=== PATIENT | female | born 1935 | race Caucasian/White ===

== ENCOUNTER 2018-09-27 16:12 | Inpatient (IN) | payer OTHER ==
[2018-09-27 17:29] LABS: Absolute Lymphocytes (CBC) 1.2 K/uL (0.7-4.9); Absolute Monocytes 1.1 K/uL (0.1-1.3); Absolute Neutrophil 8.8 K/uL (1.8-8.0); Basophils % 0.8 % (0-1.3); Eosinophils % 0.6 % (0-4.4); Hematocrit 47.1 % (36.0-45.0); Lymphocytes % 10.7 % (15.3-44.8); MPV 9.5 fL (7.6-11.3); Monocytes % 9.5 % (3.3-12.3); Protime INR 0.95; RBC Red Blood Cell Count 5.09 M/uL (3.86-4.86)
--- NOTE | 2018-09-27 17:44 | RAD REPORT ---
EXAM DESCRIPTION: CT - Thorax Wo Con - 09/27/2018 5:34 pm CLINICAL HISTORY: Chest pain status post fall COMPARISON: None TECHNIQUE: Computed axial tomography of the chest was obtained. Contrast was not requested. All CT scans are performed using dose optimization technique as appropriate and may include automated exposure control or mA/KV adjustment according to patient size. FINDINGS: The evaluation of mediastinum, keyanna and vessels is limited secondary to lack of IV contras t administration. A mediastinal hematoma is not seen. A pulmonary contusion is not noted A pleural effusion is not present. A pericardial effusion is not seen Coronary arterial calcifications IMPRESSION: No acute traumatic injury involving the chest
[2018-09-27 17:50] LABS: ALT/SGPT 23 U/L (12-78); AST/SGOT 11 U/L (15-37); Albumin 3.6 g/dL (3.4-5.0); Alkaline Phosphatase 99 U/L (45-117); BUN Blood Urea Nitrogen 14 mg/dL (7-18); Bicarbonate 28 mmol/L (21-32); Bilirubin Direct 0.2 mg/dL (0-0.2); Bilirubin Total 0.6 mg/dL (0.2-1.0); Glucose Level 150 mg/dL (74-106); Magnesium 2.1 mg/dL (1.8-2.4); NT PRO-BNP 345 pg/mL (<450); Potassium 3.3 mmol/L (3.5-5.1); Protein, Total 6.8 g/dL (6.4-8.2); Sodium Level 144 mmol/L (136-145); Troponin (Emerg Dept Use Only) < 0.02 ng/mL (0.0-0.045)
--- NOTE | 2018-09-27 18:15 | ER ---
Nurse's Notes [facility] Name: Kailee Mcgraw Age: 82 yrs Sex: Female : 1935 Arrival Date: 09/27/2018 Time: 16:16 Bed 16 Private MD: Diagnosis: Syncope and collapse Presentation: 09/27 16:26 Presenting complaint: Patient states: I was walking in the hallway of my house to the restroom last night when I passed out, waking up on the floor. Today my left side of ribs are hurting and Im also concerned because Im still dizzy, I do have a history of cardiac arrthymia with PVC's and is my cardiology. Transition of care: patient was not received from another setting of care. Onset of symptoms was September 27, 2018. Risk Assessment: Do you want to hurt yourself or someone else? Patient reports no desire to harm self or others. Initial Sepsis Screen: Does the patient meet any 2 criteria? No. Patient's initial sepsis screen is negative. Does the patient have a suspected source of infection? No. Patient's initial sepsis screen is negative. Care prior to arrival: None. 16:26 Acuity: IAN 2 sg 16:26 Method Of Arrival: Ambulatory sg Historical: - Allergies: 16:34 No Known Allergies; sg - Home Meds: 16:34 amlodipine oral once daily [Active]; levothyroxine 88 mcg tab 1 tab once daily sg [Active]; omeprazole 40 mg Oral cpDR 1 cap once daily [Active]; tramadol 50 mg Oral tab [Active]; metoclopramide HCl 10 mg Oral tab 1 tab once daily [Active]; lorazepam 1 mg Oral tab [Active]; atorvastatin 20 mg oral tab 1 tab once daily [Active]; pentoxifylline 400 mg oral TbER 1 tab 3 times per day [Active]; bisoprolol fumarate 5 mg oral tab 1 tab once daily [Active]; gabapentin 300 mg oral cap [Active]; Temazepam Oral [Active]; Novolin N Sub-Q [Active]; - PMHx: 16:34 Diabetes - IDDM; Hypertension; sg - Immunization history:: Adult Immunizations up to date. - Social history:: Smoking status: Patient/guardian denies using tobacco. - Ebola Screening: : Patient negative for fever greater than or equal to 101.5 degrees Fahrenheit, and additional compatible Ebola Virus Disease symptoms Patient denies exposure to infectious person Patient denies travel to an Ebola-affected area in the 21 days before illness onset No symptoms or risks identified at this time. Screenin:20 Abuse screen: Denies threats or abuse. Nutritional screening: No deficits noted. rb1 Tuberculosis screening: No symptoms or risk factors identified. Fall Risk Fall in past 12 months (25 points). No secondary diagnosis (0 pts). IV access (20 points). Ambulatory Aid- None/Bed Rest/Nurse Assist (0 pts). Gait- Normal/Bed Rest/Wheelchair (0 pts) Mental Status- Oriented to own ability (0 pts). Assessment: 16:20 General: Appears in no apparent distress. comfortable, Behavior is calm, cooperative. rb1 Pain: Complains of pain in left anterior ribs Pain radiates to left back Pain currently is 10 out of 10 on a pain scale. Pain began last night at 10:00 pm. Neuro: Level of Consciousness is awake, alert, obeys commands, Oriented to person, place, time, situation. Cardiovascular: Rhythm is sinus arrythmia. Respiratory: Airway is patent Respiratory effort is even, unlabored, Respiratory pattern is regular, symmetrical. GI: Reports nausea. : No signs and/or symptoms were reported regarding the genitourinary system. Derm: Skin is pink, warm \T\ dry. Reports wound on right upper arm due to the fall yesterday. Musculoskeletal: Range of motion: intact in all extremities. Injury Description: fall injury. 17:20 Reassessment: Patient appears in no apparent distress at this time. No changes from rb1 previously documented assessment. Family at bedside. Patient denies pain at this time. 18:20 Reassessment: Patient appears in no apparent distress at this time. Patient and/or rb1 family updated on plan of care and expected duration. Pain level reassessed. Patient is alert, oriented x 3, equal unlabored respirations, skin warm/dry/pink. Patient denies pain at this time. 19:10 Reassessment: Patient appears in no apparent distress at this time. Pt. went to CT. rb1 19:20 Reassessment: Patient appears in no apparent distress at this time. Patient and/or jb4 family updated on plan of care and expected duration. Pain level reassessed. Patient is alert, oriented x 3, equal unlabored respirations, skin warm/dry/pink. Family is at the bedside. Patient denies pain at this time. 19:40 Reassessment: Attempted to call report, instructed to wait for call back. jb4 Vital Signs: 16:34 BP 160 / 80; Pulse 92; Resp 17 S; Temp 97.2; Pulse Ox 100% on R/A; Pain 0/10; sg 17:30 BP 157 / 70; Pulse 89; Resp 18; Temp 97.8(O); Pulse Ox 98% on R/A; Pain 4/10; rb1 18:06 BP 156 / 59; Pulse 90; Resp 15; Temp 98.0(O); Pulse Ox 99% on R/A; mh5 18:30 BP 123 / 84; Pulse 95; Resp 16; Temp 98.9(O); Pulse Ox 99% on R/A; Pain 0/10; rb1 19:30 BP 182 / 73; Pulse 82; Resp 18; Temp 98.7(O); Pulse Ox 99% on R/A; jb4 20:00 BP 166 / 69; Pulse 91; Resp 16; Pulse Ox 97% on R/A; jb4 ED Course: 16:16 Patient arrived in ED. tw3 16:20 Patient has correct armband on for positive identification. Bed in low position. Call rb1 light in reach. Side rails up X 1. alarm security or surveillance monitor on. Pulse ox on. NIBP on. 16:28 Triage completed. sg 16:28 Arm band placed on. sg 16:31 Israel Argueta MD is Attending Physician. gs 16:45 Inserted saline lock: 22 gauge in left antecubital area, using aseptic technique. Blood rb1 collected. 16:49 Mayra Vale, RN is Primary Nurse. rb1 17:31 CT completed. Patient tolerated procedure well. Patient moved back from CT. bq 17:34 CT Chest Wo Con In Process Unspecified. EDMS 18:13 Gayatri Kennedy MD is Hospitalizing Provider. gs 19:[address] eh 19:14 CT completed. Patient tolerated procedure well. Patient moved back from CT. mw3 19:19 Head Brain Wo Cont In Process Unspecified. EDMS 20:11 No provider procedures requiring assistance completed. Patient admitted, IV remains in jb4 place. Administered Medications: No medications were administered Outcome: 18:14 Decision to Hospitalize by Provider. 20:11 Admitted to Tele accompanied by tech, via wheelchair, room 403, with chart, Report jb4 called to KARIME Moise 20:11 Condition: stable 20:11 Discharge instructions given to patient, family, Instructed on the need for admit, Demonstrated understanding of instructions, follow-up care. 20:16 Patient left the ED. jb4 Signatures: Dispatcher [employer] EDMS Alexsander De Dios, RN RN Harris Ibanez Betty Mayra Vale RN RN [facility] Marino Moe RN RN jb Mireya Hebert Lady Wang 3 Israel Argueta MD MD Anne Marie Carrion mw3 Corrections: (The following items were deleted from the chart) 18:09 18:06 Pulse 90bpm; Resp 15bpm; Pulse Ox 99% RA; Temp 98.0F Oral; 5 [facility] 20:11 19:40 BP 166 / 69; Pulse 91bpm; Resp 16bpm; Pulse Ox 97% RA; jb4 jb4
--- NOTE | 2018-09-27 18:15 | EDPHYS ---
Physician Documentation [facility] Name: Kailee Mcgraw Age: 82 yrs Sex: Female : 1935 Arrival Date: 09/27/2018 Time: 16:16 Bed 16 Private MD: ED Physician Israel Argueta HPI: 09/27 18:05 This 82 yrs old Female presents to ER via Ambulatory with complaints of gs Syncope, Dizziness, Fall Injury. 18:05 The patient has experienced syncope, became unresponsive. Onset: The symptoms/episode gs began/occurred yesterday, last night. Duration: This was a single episode. Associated injury: Chest: contusion. Associated signs and symptoms: Pertinent negatives: abdominal pain, chest pain. Current symptoms: Currently, the patient is not experiencing any symptoms. The patient has not experienced similar symptoms in the past. Historical: - Allergies: 16:34 No Known Allergies; sg - Home Meds: 16:34 amlodipine oral once daily [Active]; levothyroxine 88 mcg tab 1 tab once daily sg [Active]; omeprazole 40 mg Oral cpDR 1 cap once daily [Active]; tramadol 50 mg Oral tab [Active]; metoclopramide HCl 10 mg Oral tab 1 tab once daily [Active]; lorazepam 1 mg Oral tab [Active]; atorvastatin 20 mg oral tab 1 tab once daily [Active]; pentoxifylline 400 mg oral TbER 1 tab 3 times per day [Active]; bisoprolol fumarate 5 mg oral tab 1 tab once daily [Active]; gabapentin 300 mg oral cap [Active]; Temazepam Oral [Active]; Novolin N Sub-Q [Active]; - PMHx: 16:34 Diabetes - IDDM; Hypertension; sg - Immunization history:: Adult Immunizations up to date. - Social history:: Smoking status: Patient/guardian denies using tobacco. - Ebola Screening: : Patient negative for fever greater than or equal to 101.5 degrees Fahrenheit, and additional compatible Ebola Virus Disease symptoms Patient denies exposure to infectious person Patient denies travel to an Ebola-affected area in the 21 days before illness onset No symptoms or risks identified at this time. ROS: 18:23 All other systems are negative. gs Exam: 18:23 Head/Face: Normocephalic, atraumatic. Eyes: Pupils equal round and reactive to light, gs extra-ocular motions intact. Lids and lashes normal. Conjunctiva and sclera are non-icteric and not injected. Cornea within normal limits. Periorbital areas with no swelling, redness, or edema. ENT: Nares patent. No nasal discharge, no septal abnormalities noted. Tympanic membranes are normal and external auditory canals are clear. Oropharynx with no redness, swelling, or masses, exudates, or evidence of obstruction, uvula midline. Mucous membranes moist. Neck: Trachea midline, no thyromegaly or masses palpated, and no cervical lymphadenopathy. Supple, full range of motion without nuchal rigidity, or vertebral point tenderness. No Meningismus. Cardiovascular: Regular rate and rhythm with a normal S1 and S2. No gallops, murmurs, or rubs. Normal PMI, no JVD. No pulse deficits. 18:23 Back: No spinal tenderness. No costovertebral tenderness. Full range of motion. MS/ Extremity: Pulses equal, no cyanosis. Neurovascular intact. Full, normal range of motion. Neuro: Awake and alert, GCS 15, oriented to person, place, time, and situation. Cranial nerves II-XII grossly intact. Motor strength 5/5 in all extremities. Sensory grossly intact. Cerebellar exam normal. Normal gait. 18:23 Chest/axilla: Inspection: normal, Palpation: tenderness, that is moderate, of the left lateral posterior chest, that totally reproduces the patient's complaints. 18:23 Skin: injury, avulsion(s), a very small of the right elbow. 18:23 ECG was reviewed by the Attending Physician. Vital Signs: 16:34 BP 160 / 80; Pulse 92; Resp 17 S; Temp 97.2; Pulse Ox 100% on R/A; Pain 0/10; sg 17:30 BP 157 / 70; Pulse 89; Resp 18; Temp 97.8(O); Pulse Ox 98% on R/A; Pain 4/10; rb1 18:06 BP 156 / 59; Pulse 90; Resp 15; Temp 98.0(O); Pulse Ox 99% on R/A; mh5 18:30 BP 123 / 84; Pulse 95; Resp 16; Temp 98.9(O); Pulse Ox 99% on R/A; Pain 0/10; rb1 19:30 BP 182 / 73; Pulse 82; Resp 18; Temp 98.7(O); Pulse Ox 99% on R/A; jb4 20:00 BP 166 / 69; Pulse 91; Resp 16; Pulse Ox 97% on R/A; jb4 MDM: 16:55 Patient medically screened. 18:23 Differential Diagnosis: cardiac arrhythmia, idiopathic syncope, vasovagal episode, rib gs fx. Data reviewed: vital signs, nurses notes, lab test result(s), EKG, radiologic studies. Response to treatment: There is no appreciated change of the patient's symptoms at this time. 09/27 16:56 Order name: Basic Metabolic Panel 09/27 16:56 Order name: CBC with Diff 09/27 16:56 Order name: LFT's 09/27 16:56 Order name: Magnesium 09/27 16:56 Order name: NT PRO-BNP 09/27 16:56 Order name: PT-INR; Complete Time: 17:57 09/27 16:56 Order name: Troponin (emerg Dept Use Only); Complete Time: 17:57 09/27 16:56 Order name: CT Chest Wo Con; Complete Time: 17:57 09/27 16:57 Order name: Basic Metabolic Panel; Complete Time: 17:57 EDCT 09/27 16:57 Order name: CBC with Automated Diff; Complete Time: 17:57 EDCT 09/27 16:57 Order name: Liver (Hepatic) Function; Complete Time: 17:57 EDCT 09/27 16:57 Order name: Magnesium; Complete Time: 17:57 EDCT 09/27 16:57 Order name: NT PRO-BNP; Complete Time: 17:57 EDCT 09/27 19:02 Order name: Head Brain Wo Cont EDCT 09/27 16:56 Order name: EKG; Complete Time: 16:57 09/27 16:56 Order name: Cardiac monitoring; Complete Time: 17:47 09/27 16:56 Order name: EKG - Nurse/Tech; Complete Time: 17:47 09/27 16:56 Order name: IV Saline Lock; Complete Time: 17:47 09/27 16:56 Order name: Labs collected and sent; Complete Time: 17:47 09/27 16:56 Order name: O2 Per Protocol; Complete Time: 17:47 09/27 16:56 Order name: O2 Sat Monitoring; Complete Time: 17:47 gs EC:23 Rate is 77 beats/min. Rhythm is regular. DE interval is normal. QRS interval is normal. QT interval is normal. T waves are Inverted. Clinical impression: NSR w/ Non-specific ST/T Changes. Interpreted by me. Administered Medications: No medications were administered Disposition: 09/27/18 18:14 Hospitalization ordered by Gayatri Kennedy for Observation. Preliminary diagnosis is Syncope and collapse. - Bed requested for Telemetry/MedSurg (observation). - Status is Observation. jb4 - Condition is Stable. - Problem is new. - Symptoms have improved. UTI on Admission? No Signatures: Dispatcher [employer] EDMS Alexsander De Dios RN KARIME Yessica Hartley RN KARIME Marino Moe RN RN jb4 Israel Argueta MD MD Corrections: (The following items were deleted from the chart) 19:25 18:14 Hospitalization Ordered by Gayatri Kennedy MD for Observation. Preliminary cg diagnosis is Syncope and collapse. Bed requested for Telemetry/MedSurg (observation). Status is Observation. Condition is Stable. Problem is new. Symptoms have improved. UTI on Admission? No. 20:16 19:25 09/27/2018 18:14 Hospitalization Ordered by Gayatri Kennedy MD for Observation. jb4 Preliminary diagnosis is Syncope and collapse. Bed requested for Telemetry/MedSurg (observation). Status is Observation. Condition is Stable. Problem is new. Symptoms have improved. UTI on Admission? No.
--- NOTE | 2018-09-27 19:43 | RAD REPORT ---
EXAM DESCRIPTION: CT - Head Brain Wo Cont - 09/27/2018 7:18 pm CLINICAL HISTORY: Syncope COMPARISON: None. TECHNIQUE: Computed axial tomography of the head was obtained. IV contrast was not requested. All CT scans are performed using dose optimization technique as appropriate and may include automated exposure control or mA/KV adjustment according to patient size. FINDINGS: An intracranial bleed is not seen . The ventricles are normal in caliber. No extra-axial fluid collection is noted. Fluid within the sinuses/ mastoids is not seen. IMPRESSION: No acute intracranial abnormality is seen. If patient's symptoms persist MRI of the bra in would be recommended.
[2018-09-27] MEDS: INSULIN -REGULAR HUMAN 50 UNIT/0.5 ML ML SQ SCH (21:00)
[2018-09-27 21:10] LABS: Troponin I < 0.02 ng/mL (0.0-0.045)
[2018-09-27] MEDS ORDERED: GLUCAGON 1 MG/VIAL IM PRN (22:29)
[2018-09-27] MEDS ORDERED: D50W 25 GM/50 ML SYRINGE IV PRN (22:29)
[2018-09-27] MEDS ORDERED: POTASSIUM CL SA 10 MEQ TAB PO ONE (22:35)
--- NOTE | 2018-09-27 22:42 | P.HP ---
Certification for Inpatient Patient admitted to: Observation Practitioner: I am a practitioner with admitting privileges, knowledge of patient current condition, hospital course, and medical plan of care. Services: Services provided to patient in accordance with Admission requirements found in Title 42 Section 412.3 of the Code of Federal Regulations Patient History Date of Service: 09/27/18 Reason for admission: s/p fall History of Present Illness: 82 y/o woman with pmhx of HTn,DM,Hypothyordism ,anxiety presented to ER s/p fall with loc ,pt fell and hit her chest ,denied head trauma but reported loss of consciosness for less than 1 min,denied Cp,shaking,SOB,palpitation,ringigng in the ear ,recent change in her meds ,recent viral infections.pt denied fever, change in urinary or bowel habits ,headache,visual changes .pt mentioned that she was having dizzy spells for the last few days which mostly occurs with movement and standing. Allergies No Known Allergies Allergy (Verified 09/27/18 22:14) - Past Medical/Surgical History Has patient received pneumonia vaccine in the past: Yes Diabetic: Yes -: HTN -: IDDM -: PAD -: Heart arrhythmias PVC -: Hysterectomy -: tonsillectomy -: appendectomy -: tendonitis -: back surgery - Family History Mother -: Hypertension Father History Unknown: Yes - Social History Smoking Status: Former smoker Alcohol use: No CD- Drugs: No Caffeine use: Yes Place of Residence: Home Review of Systems 10-point ROS is otherwise unremarkable Physical Examination - Vital Signs Temperature: 98.5 F Blood Pressure: 189/78 Pulse: 74 Respirations: 18 Pulse Ox (%): 97 - Physical Exam General: Alert, In no apparent distress, Oriented x3 HEENT: Atraumatic, Normocephalic, PERRLA Neck: JVD not distended Respiratory: Clear to auscultation bilaterally, Normal air movement Cardiovascular: No edema, Normal pulses, Regular rate/rhythm, Normal S1 S2 Gastrointestinal: Soft and benign, Non-distended Musculoskeletal: No clubbing, No swelling, No tenderness Integumentary: No rashes Neurological: Normal speech, Normal strength at 5/5 x4 extr, Sensation intact - Studies Laboratory Data (last 24 hrs) 09/27/18 16:45: PT 11.2, INR 0.95 09/27/18 16:45: WBC 11.3 H, Hgb 15.7 H, Hct 47.1 H, Plt Count 210 09/27/18 16:45: Sodium 144, Potassium 3.3 L, BUN 14, Creatinine 0.79, Glucose 150 H, Magnesium 2.1, Total Bilirubin 0.6, AST 11 L, ALT 23, Alkaline Phosphatase 99 Assessment and Plan - Plan assessment/plan: fall s/p syncope cerial ce and ekg head ct eeg echo cardiology consult check for orthostasis pt/ot mild leukocytosis no abx for now could stress induced leukocytosis continue to monitor hypokalemia replace lectrolytes HTN and DM continue home meds dvt ppx Discharge Plan: Home Plan to discharge in: 24 Hours - Advance Directives Does patient have a Living Will: No Does patient have a Durable POA for Healthcare: No
[2018-09-27] MEDS ORDERED: METOPROLOL TAR 25 MG TAB PO ONE (23:00)
[2018-09-28 05:15] LABS: Absolute Lymphocytes (CBC) 1.3 K/uL (0.7-4.9); Absolute Monocytes 0.8 K/uL (0.1-1.3); Absolute Neutrophil 5.3 K/uL (1.8-8.0); Basophils % 0.8 % (0-1.3); Eosinophils % 1.5 % (0-4.4); Hematocrit 41.2 % (36.0-45.0); Lymphocytes % 17.5 % (15.3-44.8); MPV 9.2 fL (7.6-11.3); Monocytes % 10.7 % (3.3-12.3); RBC Red Blood Cell Count 4.49 M/uL (3.86-4.86)
[2018-09-28] MEDS: PANTOPRAZOLE 40MG TABLET PO SCH (05:18)
[2018-09-28] MEDS: LEVOTHYROXINE SOD 0.088 MG TAB PO SCH (05:18)
[2018-09-28 05:38] LABS: Bilirubin Total 0.6 mg/dL (0.2-1.0); Potassium 3.9 mmol/L (3.5-5.1); Protein, Total 5.7 g/dL (6.4-8.2)
[2018-09-28 05:45] LABS: Urine Appearance CLEAR; Urine Bilirubin NEGATIVE (NEG); Urine Blood NEGATIVE (NEG); Urine Color YELLOW; Urine Glucose 3+ (NEG); Urine Protein NEGATIVE (NEG)
[2018-09-28 05:47] LABS: Urine Microscopic Reflex NO UMIC
[2018-09-28] MEDS ORDERED: METOPROLOL TAR 25 MG TAB PO SCH (06:00)
--- NOTE | 2018-09-28 06:19 | EKG ---
Test Date: 2018-09-27 Test Time: 22:48:05 Well Treatment Offsider: RT Beltran MEASUREMENT RESULTS: Intervals: Rate: 84 MS: 162 QRSD: 104 QT: 390 QTc: 460 Ponce: P: 76 MS: 162 QRS: -39 T: 93 INTERPRETIVE STATEMENTS: Sinus rhythm with premature supraventricular complexes Left axis deviation Left ventricular hypertrophy with repolarization abnormality Possible Lateral infarct, age undetermined Abnormal ECG Compared to ECG 11/22/2011 14:52:14 Atrial premature complex(es) now present Early repolarization now present Myocardial infarct finding still present Electronically Signed On 09-28-18 06:18:37 CDT by Pancho Andrews
--- NOTE | 2018-09-28 06:20 | EKG ---
Test Date: 2018-09-27 Test Time: 16:38:03 Job Service Specialist: MEASUREMENT RESULTS: Intervals: Rate: 77 MT: 182 QRSD: 82 QT: 356 QTc: 402 Taylor: P: -16 MT: 182 QRS: 100 T: -36 INTERPRETIVE STATEMENTS: Normal sinus rhythm with sinus arrhythmia Rightward axis Minimal voltage criteria for LVH, may be normal variant T wave abnormality, consider inferior ischemia Abnormal ECG Compared to ECG 11/22/2011 14:52:14 Right-axis deviation now present T-wave abnormality now present Possible ischemia now present Left-axis deviation no longer present Electronically Signed On 09-28-18 06:19:38 CDT by Pancho Andrews
[2018-09-28] MEDS: METOCLOPRAMIDE 5 MG TAB PO SCH ×4 (08:57→21:37)
[2018-09-28] MEDS: BENAZEPRIL 20 MG TAB PO SCH (08:57)
[2018-09-28] MEDS: INSULIN -REGULAR HUMAN 50 UNIT/0.5 ML ML SQ SCH ×5 (08:57→21:00)
[2018-09-28] MEDS: PENTOXIFYLLINE ER 400 MG TAB PO SCH ×3 (08:58→21:37)
[2018-09-28] MEDS: POTASS/SODIUM PHOSPHATE 1 PKT POWD.PACK PO SCH ×3 (08:58→13:08)
[2018-09-28] MEDS: ENOXAPARIN 40 MG/0.4 ML SQ SCH (08:59)
[2018-09-28] MEDS ORDERED: BISOPROLOL 5 MG TABLET PO SCH (09:00)
[2018-09-28] MEDS ORDERED: POTASSIUM CL SA 10 MEQ TAB PO ONE (09:00)
[2018-09-28] MEDS: NPH (HUMAN) 100 UNITS/ML INSULIN SQ SCH (10:34)
[2018-09-28] MEDS: AMLODIPINE 10 MG TAB PO SCH (10:35)
--- NOTE | 2018-09-28 11:22 | P.PN ---
Subjective Date of Service: 09/28/18 Chief Complaint: s/p fall Subjective: No new changes, Improving, Doing well Review of Systems 10-point ROS is otherwise unremarkable Physical Examination - Vital Signs Temperature: 98.0 F Blood Pressure: 179/80 Pulse: 66 Respirations: 16 Pulse Ox (%): 98 - Physical Exam General: Alert, In no apparent distress, Oriented x3 HEENT: Atraumatic, Normocephalic, PERRLA Neck: Supple, 2+ carotid pulse no bruit, JVD not distended Respiratory: Clear to auscultation bilaterally, Normal air movement Cardiovascular: No edema, Normal pulses, Regular rate/rhythm, Normal S1 S2 Gastrointestinal: Normal bowel sounds, Soft and benign, Non-distended Musculoskeletal: No clubbing, No swelling, No erythema, No tenderness Integumentary: No rashes Neurological: Normal speech, Normal strength at 5/5 x4 extr - Studies Laboratory Data (last 24 hrs) 09/27/18 16:45: PT 11.2, INR 0.95 09/27/18 16:45: WBC 11.3 H, Hgb 15.7 H, Hct 47.1 H, Plt Count 210 09/27/18 16:45: Sodium 144, Potassium 3.3 L, BUN 14, Creatinine 0.79, Glucose 150 H, Magnesium 2.1, Total Bilirubin 0.6, AST 11 L, ALT 23, Alkaline Phosphatase 99 Assessment And Plan - Plan assessment/plan: fall s/p syncope cerial ce and ekg head ct eeg echo cardiology consult check for orthostasis pt/ot mild leukocytosis no abx for now could stress induced leukocytosis continue to monitor hypokalemia replace lectrolytes HTN and DM continue home meds dvt ppx Discharge Plan: Home Plan to discharge in: 24 Hours
--- NOTE | 2018-09-28 16:05 | CON ---
Chief Complaint: Loss of consciousness. History Of Present Illness: For several days, perhaps longer, the patient has noted waves of some ki nd of spell coming over her. She would feel like she is going to faint, and then before she thinks i t is gone and she is fine, they have occurred mostly standing but also sitting. She does not feel an ything in her chest, but since she has been on telemetry, she has had several of these waves and its tachycardia; it seems to be narrow complex, the complexes identical or extremely similar to her nativ e QRS complex in the lead. 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 It goes about 170 beats per minute, typical that kind of the arrhythmia. In the past, we have known that she has PVCs. She takes Zebeta, but once a day, not slow release form or continu ous beta blockers. It is not really clear whether she has any fewer symptoms in a few hours after sh e takes a beta or not. She is known in the past to have a normal ejection fraction, normal stress te st, and she had PVCs, and they have been under fairly good control. She has never had myocardial inf arction or stroke. She had 1 episode of syncope, but was awake within a minute of when she felt, it was when she was shopping. She tried to lean over to keep from fainting, but it did not work. Physical Examination: Vital Signs: On physical exam, 5 feet 4 inches, 145 pounds. Appears to be her stated age. General: Alert, oriented, pleasant, not in distress. Carotids: No bruit. Lungs: Clear. Cardiac Exam: Normal. Abdomen: Soft. Extremities: Normal. Telemetry shows the arrhythmia, several episodes; one was 35 beats long. I imagine that if she had t his rhythm for 40 seconds or longer, then she would probably become very hypotensive, perhaps syncopa l if she is standing. So, I am going to change her beta-jenna regimen to see if we have any indica tion that there are fewer spells. If not, then I will try to arrange a transfer to [facility]. If we can make it so she has few spells, tolerates the medicine, we can let her go home and visi t the head custodian as an outpatient; because of a very rapid nature of the arrhythmia frequenc y of it, I would recommend she go through an ablation, but I suspect it would be a typical AV node mo dification, not prolonged pulmonary vein isolation procedure and something she could tolerate well. REINA/YADIRA Voice ID: [id number] Report ID: [id number]
[2018-09-28] MEDS: METOPROLOL XL 50 MG TAB PO SCH (17:41)
[2018-09-28] MEDS: ATORVASTATIN 20 MG TAB PO SCH (21:37)
[2018-09-29 06:14] LABS: Phosphorus 2.6 mg/dL (2.5-4.9); Potassium 4.7 mmol/L (3.5-5.1)
[2018-09-29] MEDS: PANTOPRAZOLE 40MG TABLET PO SCH (06:26)
[2018-09-29] MEDS: LEVOTHYROXINE SOD 0.088 MG TAB PO SCH (06:26)
[2018-09-29] MEDS: METOPROLOL XL 50 MG TAB PO SCH (06:26)
[2018-09-29] MEDS: INSULIN -REGULAR HUMAN 50 UNIT/0.5 ML ML SQ SCH ×4 (07:30→20:57)
[2018-09-29] MEDS: ENOXAPARIN 40 MG/0.4 ML SQ SCH (09:23)
[2018-09-29] MEDS: BENAZEPRIL 20 MG TAB PO SCH (09:24)
[2018-09-29] MEDS: PENTOXIFYLLINE ER 400 MG TAB PO SCH ×3 (09:24→20:56)
[2018-09-29] MEDS: AMLODIPINE 10 MG TAB PO SCH (09:24)
[2018-09-29] MEDS: METOCLOPRAMIDE 5 MG TAB PO SCH ×4 (09:24→20:58)
[2018-09-29] MEDS: NPH (HUMAN) 100 UNITS/ML INSULIN SQ SCH (09:25)
--- NOTE | 2018-09-29 10:16 | ECHO ---
HEIGHT: 5 ft 4 in WEIGHT: 145 lb 0 oz DATE OF STUDY: 09/29/[address]: Pancho Andrews MD 2-DIMENSIONAL: YES M.MODE: YES DOPPLER: YES COLOR FLOW: YES TDS: NO PORTABLE: NO DEFINITY: NO BUBBLE STUDY: NO DIAGNOSIS: SYNCOPE CARDIAC HISTORY: CATHERIZATION: NO SURGERY: NO PROSTHETIC VALVE: NO PACEMAKER: NO MEASUREMENTS (cm) DIASTOLIC (NORMALS) SYSTOLIC (NORMALS) IVSd 1.2 (0.6-1.2) LA Diam 3.0 (1.9-4.0) LVEF 53% LVIDd 3.7 (3.5-5.7) LVIDs 2.7 (2.0-3.5) %FS 26% LVPWd 1.2 (0.6-1.2) Ao Diam 2.5 (2.0-3.7) 2 DIMENSIONAL ASSESSMENT: RIGHT ATRIUM: NORMAL LEFT ATRIUM: NORMAL RIGHT VENTRICLE: NORMAL LEFT VENTRICLE: MILD LEFT VENTRICULAR HYPERTROPHY TRICUSPID VALVE: NORMAL MITRAL VALVE: NORMAL PULMONIC VALVE: NORMAL AORTIC VALVE: 3 LEAFLET, MILD SCLEROSIS PERICARDIAL EFFUSION: NONE AORTIC ROOT: NORMAL LEFT VENTRICULAR WALL MOTION: NORMAL DOPPLER/COLOR FLOW: MILD AORTIC, MITRAL AND TRICUSPID REGURGITATION. NO AORTIC STENOSIS. ESTIMATED RIGHT VENTRICULAR SYSTOLIC PRESSURE 36 mmHg. MILD PULMONARY HYPERTENSION. COMMENTS: NORMAL LEFT VENTRICULAR EJECTION FRACTION. LEFT VENTRICULAR HYPERTROPHY. AORTIC SCLEROSIS. MILD AORTIC, MITRAL AND TRICUSPID REGURGITATION. MILD PULMONARY HYPERTENSION. TECHNOLOGIST: Sylvie JIMENEZ
[2018-09-29] MEDS ORDERED: AMLODIPINE 5 MG TAB PO ONE (10:24)
[2018-09-29] MEDS ORDERED: HYDRALAZINE HCL 20 MG/ML VIAL IV ONE (11:44)
[2018-09-29] MEDS ORDERED: MAGNESIUM SULFATE 1 gm IVPB 1 GM/100 ML BAG IV ONE (12:06)
[2018-09-29 12:42] LABS: Magnesium 2.1 mg/dL (1.8-2.4)
--- NOTE | 2018-09-29 12:50 | EKG ---
Test Date: 2018-09-29 Test Time: 08:39:15 Study Director: JONNATHAN MEASUREMENT RESULTS: Intervals: Rate: 97 NV: 172 QRSD: 96 QT: 352 QTc: 447 [place]: P: 71 NV: 172 QRS: -41 T: 91 INTERPRETIVE STATEMENTS: Normal sinus rhythm Left axis deviation Left ventricular hypertrophy with repolarization abnormality Inferior infarct, age undetermined Anterior infarct, age undetermined Abnormal ECG Compared to ECG 09/27/2018 22:48:05 Atrial premature complex(es) no longer present Myocardial infarct finding still present Electronically Signed On 09-29-18 12:50:07 CDT by Pancho Andrews
[2018-09-29] MEDS ORDERED: ADENOSINE 6 MG/ 2ML VIAL IV ONE ×2 (13:06→13:11)
[2018-09-29] MEDS ORDERED: NA CHLORIDE 0.9% 1,000 ML ONE (13:07)
--- NOTE | 2018-09-29 13:10 | PN ---
Ms. Mcgraw continues to have syncopal spells with what I initially thought was SVTs. Sometimes the Q RS is wider, but in any event, she needs a study by an septic tank cleaner. Dr. Burks has agreed to take her in transfer. Hopefully that will happen today. REINA/YADIRA Voice ID: [id number] Report ID: [id number]
[2018-09-29] MEDS ORDERED: dilTIAZem HCl 25 MG/5 ML VIAL IV ONE (13:15)
[2018-09-29] MEDS ORDERED: DILTIAZEM HCL 60 MG TAB ONE (13:19)
--- NOTE | 2018-09-29 15:10 | EKG ---
Test Date: 2018-09-29 Test Time: 13:03:57 Supervisor Weaving: JONNATHAN MEASUREMENT RESULTS: Intervals: Rate: 100 WV: 212 QRSD: 108 QT: 330 QTc: 425 [place]: P: WV: 212 QRS: -42 T: 134 INTERPRETIVE STATEMENTS: Sinus rhythm with 1st degree AV block with premature supraventricular complexes Left bundle branch block Abnormal ECG Compared to ECG 09/29/2018 13:01:11 Atrial premature complex(es) now present First degree AV block now present Supraventricular tachycardia no longer present Electronically Signed On 09-29-18 15:10:02 CDT by Pancho Andrews
--- NOTE | 2018-09-29 15:11 | EKG ---
Test Date: 2018-09-29 Test Time: 13:01:11 Rental Sales Associate: JONNATHAN MEASUREMENT RESULTS: Intervals: Rate: 196 MN: QRSD: 112 QT: 236 QTc: 426 [place]: P: MN: QRS: -57 T: 155 INTERPRETIVE STATEMENTS: Supraventricular tachycardia Left axis deviation Left bundle branch block Abnormal ECG Compared to ECG 09/29/2018 08:39:15 Left bundle-branch block now present Electronically Signed On 09-29-18 15:10:34 CDT by Pancho Andrews
--- NOTE | 2018-09-29 15:58 | PN ---
Date of Progress Note: 09/29/2018 The patient states she has continued to have a few episodes, although nothing as severe as when she w as brought in to the hospital and in fact, she has had increased runs and increased frequency. 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 HR/MODL Voice ID: [id number] Report ID: [id number]
[2018-09-29 16:12] VITALS: O2SAT 100
[2018-09-29] MEDS: DILTIAZEM HCL 60 MG TAB PO SCH (17:19)
[2018-09-29] MEDS: ATORVASTATIN 20 MG TAB PO SCH (20:56)
[2018-09-30] MEDS: DILTIAZEM HCL 60 MG TAB PO SCH ×4 (00:15→16:56)
[2018-09-30 05:44] LABS: Magnesium 2.4 mg/dL (1.8-2.4); Phosphorus 2.5 mg/dL (2.5-4.9); Potassium 4.2 mmol/L (3.5-5.1)
[2018-09-30 06:07] VITALS: BMI 25.6
[2018-09-30] MEDS: LEVOTHYROXINE SOD 0.088 MG TAB PO SCH (06:18)
[2018-09-30] MEDS: PANTOPRAZOLE 40MG TABLET PO SCH (06:18)
[2018-09-30] MEDS: INSULIN -REGULAR HUMAN 50 UNIT/0.5 ML ML SQ SCH ×3 (08:09→16:30)
[2018-09-30] MEDS: NPH (HUMAN) 100 UNITS/ML INSULIN SQ SCH (08:09)
[2018-09-30] MEDS: ENOXAPARIN 40 MG/0.4 ML SQ SCH (08:12)
[2018-09-30] MEDS: HYDRALAZINE HCL 25 MG TABLET PO SCH ×2 (08:12→15:00)
[2018-09-30] MEDS: METOCLOPRAMIDE 5 MG TAB PO SCH ×3 (08:16→16:56)
[2018-09-30] MEDS: BENAZEPRIL 20 MG TAB PO SCH (09:27)
[2018-09-30] MEDS: PENTOXIFYLLINE ER 400 MG TAB PO SCH ×2 (09:27→14:49)
--- NOTE | 2018-09-30 15:32 | PN ---
Date of Progress Note: 09/30/2018 The patient has had 1 run today earlier this morning. Otherwise, she has been quite stable. Still a waiting her bed, if in fact the transfer is accomplished later today, I think we can maintain her in the ICU on a present regimen IV and p.o. medications. If she is stable and not being able of transfe r, the possibility of moving her to the floor may open up her transfer bed in [place] and not requiri ng ICU care. The arrhythmia is rather complex including left bundle branch block, SVTs and QRS compl ex problems. Continue to be managed on the present regimen. Alert and seems to be tolerating situat ion at this time quite well. HR/MODL Voice ID: [id number] Report ID: [id number]
[2018-09-30] MEDS ORDERED: METOPROLOL TARTRATE 5 MG/5 ML INJ IV PRN (17:43)
[2018-09-30 18:26] VITALS: TEMP 97.8
[2018-09-30 20:21] VITALS: BP 124/64
== END 2018-09-30 20:20 | disposition short-term general hospital (02) | DRG 310 ==
LOC: ER 16:12 → 4TH 20:08 → 3RD-ICU 09-29 12:32 → OBSVTOIN 09-29 13:58
PROVIDERS: ADMIT Internal Medicine; ATTEND Internal Medicine
DX: I47.1 Supraventricular tachycardia (principal); I44.7 Left bundle-branch block, unspecified; E11.9 Type 2 diabetes mellitus without complications; E87.6 Hypokalemia; I73.9 Peripheral vascular disease, unspecified; Z87.891 Personal history of nicotine dependence
CPT/HCPCS: 36415; 70450; 71250; 80048; 80053; 80076; 81003; 82962; 83735; 83880; 84100; 84439; 84443; 84484; 85025; 85610; 93005; 93306; 96365; 96367; 99285; G0378; J0153; J0360; J1650; J3475; J7030

== ENCOUNTER 2020-01-28 21:03 | Inpatient (IN) | payer OTHER ==
--- OUTSIDE RECORDS SUMMARY | 2020-01-28 21:04 | XMS REPORT | Clinical Summary ---
:1935 Author Organization [facility] Address [address] [place] [address] Care Team Providers Name Role Phone Asked, No Pcp Primary Care Provider Unavailable Allergies No Known Allergies Medications Medication Sig Dispensed Refills Start Date End Date Status amlodipine-benazepril Take 1 capsule by 0 Active (LOTREL) 10-20 mg per mouth daily. capsule LORAZepam (ATIVAN) 1 MG Take 1 mg by 0 Active tablet mouth every 6 (six) hours as needed for anxiety. atorvastatin (LIPITOR) Take 20 mg by 0 Active 20 MG tablet mouth daily. Default OP ins insulin NPH (HumuLIN-N) Inject 29 Units 0 Active 100 unit/mL injection under the skin daily before breakfast. pentoxifylline Take 400 mg by 0 Active (TRENTal) 400 mg CR mouth 3 (three) tablet times a day with meals. omeprazole (PriLOSEC) Take 40 mg by 0 Active 40 MG capsule mouth daily. metoclopramide (REGLAN) Take 10 mg by 0 Active 10 MG tablet mouth 4 (four) times a day. And before bedtime traMADol (ULTRAM) 50 mg Take 50 mg by 0 Active tablet mouth daily as needed for moderate pain. levothyroxine Take 88 mcg by 0 A ctive (SYNTHROID, LEVOXYL) 88 mouth daily. mcg tablet Active Problems Problem Noted Date SVT (supraventricular tachycardia) 10/03/2018 Arrhythmia 09/30/2018 Encounters Date Type Specialty Care Team Description 01/25/2020 Telephone Cardiology Noelle Mack MA Appoint ment 01/22/2020 Telephone Cardiology Noelle Mack MA Appoint ment 08/05/2019 Travel 08/04/2019 Telephone Cardiology Noelle Mack MA Appoint ment (made several attempts to tarik ch patient regarding her a ppt.) 08/03/2019 Telephone Cardiology Noelle Mack MA Appoint ment after 01/27/2019 Social History Tobacco Use Types Packs/Day Years Used Date Never Smoker Smokeless Tobacco: Never Used Alcohol Use Drinks/Week oz/Week Comments Not Currently Sex Assigned at Date Recorded Not on file Job Start Date Occupation Industry Not on file Not on file Not on file Travel History Travel Start Travel End No recent travel history available. Last Filed Vital Signs Not on file Plan of Treatment Date Type Specialty Care Team Description 05/31/2020 Office Visit Cardiology Jermaine Foster MD PhD [address] [place], [place] [address] [phone] Health Maintenance Due Date Last Done Comments SHINGLES VACCINES (#1) 11/22/1983 65+ PNEUMOCOCCAL VACCINE (1 of 2 - PCV13) 1998 INFLUENZA VACCINE 01/12/2020 Implants Implanted Type Area Cannoneer Device Shelf Model / Identifier Expiration Serial / Date Lot Ilana Xt Mri - [id number] Cardiac N/A: [employer] CRM [id number] / Implanted: 10/02/2018 at [facility] (Quantity not on file) Pac emaker N/A [employer] / Generators Lead Pace Trnsvns Actv-Fxtn Atrl Adalberto Bipolar 52cm - Sb [id number] - [id number] Cardiac Pacing N/A: [employer] [facility] - 07/09/2020 LEAD [id number] 2 / Implanted: Qty: 1 on 10/02/2018 by Serafin Cortez Jr., M D at [facility] Leads or N/A CARDIAC RYHTYM [id number] / Electrodes or MGMT [id number] Accessories Lead, Pacing Active Fixation Atrial Ster oid Eluting Polyurethane 45 Centimeter Capsure Fix Novus - [id number] - [id number] Cardiac Pacing N/A: [employer] CRM 06/12/2020 [id number] / Implanted: Qty: 1 on 10/02/2018 by Serafin Cortez Jr., M D at [facility] Leads or N/A [employer] 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
--- NOTE | 2020-01-28 23:04 | EDPHYS ---
Physician Documentation [facility] Name: Kailee Mcgraw Age: 84 yrs Sex: Female : 1935 Arrival Date: 01/28/2020 Time: 21:03 Bed 6 Private MD: ED Physician Cabrera Gagnon HPI: 01/27 23:06 This 84 yrs old Female presents to ER via EMS with complaints of Hip Pain. snw 23:06 The patient or guardian reports decreased range of motion, deformity, an injury, pain. snw that occurred at home, sustained from a fall, mechanical, the left lower extremity is shortened, left leg is externally rotated, The patient is not able to ambulate. Patient is not able to bear weight. There is no radiation of the patient's discomfort. The complaints affect the left hip. Onset: The symptoms/episode began/occurred suddenly, just prior to arrival, and became persistent. Modifying factors: The symptoms are alleviated by remaining still. Severity of symptoms: At their worst the symptoms were mild, moderate. The patient has not experienced similar symptoms in the past. It is unknown whether or not the patient has recently seen a physician. Denies LOC. Historical: - Allergies: 21:21 No Known Allergies; rr5 - Home Meds: 21:21 levothyroxine 88 mcg tab 1 tab once daily [Active]; omeprazole 40 mg Oral cpDR 1 cap rr5 once daily [Active]; metoclopramide HCl 10 mg Oral tab 1 tab once daily [Active]; atorvastatin 20 mg Oral tab 1 tab once daily [Active]; amlodipine-benazepril oral oral [Active]; tramadol 50 mg Oral tab [Active]; lorazepam 1 mg Oral tab [Active]; Furosemide Oral [Active]; gabapentin oral oral [Active]; Sotalol Oral [Active]; Xarelto oral oral [Active]; Aspirin Oral [Active]; pentoxifyline 400 mg [Active]; - PMHx: 21:21 Diabetes - IDDM; Hypertension; Hypothyroidism; Hyperlipidemia; rr5 - PSHx: 21:21 pacemaker; Appendectomy; Tonsillectomy; Hysterectomy; rr5 - Immunization history:: Adult Immunizations up to date. - Social history:: Smoking status: unknown Patient/guardian denies using alcohol, IV drugs, tobacco products. - Immunization history: Last tetanus immunization: unknown. ROS: 23:07 Constitutional: Negative for fever, chills, and weight loss, Eyes: Negative for injury, snw pain, redness, and discharge, ENT: Negative for injury, pain, and discharge, Neck: Negative for injury, pain, and swelling, Cardiovascular: Negative for chest pain, palpitations, and edema, Respiratory: Negative for shortness of breath, cough, wheezing, and pleuritic chest pain, Abdomen/GI: Negative for abdominal pain, nausea, vomiting, diarrhea, and constipation, Back: Negative for injury and pain, : Negative for injury, bleeding, discharge, and swelling, MS/Extremity: Positive for injury and deformity of left hip s/p mechanical fall Skin: Negative for injury, rash, and discoloration, Neuro: Negative for headache, weakness, numbness, tingling, and seizure, Psych: Negative for depression, anxiety, suicide ideation, homicidal ideation, and hallucinations. Exam: 23:08 Constitutional: This is a well developed, well nourished patient who is awake, alert, snw and in no acute distress. Head/Face: Normocephalic, atraumatic. Eyes: Pupils equal round and reactive to light, extra-ocular motions intact. Lids and lashes normal. Conjunctiva and sclera are non-icteric and not injected. Cornea within normal limits. Periorbital areas with no swelling, redness, or edema. ENT: Nares patent. No nasal discharge, no septal abnormalities noted. Tympanic membranes are normal and external auditory canals are clear. Oropharynx with no redness, swelling, or masses, exudates, or evidence of obstruction, uvula midline. Mucous membranes moist. Neck: Trachea midline, no thyromegaly or masses palpated, and no cervical lymphadenopathy. Supple, full range of motion without nuchal rigidity, or vertebral point tenderness. No Meningismus. Chest/axilla: Normal chest wall appearance and motion. Nontender with no deformity. No lesions are appreciated. Cardiovascular: Regular rate and rhythm with a normal S1 and S2. No gallops, murmurs, or rubs. Normal PMI, no JVD. No pulse deficits. Respiratory: Lungs have equal breath sounds bilaterally, clear to auscultation and percussion. No rales, rhonchi or wheezes noted. No increased work of breathing, no retractions or nasal flaring. Abdomen/GI: Soft, non-tender, with normal bowel sounds. No distension or tympany. No guarding or rebound. No evidence of tenderness throughout. Back: No spinal tenderness. No costovertebral tenderness. Full range of motion. Neuro: Awake and alert, GCS 15, oriented to person, place, time, and situation. Cranial nerves II-XII grossly intact. Motor strength 5/5 in all extremities. Sensory grossly intact. Cerebellar exam normal. Normal gait. Psych: Awake, alert, with orientation to person, place and time. Behavior, mood, and affect are within normal limits. 23:08 Musculoskeletal/extremity: Extremities: grossly normal except: noted in the left hip: decreased ROM, tenderness, shortened and externally rotated., Circulation is intact in all extremities. Sensation intact. 23:08 Skin: Appearance: normal except for affected area, ecchymosis, that are mild, that are moderate, and are scattered. 23:09 ECG was reviewed by the Attending Physician. snw Vital Signs: 21:10 BP 175 / 85; Pulse 83; Resp 19; Temp 99; Pulse Ox 99% ; Weight 74.84 kg; Height 5 ft. 5 rr5 in. (165.10 cm); Pain 0/10; 22:39 BP 178 / 71; Pulse 80; Resp 17; Pulse Ox 99% ; rr5 23:00 BP 179 / 75; Pulse 89; Resp 15; Pulse Ox 98% ; Pain 5/10; rr5 23:57 BP 170 / 64; Pulse 73; Resp 16; Pulse Ox 99% ; Pain 2/10; rr5 01/28 00:37 BP 160 / 50; Pulse 70; Resp 19; Pulse Ox 99% ; rr5 01:25 BP 155 / 58; Pulse 75; Resp 16; Pulse Ox 100% ; rr5 01/27 21:10 Body Mass Index 27.46 (74.84 kg, 165.10 cm) rr5 Tramaine Coma Score: 01/27 21:25 Eye Response: spontaneous(4). Verbal Response: oriented(5). Motor Response: obeys rr5 commands(6). Total: 15. 22:39 Eye Response: spontaneous(4). Verbal Response: oriented(5). Motor Response: obeys rr5 commands(6). Total: 15. 23:57 Eye Response: spontaneous(4). Verbal Response: oriented(5). Motor Response: obeys rr5 commands(6). Total: 15. Trauma Score (Adult): 21:25 Eye Response: spontaneous(1); Verbal Response: oriented(1); Motor Response: obeys rr5 commands(2); Systolic BP: > 89 mm Hg(4); Respiratory Rate: 10 to 29 per min(4); Tramaine Score: 15; Trauma Score: 12 22:39 Eye Response: spontaneous(1); Verbal Response: oriented(1); Motor Response: obeys rr5 commands(2); Systolic BP: > 89 mm Hg(4); Respiratory Rate: 10 to 29 per min(4); [place] Score: 15; Trauma Score: 12 23:57 Eye Response: spontaneous(1); Verbal Response: oriented(1); Motor Response: obeys rr5 commands(2); Systolic BP: > 89 mm Hg(4); Respiratory Rate: 10 to 29 per min(4); [place] Score: 15; Trauma Score: 12 MDM: 23:04 Patient medically screened. snw 23:04 Data reviewed: vital signs, nurses notes. Data interpreted: Pulse oximetry: on room air snw is 99 %. Interpretation: normal. Counseling: I had a detailed discussion with the patient and/or guardian regarding: the historical points, exam findings, and any diagnostic results supporting the discharge/admit diagnosis, lab results, radiology results. Physician consultation: Jesu GOMES was called at 23:04, was contacted at 23:05, regarding admission, to the telemetry unit. pt sees Dr. Fagan, Dr. Pozo, and Dr. Alvarez., Called Dr. Alvarez (not currently otolaryngology surgeon), no answer at this time. Hospitalist group notified.. 01/27 22:52 Order name: CBC with Diff; Complete Time: 00:06 snw 01/27 22:52 Order name: Chem 7; Complete Time: 23:43 snw 01/27 22:52 Order name: Troponin (emerg Dept Use Only); Complete Time: 23:43 snw 01/27 23:04 Order name: PT-INR; Complete Time: 00:28 snw 01/27 23:04 Order name: Ptt, Activated; Complete Time: 00:28 snw 01/27 21:12 Order name: XRAY Femur LEFT rr5 01/27 21:12 Order name: XRAY Pelvis rr5 01/27 22:52 Order name: Chest Single View XRAY snw 01/27 22:52 Order name: EKG; Complete Time: 22:53 snw 01/27 22:52 Order name: EKG - Nurse/Tech; Complete Time: 23:41 snw 01/27 23:57 Order name: Manual Differential; Complete Time: 00:06 EDMS 01/28 00:19 Order name: Social Service Consult EDMS 01/27 22:52 Order name: Carranza; Complete Time: 23:41 snw 01/27 22:53 Order name: SL; Complete Time: 23:41 snw EC:09 Rate is 75 beats/min. Rhythm is regular. QRS [place] is Normal. [place] interval is normal. QRS snw interval is normal. QT interval is normal. No Q waves. Clinical impression: NSR w/ Non-specific ST/T Changes. Administered Medications: 23:10 Drug: fentaNYL (PF) 25 mcg {Note: rass 0.} Route: IVP; Site: right antecubital; rr5 01/28 00:37 Follow up: Response: No adverse reaction; RASS: Alert and Calm (0) rr5 Disposition: 06:06 Co-signature as Attending Physician, Cabrera Gagnon MD. [facility] Disposition: 01/28/20 23:04 Hospitalization ordered by Damon Cantu for Inpatient Admission. Preliminary diagnosis are Intertrochanteric fracture of femur, Fall on same level, unspecified. - Bed requested for Telemetry/MedSurg (Inpatient). - Status is Inpatient Admission. jb4 - Condition is Stable. - Problem is new. - Symptoms are unchanged. Signatures: Dispatcher [employer] [facility] Cabrera Gagnon MD MD pkl Edith Warren FNP-C PRODUCT BLENDING SUPERVISOR-Yessica Cervantes, RN RN cg Marino Moe RN RN jb4 Damon Anton RN RN rr5 Corrections: (The following items were deleted from the chart) 01/27 23:57 23:33 CBC Smear Scan ordered. EDWY EDWY 01/28 00:44 01/27 23:04 Hospitalization Ordered by Damon Cantu MD for Inpatient Admission. cg Preliminary diagnosis is Intertrochanteric fracture of femur; Fall on same level, unspecified. Bed requested for Telemetry/MedSurg (Inpatient). Status is Inpatient Admission. Condition is Stable. Problem is new. Symptoms are unchanged. snw 01/28 02:06 00:44 01/28/2020 23:04 Hospitalization Ordered by Damon Cantu MD for Inpatient jb4 Admission. Preliminary diagnosis is Intertrochanteric fracture of femur; Fall on same level, unspecified. Bed requested for Telemetry/MedSurg (Inpatient). Status is Inpatient Admission. Condition is Stable. Problem is new. Symptoms are unchanged. cg
--- NOTE | 2020-01-28 23:04 | ER ---
Nurse's Notes [facility] Name: Kailee Mcgraw Age: 84 yrs Sex: Female : 1935 Arrival Date: 01/28/2020 Time: 21:03 Bed 6 Private MD: Diagnosis: Intertrochanteric fracture of femur;Fall on same level, unspecified Presentation: 01/27 21:10 Chief complaint: EMS states: patient from standing position tripped and fell down, rr5 complaining of pain on left femur side. on blood thinner, negative LOC. 21:10 Coronavirus screen: Client denies travel out of the [place] in the last 14 days. At this rr5 time, the client does not indicate any symptoms associated with coronavirus-19. Ebola Screen: Patient negative for fever greater than or equal to 101.5 degrees Fahrenheit, and additional compatible Ebola Virus Disease symptoms Patient denies exposure to infectious person. Patient denies travel to an Ebola-affected area in the 21 days before illness onset. Initial Sepsis Screen: Does the patient meet any 2 criteria? No. Patient's initial sepsis screen is negative. Does the patient have a suspected source of infection? No. Patient's initial sepsis screen is negative. Risk Assessment: Do you want to hurt yourself or someone else? Patient reports no desire to harm self or others. Onset of symptoms was January 28, 2020. 21:10 Method Of Arrival: EMS: [facility] rr5 21:10 Acuity: IAN 2 rr5 21:10 Care prior to arrival: Placed on backboard. rr5 21:10 Mechanism of Injury: Fall from standing position. Trauma event details: Injury occurred rr5 in the [facility], Injury occurred: at home. Injury occurred: January 29, 2020. Trauma Activation: Alert Physician: ED Physician; Name: dr. mahajan; Notified At: 21:10; Arrived At: Physician: General Surgeon; Name: ; Notified At: ; Arrived At: Physician: Radiology; Name: annmarie; Notified At: 21:10; Arrived At: 21:12 Physician: Respiratory; Name: ; Notified At: ; Arrived At: Physician: Lab; Name: ; Notified At: ; Arrived At: Historical: - Allergies: 21:21 No Known Allergies; rr5 - Home Meds: 21:21 levothyroxine 88 mcg tab 1 tab once daily [Active]; omeprazole 40 mg Oral cpDR 1 cap rr5 once daily [Active]; metoclopramide HCl 10 mg Oral tab 1 tab once daily [Active]; atorvastatin 20 mg Oral tab 1 tab once daily [Active]; amlodipine-benazepril oral oral [Active]; tramadol 50 mg Oral tab [Active]; lorazepam 1 mg Oral tab [Active]; Furosemide Oral [Active]; gabapentin oral oral [Active]; Sotalol Oral [Active]; Xarelto oral oral [Active]; Aspirin Oral [Active]; pentoxifyline 400 mg [Active]; - PMHx: 21:21 Diabetes - IDDM; Hypertension; Hypothyroidism; Hyperlipidemia; rr5 - PSHx: 21:21 pacemaker; Appendectomy; Tonsillectomy; Hysterectomy; rr5 - Immunization history:: Adult Immunizations up to date. - Social history:: Smoking status: unknown Patient/guardian denies using alcohol, IV drugs, tobacco products. - Immunization history: Last tetanus immunization: unknown. Screenin:16 Fall Risk Fall in past 12 months (25 points). IV access (20 points). Total Bennett Fall rr5 Scale indicates High Risk Score (45 or more points). Fall prevention measures have been instituted. Side Rails Up X 2 Frequent Obs/Assessments Occuring As available patient and family educated on Fall Prevention Program and Strategies. 21:24 Abuse screen: Denies threats or abuse. Denies injuries from another. Nutritional rr5 screening: No deficits noted. Tuberculosis screening: No symptoms or risk factors identified. Fall risk At risk due to injury, age, Intervention for positive screen: side rails up. Primary Survey: 21:10 NO uncontrolled hemorrhage observed. A: The patient is alert. Airway: patent, No rr5 supplemental oxygen in use on arrival. Oral cavity: clear, gag reflex present, Trachea midline. Breathing/Chest: Respiratory pattern: regular, Respiratory effort: spontaneous, unlabored, Breath sounds: clear, Chest inspection: symmetrical rise and fall of the chest. 21:10 Circulation: Heart tones present. Pulses: palpable right radial artery, right dorsalis rr5 pedis artery, left radial artery and left dorsalis pedis artery. Skin color: pink, Skin temperature: warm, dry. Disability Alert. Exposure/Environment: There is no evidence of uncontrolled external bleeding. No obvious injuries are noted at this time. A warming method has been applied: A warm blanket has been provided to the patient. 22:00 Reassessment Airway Airway Patent Breathing/Chest Respiratory pattern Regular rr5 Respiratory effort Spontaneous Unlabored Circulation Heart tones Present Pulses Palpable Disability Alert. Secondary Survey: 21:15 Musculoskeletal: Circulation, motion, and sensation intact. Capillary refill < 3 rr5 seconds, Range of motion: limited in left hip and left knee Reports pain in pelvis and left leg. 21:15 HEENT: Head No injury/deformity Face No injury/deformity Eyes: No injury or deformity rr5 noted. Ears: clear Nose: clear Throat: is clear with gag reflex present. Gastrointestinal: Abdomen is soft. : No signs and/or symptoms were reported regarding the genitourinary system. Assessment: 21:24 General: Appears in no apparent distress. uncomfortable, Behavior is calm, cooperative, rr5 appropriate for age. Pain: Complains of pain in pelvis and left leg Pain radiates to left leg Pain currently is 0 out of 10 on a pain scale. at worst was 5 out of 10 on a pain scale. Quality of pain is described as aching, Pain began suddenly, Is intermittent. Neuro: Level of Consciousness is awake, alert, obeys commands, Oriented to person, place, time, situation. Cardiovascular: Capillary refill < 3 seconds Patient's skin is warm and dry. Respiratory: Airway is patent Respiratory effort is even, unlabored, Respiratory pattern is regular, symmetrical. GI: No signs and/or symptoms were reported involving the gastrointestinal system. : No signs and/or symptoms were reported regarding the genitourinary system. EENT: No signs and/or symptoms were reported regarding the EENT system. Derm: Skin is intact, is healthy with good turgor, Skin temperature is warm. Musculoskeletal: Capillary refill < 3 seconds, Reports pain in pelvis and left leg. 22:39 Reassessment: dwain daughter [phone] shailesh carey [phone]. rr5 22:47 Reassessment: Patient appears in no apparent distress at this time. Patient is alert, rr5 oriented x 3, equal unlabored respirations, skin warm/dry/pink. spoke to shailesh [phone] updated for the result. 23:56 Reassessment: Patient appears in no apparent distress at this time. Patient is alert, rr5 oriented x 3, equal unlabored respirations, skin warm/dry/pink. hospitalist at bedside examining the patient for admission Patient states feeling better. Patient states symptoms have improved. 01/28 00:12 Reassessment: patient took last xeralto 2330H 01/27/20 hospitalist informed. rr5 01:20 Reassessment: Patient appears in no apparent distress at this time. Patient is alert, rr5 oriented x 3, equal unlabored respirations, skin warm/dry/pink. complaining of pain morphine ordered in [facility] given and signed. Vital Signs: 01/27 21:10 BP 175 / 85; Pulse 83; Resp 19; Temp 99; Pulse Ox 99% ; Weight 74.84 kg; Height 5 ft. 5 rr5 in. (165.10 cm); Pain 0/10; 22:39 BP 178 / 71; Pulse 80; Resp 17; Pulse Ox 99% ; rr5 23:00 BP 179 / 75; Pulse 89; Resp 15; Pulse Ox 98% ; Pain 5/10; rr5 23:57 BP 170 / 64; Pulse 73; Resp 16; Pulse Ox 99% ; Pain 2/10; rr5 18 00:37 BP 160 / 50; Pulse 70; Resp 19; Pulse Ox 99% ; rr5 01:25 BP 155 / 58; Pulse 75; Resp 16; Pulse Ox 100% ; rr5 01/27 21:10 Body Mass Index 27.46 (74.84 kg, 165.10 cm) rr5 Tramaine Coma Score: 01/27 21:25 Eye Response: spontaneous(4). Verbal Response: oriented(5). Motor Response: obeys rr5 commands(6). Total: 15. 22:39 Eye Response: spontaneous(4). Verbal Response: oriented(5). Motor Response: obeys rr5 commands(6). Total: 15. 23:57 Eye Response: spontaneous(4). Verbal Response: oriented(5). Motor Response: obeys rr5 commands(6). Total: 15. Trauma Score (Adult): 21:25 Eye Response: spontaneous(1); Verbal Response: oriented(1); Motor Response: obeys rr5 commands(2); Systolic BP: > 89 mm Hg(4); Respiratory Rate: 10 to 29 per min(4); Hubert Score: 15; Trauma Score: 12 22:39 Eye Response: spontaneous(1); Verbal Response: oriented(1); Motor Response: obeys rr5 commands(2); Systolic BP: > 89 mm Hg(4); Respiratory Rate: 10 to 29 per min(4); Hubert Score: 15; Trauma Score: 12 23:57 Eye Response: spontaneous(1); Verbal Response: oriented(1); Motor Response: obeys rr5 commands(2); Systolic BP: > 89 mm Hg(4); Respiratory Rate: 10 to 29 per min(4); Hubert Score: 15; Trauma Score: 12 ED Course: 21:03 Patient arrived in ED. cf2 21:09 Damon Anton, RN is Primary Nurse. rr5 21:16 Triage completed. rr5 21:21 Arm band placed on right wrist. rr5 21:24 Patient has correct armband on for positive identification. Bed in low position. Call rr5 light in reach. Side rails up X2. 21:24 No provider procedures requiring assistance completed. rr5 21:30 Patient maintains SpO2 saturation greater than 95% on room air. Thermoregulation: warm rr5 blanket given to patient. 22:08 XRAY Femur LEFT In Process Unspecified. EDMS 22:08 XRAY Pelvis In Process Unspecified. EDMS 22:51 Edith Warren FNP-C is [facility]. snw 22:51 Cabrera Mahajan MD is Attending Physician. snw 23:03 Damon Cantu MD is Hospitalizing Provider. snw 23:10 EKG done, by ED staff, reviewed by Edith GOMES. rr5 23:26 Chest Single View XRAY In Process Unspecified. EDMS 23:30 Inserted saline lock: 20 gauge in right antecubital area, using aseptic technique. rr5 ,using aseptic technique. inserted by [facility] tech. 23:42 Carranza cath inserted, using sterile technique, 16 Fr., by md, balloon inflated. rr5 01/28 00:04 Patient admitted, IV remains in place. intact, No redness/swelling at site. rr5 Administered Medications: 01/27 23:10 Drug: fentaNYL (PF) 25 mcg {Note: rass 0.} Route: IVP; Site: right antecubital; rr5 01/28 00:37 Follow up: Response: No adverse reaction; RASS: Alert and Calm (0) rr5 Intake: 01/27 21:25 PO: 0ml; Total: 0ml. rr5 01/28 01:30 PO: 0ml; Total: 0ml. rr5 Output: 01:30 Urine: 700ml (Carranza); Total: 700ml. rr5 Outcome: 01/27 23:04 Decision to Hospitalize by Provider. snw 01/28 00:03 Condition: stable rr5 Patient's length of stay was not longer than 2 hours. for admissionPatient's length of stay extended due to 01:22 Admitted to Tele accompanied by tech, via stretcher, room 403, with chart, Report rr5 called to bolivar 01:22 Instructed on the need for admit. 02:06 Patient left the ED. jb4 Signatures: Dispatcher [employer] EDMS Edith Warren, VERONICA-C CLERK GENERAL-CsnMarino Loco, RN RN jb4 Damon Anton, KARIME RN rr5 Ondina Garcia cf2 Corrections: (The following items were deleted from the chart) 00:00 01/27 23:56 Reassessment: Patient appears in no apparent distress at this time. Patient rr5 is alert, oriented x 3, equal unlabored respirations, skin warm/dry/pink. hospitalist at bedside examining the patient for admission rr5
[2020-01-28] MEDS ORDERED: FENTANYL CITR 100 MCG/2 ML ONE (23:21)
[2020-01-28 23:24] LABS: MPV 8.6 fL (7.6-11.3)
[2020-01-28 23:28] LABS: Basophils % 0.6 % (0-1.3); Hematocrit 29.7 % (36.0-45.0)
[2020-01-28 23:40] LABS: BUN Blood Urea Nitrogen 13 mg/dL (7-18); Bicarbonate 25 mmol/L (21-32); Glucose Level 162 mg/dL (74-106); Potassium 3.4 mmol/L (3.5-5.1); Sodium Level 141 mmol/L (136-145); Troponin (Emerg Dept Use Only) < 0.02 ng/mL (0.0-0.045)
[2020-01-29 00:02] LABS: Anisocytosis 1+; Blood Morphology Comment NOTED (NOT SEEN); Hypochromasia 2+; Platelet Estimate ADEQ
--- NOTE | 2020-01-29 00:16 | P.HP ---
Certification for Inpatient Patient admitted to: Inpatient With expected LOS: >2 Midnights Patient will require the following post-hospital care: Rehabilitation Practitioner: I am a practitioner with admitting privileges, knowledge of patient current condition, hospital course, and medical plan of care. Services: Services provided to patient in accordance with Admission requirements found in Title 42 Section 412.3 of the Code of Federal Regulations <KoltonJesu - Last Filed: 01/29/20 00:10> Patient History Date of Service: 01/29/20 Primary Care Provider: Dr. Fagan Reason for admission: L femur fracture History of Present Illness: 84-year-old female with history of diabetes mellitus type 2, hypertension, paroxysmal atrial fibrillation, GERD, hyperlipidemia, hypothyroidism, anxiety presents emergency department after mechanical fall and occasional reaching down to grab a plate sustaining injury to the left hip. Patient was evaluated in the emergency department and found to have nondisplaced left intertrochanteric femur fracture. Patient's orthopedic physician Dr. Natarajan was contacted regarding finding and wished patient to be admitted to hospitalist service and will consult. Patient vital signs stable, appears comfortable this time. When I saw the patient in the emergency department she was awake, alert, oriented x4. Patient reports that she did not experience any dizziness, chest pain, headaches, neurological symptoms prior to fall. Patient be admitted for further evaluation and management. - Past Medical/Surgical History Diabetic: Yes -: Hypertension -: Diabetes mellitus type 2-insulin dependent -: Peripheral artery disease -: Paroxysmal atrial flutter S/P pacemaker defibrillator placement -: GERD -: Hyperlipidemia -: Hypothyroidism -: Hysterectomy -: tonsillectomy -: appendectomy -: tendonitis -: back surgery -: Pacemaker/defibrillator Psychosocial/ Personal History: Patient lives at home with her daughter. - Family History Mother -: Hypertension - Social History Alcohol use: No CD- Drugs: No Caffeine use: Yes Place of Residence: Home <Jesu Hi - Last Filed: 01/29/20 00:10> Date of Service: 01/30/20 <Damon Cantu - Last Filed: 01/30/20 16:04> Allergies No Known Allergies Allergy (Verified 09/27/18 22:14) Home Medications: Atorvastatin Calcium [Lipitor] 20 mg PO BEDTIME 09/28/18 Gabapentin 100 mg PO DAILY 09/28/18 LORazepam [Ativan] 1 mg PO Q6HP PRN 09/28/18 Metoclopramide [Reglan] 10 mg PO DAILY 09/28/18 Omeprazole [Prilosec] 40 mg PO DAILY 09/28/18 Pentoxifylline 400 mg PO TIDWM 09/28/18 Tramadol HCl [Ultram] 50 mg PO DAILY PRN 09/28/18 Amlodipine Besylate/Benazepril [Amlodipine-Benazepril 10-20 mg] 1 each PO DAILY 01/29/20 Aspirin 81 mg PO DAILY 01/29/20 Furosemide [Lasix] 40 mg PO DAILYPRN PRN 01/29/20 Insulin NPH Human Isophane [Novolin N] 16 unit SQ DAILY 01/29/20 Insulin NPH Human Isophane [Novolin N] 20 unit SQ BEDTIME 01/29/20 Levothyroxine Sodium [Euthyrox] 88 mcg PO DAILY 01/29/20 Rivaroxaban [Xarelto] 20 mg PO 1700 01/29/20 Review of Systems 10-point ROS is otherwise unremarkable Musculoskeletal: Other (Left hip pain) <Jesu Hi - Last Filed: 01/29/20 00:10> Physical Examination - Physical Exam General: Alert, In no apparent distress, Oriented x3 HEENT: Atraumatic, Normocephalic, PERRLA Neck: Supple Respiratory: Clear to auscultation bilaterally, Normal air movement Cardiovascular: No edema, Normal pulses, Regular rate/rhythm, Normal S1 S2 Capillary refill: <2 Seconds Gastrointestinal: Normal bowel sounds, Soft and benign Musculoskeletal: No contractures, No erythema Integumentary: No significant lesion, No tenderness/swelling Neurological: Normal speech, Normal tone, Sensation intact - Studies Laboratory Data (last 24 hrs) 01/28/20 23:13: Sodium 141, Potassium 3.4 L, BUN 13, Creatinine 0.70, Glucose 162 H 01/28/20 23:13: WBC 16.9 H, Hgb 8.7 L, Hct 29.7 L, Plt Count 235 <Jesu Hi - Last Filed: 01/29/20 00:10> Assessment and Plan - Plan Assessment Left nondisplaced intertrochanteric femur fracture Paroxysmal atrial fibrillation/flutter on chronic anticoagulation therapy Microcytic anemia Diabetes mellitus type 2-insulin dependent Hypertension Hyperlipidemia GERD Anxiety Plan Left nondisplaced intertrochanteric femur fracture: Orthopedic notified and consulted. Patient takes Xarelto at home, this has been held. Patient reports last dose was on 01/27/2020 at 11:30 p.m.. Continue with p.r.n. pain medications. Will make NPO in case orthopedic prefers to intervene tomorrow. Appreciate further input from orthopedics. Carranza catheter in place. Paroxysmal atrial fibrillation/flutter on chronic anticoagulation therapy: Patient has pacemaker/defibrillator. On Xarelto which will be held at this time due to plan for surgical intervention. Continue patient's sotalol and other home medications. Patient be monitored on telemetry. Will obtain cardiology clearance. Cardiac consult in place. Patient had echocardiogram 09/29/2018 with normal ejection fraction. Microcytic anemia: Hemoglobin 8.6. Macrocytic anemia noted, iron studies ordered. Will transfuse as necessary. Diabetes mellitus type 2-insulin dependent: A.c. HS Accu-Cheks scale insulin t herapy. Patient NPO at this time. Hypertension: Home medications continued. Will provide p.r.n. medications as well. Hyperlipidemia: Home medications have been continued GERD: Home medications have been continued Anxiety: Home medications have been continued Discharge Plan: Home Plan to discharge in: Greater than 2 days - Advance Directives Does patient have a Living Will: No Does patient have a Durable POA for Healthcare: No - Code Status/Comfort Care Code Status Assessed: Yes (Patient is full code) Critical Care: No Time Spent Managing Pts Care (In Minutes): 55 <Jesu Hi - Last Filed: 01/29/20 00:10> Physician Review Additional Text: Plan of care discussed with Jesu Hi, and I agree with the management plan as noted above. <Damon Cantu - Last Filed: 01/30/20 16:04>
[2020-01-29 00:27] LABS: Protime INR 1.23
[2020-01-29] MEDS: MORPHINE 2 MG/ML SYR IV PRN ×4 (01:20→17:50)
[2020-01-29] MEDS ORDERED: LORAZEPAM 1 MG TABLET PO PRN (01:24)
[2020-01-29] MEDS ORDERED: ONDANSETRON 4 MG/2 ML VIAL IV PRN (01:24)
[2020-01-29] MEDS ORDERED: MORPHINE 2 MG/ML SYR ONE (01:26)
[2020-01-29] MEDS: NA CHLORIDE 0.9% 1,000 ML IV SCH ×2 (03:15→19:27)
[2020-01-29] MEDS: TRAMADOL HCL 50 MG TAB PO PRN (03:50)
[2020-01-29 03:51] VITALS: BMI 27.5
[2020-01-29 04:19] LABS: BUN Blood Urea Nitrogen 12 mg/dL (7-18); Bicarbonate 25 mmol/L (21-32); Glucose Level 191 mg/dL (74-106); Potassium 4.1 mmol/L (3.5-5.1); Sodium Level 140 mmol/L (136-145)
[2020-01-29 04:29] LABS: Absolute Lymphocytes (CBC) 1.1 K/uL (0.7-4.9); Basophils % 0.5 % (0-1.3); Hematocrit 26.5 % (36.0-45.0); Lymphocytes % 6.5 % (15.3-44.8); MPV 8.8 fL (7.6-11.3); RBC Red Blood Cell Count 4.13 M/uL (3.86-4.86)
[2020-01-29] MEDS: HYDRALAZINE HCL 20 MG/ML VIAL IV PRN ×2 (04:37→23:23)
[2020-01-29] MEDS: PANTOPRAZOLE 40MG TABLET PO SCH (06:23)
[2020-01-29] MEDS: SOTALOL HCL 80 MG TAB PO SCH ×2 (06:23→17:51)
[2020-01-29] MEDS: LEVOTHYROXINE SOD 0.088 MG TAB PO SCH (06:23)
--- NOTE | 2020-01-29 07:22 | RAD REPORT ---
EXAM DESCRIPTION: RAD - Femur Left - 01/28/2020 10:08 pm CLINICAL HISTORY: fall, left hip pain COMPARISON: None. FINDINGS: AP and cross-table lateral views of the femur were obtained. An oblique intertrochanteric fracture is present without significant distraction or angulation. Lesse r trochanter remains attached to the femur. No pathologic fracture changes seen. Positioning is not o ptimal. Fracture does appear to be intertrochanteric rather than involving the femoral neck. No AVN o r focal femoral head abnormality. Partially imaged left hemipelvis is intact. Arterial tree calcifica tions are present. No significant hematoma changes identifiable. No air or foreign body in the soft t issues. IMPRESSION: Left femur intertrochanteric fracture without significant distraction or angulation defo rmity.
--- NOTE | 2020-01-29 07:23 | RAD REPORT ---
EXAM DESCRIPTION: RAD - Pelvis - 01/28/2020 10:08 pm CLINICAL HISTORY: fall, pelvic and left hip pain COMPARISON: No comparisons TECHNIQUE: AP imaging of the pelvis was obtained. FINDINGS: Lower lumbar degenerative changes are present only partially imaged. Left sacral ala is fu lly obscured by overlying bowel content. Right sacral ala is partially obscured. SI joint degenerativ e changes are evident along with prominent pubic symphysis degenerative change. No fracture of the [place] pelvis is confirmed. Proximal right femur and hip joint are unremarkable. Left femur intertrochanteric fracture is present. Lesser trochanter remains attached. No angulation d eformity or significant distraction along the fracture plane. IMPRESSION: Left femur intertrochanteric fracture. No fracture of the pelvis seen. The sacral ala are too obscured by bowel content to allow assessment.
--- NOTE | 2020-01-29 07:24 | RAD REPORT ---
EXAM DESCRIPTION: RAD - Chest Single View - 01/28/2020 11:26 pm CLINICAL HISTORY: preop, left femur fracture COMPARISON: March 2014 TECHNIQUE: AP portable chest image was obtained 01/28/2020 11:26 pm . FINDINGS: No pulmonary contusion. No focal mass or consolidation. Low lung volumes accentuate inters titial pattern. A mild interstitial edema or infiltrate could be masked. Heart and vasculature are no rmal. No measurable pleural effusion and no pneumothorax. No acute bony abnormality seen. No acute ao rtic findings suspected. IMPRESSION: No consolidation, mass or pulmonary contusion. Increased vasculature and lung markings probably the affects of shallow inspiration. A mild interstit ial pulmonary edema or infiltrate could be masked.
[2020-01-29] MEDS: INSULIN -REGULAR HUMAN 50 UNIT/0.5 ML ML SQ SCH ×4 (07:30→20:46)
[2020-01-29] MEDS: PENTOXIFYLLINE ER 400 MG TAB PO SCH ×3 (08:00→17:59)
--- NOTE | 2020-01-29 08:29 | P.PN ---
Subjective Date of Service: 01/29/20 Primary Care Provider: Dr. Fagan Chief Complaint: L femur fracture Subjective: No new changes (pain controlled, no new numbness/tingling) Physical Examination - Vital Signs Temperature: 98.6 F Blood Pressure: 165/70 Pulse: 83 Respirations: 14 Pulse Ox (%): 95 - Physical Exam General: Alert, In no apparent distress HEENT: Atraumatic, Sclerae nonicteric Neck: Supple Respiratory: Clear to auscultation bilaterally, Normal air movement Cardiovascular: No edema, Regular rate/rhythm Gastrointestinal: Soft and benign, Non-distended, No tenderness Musculoskeletal: Tenderness (left upper thigh / hip) Integumentary: No rashes, Other (L foot, warm, well-perfused) Neurological: Normal speech, Sensation intact, Normal affect Urinary: Carranza catheter - Studies Laboratory Data (last 24 hrs) 01/28/20 23:55: PT 14.5 H, INR 1.23, APTT 27.4 01/28/20 23:13: Sodium 141, Potassium 3.4 L, BUN 13, Creatinine 0.70, Glucose 162 H 01/28/20 23:13: WBC 16.9 H, Hgb 8.7 L, Hct 29.7 L, Plt Count 235 Assessment & Plan Physician Review Additional Text: Left nondisplaced intertrochanteric femur fracture Paroxysmal atrial fibrillation/flutter on chronic anticoagulation therapy Microcytic anemia Diabetes mellitus type 2-insulin dependent Hypertension Hyperlipidemia GERD Anxiety Plan Left nondisplaced intertrochanteric femur fracture: -Orthopedic notified and consulted. -Patient takes Xarelto at home, this has been held. Patient reports last dose was on 01/27/2020 at 11:30 p.m.. -NPO for possible OR today -Carranza in place Paroxysmal atrial fibrillation/flutter on chronic anticoagulation therapy: -Patient has pacemaker/defibrillator. -holding Xarelto as noted above -Continue patient's sotalol and other home medications. -telemetry. obtain cardiology clearance. echocardiogram 09/29/2018 with normal ejection fraction. Microcytic anemia: -Hemoglobin 8.7 on admission. Macrocytic anemia noted, iron studies ordered. -down to 7.7, pt was on xarelto up to ~1 day ago -Left thigh without significant swelling -will transfuse 1uPRBC since she will be undergoing surgery Diabetes mellitus type 2-insulin dependent: ACHS Accu-Cheks scale insulin therapy. Patient NPO at this time. Hypertension: Home medications continued. Will provide p.r.n. medications as well. Hyperlipidemia: Home medications have been continued GERD: Home medications have been continued Anxiety: Home medications have been continued Dispo: possible rehab, pending L femur fracture repair Time Spent Managing Pts Care (In Minutes): 35
[2020-01-29] MEDS ORDERED: NA CHLORIDE 0.9% 250 ML IV SCH (09:00)
[2020-01-29] MEDS: METOCLOPRAMIDE 5 MG TAB PO SCH ×4 (09:41→20:46)
[2020-01-29] MEDS: AMLODIPINE 10 MG TAB PO SCH (09:41)
[2020-01-29] MEDS: BENAZEPRIL 20 MG TAB PO SCH (09:42)
[2020-01-29] MEDS ORDERED: NA CHLORIDE 0.9% 250 ML ONE (11:01)
--- NOTE | 2020-01-29 12:09 | CON ---
Date of Consultation: 01/29/2020 History Of Present Illness: I am called to see this patient. She unfortunately fell yesterday injur ing her left lower extremity. She was seen and examined in the emergency department where she was ru led out for other injuries. However, x-rays demonstrated a relatively nondisplaced intertrochanteric fracture of the left. Physical Examination: All of her long bones and joints are palpated without pain or crepitation with the exception of any m ovement or manipulation of her left hip. Laboratory Data: On review of her x-rays, she does have a relatively nondisplaced intertrochanteric fracture on the left. On further review of her lab, she does have a fairly low hemoglobin being belo w 8 and the medical team feels that they will transfuse her today. Assessment/plan: Risks, benefits, and alternatives of different methods of treating this have been d iscussed with the patient and family. They states they understand things as presented. We will most likely move forward with closed reduction intramedullary fixation tomorrow, giving her today for any further workup needed, also given blood. All of her questions were answered today. /YADIRA Voice ID: [id number] Report ID: [id number]
[2020-01-29] MEDS: ATORVASTATIN 20 MG TAB PO SCH (20:45)
[2020-01-30] MEDS: MORPHINE 2 MG/ML SYR IV PRN ×4 (00:21→13:25)
[2020-01-30] MEDS: HYDRALAZINE HCL 20 MG/ML VIAL IV PRN (04:08)
[2020-01-30 04:39] LABS: Ferritin 7.2 ng/mL (8-388); Potassium 3.7 mmol/L (3.5-5.1)
[2020-01-30 04:58] LABS: Basophils % 0.3 % (0-1.3); Lymphocytes % 7.8 % (15.3-44.8); MPV 8.7 fL (7.6-11.3); RBC Red Blood Cell Count 4.55 M/uL (3.86-4.86)
[2020-01-30] MEDS: SOTALOL HCL 80 MG TAB PO SCH ×2 (05:29→17:22)
[2020-01-30] MEDS: LEVOTHYROXINE SOD 0.088 MG TAB PO SCH (05:29)
[2020-01-30] MEDS: PANTOPRAZOLE 40MG TABLET PO SCH (05:29)
[2020-01-30] MEDS: NA CHLORIDE 0.9% 1,000 ML IV SCH ×2 (06:23→16:43)
[2020-01-30] MEDS: TRAMADOL HCL 50 MG TAB PO PRN (06:33)
[2020-01-30] MEDS ORDERED: KCL 20 MEQ/100 mL IVPB 20 MEQ/100 ML BAG IV SCH (07:00)
[2020-01-30] MEDS: INSULIN -REGULAR HUMAN 50 UNIT/0.5 ML ML SQ SCH ×4 (08:28→21:23)
[2020-01-30] MEDS: METOCLOPRAMIDE 5 MG TAB PO SCH (08:29)
[2020-01-30] MEDS: BENAZEPRIL 20 MG TAB PO SCH (08:29)
[2020-01-30] MEDS: PENTOXIFYLLINE ER 400 MG TAB PO SCH ×3 (08:29→16:42)
[2020-01-30] MEDS: AMLODIPINE 10 MG TAB PO SCH (08:29)
--- NOTE | 2020-01-30 08:54 | P.PN ---
Subjective Date of Service: 01/30/20 Primary Care Provider: Dr. Fagan Chief Complaint: L femur fracture Subjective: No new changes (continues with pain with movement of LLE, otherwise doing well) Physical Examination - Vital Signs Temperature: 98.4 F Blood Pressure: 172/73 Pulse: 83 Respirations: 16 Pulse Ox (%): 97 - Physical Exam General: Alert, In no apparent distress, Oriented x3 HEENT: Sclerae nonicteric Neck: JVD not distended Respiratory: Clear to auscultation bilaterally, Normal air movement Cardiovascular: No edema, Regular rate/rhythm, Normal S1 S2 Gastrointestinal: Soft and benign, Non-distended, No tenderness Musculoskeletal: Other (pain with movement of LLE) Integumentary: No erythema Neurological: Sensation intact (of left leg / foot) Urinary: Carranza catheter Assessment & Plan Physician Review Additional Text: Left nondisplaced intertrochanteric femur fracture Paroxysmal atrial fibrillation/flutter on chronic anticoagulation therapy Microcytic anemia Diabetes mellitus type 2-insulin dependent Hypertension Hyperlipidemia GERD Anxiety Plan Left nondisplaced intertrochanteric femur fracture: -Orthopedic surgery notified and consulted. -Patient takes Xarelto at home, this has been held. Patient reports last dose was on 01/27/2020 at 11:30 p.m.. -NPO for OR today -Carranza in place Paroxysmal atrial fibrillation/flutter on chronic anticoagulation therapy: -Patient has pacemaker/defibrillator. -holding Xarelto as noted above -Continue patient's sotalol and other home medications. -Cardiology consulted - ok to proceed with surgery. echocardiogram 09/29/2018 with normal ejection fraction. Microcytic anemia: -Hemoglobin 8.7 on admission. Microcytic anemia noted, iron studies ordered. - consistent with Iron deficiency -down to 7.7, pt was on xarelto up to ~1 day prior to admission -Left thigh without significant swelling -transfused 1uPRBC since she will be undergoing surgery -will need iron supplementation Diabetes mellitus type 2-insulin dependent: ACHS Accu-Cheks scale insulin therapy. Patient NPO at this time. Hypertension: Home medications continued. Will provide p.r.n. medications as well. Hyperlipidemia: Home medications have been continued GERD: Home medications have been continued Anxiety: Home medications have been continued Dispo: possible rehab, pending L femur fracture repair Time Spent Managing Pts Care (In Minutes): 35
[2020-01-30] MEDS ORDERED: TRANEXAMIC ACID 1,000 MG in NA CHLORIDE 0.9% 50 ML IV ONE (09:00)
[2020-01-30] MEDS ORDERED: propofoL 200 MG/20 ML VIAL IV ONE (09:13)
[2020-01-30] MEDS ORDERED: LIDOCAINE 2% MPF 5 ML VIAL ONE (09:13)
[2020-01-30] MEDS ORDERED: Phenylephrine HCl 10 MG/ML 1 ML VIAL ONE (09:14)
[2020-01-30] MEDS: CEFAZOLIN/SWI 1gm 1 GM/10 ML SYR ONE ×2 (09:23→09:47)
[2020-01-30] MEDS ORDERED: FENTANYL CITR 100 MCG/2 ML ONE (09:44)
[2020-01-30] MEDS ORDERED: dexAMETHasone 10 MG/ML VIAL ONE (09:45)
[2020-01-30] MEDS ORDERED: KETOROLAC 30 MG/ML INJ ONE (09:45)
--- NOTE | 2020-01-30 10:18 | P.OP ---
Preoperative diagnosis: left proximal femur fracture Postoperative diagnosis: same Primary procedure: left BEKA avani Estimated blood loss: 50ccs Complications: None Transferred to: Recovery Room Condition: Good
[2020-01-30] MEDS ORDERED: ONDANSETRON 4 MG/2 ML VIAL ONE (10:32)
--- NOTE | 2020-01-30 10:52 | RAD REPORT ---
EXAM DESCRIPTION: RAD - Hip In Or - 01/30/2020 10:36 am CLINICAL HISTORY: Femoral fracture FINDINGS: Fluoroscopy time 1.3 minutes. Twenty-six fluoroscopic spot images obtained Surgery performed by Dr. Alvarez Compression screws and intramedullary avani affix a femoral fracture
--- NOTE | 2020-01-30 11:31 | OP ---
Date of Procedure: 01/30/2020 Surgeon: Alexsander Alvarez MD Preoperative Diagnosis: Left hip intertrochanteric fracture. Postoperative Diagnosis: Left hip intertrochanteric fracture. Procedure: Left hip closed reduction with intramedullary avani fixation using the Biomet Affixus nail. Estimated Blood Loss: 50 cc. Complications: No complications. Pathology: No pathology specimen sent. Indication For Operation: Ms. Mcgraw is an 84-year-old female, who unfortunately fell injuring her l eft lower extremity. She was seen and examined in the emergency department, where she was ruled out for other injuries. However, unfortunately was found to have a left intertrochanteric fracture. I a m called to see her. She was ruled out for other injuries. At this time risks, benefits, and altern atives to different methods of treating discussed with the patient's family. They states they unders tands things as presented and wished to proceed. Description Of Procedure: The patient was taken to the operating room, placed in the supine position , and general anesthesia was obtained by staff. Following this, she was then placed on the fracture table. All of her bony prominences are well positioned and her legs were appropriately positioned. This allowed for good AP and lateral views. The left lower extremity was then prepped and draped in usual sterile fashion for procedure. After this, a standard superior incision was made above the gre ater trochanter and the starting point is placed using the awl. This was followed by placement of th e guidewire and with reaming, using the opening reamer down to the lesser trochanter. A 9 x 130 avani was selected and it was placed to appropriate depth. Cephalomedullary screws were then placed in sta ndard fashion. This followed by placement of an interlocking screw distally. Following this, the wo unds were irrigated and the fascia was closed using Vicryl followed by closure of skin with Vicryl an d albert. The patient was then placed in Aquacel dressing, awakened, taken to the recovery room in good condition. There were no complications. SE/MODL Voice ID: [id number] Report ID: [id number]
[2020-01-30] MEDS: CEFAZOLIN/SWI 1gm 1 GM/10 ML SYR IV SCH (16:42)
[2020-01-30] MEDS ORDERED: CEFAZOLIN/NS 1gm 1 GM/50 ML BAG IVPB SCH (17:00)
[2020-01-30] MEDS: DOCUSATE NA 100 MG CAP PO SCH (21:24)
[2020-01-30] MEDS: ATORVASTATIN 20 MG TAB PO SCH (21:24)
[2020-01-31] MEDS: HYDRALAZINE HCL 20 MG/ML VIAL IV PRN ×2 (00:40→23:41)
[2020-01-31] MEDS: CEFAZOLIN/SWI 1gm 1 GM/10 ML SYR IV SCH ×2 (00:40→08:43)
[2020-01-31] MEDS: TRAMADOL HCL 50 MG TAB PO PRN ×2 (02:35→09:47)
[2020-01-31 04:44] LABS: Hematocrit 25.3 % (36.0-45.0); MPV 8.5 fL (7.6-11.3)
[2020-01-31 05:02] LABS: Potassium 3.9 mmol/L (3.5-5.1)
[2020-01-31] MEDS: PANTOPRAZOLE 40MG TABLET PO SCH (05:14)
[2020-01-31] MEDS: LEVOTHYROXINE SOD 0.088 MG TAB PO SCH (05:14)
[2020-01-31] MEDS: SOTALOL HCL 80 MG TAB PO SCH ×2 (05:14→17:16)
[2020-01-31] MEDS: NA CHLORIDE 0.9% 1,000 ML IV SCH (05:29)
[2020-01-31] MEDS ORDERED: POTASSIUM CL SA 10 MEQ TAB PO ONE (05:57)
[2020-01-31] MEDS ORDERED: NA CHLORIDE 0.9% 250 ML IV SCH (07:00)
[2020-01-31] MEDS: AMLODIPINE 10 MG TAB PO SCH (08:42)
[2020-01-31] MEDS: IRON SUCROSE 100 MG in NA CHLORIDE 0.9% 100 ML IV SCH (08:42)
[2020-01-31] MEDS: BENAZEPRIL 20 MG TAB PO SCH (08:43)
[2020-01-31] MEDS: PENTOXIFYLLINE ER 400 MG TAB PO SCH ×3 (08:43→17:16)
[2020-01-31] MEDS: METOCLOPRAMIDE 5 MG TAB PO SCH (08:43)
[2020-01-31] MEDS: DOCUSATE NA 100 MG CAP PO SCH ×2 (08:43→20:15)
[2020-01-31] MEDS: INSULIN -REGULAR HUMAN 50 UNIT/0.5 ML ML SQ SCH ×4 (08:43→20:15)
[2020-01-31] MEDS: MORPHINE 2 MG/ML SYR IV PRN ×2 (10:36→14:31)
--- NOTE | 2020-01-31 10:49 | P.PN ---
Subjective Date of Service: 01/31/20 Primary Care Provider: Dr. Fagan Chief Complaint: L femur fracture Subjective: Improving (Pain is much better after surgery, positive flatus, remains with Carranza catheter) Physical Examination - Vital Signs Temperature: 98.5 F Blood Pressure: 168/70 Pulse: 79 Respirations: 16 Pulse Ox (%): 99 - Physical Exam General: Alert, In no apparent distress HEENT: Mucous membr. moist/pink, Sclerae nonicteric Respiratory: Clear to auscultation bilaterally, Normal air movement Cardiovascular: No edema, Regular rate/rhythm, Normal S1 S2 Gastrointestinal: Soft and benign, Non-distended, No tenderness Musculoskeletal: Tenderness (Mild tenderness to palpation along surgical site), Other (No swelling or large ecchymosis on the left thigh, surgical dressing c/d/i) Neurological: Normal speech, Sensation intact (Left foot), Normal affect Urinary: Carranza catheter Assessment & Plan Physician Review Additional Text: Left nondisplaced intertrochanteric femur fracture Paroxysmal atrial fibrillation/flutter on chronic anticoagulation therapy Microcytic anemia Diabetes mellitus type 2-insulin dependent Hypertension Hyperlipidemia GERD Anxiety Plan Left nondisplaced intertrochanteric femur fracture: -status post surgical fixation on 01/30/2020 -doing well, pain is controlled, passing flatus -to be evaluated in physical therapy today, can Dc Carranza once ambulating better -hemoglobin less than 8 this morning, do not suspect any bleeding into the thigh at this time -will transfuse 1 unit PRBC this morning. Start IV iron for iron deficiency anemia -can restart Xarelto this evening Paroxysmal atrial fibrillation/flutter on chronic anticoagulation therapy: -Patient has pacemaker/defibrillator. -restart xarelto tonight -Continue patient's sotalol and other home medications. -Cardiology consulted - ok to proceed with surgery. echocardiogram 09/29/2018 with normal ejection fraction. Microcytic anemia: -Hemoglobin 8.7 on admission. Microcytic anemia noted, iron studies ordered. - consistent with Iron deficiency -down to 7.7, pt was on xarelto up to ~1 day prior to admission -Left thigh without significant swelling -transfused 1uPRBC preoperatively and will give another unit today -IV iron ordered Diabetes mellitus type 2-insulin dependent: ACHS Accu-Cheks scale insulin therapy. Patient NPO at this time. Hypertension: Home medications continued. Will provide p.r.n. medications as well. Hyperlipidemia: Home medications have been continued GERD: Home medications have been continued Anxiety: Home medications have been continued Dispo: possible rehab Time Spent Managing Pts Care (In Minutes): 35
[2020-01-31] MEDS ORDERED: GLUCAGON 1 MG/VIAL IM PRN (10:53)
[2020-01-31] MEDS ORDERED: D50W 25 GM/50 ML SYRINGE/VIAL IV PRN (10:53)
[2020-01-31] MEDS ORDERED: NA CHLORIDE 0.9% 250 ML ONE (11:11)
[2020-01-31 17:02] LABS: Hematocrit 29.3 % (36.0-45.0)
[2020-01-31] MEDS: NPH (HUMAN) 100 UNITS/ML INSULIN SQ SCH (20:14)
[2020-01-31] MEDS: ATORVASTATIN 20 MG TAB PO SCH (20:14)
[2020-02-01 03:44] LABS: Hematocrit 29.9 % (36.0-45.0); MPV 8.8 fL (7.6-11.3); RBC Red Blood Cell Count 4.24 M/uL (3.86-4.86)
[2020-02-01 03:57] LABS: Potassium 4.5 mmol/L (3.5-5.1)
[2020-02-01] MEDS: PANTOPRAZOLE 40MG TABLET PO SCH (05:10)
[2020-02-01] MEDS: SOTALOL HCL 80 MG TAB PO SCH ×2 (05:10→18:27)
[2020-02-01] MEDS: LEVOTHYROXINE SOD 0.088 MG TAB PO SCH (05:10)
[2020-02-01] MEDS: TRAMADOL HCL 50 MG TAB PO PRN ×2 (06:01→21:23)
[2020-02-01] MEDS: DOCUSATE NA 100 MG CAP PO SCH ×2 (10:03→21:24)
[2020-02-01] MEDS: AMLODIPINE 10 MG TAB PO SCH (10:03)
[2020-02-01] MEDS: PENTOXIFYLLINE ER 400 MG TAB PO SCH ×3 (10:05→18:25)
[2020-02-01] MEDS: METOCLOPRAMIDE 5 MG TAB PO SCH (10:05)
[2020-02-01] MEDS: BENAZEPRIL 20 MG TAB PO SCH (10:05)
[2020-02-01] MEDS: INSULIN -REGULAR HUMAN 50 UNIT/0.5 ML ML SQ SCH ×4 (10:12→21:23)
[2020-02-01] MEDS: IRON SUCROSE 100 MG in NA CHLORIDE 0.9% 100 ML IV SCH (10:16)
[2020-02-01] MEDS: MORPHINE 2 MG/ML SYR IV PRN (10:35)
--- NOTE | 2020-02-01 10:55 | P.PN ---
Subjective Date of Service: 02/01/20 Primary Care Provider: Dr. Fagan Chief Complaint: L femur fracture Subjective: Improving (The patient reports doing well, tolerating diet, passing gas, no chest pain, no shortness of breath Touchdown weight-bearing, worked a little bit with physical therapy yesterday) Physical Examination - Vital Signs Temperature: 97.8 F Blood Pressure: 167/72 Pulse: 80 Respirations: 10 Pulse Ox (%): 96 - Physical Exam General: Alert, Oriented x3 HEENT: Mucous membr. moist/pink, Sclerae nonicteric Neck: Supple Respiratory: Clear to auscultation bilaterally, Normal air movement Cardiovascular: No edema, Regular rate/rhythm, Normal S1 S2 Gastrointestinal: Soft and benign, Non-distended, No tenderness Musculoskeletal: Tenderness (Mild soreness over surgical incision) Integumentary: No rashes Neurological: Normal speech, Sensation intact (Left lower extremity), Normal affect Urinary: Carranza catheter Assessment & Plan Physician Review Additional Text: Left nondisplaced intertrochanteric femur fracture Paroxysmal atrial fibrillation/flutter on chronic anticoagulation therapy Microcytic anemia, iron deficiency Diabetes mellitus type 2-insulin dependent Hypertension Hyperlipidemia GERD Anxiety Plan Left nondisplaced intertrochanteric femur fracture -status post surgical fixation on 01/30/2020 -doing well, pain is controlled, passing flatus -touchdown weight-bearing, did not do too much with physical therapy yesterday -plan to Dc Carranza later today after she works with PT -hemoglobin stable, patient received 1 unit PRBC preoperatively, and 1 unit postoperative -IV iron began on 01/30 for iron deficiency anemia -restart Xarelto this evening Paroxysmal atrial fibrillation/flutter on chronic anticoagulation therapy: -Cardiology consulted - ok to proceed with surgery. echocardiogram 09/29/2018 with normal ejection fraction. -Patient has pacemaker/defibrillator. -Continue patient's sotalol and other home medications. -restart xarelto tonight Microcytic anemia, iron deficiency: -Hemoglobin 8.7 on admission. Microcytic anemia noted, iron studies ordered. - consistent with Iron deficiency -Left thigh without significant swelling / no signs of bleeding -as noted above, received 1 unit preoperatively, and 1 unit postoperative -IV iron started on 01/30 Diabetes mellitus type 2-insulin dependent: ACHS Accu-Cheks scale insulin therapy. restarted home qHS insulin Hypertension: Home medications continued. Hyperlipidemia: Home medications have been continued GERD: Home medications have been continued Anxiety: Home medications have been continued Dispo: touch-down weightbearing, consulted SW/CM for SNF Time Spent Managing Pts Care (In Minutes): 35
[2020-02-01] MEDS ORDERED: RIVAROXABAN 10 MG TABLET PO SCH (17:00)
[2020-02-01] MEDS: RIVAROXABAN 20 MG TABLET PO SCH (18:25)
[2020-02-01] MEDS: ATORVASTATIN 20 MG TAB PO SCH (21:23)
[2020-02-01] MEDS: NPH (HUMAN) 100 UNITS/ML INSULIN SQ SCH (21:24)
[2020-02-02 04:00] LABS: Hematocrit 28.6 % (36.0-45.0); MPV 8.7 fL (7.6-11.3); RBC Red Blood Cell Count 4.01 M/uL (3.86-4.86)
[2020-02-02 04:05] LABS: BUN Blood Urea Nitrogen 15 mg/dL (7-18); Bicarbonate 26 mmol/L (21-32); Glucose Level 183 mg/dL (74-106); Potassium 4.1 mmol/L (3.5-5.1); Sodium Level 143 mmol/L (136-145)
[2020-02-02] MEDS: TRAMADOL HCL 50 MG TAB PO PRN ×2 (06:19→15:33)
[2020-02-02] MEDS: LEVOTHYROXINE SOD 0.088 MG TAB PO SCH (06:21)
[2020-02-02] MEDS: PANTOPRAZOLE 40MG TABLET PO SCH (06:21)
[2020-02-02] MEDS: SOTALOL HCL 80 MG TAB PO SCH ×2 (06:21→17:04)
[2020-02-02] MEDS: INSULIN -REGULAR HUMAN 50 UNIT/0.5 ML ML SQ SCH ×4 (08:31→20:20)
[2020-02-02] MEDS: METOCLOPRAMIDE 5 MG TAB PO SCH (08:32)
[2020-02-02] MEDS: PENTOXIFYLLINE ER 400 MG TAB PO SCH ×3 (08:32→17:04)
[2020-02-02] MEDS: DOCUSATE NA 100 MG CAP PO SCH ×2 (08:33→20:16)
[2020-02-02] MEDS: AMLODIPINE 10 MG TAB PO SCH (08:34)
[2020-02-02] MEDS: BENAZEPRIL 20 MG TAB PO SCH (08:35)
[2020-02-02] MEDS: SOD FERRIC GLUC COMPLX/SUCROSE 125 MG in NA CHLORIDE 0.9% 100 ML IV SCH (08:37)
--- NOTE | 2020-02-02 15:21 | P.PN ---
Subjective Date of Service: 02/02/20 Primary Care Provider: Dr. Fagan Chief Complaint: L femur fracture Patient has no complaint. She did well with physical therapy today. She was able to transfer with minimal assist. Physical Examination - Vital Signs Temperature: 99.0 F Blood Pressure: 184/91 Pulse: 91 Respirations: 18 Pulse Ox (%): 97 - Physical Exam General: Alert, In no apparent distress Neck: Supple Respiratory: Clear to auscultation bilaterally, Normal air movement Cardiovascular: No edema, Regular rate/rhythm, Normal S1 S2 Gastrointestinal: Normal bowel sounds, Soft and benign, No tenderness Musculoskeletal: No swelling Integumentary: No rashes Neurological: Other (Nonfocal) Assessment And Plan Physician Review Additional Text: Left nondisplaced intertrochanteric femur fracture Paroxysmal atrial fibrillation/flutter on chronic anticoagulation therapy Microcytic anemia, iron deficiency Diabetes mellitus type 2-insulin dependent Hypertension Hyperlipidemia GERD Anxiety Plan Left nondisplaced intertrochanteric femur fracture -status post surgical fixation on 01/30/2020 -doing well, pain is controlled. -touchdown weight-bearing. She is tolerating physical therapy, Now transferring in standing touchdown weight-bearing with minimal assist. -hemoglobin stable, patient received 1 unit PRBC preoperatively, and 1 unit postoperative -continue iron supplementation. -continue Xarelto Paroxysmal atrial fibrillation/flutter on chronic anticoagulation therapy: -Patient has pacemaker/defibrillator. -Continue patient's sotalol and other home medications. -continue xarelto. Microcytic anemia, iron deficiency: -Hemoglobin 8.7 on admission. Microcytic anemia noted, iron studies ordered. - consistent with Iron deficiency -no evidence of active bleeding -as noted above, received 1 unit preoperatively, and 1 unit postoperative -IV iron started on 01/30 Diabetes mellitus type 2-insulin dependent: ACHS Accu-Cheks scale insulin therapy. restarted home qHS insulin Hypertension: Home medications continued. Hyperlipidemia: Home medications have been continued GERD: Home medications have been continued Anxiety: Home medications have been continued Dispo: touch-down weightbearing, rehab consult placed to evaluate for inpatient rehab placement.
[2020-02-02] MEDS: RIVAROXABAN 20 MG TABLET PO SCH (17:04)
[2020-02-02] MEDS: ATORVASTATIN 20 MG TAB PO SCH (20:15)
[2020-02-02] MEDS: NPH (HUMAN) 100 UNITS/ML INSULIN SQ SCH (20:20)
[2020-02-02] MEDS ORDERED: BISACODYL 10 MG RECTAL SUPP PR ONE (21:40)
[2020-02-03] MEDS: TRAMADOL HCL 50 MG TAB PO PRN ×2 (03:22→15:51)
[2020-02-03] MEDS: LEVOTHYROXINE SOD 0.088 MG TAB PO SCH (05:38)
[2020-02-03] MEDS: SOTALOL HCL 80 MG TAB PO SCH ×2 (05:38→16:59)
[2020-02-03] MEDS: PANTOPRAZOLE 40MG TABLET PO SCH (05:38)
[2020-02-03] MEDS: INSULIN -REGULAR HUMAN 50 UNIT/0.5 ML ML SQ SCH ×4 (07:45→20:05)
[2020-02-03] MEDS: BENAZEPRIL 20 MG TAB PO SCH (07:46)
[2020-02-03] MEDS: METOCLOPRAMIDE 5 MG TAB PO SCH (07:46)
[2020-02-03] MEDS: AMLODIPINE 10 MG TAB PO SCH (07:46)
[2020-02-03] MEDS: DOCUSATE NA 100 MG CAP PO SCH ×2 (07:47→20:04)
[2020-02-03] MEDS: PENTOXIFYLLINE ER 400 MG TAB PO SCH ×3 (07:47→16:57)
[2020-02-03] MEDS: SOD FERRIC GLUC COMPLX/SUCROSE 125 MG in NA CHLORIDE 0.9% 100 ML IV SCH (08:20)
[2020-02-03] MEDS: RIVAROXABAN 20 MG TABLET PO SCH (16:57)
[2020-02-03] MEDS: POLYETHYL GLY 3350 17 GM/DOSE PO SCH ×2 (16:57→20:04)
--- NOTE | 2020-02-03 18:34 | P.PN ---
Subjective Date of Service: 02/03/20 Primary Care Provider: Dr. Fagan Chief Complaint: L femur fracture Patient has no complaint. She doing well with physical therapy today. Physical Examination - Vital Signs Temperature: 99.0 F Blood Pressure: 144/66 Pulse: 99 Respirations: 18 Pulse Ox (%): 95 - Physical Exam General: Alert, In no apparent distress, Oriented x3 HEENT: Mucous membr. moist/pink Neck: Supple Respiratory: Clear to auscultation bilaterally, Normal air movement Cardiovascular: No edema Gastrointestinal: Normal bowel sounds, Soft and benign Neurological: Other (Nonfocal.) Assessment And Plan Physician Review Additional Text: Left nondisplaced intertrochanteric femur fracture Paroxysmal atrial fibrillation/flutter on chronic anticoagulation therapy Microcytic anemia, iron deficiency Diabetes mellitus type 2-insulin dependent Hypertension Hyperlipidemia GERD Anxiety Plan Left nondisplaced intertrochanteric femur fracture -status post surgical fixation on 01/30/2020 -doing well, pain is controlled. -touchdown weight-bearing. She is tolerating physical therapy, Now transferring and standing touchdown weight-bearing with minimal assist. -hemoglobin stable, patient received 1 unit PRBC preoperatively, and 1 unit postoperative -continue iron supplementation. -continue Xarelto Paroxysmal atrial fibrillation/flutter on chronic anticoagulation therapy: -Patient has pacemaker/defibrillator. -Continue patient's sotalol and other home medications. -continue xarelto. Microcytic anemia, iron deficiency: -Microcytic anemia noted, iron studies ordered. - consistent with Iron deficiency -no evidence of active bleeding -as noted above, received 1 unit preoperatively, and 1 unit postoperative -IV iron started on 01/30 Diabetes mellitus type 2-insulin dependent: ACHS Accu-Cheks scale insulin therapy. restarted home qHS insulin Hypertension: Home medications continued. Hyperlipidemia: Home medications have been continued GERD: Home medications have been continued Anxiety: Home medications have been continued Dispo: touch-down weightbearing, rehab consult placed to evaluate for inpatient rehab placement.
[2020-02-03] MEDS: HYDRALAZINE HCL 20 MG/ML VIAL IV PRN (20:04)
[2020-02-03] MEDS: ATORVASTATIN 20 MG TAB PO SCH (20:04)
[2020-02-03] MEDS: NPH (HUMAN) 100 UNITS/ML INSULIN SQ SCH (20:05)
[2020-02-03] MEDS: ACETAMINOPHEN 500 MG TAB PO PRN (21:26)
[2020-02-04] MEDS: ACETAMINOPHEN 500 MG TAB PO PRN ×4 (03:18→20:59)
[2020-02-04 04:32] LABS: Hematocrit 33.4 % (36.0-45.0)
--- NOTE | 2020-02-04 05:09 | PN ---
Date of Progress Note: 02/02/2020 Subjective: Ms. Mcgraw is an 84-year-old woman who has a history of diabetes, hypertension, paroxysm al atrial fibrillation. We were asked to clear Ms. Mcgraw for hip surgery. Her surgery was performe d on 01/30/2020. Since then, she has remained in sinus rhythm. Her diabetes and hypertension seemed to be well controlled. She does not really have any cardiac complaint. Objective: Her examination revealed normal sinus rhythm. No edema. No rales. Plan: I recommend continuing her present regimen. Discharge planning and physical therapy planning for this have been decided by Orthopedic Surgery and Dr. Pack. We will sign off her case for now. ZAHRAA/YADIRA Voice ID: [id number] Report ID: [id number]
[2020-02-04] MEDS: LEVOTHYROXINE SOD 0.088 MG TAB PO SCH (06:30)
[2020-02-04] MEDS: SOTALOL HCL 80 MG TAB PO SCH ×2 (07:23→17:11)
[2020-02-04] MEDS: PANTOPRAZOLE 40MG TABLET PO SCH (07:23)
[2020-02-04] MEDS: SOD FERRIC GLUC COMPLX/SUCROSE 125 MG in NA CHLORIDE 0.9% 100 ML IV SCH (08:00)
[2020-02-04] MEDS: PENTOXIFYLLINE ER 400 MG TAB PO SCH ×3 (08:29→17:11)
[2020-02-04] MEDS: POLYETHYL GLY 3350 17 GM/DOSE PO SCH ×2 (08:29→21:00)
[2020-02-04] MEDS: DOCUSATE NA 100 MG CAP PO SCH ×2 (08:29→20:59)
[2020-02-04] MEDS: AMLODIPINE 10 MG TAB PO SCH (08:29)
[2020-02-04] MEDS: METOCLOPRAMIDE 5 MG TAB PO SCH (08:29)
[2020-02-04] MEDS: BENAZEPRIL 20 MG TAB PO SCH (08:29)
[2020-02-04] MEDS: INSULIN -REGULAR HUMAN 50 UNIT/0.5 ML ML SQ SCH ×4 (08:30→21:00)
[2020-02-04] MEDS: HYDRALAZINE HCL 20 MG/ML VIAL IV PRN (12:15)
--- NOTE | 2020-02-04 16:49 | P.PN ---
Subjective Date of Service: 02/04/20 Primary Care Provider: Dr. Fagan Chief Complaint: L femur fracture Patient has no complaint. She doing well with physical therapy today. She ambulated with a walker today. Physical Examination - Vital Signs Temperature: 99.5 F Blood Pressure: 166/68 Pulse: 93 Respirations: 18 Pulse Ox (%): 98 - Physical Exam General: Alert, In no apparent distress Respiratory: Clear to auscultation bilaterally, Normal air movement Cardiovascular: No edema Gastrointestinal: Normal bowel sounds, Soft and benign, No tenderness Musculoskeletal: No swelling Assessment And Plan Physician Review Additional Text: Left nondisplaced intertrochanteric femur fracture Paroxysmal atrial fibrillation/flutter on chronic anticoagulation therapy Microcytic anemia, iron deficiency Diabetes mellitus type 2-insulin dependent Hypertension Hyperlipidemia GERD Anxiety Plan Left nondisplaced intertrochanteric femur fracture -status post surgical fixation on 01/30/2020 -doing well, pain is controlled. -touchdown weight-bearing. She is tolerating physical therapy -hemoglobin stable, patient received 1 unit PRBC preoperatively, and 1 unit postoperative -continue iron supplementation. -continue Xarelto Paroxysmal atrial fibrillation/flutter on chronic anticoagulation therapy: -Patient has pacemaker/defibrillator. -Continue patient's sotalol and other home medications. -continue xarelto. Microcytic anemia, iron deficiency: -Microcytic anemia noted, iron studies ordered. - consistent with Iron deficiency -no evidence of active bleeding -as noted above, received 1 unit preoperatively, and 1 unit postoperative -IV iron started on 01/30 -monitor H&H closely given the fact that patient is on Xarelto. Diabetes mellitus type 2-insulin dependent: ACHS Accu-Cheks scale insulin therapy. restarted home qHS insulin Hypertension: Home medications continued. Hyperlipidemia: Home medications have been continued GERD: Home medications have been continued Anxiety: Home medications have been continued
[2020-02-04] MEDS: RIVAROXABAN 20 MG TABLET PO SCH (17:11)
[2020-02-04] MEDS: ATORVASTATIN 20 MG TAB PO SCH (20:59)
[2020-02-04] MEDS: NPH (HUMAN) 100 UNITS/ML INSULIN SQ SCH (21:01)
[2020-02-05] MEDS: HYDRALAZINE HCL 20 MG/ML VIAL IV PRN (05:01)
[2020-02-05] MEDS: LEVOTHYROXINE SOD 0.088 MG TAB PO SCH (05:33)
[2020-02-05] MEDS: SOTALOL HCL 80 MG TAB PO SCH ×2 (05:33→17:27)
[2020-02-05] MEDS: PANTOPRAZOLE 40MG TABLET PO SCH (05:33)
[2020-02-05] MEDS: ACETAMINOPHEN 500 MG TAB PO PRN (05:46)
[2020-02-05 06:39] LABS: BUN Blood Urea Nitrogen 9 mg/dL (7-18); Bicarbonate 26 mmol/L (21-32); Glucose Level 144 mg/dL (74-106); Potassium 3.6 mmol/L (3.5-5.1); Sodium Level 144 mmol/L (136-145)
[2020-02-05] MEDS: PENTOXIFYLLINE ER 400 MG TAB PO SCH ×3 (08:54→17:27)
[2020-02-05] MEDS: BENAZEPRIL 20 MG TAB PO SCH (08:54)
[2020-02-05] MEDS: DOCUSATE NA 100 MG CAP PO SCH ×2 (08:56→19:14)
[2020-02-05] MEDS: AMLODIPINE 10 MG TAB PO SCH (08:56)
[2020-02-05] MEDS: METOCLOPRAMIDE 5 MG TAB PO SCH (08:56)
[2020-02-05] MEDS: POLYETHYL GLY 3350 17 GM/DOSE PO SCH ×2 (08:56→19:14)
[2020-02-05] MEDS: INSULIN -REGULAR HUMAN 50 UNIT/0.5 ML ML SQ SCH ×4 (08:57→20:30)
[2020-02-05] MEDS: SOD FERRIC GLUC COMPLX/SUCROSE 125 MG in NA CHLORIDE 0.9% 100 ML IV SCH (09:00)
[2020-02-05 09:29] VITALS: O2SAT 96
--- NOTE | 2020-02-05 17:02 | P.DS ---
Admission Date: 01/28/20 Discharge Date: 02/05/20 Primary Care Provider: Dr. Fagan Disposition: TRANSFER TO INPATIENT REHAB Discharge Condition: FAIR Reason for Admission: L femur fracture Consultations: Orthopedics-Dr. Alvarez. Brief History of Present Illness: 84-year-old woman with a history of paroxysmal atrial fibrillation, diabetes mellitus type 2 had a mechanical fall and was brought to the emergency department where she was found to have left femur intertrochanteric fracture. Patient was hospitalized for orthopedic evaluation and management. Hospital Course: Patient admitted to the medical floor. She was evaluated by orthopedic surgery. Patient underwent ORIF with placement of intra medullary avani. Patient was monitored in the postop period. Noted patient is on sotalol for paroxysmal atrial fibrillation. She was also on Xarelto anticoagulation. She developed acute blood loss anemia and received a total of 2 units PRBC. Her iron level was very low pain was started on IV iron therapy. There was no evidence of active bleed. Hemoglobin was monitored throughout the postop period and it remains stable. Patient underwent physical therapy and tolerated it. She has been accepted for rehab where she will continue with the IV iron therapy. Vital Signs/Physical Exam: Temp Pulse Resp BP Pulse Ox 98.9 F 87 18 142/63 H 98 02/05/20 12:00 02/05/20 12:00 02/05/20 12:00 02/05/20 12:00 02/05/20 12:00 General: Alert, In no apparent distress HEENT: Mucous membr. moist/pink Neck: Supple Respiratory: Clear to auscultation bilaterally, Normal air movement Cardiovascular: Regular rate/rhythm, Normal S1 S2 Gastrointestinal: Normal bowel sounds, Soft and benign, No tenderness Neurological: Other (Nonfocal) Laboratory Data at Discharge: WBC 11.4 K/uL (4.3-10.9) H D 02/02/20 03:20 Hgb 10.3 g/dL (12.0-15.0) L 02/05/20 05:25 Hct 33.0 % (36.0-45.0) L 02/05/20 05:25 Plt Count 193 K/uL (152-406) 02/02/20 03:20 PT 14.5 SECONDS (9.5-12.5) H 01/28/20 23:55 INR 1.23 01/28/20 23:55 APTT 27.4 SECONDS (24.3-36.9) 01/28/20 23:55 Sodium 144 mmol/L (136-145) 02/05/20 05:25 Potassium 3.6 mmol/L (3.5-5.1) 02/05/20 05:25 BUN 9 mg/dL (7-18) 02/05/20 05:25 Creatinine 0.48 mg/dL (0.55-1.3) L 02/05/20 05:25 Glucose 144 mg/dL (74-106) H 02/05/20 05:25 Home Medications: Atorvastatin Calcium [Lipitor*] 20 mg PO BEDTIME 09/28/18 Metoclopramide [Reglan*] 10 mg PO DAILY 09/28/18 Omeprazole [Prilosec] 40 mg PO DAILY 09/28/18 Pentoxifylline 400 mg PO TIDWM 09/28/18 Tramadol HCl [Ultram] 50 mg PO DAILY PRN 09/28/18 Amlodipine Besylate/Benazepril [Amlodipine-Benazepril 10-20 mg] 1 each PO DAILY 01/29/20 Furosemide [Lasix] 40 mg PO DAILYPRN PRN 01/29/20 Insulin NPH Human Isophane [Novolin N] 20 unit SQ BEDTIME 01/29/20 Levothyroxine Sodium [Euthyrox] 88 mcg PO DAILY 01/29/20 Rivaroxaban [Xarelto*] 20 mg PO 1700 01/29/20 Docusate [Colace Cap*] 100 mg PO BID #0 cap 02/05/20 Polyethyl Gly 3350 [Glycolax*] 17 gm PO BID udbot 02/05/20 Sodium Ferric Gluconat/Sucrose [Sod Sarjo Gluc Cplx 62.5 mg/5 ml] 125 mg IV DAILY 4 Days vial 02/05/20 Sotalol HCl [Betapace*] 80 mg PO BID 6AM 6PM tab 02/05/20 New Medications: Sodium Ferric Gluconat/Sucrose [Sod Saroj Gluc Cplx 62.5 mg/5 ml] 125 mg IV DAILY 4 Days vial Time spent managing pt's care (in minutes): 45
[2020-02-05] MEDS: RIVAROXABAN 20 MG TABLET PO SCH (17:27)
[2020-02-05] MEDS: NPH (HUMAN) 100 UNITS/ML INSULIN SQ SCH (20:30)
[2020-02-05] MEDS: ATORVASTATIN 20 MG TAB PO SCH (20:31)
[2020-02-05 20:52] VITALS: BP 145/66; TEMP 98.7
== END 2020-02-05 20:59 | DRG 481 ==
LOC: ER 21:03 → ERHOLD 23:57 → 4TH 01-29 01:33
PROVIDERS: ADMIT Hospitalist; ATTEND Internal Medicine
PROC: 30233N1 Transfusion of Nonautologous Red Blood Cells into Peripheral Vein, Percutaneous Approach (ICD-10-PCS; 2020-01-29)
PROC: 0QS736Z Reposition Left Upper Femur with Intramedullary Internal Fixation Device, Percutaneous Approach (ICD-10-PCS; principal; 2020-01-30 09:00)
DX: S72.145A Nondisplaced intertrochanteric fracture of left femur, initial encounter for closed fracture (principal); D62 Acute posthemorrhagic anemia; K21.9 Gastro-esophageal reflux disease without esophagitis; F41.9 Anxiety disorder, unspecified; D50.9 Iron deficiency anemia, unspecified; E11.51 Type 2 diabetes mellitus with diabetic peripheral angiopathy without gangrene; I48.0 Paroxysmal atrial fibrillation; E78.5 Hyperlipidemia, unspecified; W18.30XA Fall on same level, unspecified, initial encounter; Z95.810 Presence of automatic (implantable) cardiac defibrillator; Z90.710 Acquired absence of both cervix and uterus; Z90.49 Acquired absence of other specified parts of digestive tract; Z79.82 Long term (current) use of aspirin; Z79.890 Hormone replacement therapy; Z79.4 Long term (current) use of insulin; Z79.899 Other long term (current) drug therapy; Z79.01 Long term (current) use of anticoagulants; Z20.828 Contact with and (suspected) exposure to other viral communicable diseases
CPT/HCPCS: 36415; 36430; 51702; 71045; 72170; 73530; 80048; 82728; 82947; 83540; 84466; 84484; 85014; 85018; 85025; 85027; 85610; 85730; 86850; 86900; 86901; 93005; 96374; 97110; 97112; 97116; 97162; 97530; 99285; G0390; J0360; J0690; J1100; J1815; J2270; J2370; J2405; J2704; J2916; J3010; J3480; J7030; J7050; P9016; U0002

== ENCOUNTER 2020-02-03 12:21 | Inpatient (IN) | payer OTHER ==
--- NOTE | 2020-02-04 15:43 | R.PREADM ---
PRE-ADMISSION SCREENING FORM SCREENING DATE AND TIME 02/04/2020 09:25 (CDT) ANTICIPATED REHAB ADMISSION DATE 02/06/2020 REFERRING FACILITY [facility] REFERRAL DATE AND TIME 02/04/2020 09:25 (CDT) REFERRAL ROOM# 403 ACUTE ADMIT DATE 01/28/2020 Previous Rehabilitation(s): No. ACUTE MANAGER PARKING/DC SUGAR BOILER April Carter ATTENDING PHYSICIAN REFERRING PHYSICIAN AISHA ALANIZ PRIMARY CARE PHYSICIAN REHAB FACILITY [facility] CLINICAL LIAISON Kevan Mandujano PHYSICIAN REVIEWER Dr. Missael Lerma M.D. MR# [id number] NAME MARIVEL MCGRAW ADDRESS [address] [place] [address] PHONE [facility] [address] DATE OF 1935 AGE 84 SSN# [id number] GENDER female MARITAL STATUS RACE unknown race ADMIT FROM 02 - [facility] PRE-HOSPITAL LIVING SETTING 01 - Home (private home/apt. board/care, assisted living, shelter, transitional living) HOME TYPE AND DETAILS Type of home: single family house # of levels in the residence: 1 # of steps within the residence: 0 # of steps to enter the residence: 0 PRE-HOSPITAL LIVING WITH Alone FAMILY SUPPORT No PRIMARY FAMILY CONTACT NAME MARCIA FREEDMAN PRIMARY FAMILY CONTACT PHONE PRIMARY FAMILY CONTACT RELATIONSHIP DAUGHTER PHONE PRIMARY FAMILY CONTACT ON ADM.? no IS PRIMARY FAMILY CONTACT AUTH. REP.? no 1ST EMERGENCY CONTACT MARCIA FREEDMAN 1ST CONTACT PHONE 1ST CONTACT RELATIONSHIP DAUGHTER PHONE 1ST CONTACT ON ADM. no IS 1ST CONTACT AUTH. REP.? no PHONE 2ND CONTACT ON ADM.? no PATIENT EMPLOYMENT STATUS Retired (for age) PATIENT EMPLOYER No Employer PAYOR INFORMATION: 1ST PAYOR NAME VIJAY NGUYEN [employer] 1ST PAYOR PHONE [phone] 1ST PAYOR INJURY/ILLNESS DUE TO ACCIDENT? No ANOTHER REPUBLICAN RESPONSIBLE? No PRIMARY REHAB/ACUTE DIAGNOSIS: LEFT FEMUR FRACTURE ONSET DATE 01/28/2020 REHAB IMPAIRMENT CATEGORY (MEHRAN): 07 Fracture of LE (FracLE) MEETS 60% rule AFFECTED EXTREMITIES: LLE PRIMARY DIAGNOSIS-RELATED SURGERIES: Emergency Unilateral Hip Fracture - performed by AISHA ALANIZ on 01/28/2020 SUMMARY OF ACUTE HOSPITALIZATION: Pt. is a 84 yo Right-handed female of unknown race. On 01/28/2020 she was admitted to [facility] and underwent emergency surgery for LEFT FE MUR FRACTURE (Unilateral Hip Fracture) by AISHA ALANIZ. Pre-morbidly, Pt. was independent/mod-I in Safety Awareness, Balance, and Transfers Control; and she had good Self-Care, Communication, and Endurance. Currently, she has deficits of Balance, Safety Awareness, Locomotion, Self-Care, Communication, and S phincter Control. Pt. is now referred to [facility] for acute in-patient rehabilitation in order to maximize patient's functional independence in activities of daily living, strength, ROM, and mobi lity. Patient has realistic goal of being discharged at assistance level 7-Ind to reside at Home with Pt s elf. Marivel Mcgraw is a 84 year -old female that lives independently at home with her daughter. She has no stairs to get inside. She was able to do daily activated on her own prior. Mrs. Mcgraw has a history diabetesmellitus 2, hypertension, paroxysmal A FIB, GERD, hyperlipidemia, hypothyroidism, anxiety, presented to the ER department after mechanical fall and occasional reaching down to grab plate injury to the left hip. She has always performed all her own ADLs and IADLs. Prior to [facility] she was seeing her PCP regularly. The patient would most definitely benefit from acute inpatient rehab and has become severely debilitated and unable to live at her prior level of activity at home getting her stronger to be back living at home independently is our goal. It is reasonable and necessary for the patient to come to acute inpatient rehab for approximately 7-10 days in order to return to her prior level of care. She now being transferred to [facility] Inpatient rehabilitation and is medically stable with relatively stable labs. She is now medically stable but in need of 24 hour nursing, doctor supervision and oversight while receiving active and participate in 3 hours of therapy a day/15 hours per week and receive care with intensive interdisciplinary approach. COVID-19 screening performed; spoke with patient via phone. Patient denies new onset of fever, cough, difficulty breathing, sore throat, body aches and non-allergy nasal congestion in the past 24 hours. Patient denies travel outside of [place] in the past 14 days. Patient denies any contact with someone who has a confirmed diagnosis of or is under investigation for COVID-19 in the past 14 days. Patient has been tested negative for COVID- 19. PAST MEDICAL HISTORY HYPERTENSION ANXIETY DIABETES MELLITUS TYPE 2 GERD PERIPHERAL ARTERY DISEASE HYPERLIPIDEMIA PAST SURGICAL HISTORY: PACEMAKER/DEFIBRILLATOR BACK SURGERY APPENDECTOMY TENDONITIS TONSILLECTOMY LEFT NONDISPLACEED FEMUR FRATCURE MEDICATION ALLERGIES: No Known Drug Allergies (NKDA) ENVIRONMENTAL ALLERGIES: - Substance Allergies None Known - Other Allergies None Known CODE STATUS: Full code WEIGHT/HEIGHT/BMI: WEIGHT 165 lbs HEIGHT 5' 5" BMI 27.5 DIET: - Diet Type Regular - Diet - Solid Texture Regular - Diet - Liquid Texture Regular - Tube Feed N/A REVIEW OF SYSTEMS: - Gen Alert and awake Lying in bed No apparent distress Oriented to: person, time, and place - Vital Signs Temperature: 97.8 F SBP/DBP: 167/72 Pulse: 80 Resp: 10 Vital signs stable, afebrile - CVS RRR VITAL SIGNS Temperature: 97.8 F SBP/DBP: 167/72 Pulse: 80 Resp: 10 Vital signs stable, afebrile MEDICATIONS/TREATMENT: Other- See attached MAR (Medication Administration Record). CURRENT SPHINCTER CONTROL: Pre-hospital bladder status: unspecified # of bladder accidents in the last 7 days prior to screenin Pre-hospital bowel status: unspecified # of bowel accidents in the last 7 days prior to screenin Last Bowel Movement Date: 02/04/2020 CURRENT LOCOMOTION STATUS: distance walked 15 feet WITH RW DETAILED CURRENT FUNCTIONAL STATUS: - Bladder accident frequency: Ind - No accidents in the past 7 days - Bowel accident frequency: Ind - No accidents in the past 7 days - Walking score based on distance walked: 0(N/A) score based on distance walked: 1(<=50ft) - Wheelchair score based on distance traveled: 0(N/A) QI SCORES: - Self-Care A. Eating 03-Partial/moderate assistance B. Oral hygiene 03-Partial/moderate assistance C. Toileting hygiene 02-Substantial/maximal assistance E. Shower/bathe self 02-Substantial/maximal assistance F. Upper body dressing 03-Partial/moderate assistance G. Lower body dressing 02-Substantial/maximal assistance H. Putting on/taking off footwear 88-Not attempted due to medical condition or safety concerns - Mobility A. Roll left and right 03-Partial/moderate assistance B. Sit to lying 03-Partial/moderate assistance C. Lying to sitting on side of bed 03-Partial/moderate assistance D. Sit to stand 02-Substantial/maximal assistance E. Chair/qyd-um-ajnad transfer 02-Substantial/maximal assistance F. Toilet transfer G. Car transfer 88-Not attempted due to medical condition or safety concerns I. Walk 10 feet 02-Substantial/maximal assistance J. Walk 50 feet with two turns 88-Not attempted due to medical condition or safety concerns K. Walk 150 feet 88-Not attempted due to medical condition or safety concerns L. Walking 10 feet on uneven surfaces 88-Not attempted due to medical condition or safety concerns M. 1 step (curb) 88-Not attempted due to medical condition or safety concerns N. 4 steps 88-Not attempted due to medical condition or safety concerns O. 12 steps 88-Not attempted due to medical condition or safety concerns P. Picking up object 88-Not attempted due to medical condition or safety concerns R. Wheel 50 feet with two turns 88-Not attempted due to medical condition or safety concerns S. Wheel 150 feet 88-Not attempted due to medical condition or safety concerns - Bladder and Bowel Bladder continence Bowel continence - Endurance Fair - Balance Fair - Safety Awareness Fair CURRENT FUNC. DEFICITS: Self-Care, Mobility, Endurance, Balance, and Safety Awareness CURRENT / PREVIOUS ASSISTIVE DEVICES: 3-in-1 Commode Rolling Walker HISTORY OF FALLS. HAS THE PATIENT HAD TWO OR MORE FALLS IN THE PAST YEAR OR ANY FALL WITH INJURY IN T HE PAST YEAR?: No PRIOR SURGERY. DID THE PATIENT HAVE MAJOR SURGERY DURING THE 100 DAYS PRIOR TO ADMISSION?: No THERAPY NOTES FROM ACUTE CARE: Attached. SPECIAL NEEDS: - Safety Concerns Skin breakdown precautions needed due to skin breakdown risk PRECAUTIONS: - Anterior Hip Precaution No abduction No active extension No adduction across midline No external rotation No hip flexion >90 degrees No internal rotation - Posterior Hip Precaution No adduction across midline No external rotation No hip flexion >90 degrees No internal rotation No wheel chair propulsion - Weight Bearing Precaution TTWB left LE PATIENT NEEDS ACTIVE AND ONGOING THERAPEUTIC INTERVENTION OF MULTIPLE THERAPY DISCIPLINES, INCLUDING: - Dietary and Nutrition Adequate Nutrition. Nutritional Education. Nutritional Supplements. PATIENT NEEDS CLOSE MEDICAL SUPERVISION BY A REHABILITATION PHYSICIAN FOR: Coordination of Treatment Team Post-Op Complications PATIENT REQUIRES 24X7 REHAB NURSING FOR MEDICAL AND FUNCTIONAL MGT. OF THE FOLLOWING DEFICITS: Disease Management Medication Management Patient/Family Education Providing Safe Environment PATIENT REQUIRES INTENSIVE, COORDINATED INTERDISCIPLINARY APPROACH TO REHAB: Arranging Home Equipment/Services Discharge Planning Family Intervention/Training End Finder Forming Department/Case Management PATIENT REHAB POTENTIAL: All MCGRAW is able and expected to receive 3 hours of individualized therapy daily on at least 5 of ev nasir 7 days All MCGRAW's prognosis for significant practical improvement within a reasonable period of time appear s Good Expected level of measurable improvement will be of a practical value to All MCGRAW's functional capac ity or adaptations to impairments Has a viable Discharge Plan Medically appropriate; condition is sufficiently stable to participate in intensive rehab program DISCHARGE PLAN: - Estimated Length of Stay (days) 14. - Consensus on plan Discharge plan has been discussed with primary caregiver. Patient/Family is in agreement with the thalia n. Primary caregiver is in agreement with the plan. - Patient/Family Goals Return home independently. - Planned Living Setting Upon Discharge Home, to live alone. Transitional Living. Primary caregiver: Pt self. RECOMMENDED CARE LEVEL: IRF RECOMMENDATION DETAILS: Recommended Admission to Comprehensive Rehabilitation Program to Increase Functional [place] SCREENER'S COMPLETENESS CONFIRMATION: - Screening Confirmation The patient data collection on this preadmission screening form is finished PHYSICIANS REVIEW AND ADMISSION DETERMINATION Admit - Based on my review of the Pre-Admission Screening results, in my medical judgment and experie nce, I concur with the findings and recommend admission to [facility], as this patient requires an IRF level of care. SIGNATURE PANEL: Applications System Analyst - [electronically] signed by Kevan Mandujano on 02/04/2020 at 15:02 (CDT) Clinical Liaison - [electronically] signed by Eva Kaba RN on 02/04/2020 at 15:06 (CDT) Physician Reviewer - [electronically] signed by Dr. Missael Lerma M.D. on 02/04/2020 at 15:42 (CDT )
--- OUTSIDE RECORDS SUMMARY | 2020-02-05 21:49 | XMS REPORT | Clinical Summary ---
:1935 Author Organization [facility] Address [address] [place] [address] Care Team Providers Name Role Phone Asked, No Pcp Primary Care Provider Unavailable Allergies No Known Active Allergies Medications Medication Sig Dispensed Refills Start [...] Cardiology Noelle Mack MA Appoint ment after 02/04/2019 Social History Tobacco Use Types Packs/Day Years Used Date Never Smoker Smokeless Tobacco: Never Used Alcohol Use Drinks/Week oz/Week Comments Not Currently Sex Assigned at Date Recorded Not on file Last Filed Vital Signs Not on file Plan of Treatment Date Type Specialty Care Team Description 05/31/2020 Office Visit Cardiology Jermaine Foster MD PhD [address] [place], [place] [address] [phone] Health Maintenance Due Date Last Done Comments SHINGLES VACCINES (#1) 11/22/1983 65+ PNEUMOCOCCAL VACCINE (1 of - PPSV23) 1998 INFLUENZA VACCINE 12/12/2019 Implants Implanted Type Area Reliability Technician Device Shelf Model / Identifier Expiration Serial / Date Lot Ilana Xt Mri - [id number] Cardiac N/A: [employer] CRM [id number] / Implanted: 10/02/2018 at [facility] (Quantity not on file) Pac emaker N/A [employer] / Generators Lead Pace Trnsvns Actv-Fxtn Atrl Adalberto Bipolar 52cm - [id number] [id number] - [id number] Cardiac Pacing N/A: [employer] [facility] - 07/09/2020 LEAD [id number] / Implanted: Qty: 1 on 10/02/2018 by Serafin Cortez Jr., M D at [facility] Leads or N/A CARDIAC RYHTYM [id number] / Electrodes or MGMT [id number] Accessories Lead, Pacing Active Fixation Atrial Ster oid Eluting Polyurethane 45 Centimeter Capsure Fix Novus - [id number] - [id number] Cardiac Pacing N/A: [employer] IC CRM 06/12/2020 [id number] / Implanted: Qty: 1 on 10/02/2018 by Serafin Cortez Jr., M D at [facility] Leads or N/A [employer] [id number] / Electrodes or [id number] Accessories Results Not on fileafter 02/04/2019 Advance Directives For more information, please contact: [phone] Type Date Recorded Patient Onboarding Specialist Explanati on Advance Directives, Living Will 09/30/2018 9:31 PM and Medical Power of Sap Plant Maintenance Consultant
[2020-02-05] MEDS: ACETAMINOPHEN 500 MG TAB PO PRN (23:26)
[2020-02-06 01:37] LABS: Urine Appearance CLOUDY; Urine Bilirubin NEGATIVE (NEG); Urine Blood NEGATIVE (NEG); Urine Color YELLOW; Urine Glucose NEGATIVE (NEG); Urine Protein NEGATIVE (NEG); Urine pH 6.5 (5.0-7.0)
[2020-02-06 01:48] LABS: Urine Microscopic Reflex ORDER UMIC
[2020-02-06 01:56] LABS: Urine Bacteria LOADED /HPF (<20); Urine Culture Reflex Order NOT NEEDED; Urine Mucus 1+ /HPF (NONE SEEN); Urine RBC <5 /HPF (NONE SEEN)
[2020-02-06] MEDS ORDERED: D50W 25 GM/50 ML SYRINGE/VIAL IV PRN ×2 (02:58→16:26)
[2020-02-06] MEDS ORDERED: GLUCAGON 1 MG/VIAL IM PRN ×2 (02:58→16:26)
[2020-02-06] MEDS ORDERED: POLYETHYL GLY 3350 17 GM/DOSE PO PRN (03:21)
[2020-02-06] MEDS: SOTALOL HCL 80 MG TAB PO SCH ×2 (05:31→16:53)
[2020-02-06] MEDS: LEVOTHYROXINE SOD 0.088 MG TAB PO SCH (06:30)
[2020-02-06 06:57] LABS: Absolute Lymphocytes (CBC) 1.1 K/uL (0.7-4.9); Basophils % 0.7 % (0-1.3); Hematocrit 32.4 % (36.0-45.0); Lymphocytes % 11.4 % (15.3-44.8); MPV 8.6 fL (7.6-11.3); RBC Red Blood Cell Count 4.33 M/uL (3.86-4.86)
[2020-02-06 07:12] LABS: Albumin 2.4 g/dL (3.4-5.0); BUN Blood Urea Nitrogen 11 mg/dL (7-18); Bicarbonate 26 mmol/L (21-32); Glucose Level 170 mg/dL (74-106); Magnesium 2.2 mg/dL (1.8-2.4); Potassium 3.7 mmol/L (3.5-5.1); Prealbumin 10.4 mg/dL (20-40); Sodium Level 143 mmol/L (136-145)
[2020-02-06] MEDS ORDERED: INSULIN -REGULAR HUMAN 50 UNIT/0.5 ML ML SQ SCH (07:30)
[2020-02-06] MEDS: PANTOPRAZOLE 40MG TABLET PO SCH (07:53)
[2020-02-06] MEDS: DOCUSATE NA 100 MG CAP PO SCH ×3 (08:00→20:00)
[2020-02-06 09:12] LABS: Anisocytosis 1+; Blood Morphology Comment NOTED (NOT SEEN); Platelet Estimate ADEQ; White Blood Cell Scan OK (OK)
[2020-02-06] MEDS: AMLODIPINE 10 MG TAB PO SCH (09:21)
[2020-02-06] MEDS: METOCLOPRAMIDE 5 MG TAB PO SCH (09:22)
[2020-02-06] MEDS: PENTOXIFYLLINE ER 400 MG TAB PO SCH ×3 (09:23→19:59)
[2020-02-06] MEDS: ACETAMINOPHEN 500 MG TAB PO PRN ×3 (09:23→20:00)
[2020-02-06] MEDS: FE SULF/FA/VIT B COMP & C TAB PO SCH (09:23)
[2020-02-06] MEDS: PROMOD 30 ML DOSE PO SCH ×2 (09:24→20:01)
[2020-02-06] MEDS: FERROUS SULFATE 325 MG TAB PO SCH (09:24)
[2020-02-06] MEDS: BENAZEPRIL 20 MG TAB PO SCH (11:15)
[2020-02-06] MEDS: INSULIN -REGULAR HUMAN 50 UNIT/0.5 ML ML SQ SCH ×3 (12:23→20:46)
[2020-02-06] MEDS ORDERED: ONDANSETRON 4 MG (ODT) TAB PO PRN (13:46)
[2020-02-06] MEDS: RIVAROXABAN 10 MG TABLET PO SCH (16:52)
--- NOTE | 2020-02-06 18:34 | R.HP ---
HISTORY AND PHYSICAL FACILITY: [facility] ENCOUNTER DATE AND TIME: 02/06/2020 18:31 (CDT) MR#: [id number] NAME MARIVEL MCGRAW ADDRESS: [address] [place] [address]: [place] [address]IP [id number] PHONE: DATE OF : 1935 AGE: 84 SSN# [id number] GENDER: Female DEXTERITY Right-handed MARITAL STATUS RACE Unknown race PRE-HOSPITAL LIVING SETTING 01 - Home (private home/apt. board/care, assisted living, senior living, transitional living) PRE-HOSPITAL LIVING WITH Alone ENCOUNTER PHYSICIAN: Dr. Missael Lerma M.D. REFERRING DOCTOR: AISHA ALANIZ DATE OF ADMISSION: 02/05/2020 19:22 (CDT) REFERRING FACILITY [facility] PRIMARY CARE PHYSICIAN HOME TYPE AND DETAILS: Type of home: single family house # of levels in the residence: 1 # of steps within the residence: 0 # of steps to enter the residence: 0 ONSET DATE: 01/28/2020 PRIMARY DIAGNOSIS-RELATED SURGERIES: Emergency Unilateral Hip Fracture - performed by AISHA ALANIZ on 01/28/2020 HISTORY OF PRESENT ILLNESS (HPI): Pt. is a 84 yo Right-handed female of unknown race. On 01/28/2020 she was admitted to [facility] and underwent emergency surgery for LEFT FE MUR FRACTURE (Unilateral Hip Fracture) by AISHA ALANIZ. Pre-morbidly, Pt. was independent/mod-I in Safety Awareness, Balance, and Transfers Control; and she had good Self-Care, Communication, and Endurance. Currently, she has deficits of Balance, Safety Awareness, Locomotion, Self-Care, Communication, and S phincter Control. Pt. is now referred to [facility] for acute in-patient rehabilitation in order to maximize patient's functional independence in activities of daily living, strength, ROM, and mobi lity. Patient has realistic goal of being discharged at assistance level 7-Ind to reside at Home with Pt s elf. Marivel Mcgraw is a 84 year -old female that lives independently at home with her daughter. She has no stairs to get inside. She was able to do daily activated on her own prior. Mrs. Mcgraw has a history diabetesmellitus 2, hypertension, paroxysmal A FIB, GERD, hyperlipidemia, hypothyroidism, anxiety, presented to the ER department after mechanical fall and occasional reaching down to grab plate injury to the left hip. She has always performed all her own ADLs and IADLs. Prior to COVID she was seeing her PCP regularly. The patient would most definitely benefit from acute inpatient rehab and has become severely debilitated and unable to live at her prior level of activity at home getting her stronger to be back living at home independently is our goal. It is reasonable and necessary for the patient to come to acute inpatient rehab for approximately 7-10 days in order to return to her prior level of care. She now being transferred to [facility] Inpatient rehabilitation and is medically stable with relatively stable labs. She is now medically stable but in need of 24 hour nursing, doctor supervision and oversight while receiving active and participate in 3 hours of therapy a day/15 hours per week and receive care with intensive interdisciplinary approach. COVID-19 screening performed; spoke with patient via phone. Patient denies new onset of fever, cough, difficulty breathing, sore throat, body aches and non-allergy nasal congestion in the past 24 hours. Patient denies travel outside of [place] in the past 14 days. Patient denies any contact with someone who has a confirmed diagnosis of or is under investigation for COVID-19 in the past 14 days. Patient has been tested negative for COVID- 19. MEDICATION ALLERGIES: No Known Drug Allergies (NKDA) ENVIRONMENTAL ALLERGIES: - Substance Allergies None Known - Other Allergies None Known PAST MEDICAL HISTORY: HYPERTENSION ANXIETY DIABETES MELLITUS TYPE 2 GERD PERIPHERAL ARTERY DISEASE HYPERLIPIDEMIA PAST SURGICAL HISTORY: PACEMAKER/DEFIBRILLATOR BACK SURGERY APPENDECTOMY TENDONITIS TONSILLECTOMY LEFT NONDISPLACEED FEMUR FRATCURE SOCIAL HISTORY: - Home Living Alone REVIEW OF SYSTEMS: - Gen No Chills Fatigue No Fever - Eyes No Double Vision No itchiness - ENMT No Difficulty Swallowing - CVS No Chest Discomfort No Chest Pain Fatigue No Weight Gain - Resp No Cough No Shortness of Breath - GI Continent No Abdominal Pain No Constipation No Diarrhea - Continent No Kidney Pain No Painful Urination No Urinary Urgency - MSK No Joint Pain Muscle Cramps No Stiffness - Skin No Itching No Rash No Suspicious Lesions - Neuro Coordination Difficulty No Difficulty with Concentration No Memory Loss No Seizures Weakness - Psych No Anxiety No Depression No HIV Exposure No Persistent Infections No Seasonal Allergies - Endo No Cold/Heat Intolerance No Excessive Hunger No Excessive Thirst No Excessive Urination PHYSICAL EXAM - Gen Alert and awake Lying in bed No apparent distress Oriented to: person, time, and place - Skin No skin breakdown. Normacephalic - Eyes No abnormalities - ENMT No abnormalities - Neck No abnormalities - CVS RRR - Chest Clear - Resp No wheezing - Abd Soft - GI + bowel sounds Deferred - No abnormalities - Ext Mild left lower extremity edema. - MSK 4+/5 weakness in left lower extremity - Neuro 4/5 strength left lower extremity. - Psych No abnormalities VITAL SIGNS Temperature: 97.8 F SBP/DBP: 156/62 Pulse: 75 Resp: 14 NURSING: - Shower allowing shower - Skin care per protocol PRECAUTIONS: - Anterior Hip Precaution No abduction No active extension No adduction across midline No external rotation No hip flexion >90 degrees No internal rotation - Posterior Hip Precaution No adduction across midline No external rotation No hip flexion >90 degrees No internal rotation No wheel chair propulsion - Weight Bearing Precaution TTWB left LE ACTIVITIES OOB only with supervision QI SCORES: - Self-Care A. Eating 03-Partial/moderate assistance B. Oral hygiene 03-Partial/moderate assistance C. Toileting hygiene 02-Substantial/maximal assistance E. Shower/bathe self 02-Substantial/maximal assistance F. Upper body dressing 03-Partial/moderate assistance G. Lower body dressing 02-Substantial/maximal assistance H. Putting on/taking off footwear 88-Not attempted due to medical condition or safety concerns - Mobility A. Roll left and right 03-Partial/moderate assistance B. Sit to lying 03-Partial/moderate assistance C. Lying to sitting on side of bed 03-Partial/moderate assistance D. Sit to stand 02-Substantial/maximal assistance E. Chair/bbn-rr-bnril transfer 02-Substantial/maximal assistance F. Toilet transfer G. Car transfer 88-Not attempted due to medical condition or safety concerns I. Walk 10 feet 02-Substantial/maximal assistance J. Walk 50 feet with two turns 88-Not attempted due to medical condition or safety concerns K. Walk 150 feet 88-Not attempted due to medical condition or safety concerns L. Walking 10 feet on uneven surfaces 88-Not attempted due to medical condition or safety concerns M. 1 step (curb) 88-Not attempted due to medical condition or safety concerns N. 4 steps 88-Not attempted due to medical condition or safety concerns O. 12 steps 88-Not attempted due to medical condition or safety concerns P. Picking up object 88-Not attempted due to medical condition or safety concerns R. Wheel 50 feet with two turns 88-Not attempted due to medical condition or safety concerns S. Wheel 150 feet 88-Not attempted due to medical condition or safety concerns - Bladder and Bowel Bladder continence Bowel continence - Endurance Fair - Balance Fair - Safety Awareness Fair CURRENT FUNC. DEFICITS: Self-Care, Mobility, Endurance, Balance, and Safety Awareness MEDICATIONS: - Other See attached MAR (Medication Administration Record) ASSESSMENT: Pt. is a 84 yo Right-handed female of unknown race.On 01/28/2020 she was admitted to [facility] and underwent emergency surgery for LEFT FEMUR FRACTURE (Unilateral Hip Fracture) by AISHA CARO.Pre-morbidly, Pt. was independent/mod-I in Safety Awareness, Balance, and Transfers Control ; and she had good Self-Care, Communication, and Endurance.Currently, she has deficits of Balance, Sa fety Awareness, Locomotion, Self-Care, Communication, and Sphincter Control.Pt. is now referred to [facility] for acute in-patient rehabilitation in order to maximize patient's fu nctional independence in activities of daily living, strength, ROM, and mobility.- Rehab Goal Patient has realistic goal of being discharged at assistance level 7-Ind to reside at Home with Pt s elf. Marivel Mcgraw is a 84 year -old female that lives independently at home with her daughter. She has no stairs to get inside. She was able to do daily activated on her own prior. Mrs. Mcgraw has a history diabetesmellitus 2, hypertension, paroxysmal A FIB, GERD, hyperlipidemia, hypothyroidism, anxiety, presented to the ER department after mechanical fall and occasional reaching down to grab plate injury to the left hip. She has always performed all her own ADLs and IADLs. Prior to [facility] she was seeing her PCP regularly. The patient would most definitely benefit from acute inpatient rehab and has become severely debilitated and unable to live at her prior level of activity at home getting her stronger to be back living at home independently is our goal. It is reasonable and necessary for the patient to come to acute inpatient rehab for approximately 7-10 days in order to return to her prior level of care. She now being transferred to [facility] rehabilitation and is medically stable with relatively stable labs. She is now medically stable but in need of 24 hour nursing, doctor supervision and oversight while receiving active and participate in 3 hours of therapy a day/15 hours per week and receive care with intensive interdisciplinary approach. COVID-19 screening performed; spoke with patient via phone. Patient denies new onset of fever, cough, difficulty breathing, sore throat, body aches and non-allergy nasal congestion in the past 24 hours. Patient denies travel outside of [place] in the past 14 days. Patient denies any contact with someone who has a confirmed diagnosis of or is under investigation for COVID-19 in the past 14 days. Patient has been tested negative for COVID- 19.REHAB PLAN: - Physical Therapy Decreased range of motion - to improve, our physical therapists will perform initial evaluation of pt 's status upon admission and devise an individualized program for increasing patient's Range of Motio n. Gait dysfunction - to improve, our physical therapists will perform initial evaluation of pt's status upon admission and devise an individualized program for Gait Training, and Wheel Chair mobility Need for home safety evaluation - to improve, our physical therapists will perform initial evaluation of pt's status upon admission and devise an individualized program for Home Evaluation Need in caregiver upon discharge - to improve, our physical therapists will perform initial evaluatio n of pt's status upon admission and devise an individualized program for Caregiver Training New precaution - to improve, our physical therapists will perform initial evaluation of pt's status u yaniv admission and devise an individualized program for Patient precaution education Edema - to improve, our physical therapists will perform initial evaluation of pt's status upon admi ssion and devise an individualized program for Elevation Training, and Lymphedema Therapy Poor balance - to improve, our physical therapists will perform initial evaluation of pt's status upo n admission and devise an individualized program for Balance Training Weakness - to improve, our physical therapists will perform initial evaluation of pt's status upon ad mission and devise an individualized program for Aquatic Therapy, Neuromuscular Reeducation, and Stre ngthening Achieving independence - to improve, our physical therapists will perform initial evaluation of pt's status upon admission and devise an individualized program for Community Reintegration Activities - Occupational Therapy ADL deficits - to improve, our occupation therapists will perform initial evaluation of pt's status u yaniv admission and devise an individualized program for Bathing, Bed mobility, Community Reintegration , Cooking, Dressing, Eating, Fine Motor Skills, Grooming, Homemaking, Kitchen Mobility, Laundry, Cassie ent Education, Safety Awareness, Splinting - Positioning, Transfers(Toilet, Tub, Shower), and Wheel C hair Management Need for client care coordinator - to improve, our occupation therapists will perform initial evaluation of pt's s tatus upon admission and devise an individualized program for Caregiver Training Weakness - to improve, our occupation therapists will perform initial evaluation of pt's status upon admission and devise an individualized program for Aquatic Therapy, Balance, Endurance, UE ROM, and U E strengthening MEDICAL PLAN: - Anterior Hip Precaution No abduction No active extension No adduction across midline No external rotation No hip flexion >90 degrees No internal rotation - Diet - Liquid Texture Start Regular - Tube Feed Start N/A - Diet Type Start Regular - Posterior Hip Precaution No adduction across midline No external rotation No hip flexion >90 degrees No internal rotation No wheel chair propulsion - Weight Bearing Precaution TTWB left LE - Skin care per protocol - Other See attached MAR (Medication Administration Record) - Diet - Solid Texture Regular - Shower shower DISCHARGE PLAN: - Estimated Length of Stay (days) 14. - Consensus on plan Discharge plan has been discussed with primary caregiver. Patient/Family is in agreement with the thalia n. Primary caregiver is in agreement with the plan. - Patient/Family Goals Return home independently. - Planned Living Setting Upon Discharge Home, to live alone. Transitional Living. Primary caregiver: Pt self. SIGNATURE PANEL: (CDT)
--- NOTE | 2020-02-06 18:35 | PAPE ---
POST ADMISSION PHYSICIAN EVALUATION PATIENT: [facility] MR# [id number] REFERRING DOCTOR AISHA ALANIZ PRIMARY CARE PHYSICIAN EVALUATION DATE AND TIME 02/06/2020 18:34 (CDT) NAME MARIVEL MAS DATE OF 1935 AGE 84 PHONE SSN# [id number] GENDER female EVALUATING PHYSICIAN Dr. Missael Lerma M.D. ADMISSION DIAGNOSIS: LEFT FEMUR FRACTURE ONSET DATE 01/28/2020 POST-ADMISSION FUNCTIONAL/MEDICAL STATUS: - Bladder Same accident frequency: Ind - No accidents in the past 7 days - Bowel Same accident frequency: Ind - No accidents in the past 7 days - Walking Same score based on distance walked: 0(N/A) Same score based on distance walked: 1(<=50ft) - Wheelchair Same score based on distance traveled: 0(N/A) STATUS CHANGE EVALUATION: No change in Functional or Medical Status is identified compared with Pre-Admission screening. PATIENT NEEDS CLOSE MEDICAL SUPERVISION BY A REHABILITATION PHYSICIAN FOR: Coordination of Treatment Team Post-Op Complications PATIENT REQUIRES 24X7 REHAB NURSING FOR MEDICAL AND FUNCTIONAL MGT. OF THE FOLLOWING DEFICITS: Disease Management Medication Management Patient/Family Education Providing Safe Environment PATIENT REQUIRES INTENSIVE, COORDINATED INTERDISCIPLINARY APPROACH TO REHAB: Arranging Home Equipment/Services Discharge Planning Family Intervention/Training Working Second Hand/Case Management LIST OF IDENTIFIED AND POTENTIAL PROBLEMS: Alteration in leisure activities Bladder, Incontinence Bowel, Incontinence Infection, Actual or Potential Mobility Impaired Pain, Alteration in Comfort Self Care Deficit Skin Integrity, Actual or Potential Urinary Tract Infection (UTI), Actual or Potential PATIENT COULD BE AT RISK FOR COMPLICATIONS FROM ADVERSE MEDICAL CONDITIONS DUE TO HIS/HER COMORBIDITI ES AND THE RIGORS OF THE INTENSIVE REHABILLITATION PROGRAM. METHODS OR INTERVENTIONS TO AVOID COMPLIC ATIONS INCLUDE: - Infection Clinical staff to assess and manage the signs and symptoms of infection including fever, redness, war mth, etc. - Urinary Tract Infection - Falls Patient will be evaluated for Fall Precautions and will be placed on Fall Precautions as indicated pe r protocol. - Skin Breakdown Nursing will assess skin daily using assessment tool and will place on Skin Breakdown Precautions as indicated per protocol. - Pain Clinical staff may employ non-medication methods such as massage, distraction, decrease stimulus, etc . as needed. Clinical staff will assess patient's pain level every shift per protocol to assess and e nsure pain management effectiveness. Medications will be given and the pain level re-assessed. PRELIMINARY PLAN OF CARE: - Physical Therapy Patient needs Physical Therapy for a daily minimum of 1.5 hours at least 5 out of 7 days, to improve: Mobility, Strengthening, Transfers, Stretching, ROM, Endurance, Ability to manage stairs, Gait, and Balance. - Speech Therapy Patient needs Speech Therapy for a daily minimum of 0.5 hours at least 5 out of 7 days, to improve: S wallowing, Cognition, Language Skills, and Compensatory Strategies. - Rehabilitation Nursing Patient requires 24x7 Rehabilitation Nursing for: Pain Issues, Identifying and preventing risk factor s, Monitoring and reporting current medical conditions, Assisting with ambulation and transfer, Ignacio ting with all ADL-s, Teaching patients about disease process and medications, Family teaching, Provid ing safe environment, Bowel and Bladder Issues, Skin Integrity, and Medication Management. Patient needs Working Second Hand and/or Case Management for: Discharge Planning, Arranging Home Equipmen t or Services, and Family Interventions. - Dietary and Nutrition Services Patient needs Dietary and Nutrition Services for: Adequate Nutrition, Nutritional Supplements, and Nu tritional Education. - Occupational Therapy Patient needs Occupational Therapy for a daily minimum of 1.5 hours at least 5 out of 7 days, to impr ove Activities of Daily Living, including: Eating, Grooming, Bathing, Dressing, Toileting, Toilet Tra nsfers, Community Reintegration, Higher functional activities, Adaptive Equipment, Splinting, Househo ld Tasks, and Other activities as determined. QI SCORES: - Self-Care A. Eating 03-Partial/moderate assistance B. Oral hygiene 03-Partial/moderate assistance C. Toileting hygiene 02-Substantial/maximal assistance E. Shower/bathe self 02-Substantial/maximal assistance F. Upper body dressing 03-Partial/moderate assistance G. Lower body dressing 02-Substantial/maximal assistance H. Putting on/taking off footwear 88-Not attempted due to medical condition or safety concerns - Mobility A. Roll left and right 03-Partial/moderate assistance B. Sit to lying 03-Partial/moderate assistance C. Lying to sitting on side of bed 03-Partial/moderate assistance D. Sit to stand 02-Substantial/maximal assistance E. Chair/cuj-zy-mtiwz transfer 02-Substantial/maximal assistance F. Toilet transfer G. Car transfer 88-Not attempted due to medical condition or safety concerns I. Walk 10 feet 02-Substantial/maximal assistance J. Walk 50 feet with two turns 88-Not attempted due to medical condition or safety concerns K. Walk 150 feet 88-Not attempted due to medical condition or safety concerns L. Walking 10 feet on uneven surfaces 88-Not attempted due to medical condition or safety concerns M. 1 step (curb) 88-Not attempted due to medical condition or safety concerns N. 4 steps 88-Not attempted due to medical condition or safety concerns O. 12 steps 88-Not attempted due to medical condition or safety concerns P. Picking up object 88-Not attempted due to medical condition or safety concerns R. Wheel 50 feet with two turns 88-Not attempted due to medical condition or safety concerns S. Wheel 150 feet 88-Not attempted due to medical condition or safety concerns - Bladder and Bowel Bladder continence Bowel continence - Endurance Fair - Balance Fair - Safety Awareness Fair POTENTIAL FUNCTIONAL GOALS FOR PATIENT TO ACHIEVE BY DISCHARGE: - Safety Precaution Patient will remain free from falls or injury at time of discharge. - Bed Mobility Patient will perform bed mobility at 4-Kashif level of assistance. - Transfers Patient will complete transfers from bed to chair at 4-Kashif level of assistance. - Mobility Patient will ambulate 150 ft with 4-Kashif level of assistance with RW. PATIENT REHAB POTENTIAL All MAS is able and expected to receive 3 hours of individualized therapy daily on at least 5 of ev nasir 7 days All MAS's prognosis for significant practical improvement within a reasonable period of time appear s Good Expected level of measurable improvement will be of a practical value to RudolphMarcel MAS's functional capac ity or adaptations to impairments Has a viable Discharge Plan Medically appropriate; condition is sufficiently stable to participate in intensive rehab program DISCHARGE PLAN: - Estimated Length of Stay (days) 14. - Consensus on plan Discharge plan has been discussed with primary caregiver. Patient/Family is in agreement with the thalia n. Primary caregiver is in agreement with the plan. - Patient/Family Goals Return home independently. - Planned Living Setting Upon Discharge Home, to live alone. Transitional Living. Primary caregiver: Pt self. CONCLUSION ON REHABILITATION NECESSITY: I have evaluated patient's pre-admission functional status and, comparing it to the patient's post-ad mission functional status now, I conclude that the pre-admission assessment was accurate. Patient's c ondition on admission supports the medical necessity of admission to [facility]. It is safe to proceed with patient's therapy program. SIGNATURE PANEL: (CDT)
[2020-02-06] MEDS: NPH (HUMAN) 100 UNITS/ML INSULIN SQ SCH ×2 (19:59→20:01)
[2020-02-06] MEDS: MAGNESIUM OXIDE 400 MG TAB PO SCH (19:59)
[2020-02-06] MEDS: ATORVASTATIN 20 MG TAB PO SCH (19:59)
[2020-02-06] MEDS: MELATONIN 3 MG TABLET PO PRN (20:00)
[2020-02-06] MEDS ORDERED: NPH (HUMAN) 100 UNITS/ML INSULIN SQ SCH (21:00)
[2020-02-07] MEDS: ACETAMINOPHEN 500 MG TAB PO PRN ×3 (01:59→20:04)
[2020-02-07] MEDS: SOTALOL HCL 80 MG TAB PO SCH ×2 (05:30→17:16)
[2020-02-07] MEDS: PANTOPRAZOLE 40MG TABLET PO SCH (07:13)
[2020-02-07] MEDS: LEVOTHYROXINE SOD 0.088 MG TAB PO SCH (07:13)
[2020-02-07] MEDS: INSULIN -REGULAR HUMAN 50 UNIT/0.5 ML ML SQ SCH ×4 (07:30→20:24)
[2020-02-07] MEDS: DOCUSATE NA 100 MG CAP PO SCH (08:00)
[2020-02-07] MEDS: LIDOCAINE 4% PATCH TOP SCH (08:50)
[2020-02-07] MEDS: BENAZEPRIL 20 MG TAB PO SCH (08:51)
[2020-02-07] MEDS: AMLODIPINE 10 MG TAB PO SCH (08:51)
[2020-02-07] MEDS: PENTOXIFYLLINE ER 400 MG TAB PO SCH ×3 (08:52→20:04)
[2020-02-07] MEDS: FE SULF/FA/VIT B COMP & C TAB PO SCH (08:53)
[2020-02-07] MEDS: FERROUS SULFATE 325 MG TAB PO SCH (08:53)
[2020-02-07] MEDS: MAGNESIUM OXIDE 400 MG TAB PO SCH ×2 (08:54→20:03)
[2020-02-07] MEDS: NPH (HUMAN) 100 UNITS/ML INSULIN SQ SCH ×2 (08:55→20:04)
[2020-02-07] MEDS: METOCLOPRAMIDE 5 MG TAB PO SCH (09:36)
[2020-02-07] MEDS: PROMOD 30 ML DOSE PO SCH ×2 (09:37→20:03)
[2020-02-07] MEDS: TRAMADOL HCL 50 MG TAB PO PRN (13:57)
[2020-02-07] MEDS: RIVAROXABAN 10 MG TABLET PO SCH (17:16)
[2020-02-07] MEDS ORDERED: DOCUSATE NA 100 MG CAP PO PRN (17:31)
[2020-02-07] MEDS: ATORVASTATIN 20 MG TAB PO SCH (20:03)
[2020-02-07] MEDS: MELATONIN 3 MG TABLET PO PRN (20:04)
[2020-02-08] MEDS: ACETAMINOPHEN 500 MG TAB PO PRN (04:18)
[2020-02-08] MEDS: SOTALOL HCL 80 MG TAB PO SCH ×2 (04:59→17:02)
[2020-02-08] MEDS: PANTOPRAZOLE 40MG TABLET PO SCH (06:26)
[2020-02-08] MEDS: LEVOTHYROXINE SOD 0.088 MG TAB PO SCH (06:26)
[2020-02-08] MEDS: INSULIN -REGULAR HUMAN 50 UNIT/0.5 ML ML SQ SCH ×4 (07:18→20:12)
[2020-02-08] MEDS: lisinopriL 5 MG TAB PO SCH (07:19)
[2020-02-08] MEDS: AMLODIPINE 10 MG TAB PO SCH (07:20)
[2020-02-08] MEDS: MAGNESIUM OXIDE 400 MG TAB PO SCH ×2 (08:07→20:12)
[2020-02-08] MEDS: PENTOXIFYLLINE ER 400 MG TAB PO SCH ×3 (08:07→20:12)
[2020-02-08] MEDS: FE SULF/FA/VIT B COMP & C TAB PO SCH (08:07)
[2020-02-08] MEDS: FERROUS SULFATE 325 MG TAB PO SCH (08:07)
[2020-02-08] MEDS: NPH (HUMAN) 100 UNITS/ML INSULIN SQ SCH ×2 (08:08→20:12)
[2020-02-08] MEDS: PROMOD 30 ML DOSE PO SCH ×2 (08:08→20:13)
[2020-02-08] MEDS: METOCLOPRAMIDE 5 MG TAB PO SCH (08:08)
[2020-02-08] MEDS: TRAMADOL HCL 50 MG TAB PO PRN ×2 (08:08→13:05)
[2020-02-08] MEDS: LIDOCAINE 4% PATCH TOP SCH (10:58)
[2020-02-08] MEDS: levoFLOXacin 500 MG TAB PO SCH (16:02)
[2020-02-08] MEDS: RIVAROXABAN 20 MG TABLET PO SCH (17:03)
--- NOTE | 2020-02-08 17:23 | R.PN ---
PROGRESS NOTES ENCOUNTER DATE AND TIME: 02/08/2020 17:15 (CDT) NAME MARIVEL MAS DATE OF : 1935 DATE OF ADMISSION: 02/05/2020 19:22 (CDT) LEFT FEMUR FRACTURECHIEF COMPLAINT: Left hip fracture SUBJECTIVE: Pt denied any depression. Pt denied any Shortness of Breath. WBC 9.6, Hgb 10.2, glucose 139 to 226, UA: loaded with bacteria, 2+ esterase, WBC 10-20 Ambulatred 35' with moderate assistance using a rolling walker. VITAL SIGNS Temperature: 97.8 F SBP/DBP: 156/53 Pulse: 76 Resp: 14 MEDICATION ALLERGIES: No Known Drug Allergies (NKDA) ENVIRONMENTAL ALLERGIES: - Substance Allergies None Known - Other Allergies None Known NURSING: - Shower allowing shower - Skin care per protocol PRECAUTIONS: - Anterior Hip Precaution No abduction No active extension No adduction across midline No external rotation No hip flexion >90 degrees No internal rotation - Posterior Hip Precaution No adduction across midline No external rotation No hip flexion >90 degrees No internal rotation No wheel chair propulsion - Weight Bearing Precaution TTWB left LE ACTIVITIES OOB only with supervision THERAPIES: - Dietary and Nutrition Adequate Nutrition. Nutritional Education. Nutritional Supplements. PHYSICAL EXAM - Gen Alert and awake Lying in bed No apparent distress Oriented to: person, time, and place - Skin No skin breakdown. Normacephalic - Eyes No abnormalities - ENMT No abnormalities - Neck No abnormalities - CVS RRR - Chest Clear - Resp No wheezing - Abd Soft - GI + bowel sounds Deferred - No abnormalities - Ext Mild left lower extremity edema. - MSK 4+/5 weakness in left lower extremity - Neuro 4/5 strength left lower extremity. - Psych No abnormalities ASSESSMENT: Pt. is a 84 yo Right-handed female of unknown race.On 01/28/2020 she was admitted to [facility] and underwent emergency surgery for LEFT FEMUR FRACTURE (Unilateral Hip Fracture) by AISHA CARO.Pre-morbidly, Pt. was independent/mod-I in Safety Awareness, Balance, and Transfers Control ; and she had good Self-Care, Communication, and Endurance.Currently, she has deficits of Balance, Sa fety Awareness, Locomotion, Self-Care, Communication, and Sphincter Control.Pt. is now referred to [facility] for acute in-patient rehabilitation in order to maximize patient's fu nctional independence in activities of daily living, strength, ROM, and mobility.- Rehab Goal Patient has realistic goal of being discharged at assistance level 7-Ind to reside at Home with Pt s elf. MDM/PLAN: - Physical Therapy Decreased range of motion - to improve, our physical therapists will perform initial evaluation of p t's status upon admission and devise an individualized program for increasing patient's Range of Pasha on. Gait dysfunction - to improve, our physical therapists will perform initial evaluation of pt's statu s upon admission and devise an individualized program for Gait Training, and Wheel Chair mobility Need for home safety evaluation - to improve, our physical therapists will perform initial evaluatio n of pt's status upon admission and devise an individualized program for Home Evaluation Need in caregiver upon discharge - to improve, our physical therapists will perform initial evaluati on of pt's status upon admission and devise an individualized program for Caregiver Training New precaution - to improve, our physical therapists will perform initial evaluation of pt's status upon admission and devise an individualized program for Patient precaution education Edema - to improve, our physical therapists will perform initial evaluation of pt's status upon admis kirsty and devise an individualized program for Elevation Training, and Lymphedema Therapy Poor balance - to improve, our physical therapists will perform initial evaluation of pt's status up on admission and devise an individualized program for Balance Training Weakness - to improve, our physical therapists will perform initial evaluation of pt's status upon a dmission and devise an individualized program for Aquatic Therapy, Neuromuscular Reeducation, and Str engthening Achieving independence - to improve, our physical therapists will perform initial evaluation of pt's status upon admission and devise an individualized program for Community Reintegration Activities - Occupational Therapy ADL deficits - to improve, our occupation therapists will perform initial evaluation of pt's status upon admission and devise an individualized program for Bathing, Bed mobility, Community Reintegratio n, Cooking, Dressing, Eating, Fine Motor Skills, Grooming, Homemaking, Kitchen Mobility, Laundry, Pat ient Education, Safety Awareness, Splinting - Positioning, Transfers(Toilet, Tub, Shower), and Wheel Chair Management Need for child care provider - to improve, our occupation therapists will perform initial evaluation of pt's status upon admission and devise an individualized program for Caregiver Training Weakness - to improve, our occupation therapists will perform initial evaluation of pt's status upon admission and devise an individualized program for Aquatic Therapy, Balance, Endurance, UE ROM, and UE strengthening - Other See attached MAR (Medication Administration Record) - Anterior Hip Precaution No abduction No active extension No adduction across midline No external rotation No hip flexion >90 degrees No internal rotation - Diet - Liquid Texture Continue Regular - Tube Feed Continue N/A - Diet Type Continue Regular - Posterior Hip Precaution No adduction across midline No external rotation No hip flexion >90 degrees No internal rotation No wheel chair propulsion - Weight Bearing Precaution TTWB left LE - Skin care per protocol - Diet - Solid Texture Continue Regular - Shower allowing shower FUNCTIONAL STATUS: UPDATED AT WEEKLY TEAM CONFERENCE - Bladder Same accident frequency: 7-Ind - No accidents in the past 7 days - Bowel Same accident frequency: 7-Ind - No accidents in the past 7 days - Walking Same score based on distance walked: 0(N/A) Same score based on distance walked: 1(<=50ft) - Wheelchair Same score based on distance traveled: 0(N/A) FUNCTIONAL STATUS: - Self-Care A. Eating Aliyah B. Grooming sup C. Bathing sup D. Dressing - Upper sup E. Dressing - Lower Kashif F. Toileting sup - Sphincter Control G. Bladder control Kashif H. Bowel control Kashif - Transfers Control I. Bed/Chair/Wheelchair modA J. Toilet modA K. Tub/Shower modA - Locomotion L. Walk/Wheelchair (B) sup M. Stairs sup - Communication N. Comprehension (B) Kashif O. Expression (B) sup - Social Cognition P. Social Interaction Aliyah Q. Problem Solving sup R. Memory Kashif - Endurance Fair - Balance Fair - Safety Awareness Fair QI SCORES: - Self-Care A. Eating 03-Partial/moderate assistance B. Oral hygiene 03-Partial/moderate assistance C. Toileting hygiene 02-Substantial/maximal assistance E. Shower/bathe self 02-Substantial/maximal assistance F. Upper body dressing 03-Partial/moderate assistance G. Lower body dressing 02-Substantial/maximal assistance H. Putting on/taking off footwear 88-Not attempted due to medical condition or safety concerns - Mobility A. Roll left and right 03-Partial/moderate assistance B. Sit to lying 03-Partial/moderate assistance C. Lying to sitting on side of bed 03-Partial/moderate assistance D. Sit to stand 02-Substantial/maximal assistance E. Chair/ols-oo-bhuom transfer 02-Substantial/maximal assistance F. Toilet transfer G. Car transfer 88-Not attempted due to medical condition or safety concerns I. Walk 10 feet 02-Substantial/maximal assistance J. Walk 50 feet with two turns 88-Not attempted due to medical condition or safety concerns K. Walk 150 feet 88-Not attempted due to medical condition or safety concerns L. Walking 10 feet on uneven surfaces 88-Not attempted due to medical condition or safety concerns M. 1 step (curb) 88-Not attempted due to medical condition or safety concerns N. 4 steps 88-Not attempted due to medical condition or safety concerns O. 12 steps 88-Not attempted due to medical condition or safety concerns P. Picking up object 88-Not attempted due to medical condition or safety concerns R. Wheel 50 feet with two turns 88-Not attempted due to medical condition or safety concerns S. Wheel 150 feet 88-Not attempted due to medical condition or safety concerns - Bladder and Bowel Bladder continence Bowel continence - Endurance Fair - Balance Fair - Safety Awareness Fair CURRENT [facility]. DEFICITS: Self-Care, Mobility, Endurance, Balance, and Safety Awareness SIGNATURE PANEL: (CDT)
[2020-02-08] MEDS: ATORVASTATIN 20 MG TAB PO SCH (20:12)
[2020-02-08] MEDS: MELATONIN 3 MG TABLET PO PRN (20:12)
[2020-02-08] MEDS: DOCUSATE NA/SENNA CONC 1 TAB PO PRN (20:19)
[2020-02-09] MEDS: TRAMADOL HCL 50 MG TAB PO PRN ×3 (00:45→12:00)
[2020-02-09] MEDS: SOTALOL HCL 80 MG TAB PO SCH ×2 (05:46→16:50)
[2020-02-09] MEDS: LEVOTHYROXINE SOD 0.088 MG TAB PO SCH (06:52)
[2020-02-09] MEDS: PANTOPRAZOLE 40MG TABLET PO SCH (06:52)
[2020-02-09] MEDS: LIDOCAINE 4% PATCH TOP SCH (07:00)
[2020-02-09] MEDS: INSULIN -REGULAR HUMAN 50 UNIT/0.5 ML ML SQ SCH ×4 (07:30→19:58)
[2020-02-09] MEDS: BENAZEPRIL 20 MG TAB PO SCH (07:59)
[2020-02-09] MEDS: METOCLOPRAMIDE 5 MG TAB PO SCH (07:59)
[2020-02-09] MEDS: PENTOXIFYLLINE ER 400 MG TAB PO SCH ×3 (08:00→19:57)
[2020-02-09] MEDS: lisinopriL 5 MG TAB PO SCH (08:00)
[2020-02-09] MEDS: MAGNESIUM OXIDE 400 MG TAB PO SCH ×2 (08:00→19:57)
[2020-02-09] MEDS: AMLODIPINE 10 MG TAB PO SCH (08:00)
[2020-02-09] MEDS: FE SULF/FA/VIT B COMP & C TAB PO SCH (08:01)
[2020-02-09] MEDS: levoFLOXacin 500 MG TAB PO SCH (08:01)
[2020-02-09] MEDS: FERROUS SULFATE 325 MG TAB PO SCH (08:01)
[2020-02-09] MEDS: NPH (HUMAN) 100 UNITS/ML INSULIN SQ SCH ×2 (08:01→19:58)
[2020-02-09] MEDS: PROMOD 30 ML DOSE PO SCH ×2 (08:02→19:58)
[2020-02-09] MEDS: ACETAMINOPHEN 500 MG TAB PO PRN (15:42)
[2020-02-09] MEDS: RIVAROXABAN 20 MG TABLET PO SCH (16:49)
[2020-02-09] MEDS: NITROFURAN MACRO 100 MG CAP PO SCH (16:49)
--- NOTE | 2020-02-09 17:40 | R.PN ---
PROGRESS NOTES ENCOUNTER DATE AND TIME: 02/09/2020 17:35 (CDT) NAME MARIVEL MAS DATE OF : 1935 DATE OF ADMISSION: 02/05/2020 19:22 (CDT) LEFT FEMUR FRACTURECHIEF COMPLAINT: Left hip fracture SUBJECTIVE: Pt denied any depression. Pt denied any Shortness of Breath. WBC 9.6, Hgb 10.2, glucose 139 to 226, UA: loaded with bacteria, 2+ esterase, WBC 10-20 Ambulated 54' with moderate assistance using a rolling walker. Urine culture show E-Coli sensitive to multiple antibiotics. No Nitrofurantoin 100 mg twice daily. VITAL SIGNS Temperature: 97.5 F SBP/DBP: 149/55 Pulse: 81 Resp: 16 MEDICATION ALLERGIES: No Known Drug Allergies (NKDA) ENVIRONMENTAL ALLERGIES: - Substance Allergies None Known - Other Allergies None Known NURSING: - Shower allowing shower - Skin care per protocol PRECAUTIONS: - Anterior Hip Precaution No abduction No active extension No adduction across midline No external rotation No hip flexion >90 degrees No internal rotation - Posterior Hip Precaution No adduction across midline No external rotation No hip flexion >90 degrees No internal rotation No wheel chair propulsion - Weight Bearing Precaution TTWB left LE ACTIVITIES OOB only with supervision THERAPIES: - Dietary and Nutrition Adequate Nutrition. Nutritional Education. Nutritional Supplements. PHYSICAL EXAM - Gen Alert and awake Lying in bed No apparent distress Oriented to: person, time, and place - Skin No skin breakdown. Normacephalic - Eyes No abnormalities - ENMT No abnormalities - Neck No abnormalities - CVS RRR - Chest Clear - Resp No wheezing - Abd Soft - GI + bowel sounds Deferred - No abnormalities - Ext Mild left lower extremity edema. - MSK 4+/5 weakness in left lower extremity - Neuro 4/5 strength left lower extremity. - Psych No abnormalities ASSESSMENT: Pt. is a 84 yo Right-handed female of unknown race.On 01/28/2020 she was admitted to [facility] and underwent emergency surgery for LEFT FEMUR FRACTURE (Unilateral Hip Fracture) by AISHA CARO.Pre-morbidly, Pt. was independent/mod-I in Safety Awareness, Balance, and Transfers Control ; and she had good Self-Care, Communication, and Endurance.Currently, she has deficits of Balance, Sa fety Awareness, Locomotion, Self-Care, Communication, and Sphincter Control.Pt. is now referred to [facility] for acute in-patient rehabilitation in order to maximize patient's fu nctional independence in activities of daily living, strength, ROM, and mobility.- Rehab Goal Patient has realistic goal of being discharged at assistance level 7-Ind to reside at Home with Pt s elf. MDM/PLAN: - Physical Therapy Decreased range of motion - to improve, our physical therapists will perform initial evaluation of p t's status upon admission and devise an individualized program for increasing patient's Range of Pasha on. Gait dysfunction - to improve, our physical therapists will perform initial evaluation of pt's statu s upon admission and devise an individualized program for Gait Training, and Wheel Chair mobility Need for home safety evaluation - to improve, our physical therapists will perform initial evaluatio n of pt's status upon admission and devise an individualized program for Home Evaluation Need in caregiver upon discharge - to improve, our physical therapists will perform initial evaluati on of pt's status upon admission and devise an individualized program for Caregiver Training New precaution - to improve, our physical therapists will perform initial evaluation of pt's status upon admission and devise an individualized program for Patient precaution education Edema - to improve, our physical therapists will perform initial evaluation of pt's status upon admi ssion and devise an individualized program for Elevation Training, and Lymphedema Therapy Poor balance - to improve, our physical therapists will perform initial evaluation of pt's status up on admission and devise an individualized program for Balance Training Weakness - to improve, our physical therapists will perform initial evaluation of pt's status upon a dmission and devise an individualized program for Aquatic Therapy, Neuromuscular Reeducation, and Str engthening Achieving independence - to improve, our physical therapists will perform initial evaluation of pt's status upon admission and devise an individualized program for Community Reintegration Activities - Occupational Therapy ADL deficits - to improve, our occupation therapists will perform initial evaluation of pt's status upon admission and devise an individualized program for Bathing, Bed mobility, Community Reintegratio n, Cooking, Dressing, Eating, Fine Motor Skills, Grooming, Homemaking, Kitchen Mobility, Laundry, Pat ient Education, Safety Awareness, Splinting - Positioning, Transfers(Toilet, Tub, Shower), and Wheel Chair Management Need for care aide - to improve, our occupation therapists will perform initial evaluation of pt's status upon admission and devise an individualized program for Caregiver Training Weakness - to improve, our occupation therapists will perform initial evaluation of pt's status upon admission and devise an individualized program for Aquatic Therapy, Balance, Endurance, UE ROM, and UE strengthening - Other See attached MAR (Medication Administration Record) - Anterior Hip Precaution No abduction No active extension No adduction across midline No external rotation No hip flexion >90 degrees No internal rotation - Diet - Liquid Texture Continue Regular - Tube Feed Continue N/A - Diet Type Continue Regular - Posterior Hip Precaution No adduction across midline No external rotation No hip flexion >90 degrees No internal rotation No wheel chair propulsion - Weight Bearing Precaution TTWB left LE - Skin care per protocol - Diet - Solid Texture Continue Regular - Shower allowing shower FUNCTIONAL STATUS: UPDATED AT WEEKLY TEAM CONFERENCE - Bladder Same accident frequency: 7-Ind - No accidents in the past 7 days - Bowel Same accident frequency: 7-Ind - No accidents in the past 7 days - Walking Same score based on distance walked: 0(N/A) Same score based on distance walked: 1(<=50ft) - Wheelchair Same score based on distance traveled: 0(N/A) FUNCTIONAL STATUS: - Self-Care A. Eating Aliyah B. Grooming sup C. Bathing sup D. Dressing - Upper sup E. Dressing - Lower Kashif F. Toileting sup - Sphincter Control G. Bladder control Kashif H. Bowel control Kashif - Transfers Control I. Bed/Chair/Wheelchair modA J. Toilet modA K. Tub/Shower modA - Locomotion L. Walk/Wheelchair (B) sup M. Stairs sup - Communication N. Comprehension (B) Kashif O. Expression (B) sup - Social Cognition P. Social Interaction Aliyah Q. Problem Solving sup R. Memory Kashif - Endurance Fair - Balance Fair - Safety Awareness Fair QI SCORES: - Self-Care A. Eating 03-Partial/moderate assistance B. Oral hygiene 03-Partial/moderate assistance C. Toileting hygiene 02-Substantial/maximal assistance E. Shower/bathe self 02-Substantial/maximal assistance F. Upper body dressing 03-Partial/moderate assistance G. Lower body dressing 02-Substantial/maximal assistance H. Putting on/taking off footwear 88-Not attempted due to medical condition or safety concerns - Mobility A. Roll left and right 03-Partial/moderate assistance B. Sit to lying 03-Partial/moderate assistance C. Lying to sitting on side of bed 03-Partial/moderate assistance D. Sit to stand 02-Substantial/maximal assistance E. Chair/[id number] transfer 02-Substantial/maximal assistance F. Toilet transfer G. Car transfer 88-Not attempted due to medical condition or safety concerns I. Walk 10 feet 02-Substantial/maximal assistance J. Walk 50 feet with two turns 88-Not attempted due to medical condition or safety concerns K. Walk 150 feet 88-Not attempted due to medical condition or safety concerns L. Walking 10 feet on uneven surfaces 88-Not attempted due to medical condition or safety concerns M. 1 step (curb) 88-Not attempted due to medical condition or safety concerns N. 4 steps 88-Not attempted due to medical condition or safety concerns O. 12 steps 88-Not attempted due to medical condition or safety concerns P. Picking up object 88-Not attempted due to medical condition or safety concerns R. Wheel 50 feet with two turns 88-Not attempted due to medical condition or safety concerns S. Wheel 150 feet 88-Not attempted due to medical condition or safety concerns - Bladder and Bowel Bladder continence Bowel continence - Endurance Fair - Balance Fair - Safety Awareness Fair CURRENT [facility]. DEFICITS: Self-Care, Mobility, Endurance, Balance, and Safety Awareness SIGNATURE PANEL: (CDT)
[2020-02-09] MEDS: MELATONIN 3 MG TABLET PO PRN (19:57)
[2020-02-09] MEDS: ATORVASTATIN 20 MG TAB PO SCH (19:57)
[2020-02-09] MEDS: DOCUSATE NA/SENNA CONC 1 TAB PO PRN (19:57)
[2020-02-10] MEDS: TRAMADOL HCL 50 MG TAB PO PRN ×5 (00:29→21:10)
[2020-02-10] MEDS: SOTALOL HCL 80 MG TAB PO SCH ×2 (05:05→17:00)
[2020-02-10] MEDS: LIDOCAINE 4% PATCH TOP SCH (07:15)
[2020-02-10] MEDS: PANTOPRAZOLE 40MG TABLET PO SCH (07:17)
[2020-02-10] MEDS: LEVOTHYROXINE SOD 0.088 MG TAB PO SCH (07:17)
[2020-02-10] MEDS: BENAZEPRIL 20 MG TAB PO SCH (07:17)
[2020-02-10] MEDS: AMLODIPINE 10 MG TAB PO SCH (07:18)
[2020-02-10] MEDS: METOCLOPRAMIDE 5 MG TAB PO SCH (07:18)
[2020-02-10] MEDS: MAGNESIUM OXIDE 400 MG TAB PO SCH ×2 (07:19→19:35)
[2020-02-10] MEDS: INSULIN -REGULAR HUMAN 50 UNIT/0.5 ML ML SQ SCH ×4 (07:30→19:35)
[2020-02-10] MEDS: lisinopriL 5 MG TAB PO SCH (08:00)
[2020-02-10] MEDS: PENTOXIFYLLINE ER 400 MG TAB PO SCH ×3 (08:00→20:03)
[2020-02-10] MEDS: FERROUS SULFATE 325 MG TAB PO SCH (08:00)
[2020-02-10] MEDS: PROMOD 30 ML DOSE PO SCH ×2 (08:00→19:36)
[2020-02-10] MEDS: FE SULF/FA/VIT B COMP & C TAB PO SCH (08:00)
[2020-02-10] MEDS: NITROFURAN MACRO 100 MG CAP PO SCH ×2 (08:00→17:01)
[2020-02-10] MEDS: NPH (HUMAN) 100 UNITS/ML INSULIN SQ SCH ×2 (08:54→19:35)
[2020-02-10] MEDS: RIVAROXABAN 20 MG TABLET PO SCH (17:00)
--- NOTE | 2020-02-10 17:31 | R.PN ---
PROGRESS NOTES ENCOUNTER DATE AND TIME: 02/10/2020 17:27 (CDT) NAME MARIVEL MAS DATE OF : 1935 DATE OF ADMISSION: 02/05/2020 19:22 (CDT) LEFT FEMUR FRACTURECHIEF COMPLAINT: Left hip fracture SUBJECTIVE: Pt denied any depression. Pt denied any Shortness of Breath. WBC 9.6, Hgb 10.2, glucose 139 to 226, UA: loaded with bacteria, 2+ esterase, WBC 10-20 Ambulated 54' with moderate assistance using a rolling walker. Urine culture show E-Coli sensitive to Macrobid. VITAL SIGNS Temperature: 97.0 F SBP/DBP: 159/66 Pulse: 84 Resp: 16 MEDICATION ALLERGIES: No Known Drug Allergies (NKDA) ENVIRONMENTAL ALLERGIES: - Substance Allergies None Known - Other Allergies None Known NURSING: - Shower allowing shower - Skin care per protocol PRECAUTIONS: - Anterior Hip Precaution No abduction No active extension No adduction across midline No external rotation No hip flexion >90 degrees No internal rotation - Posterior Hip Precaution No adduction across midline No external rotation No hip flexion >90 degrees No internal rotation No wheel chair propulsion - Weight Bearing Precaution TTWB left LE ACTIVITIES OOB only with supervision THERAPIES: - Dietary and Nutrition Adequate Nutrition. Nutritional Education. Nutritional Supplements. PHYSICAL EXAM - Gen Alert and awake Lying in bed No apparent distress Oriented to: person, time, and place - Skin No skin breakdown. Normacephalic - Eyes No abnormalities - ENMT No abnormalities - Neck No abnormalities - CVS RRR - Chest Clear - Resp No wheezing - Abd Soft - GI + bowel sounds Deferred - No abnormalities - Ext Mild left lower extremity edema. - MSK 4+/5 weakness in left lower extremity - Neuro 4/5 strength left lower extremity. - Psych No abnormalities ASSESSMENT: Pt. is a 84 yo Right-handed female of unknown race.On 01/28/2020 she was admitted to [facility] and underwent emergency surgery for LEFT FEMUR FRACTURE (Unilateral Hip Fracture) by AISHA CARO.Pre-morbidly, Pt. was independent/mod-I in Safety Awareness, Balance, and Transfers Control ; and she had good Self-Care, Communication, and Endurance.Currently, she has deficits of Balance, Sa fety Awareness, Locomotion, Self-Care, Communication, and Sphincter Control.Pt. is now referred to [facility] for acute in-patient rehabilitation in order to maximize patient's fu nctional independence in activities of daily living, strength, ROM, and mobility.- Rehab Goal Patient has realistic goal of being discharged at assistance level 7-Ind to reside at Home with Pt s elf. MDM/PLAN: - Physical Therapy Decreased range of motion - to improve, our physical therapists will perform initial evaluation of p t's status upon admission and devise an individualized program for increasing patient's Range of Pasha on. Gait dysfunction - to improve, our physical therapists will perform initial evaluation of pt's statu s upon admission and devise an individualized program for Gait Training, and Wheel Chair mobility Need for home safety evaluation - to improve, our physical therapists will perform initial evaluatio n of pt's status upon admission and devise an individualized program for Home Evaluation Need in caregiver upon discharge - to improve, our physical therapists will perform initial evaluati on of pt's status upon admission and devise an individualized program for Caregiver Training New precaution - to improve, our physical therapists will perform initial evaluation of pt's status upon admission and devise an individualized program for Patient precaution education Edema - to improve, our physical therapists will perform initial evaluation of pt's status upon admi ssion and devise an individualized program for Elevation Training, and Lymphedema Therapy Poor balance - to improve, our physical therapists will perform initial evaluation of pt's status up on admission and devise an individualized program for Balance Training Weakness - to improve, our physical therapists will perform initial evaluation of pt's status upon a dmission and devise an individualized program for Aquatic Therapy, Neuromuscular Reeducation, and Str engthening Achieving independence - to improve, our physical therapists will perform initial evaluation of pt's status upon admission and devise an individualized program for Community Reintegration Activities - Occupational Therapy ADL deficits - to improve, our occupation therapists will perform initial evaluation of pt's status upon admission and devise an individualized program for Bathing, Bed mobility, Community Reintegratio n, Cooking, Dressing, Eating, Fine Motor Skills, Grooming, Homemaking, Kitchen Mobility, Laundry, Pat ient Education, Safety Awareness, Splinting - Positioning, Transfers(Toilet, Tub, Shower), and Wheel Chair Management Need for patient care representative - to improve, our occupation therapists will perform initial evaluation of pt's status upon admission and devise an individualized program for Caregiver Training Weakness - to improve, our occupation therapists will perform initial evaluation of pt's status upon admission and devise an individualized program for Aquatic Therapy, Balance, Endurance, UE ROM, and UE strengthening - Other See attached MAR (Medication Administration Record) - Anterior Hip Precaution No abduction No active extension No adduction across midline No external rotation No hip flexion >90 degrees No internal rotation - Diet - Liquid Texture Continue Regular - Tube Feed Continue N/A - Diet Type Continue Regular - Posterior Hip Precaution No adduction across midline No external rotation No hip flexion >90 degrees No internal rotation No wheel chair propulsion - Weight Bearing Precaution TTWB left LE - Skin care per protocol - Diet - Solid Texture Continue Regular - Shower allowing shower FUNCTIONAL STATUS: UPDATED AT WEEKLY TEAM CONFERENCE - Bladder Same accident frequency: 7-Ind - No accidents in the past 7 days - Bowel Same accident frequency: 7-Ind - No accidents in the past 7 days - Walking Same score based on distance walked: 0(N/A) Same score based on distance walked: 1(<=50ft) - Wheelchair Same score based on distance traveled: 0(N/A) FUNCTIONAL STATUS: - Self-Care A. Eating Aliyah B. Grooming sup C. Bathing sup D. Dressing - Upper sup E. Dressing - Lower Kashif F. Toileting sup - Sphincter Control G. Bladder control Kashif H. Bowel control Kashif - Transfers Control I. Bed/Chair/Wheelchair modA J. Toilet modA K. Tub/Shower modA - Locomotion L. Walk/Wheelchair (B) sup M. Stairs sup - Communication N. Comprehension (B) Kashif O. Expression (B) sup - Social Cognition P. Social Interaction Aliyah Q. Problem Solving sup R. Memory Kashif - Endurance Fair - Balance Fair - Safety Awareness Fair QI SCORES: - Self-Care A. Eating 03-Partial/moderate assistance B. Oral hygiene 03-Partial/moderate assistance C. Toileting hygiene 02-Substantial/maximal assistance E. Shower/bathe self 02-Substantial/maximal assistance F. Upper body dressing 03-Partial/moderate assistance G. Lower body dressing 02-Substantial/maximal assistance H. Putting on/taking off footwear 88-Not attempted due to medical condition or safety concerns - Mobility A. Roll left and right 03-Partial/moderate assistance B. Sit to lying 03-Partial/moderate assistance C. Lying to sitting on side of bed 03-Partial/moderate assistance D. Sit to stand 02-Substantial/maximal assistance E. Chair/[id number]-zm-tulws transfer 02-Substantial/maximal assistance F. Toilet transfer G. Car transfer 88-Not attempted due to medical condition or safety concerns I. Walk 10 feet 02-Substantial/maximal assistance J. Walk 50 feet with two turns 88-Not attempted due to medical condition or safety concerns K. Walk 150 feet 88-Not attempted due to medical condition or safety concerns L. Walking 10 feet on uneven surfaces 88-Not attempted due to medical condition or safety concerns M. 1 step (curb) 88-Not attempted due to medical condition or safety concerns N. 4 steps 88-Not attempted due to medical condition or safety concerns O. 12 steps 88-Not attempted due to medical condition or safety concerns P. Picking up object 88-Not attempted due to medical condition or safety concerns R. Wheel 50 feet with two turns 88-Not attempted due to medical condition or safety concerns S. Wheel 150 feet 88-Not attempted due to medical condition or safety concerns - Bladder and Bowel Bladder continence Bowel continence - Endurance Fair - Balance Fair - Safety Awareness Fair CURRENT REPLACED BY [facility]. DEFICITS: Self-Care, Mobility, Endurance, Balance, and Safety Awareness SIGNATURE PANEL: (CDT)
[2020-02-10] MEDS: DOCUSATE NA/SENNA CONC 1 TAB PO PRN (19:35)
[2020-02-10] MEDS: ATORVASTATIN 20 MG TAB PO SCH (20:03)
[2020-02-10] MEDS: TRAZODONE 50 MG TABLET PO PRN (20:04)
[2020-02-11] MEDS: ACETAMINOPHEN 500 MG TAB PO PRN (04:39)
[2020-02-11] MEDS: SOTALOL HCL 80 MG TAB PO SCH ×2 (05:00→17:51)
[2020-02-11 06:12] LABS: Basophils % 1.1 % (0-1.3); Hematocrit 32.4 % (36.0-45.0); Lymphocytes % 14.4 % (15.3-44.8); MPV 8.7 fL (7.6-11.3); RBC Red Blood Cell Count 4.16 M/uL (3.86-4.86)
[2020-02-11 06:24] LABS: Albumin 2.6 g/dL (3.4-5.0); BUN Blood Urea Nitrogen 16 mg/dL (7-18); Bicarbonate 27 mmol/L (21-32); Glucose Level 142 mg/dL (74-106); Potassium 4.3 mmol/L (3.5-5.1); Sodium Level 141 mmol/L (136-145)
[2020-02-11] MEDS: LEVOTHYROXINE SOD 0.088 MG TAB PO SCH (06:30)
[2020-02-11] MEDS: INSULIN -REGULAR HUMAN 50 UNIT/0.5 ML ML SQ SCH ×4 (07:30→20:13)
[2020-02-11] MEDS: METOCLOPRAMIDE 5 MG TAB PO SCH (07:47)
[2020-02-11] MEDS: NITROFURAN MACRO 100 MG CAP PO SCH ×2 (07:48→17:51)
[2020-02-11] MEDS: BENAZEPRIL 20 MG TAB PO SCH (07:49)
[2020-02-11] MEDS: AMLODIPINE 10 MG TAB PO SCH (07:50)
[2020-02-11] MEDS: FE SULF/FA/VIT B COMP & C TAB PO SCH (07:50)
[2020-02-11] MEDS: MAGNESIUM OXIDE 400 MG TAB PO SCH ×2 (07:50→20:14)
[2020-02-11] MEDS: lisinopriL 5 MG TAB PO SCH (07:50)
[2020-02-11] MEDS: FERROUS SULFATE 325 MG TAB PO SCH (07:51)
[2020-02-11] MEDS: PANTOPRAZOLE 40MG TABLET PO SCH (07:51)
[2020-02-11] MEDS: NPH (HUMAN) 100 UNITS/ML INSULIN SQ SCH ×2 (07:52→20:13)
[2020-02-11] MEDS: PROMOD 30 ML DOSE PO SCH ×2 (08:00→20:00)
[2020-02-11] MEDS: LIDOCAINE 4% PATCH TOP SCH (08:14)
[2020-02-11] MEDS: PENTOXIFYLLINE ER 400 MG TAB PO SCH ×3 (09:04→20:14)
[2020-02-11] MEDS: TRAMADOL HCL 50 MG TAB PO PRN ×2 (09:04→20:14)
[2020-02-11] MEDS: RIVAROXABAN 20 MG TABLET PO SCH (17:51)
[2020-02-11] MEDS: ATORVASTATIN 20 MG TAB PO SCH (20:14)
[2020-02-11] MEDS: TRAZODONE 50 MG TABLET PO PRN (20:14)
[2020-02-12] MEDS: SOTALOL HCL 80 MG TAB PO SCH ×2 (05:09→16:12)
[2020-02-12] MEDS: ACETAMINOPHEN 500 MG TAB PO PRN (05:09)
[2020-02-12] MEDS: LEVOTHYROXINE SOD 0.088 MG TAB PO SCH (06:19)
--- NOTE | 2020-02-12 06:42 | FAST ---
[employer] FORM SHIFT START DATE/TIME: 02/11/2020 07:00 (CDT) SHIFT END DATE/TIME: 02/11/2020 19:00 (CDT) NAME MARIVEL MAS DATE OF : 1935 DATE OF ADMISSION: 02/05/2020 19:22 (CDT) PHONE: AGE: 84 N# [id number] GENDER: Female ENCOUNTER PHYSICIAN: Dr. Missael Lerma M.D. ADMISSION DIAGNOSIS: - Orthopaedic Disorders 08 - Unilateral Hip Fracture (08.11) LEFT FEMUR FRACTURE. EATING: EATING - STEP 1: Does the patient complete the activity by him/herself with no assistance (physical, verbal/nonverbal cueing, setup/clean-up)? No. EATING - STEP 2: Does the patient need only setup/clean-up assistance from one helper? Yes. 1. [id number] ADMISSION PERFORMANCE: Setup or clean-up assistance CODE: 05 ORAL HYGIENE: ORAL HYGIENE - STEP 1: Does the patient complete the activity by him/herself with no assistance (physical, verbal/nonverbal cueing, setup/clean-up)? No. ORAL HYGIENE - STEP 2: Does the patient need only setup/clean-up assistance from one helper? Yes. 1. [id number] ADMISSION PERFORMANCE: Setup or clean-up assistance CODE: 05 TOILETING HYGIENE: TOILETING HYGIENE - STEP 1: Does the patient complete the activity by him/herself with no assistance (physical, verbal/nonverbal cueing, setup/clean-up)? No. TOILETING HYGIENE - STEP 2: Does the patient need only setup/clean-up assistance from one helper? Yes. 1. [id number] ADMISSION PERFORMANCE: Setup or clean-up assistance CODE: 05 BATHING: Not assessed/no information CODE: - DRESSING - UPPER BODY: DRESSING - UPPER BODY - STEP 1: Does the patient complete the activity by him/herself with no assistance (physical, verbal/nonverbal cueing, setup/clean-up)? No. DRESSING - UPPER BODY - STEP 2: Does the patient need only setup/clean-up assistance from one helper? No. DRESSING - UPPER BODY - STEP 3: Does the patient need only verbal/nonverbal cueing or touching/steadying/contact guard assistance fro m one helper? Yes. 1. [id number] ADMISSION PERFORMANCE: Supervision or touching assistance CODE: 04 DRESSING - LOWER BODY: DRESSING - LOWER BODY - STEP 1: Does the patient complete the activity by him/herself with no assistance (physical, verbal/nonverbal cueing, setup/clean-up)? No. DRESSING - LOWER BODY - STEP 2: Does the patient need only setup/clean-up assistance from one helper? No. DRESSING - LOWER BODY - STEP 3: Does the patient need only verbal/nonverbal cueing or touching/steadying/contact guard assistance fro m one helper? No. DRESSING - LOWER BODY - STEP 4: Does the patient need physical assistance - for example lifting or trunk support from one helper - wi th the helper providing less than half of the effort? Yes. 1. [id number] ADMISSION PERFORMANCE: Partial/moderate assistance CODE: 03 PUTTING ON/TAKING OFF FOOTWEAR: FOOTWEAR - STEP 1: Does the patient complete the activity by him/herself with no assistance (physical, verbal/nonverbal cueing, setup/clean-up)? No. FOOTWEAR - STEP 2: Does the patient need only setup/clean-up assistance from one helper? No. FOOTWEAR - STEP 3: Does the patient need only verbal/nonverbal cueing or touching/steadying/contact guard assistance fro m one helper? No. FOOTWEAR - STEP 4: Does the patient need physical assistance - for example lifting or trunk support from one helper - wi th the helper providing less than half of the effort? Yes. 1. [id number] ADMISSION PERFORMANCE: Partial/moderate assistance CODE: 03 ROLL LEFT AND RIGHT: ROLL LEFT AND RIGHT - STEP 1: Does the patient complete the activity by him/herself with no assistance (physical, verbal/nonverbal cueing, setup/clean-up)? No. ROLL LEFT AND RIGHT - STEP 2: Does the patient need only setup/clean-up assistance from one helper? No. ROLL LEFT AND RIGHT - STEP 3: Does the patient need only verbal/nonverbal cueing or touching/steadying/contact guard assistance fro m one helper? No. ROLL LEFT AND RIGHT - STEP 4: Does the patient need physical assistance - for example lifting or trunk support from one helper - wi th the helper providing less than half of the effort? Yes. 1. [id number] ADMISSION PERFORMANCE: Partial/moderate assistance CODE: 03 SIT TO LYING: SIT TO LYING - STEP 1: Does the patient complete the activity by him/herself with no assistance (physical, verbal/nonverbal cueing, setup/clean-up)? No. SIT TO LYING - STEP 2: Does the patient need only setup/clean-up assistance from one helper? No. SIT TO LYING - STEP 3: Does the patient need only verbal/nonverbal cueing or touching/steadying/contact guard assistance fro m one helper? No. SIT TO LYING - STEP 4: Does the patient need physical assistance - for example lifting or trunk support from one helper - wi th the helper providing less than half of the effort? Yes. 1. [id number] ADMISSION PERFORMANCE: Partial/moderate assistance CODE: 03 LYING TO SITTING: LYING TO SITTING ON SIDE OF BED - STEP 1: Does the patient complete the activity by him/herself with no assistance (physical, verbal/nonverbal cueing, setup/clean-up)? No. LYING TO SITTING ON SIDE OF BED - STEP 2: Does the patient need only setup/clean-up assistance from one helper? No. LYING TO SITTING ON SIDE OF BED - STEP 3: Does the patient need only verbal/nonverbal cueing or touching/steadying/contact guard assistance fro m one helper? No. LYING TO SITTING ON SIDE OF BED - STEP 4: Does the patient need physical assistance - for example lifting or trunk support from one helper - wi th the helper providing less than half of the effort? Yes. 1. [id number] ADMISSION PERFORMANCE: Partial/moderate assistance CODE: 03 SIT TO STAND: SIT TO STAND - STEP 1: Does the patient complete the activity by him/herself with no assistance (physical, verbal/nonverbal cueing, setup/clean-up)? No. SIT TO STAND - STEP 2: Does the patient need only setup/clean-up assistance from one helper? No. SIT TO STAND - STEP 3: Does the patient need only verbal/nonverbal cueing or touching/steadying/contact guard assistance fro m one helper? No. SIT TO STAND - STEP 4: Does the patient need physical assistance - for example lifting or trunk support from one helper - wi th the helper providing less than half of the effort? Yes. 1. [id number] ADMISSION PERFORMANCE: Partial/moderate assistance CODE: 03 TRANSFERS: BED, CHAIR: CHAIR/[id number] TRANSFER - STEP 1: Does the patient complete the activity by him/herself with no assistance (physical, verbal/nonverbal cueing, setup/clean-up)? No. CHAIR/[id number] TRANSFER - STEP 2: Does the patient need only setup/clean-up assistance from one helper? No. CHAIR/[id number] TRANSFER - STEP 3: Does the patient need only verbal/nonverbal cueing or touching/steadying/contact guard assistance fro m one helper? No. CHAIR/[id number] TRANSFER - STEP 4: Does the patient need physical assistance - for example lifting or trunk support from one helper - wi th the helper providing less than half of the effort? Yes. 1. [id number] ADMISSION PERFORMANCE: Partial/moderate assistance CODE: 03 TRANSFER TOILET: TOILET TRANSFER - STEP 1: Does the patient complete the activity by him/herself with no assistance (physical, verbal/nonverbal cueing, setup/clean-up)? No. TOILET TRANSFER - STEP 2: Does the patient need only setup/clean-up assistance from one helper? No. TOILET TRANSFER - STEP 3: Does the patient need only verbal/nonverbal cueing or touching/steadying/contact guard assistance fro m one helper? Yes. 1. [id number] ADMISSION PERFORMANCE: Supervision or touching assistance CODE: 04 TRANSFERS: CAR: Not assessed/no information CODE: - WALK 10 FEET: Not assessed/no information CODE: - 1 STEP (CURB): Not assessed/no information CODE: - PICKING UP OBJECT: Not assessed/no information CODE: - DOES THE PATIENT USE A WHEELCHAIR/SCOOTER? Q1. DOES THE PATIENT USE A WHEELCHAIR/SCOOTER?: Yes CODE: 1 WHEEL 50 FEET WITH TWO TURNS: WHEEL 50 FEET WITH TWO TURNS - STEP 1: Does the patient complete the activity by him/herself with no assistance (physical, verbal/nonverbal cueing, setup/clean-up)? No. WHEEL 50 FEET WITH TWO TURNS - STEP 2: Does the patient need only setup/clean-up assistance from one helper? No. WHEEL 50 FEET WITH TWO TURNS - STEP 3: Does the patient need only verbal/nonverbal cueing or touching/steadying/contact guard assistance fro m one helper? No. WHEEL 50 FEET WITH TWO TURNS - STEP 4: Does the patient need physical assistance - for example lifting or trunk support from one helper - wi th the helper providing less than half of the effort? Yes. 1. [id number] ADMISSION PERFORMANCE: Partial/moderate assistance CODE: 03 INDICATE THE TYPE OF WHEELCHAIR/SCOOTER USED: RR1. INDICATE THE TYPE OF WHEELCHAIR/SCOOTER USED.: Manual CODE: 1 WHEEL 150 FEET: Not assessed/no information WHEEL 150 FEET - STEP 1: Does the patient complete the activity by him/herself with no assistance (physical, verbal/nonverbal cueing, setup/clean-up)? No. WHEEL 150 FEET - STEP 2: Does the patient need only setup/clean-up assistance from one helper? No. WHEEL 150 FEET - STEP 3: Does the patient need only verbal/nonverbal cueing or touching/steadying/contact guard assistance fro m one helper? No. WHEEL 150 FEET - STEP 4: Does the patient need physical assistance - for example lifting or trunk support from one helper - wi th the helper providing less than half of the effort? Yes. 1. [id number] ADMISSION PERFORMANCE: Partial/moderate assistance CODE: 03 INDICATE THE TYPE OF WHEELCHAIR/SCOOTER USED: SS1. INDICATE THE TYPE OF WHEELCHAIR/SCOOTER USED.: Manual CODE: 1 BLADDER AND BOWEL: H350. BLADDER CONTINENCE (3-DAY ASSESSMENT PERIOD): Always continent (no documented incontinence) CODE: 0 H400. BOWEL CONTINENCE (3-DAY ASSESSMENT PERIOD): Always continent CODE: 0 SIGNATURE PANEL: The following modified sections: 1. [id number] Admission Performance, 1. [id number] Admission Performance, 1. [id number] Admission Performance, 1. [id number] Admission Performance, 1. [id number] Admission Performance, 1. [id number] Admission Performance, 1. [id number] Admission Performance, 1. [id number] Admission Performance , 1. [id number] Admission Performance, 1. [id number] Admission Performance, 1. [id number] Admission Performanc e, 1. [id number] Admission Performance, 1. RN4983D Admission Performance, 1. [id number] Admission Performan ce, Q1. Does the patient use a wheelchair/scooter?, 1. [id number] Admission Performance, RR1. Indicate t he type of wheelchair/scooter used., Code, 1. [id number] Admission Performance, Code, SS1. Indicate the type of wheelchair/scooter used., H350. Bladder Continence (3-day assessment period), H400. Bowel Con tinence (3-day assessment period) were [electronically] signed by Senait Mandel C.N.A. on SatFeb 11 2020 10:42:21 GMT-0500 (Central Daylight Time)
--- NOTE | 2020-02-12 06:43 | R.PN ---
PROGRESS NOTES ENCOUNTER DATE AND TIME: 02/11/2020 17:31 (CDT) NAME MARIVEL MAS DATE OF : 1935 DATE OF ADMISSION: 02/05/2020 19:22 (CDT) LEFT FEMUR FRACTURECHIEF COMPLAINT: Left hip fracture SUBJECTIVE: Pt denied any depression. Pt denied any Shortness of Breath. WBC 9.6, Hgb 10.2, glucose 139 to 226, UA: loaded with bacteria, 2+ esterase, WBC 10-20 Ambulated 75' with moderate assistance using a rolling walker. Urine culture show E-Coli sensitive to Macrobid. VITAL SIGNS Temperature: 97.5 F SBP/DBP: 154/72 Pulse: 82 Resp: 16 MEDICATION ALLERGIES: No Known Drug Allergies (NKDA) ENVIRONMENTAL ALLERGIES: - Substance Allergies None Known - Other Allergies None Known NURSING: - Shower allowing shower - Skin care per protocol PRECAUTIONS: - Anterior Hip Precaution No abduction No active extension No adduction across midline No external rotation No hip flexion >90 degrees No internal rotation - Posterior Hip Precaution No adduction across midline No external rotation No hip flexion >90 degrees No internal rotation No wheel chair propulsion - Weight Bearing Precaution TTWB left LE ACTIVITIES OOB only with supervision THERAPIES: - Dietary and Nutrition Adequate Nutrition. Nutritional Education. Nutritional Supplements. PHYSICAL EXAM - Gen Alert and awake Lying in bed No apparent distress Oriented to: person, time, and place - Skin No skin breakdown. Normacephalic - Eyes No abnormalities - ENMT No abnormalities - Neck No abnormalities - CVS RRR - Chest Clear - Resp No wheezing - Abd Soft - GI + bowel sounds Deferred - No abnormalities - Ext Mild left lower extremity edema. - MSK 4+/5 weakness in left lower extremity - Neuro 4/5 strength left lower extremity. - Psych No abnormalities ASSESSMENT: Pt. is a 84 yo Right-handed female of unknown race.On 01/28/2020 she was admitted to [facility] and underwent emergency surgery for LEFT FEMUR FRACTURE (Unilateral Hip Fracture) by AISHA CARO.Pre-morbidly, Pt. was independent/mod-I in Safety Awareness, Balance, and Transfers Control ; and she had good Self-Care, Communication, and Endurance.Currently, she has deficits of Balance, Sa fety Awareness, Locomotion, Self-Care, Communication, and Sphincter Control.Pt. is now referred to [facility] for acute in-patient rehabilitation in order to maximize patient's fu nctional independence in activities of daily living, strength, ROM, and mobility.- Rehab Goal Patient has realistic goal of being discharged at assistance level 7-Ind to reside at Home with Pt s elf. MDM/PLAN: - Physical Therapy Decreased range of motion - to improve, our physical therapists will perform initial evaluation of p t's status upon admission and devise an individualized program for increasing patient's Range of Pasha on. Gait dysfunction - to improve, our physical therapists will perform initial evaluation of pt's statu s upon admission and devise an individualized program for Gait Training, and Wheel Chair mobility Need for home safety evaluation - to improve, our physical therapists will perform initial evaluatio n of pt's status upon admission and devise an individualized program for Home Evaluation Need in caregiver upon discharge - to improve, our physical therapists will perform initial evaluati on of pt's status upon admission and devise an individualized program for Caregiver Training New precaution - to improve, our physical therapists will perform initial evaluation of pt's status upon admission and devise an individualized program for Patient precaution education Edema - to improve, our physical therapists will perform initial evaluation of pt's status upon admi ssion and devise an individualized program for Elevation Training, and Lymphedema Therapy Poor balance - to improve, our physical therapists will perform initial evaluation of pt's status up on admission and devise an individualized program for Balance Training Weakness - to improve, our physical therapists will perform initial evaluation of pt's status upon a dmission and devise an individualized program for Aquatic Therapy, Neuromuscular Reeducation, and Str engthening Achieving independence - to improve, our physical therapists will perform initial evaluation of pt's status upon admission and devise an individualized program for Community Reintegration Activities - Occupational Therapy ADL deficits - to improve, our occupation therapists will perform initial evaluation of pt's status upon admission and devise an individualized program for Bathing, Bed mobility, Community Reintegratio n, Cooking, Dressing, Eating, Fine Motor Skills, Grooming, Homemaking, Kitchen Mobility, Laundry, Pat ient Education, Safety Awareness, Splinting - Positioning, Transfers(Toilet, Tub, Shower), and Wheel Chair Management Need for rental boats caretaker - to improve, our occupation therapists will perform initial evaluation of pt's status upon admission and devise an individualized program for Caregiver Training Weakness - to improve, our occupation therapists will perform initial evaluation of pt's status upon admission and devise an individualized program for Aquatic Therapy, Balance, Endurance, UE ROM, and UE strengthening - Other See attached MAR (Medication Administration Record) - Anterior Hip Precaution No abduction No active extension No adduction across midline No external rotation No hip flexion >90 degrees No internal rotation - Diet - Liquid Texture Continue Regular - Tube Feed Continue N/A - Diet Type Continue Regular - Posterior Hip Precaution No adduction across midline No external rotation No hip flexion >90 degrees No internal rotation No wheel chair propulsion - Weight Bearing Precaution TTWB left LE - Skin care per protocol - Diet - Solid Texture Continue Regular - Shower allowing shower FUNCTIONAL STATUS: UPDATED AT WEEKLY TEAM CONFERENCE - Bladder Same accident frequency: 7-Ind - No accidents in the past 7 days - Bowel Same accident frequency: 7-Ind - No accidents in the past 7 days - Walking Same score based on distance walked: 0(N/A) Same score based on distance walked: 1(<=50ft) - Wheelchair Same score based on distance traveled: 0(N/A) FUNCTIONAL STATUS: - Self-Care A. Eating Aliyah B. Grooming sup C. Bathing sup D. Dressing - Upper sup E. Dressing - Lower Kashif F. Toileting sup - Sphincter Control G. Bladder control Kashif H. Bowel control Kashif - Transfers Control I. Bed/Chair/Wheelchair modA J. Toilet modA K. Tub/Shower modA - Locomotion L. Walk/Wheelchair (B) sup M. Stairs sup - Communication N. Comprehension (B) Kashif O. Expression (B) sup - Social Cognition P. Social Interaction Aliyah Q. Problem Solving sup R. Memory Kashif - Endurance Fair - Balance Fair - Safety Awareness Fair QI SCORES: - Self-Care A. Eating 03-Partial/moderate assistance B. Oral hygiene 03-Partial/moderate assistance C. Toileting hygiene 02-Substantial/maximal assistance E. Shower/bathe self 02-Substantial/maximal assistance F. Upper body dressing 03-Partial/moderate assistance G. Lower body dressing 02-Substantial/maximal assistance H. Putting on/taking off footwear 88-Not attempted due to medical condition or safety concerns - Mobility A. Roll left and right 03-Partial/moderate assistance B. Sit to lying 03-Partial/moderate assistance C. Lying to sitting on side of bed 03-Partial/moderate assistance D. Sit to stand 02-Substantial/maximal assistance E. Chair/[id number] transfer 02-Substantial/maximal assistance F. Toilet transfer G. Car transfer 88-Not attempted due to medical condition or safety concerns I. Walk 10 feet 02-Substantial/maximal assistance J. Walk 50 feet with two turns 88-Not attempted due to medical condition or safety concerns K. Walk 150 feet 88-Not attempted due to medical condition or safety concerns L. Walking 10 feet on uneven surfaces 88-Not attempted due to medical condition or safety concerns M. 1 step (curb) 88-Not attempted due to medical condition or safety concerns N. 4 steps 88-Not attempted due to medical condition or safety concerns O. 12 steps 88-Not attempted due to medical condition or safety concerns P. Picking up object 88-Not attempted due to medical condition or safety concerns R. Wheel 50 feet with two turns 88-Not attempted due to medical condition or safety concerns S. Wheel 150 feet 88-Not attempted due to medical condition or safety concerns - Bladder and Bowel Bladder continence Bowel continence - Endurance Fair - Balance Fair - Safety Awareness Fair CURRENT [facility]. DEFICITS: Self-Care, Mobility, Endurance, Balance, and Safety Awareness SIGNATURE PANEL: (CDT)
[2020-02-12] MEDS: PANTOPRAZOLE 40MG TABLET PO SCH (07:11)
[2020-02-12] MEDS: INSULIN -REGULAR HUMAN 50 UNIT/0.5 ML ML SQ SCH ×4 (07:30→20:20)
[2020-02-12] MEDS: PROMOD 30 ML DOSE PO SCH ×3 (07:53→20:19)
[2020-02-12] MEDS: BENAZEPRIL 20 MG TAB PO SCH (07:53)
[2020-02-12] MEDS: MAGNESIUM OXIDE 400 MG TAB PO SCH ×2 (07:53→20:19)
[2020-02-12] MEDS: FE SULF/FA/VIT B COMP & C TAB PO SCH (07:54)
[2020-02-12] MEDS: lisinopriL 5 MG TAB PO SCH (07:54)
[2020-02-12] MEDS: NITROFURAN MACRO 100 MG CAP PO SCH ×2 (07:54→16:12)
[2020-02-12] MEDS: FERROUS SULFATE 325 MG TAB PO SCH (07:54)
[2020-02-12] MEDS: AMLODIPINE 10 MG TAB PO SCH (07:54)
[2020-02-12] MEDS: PENTOXIFYLLINE ER 400 MG TAB PO SCH ×3 (07:54→20:20)
[2020-02-12] MEDS: METOCLOPRAMIDE 5 MG TAB PO SCH (07:55)
[2020-02-12] MEDS: TRAMADOL HCL 50 MG TAB PO PRN ×3 (07:56→20:36)
[2020-02-12] MEDS: NPH (HUMAN) 100 UNITS/ML INSULIN SQ SCH ×2 (07:56→20:20)
[2020-02-12] MEDS: LIDOCAINE 4% PATCH TOP SCH (09:18)
--- NOTE | 2020-02-12 10:01 | P.RH.PN ---
Estimated Length of Stay: 17 Expected Discharge Date: 02/21/20 Discharge Disposition Plan: Home Family Support: Yes Penitentiary Goal: Mobility, Transfers, Self Care Vital Signs: Last Vital Signs Temp 98.2 F 02/12/20 08:00 Pulse 74 02/12/20 08:00 Resp 16 02/12/20 08:53 BP 152/65 H 02/12/20 08:00 Pulse Ox 95 02/12/20 08:53 Laboratory: Laboratory Last Values WBC 7.2 K/uL (4.3-10.9) D 02/11/20 05:56 RBC 4.16 M/uL (3.86-4.86) 02/11/20 05:56 Hgb 10.1 g/dL (12.0-15.0) L 02/11/20 05:56 Hct 32.4 % (36.0-45.0) L 02/11/20 05:56 MCV 78.0 fL (80-100) L D 02/11/20 05:56 MCH 24.3 pg (27.0-35.0) L 02/11/20 05:56 MCHC 31.2 g/dL (32.0-36.0) L 02/11/20 05:56 RDW 32.2 % (12.1-15.2) H D 02/11/20 05:56 Plt Count 264 K/uL (152-406) 02/11/20 05:56 MPV 8.7 fL (7.6-11.3) 02/11/20 05:56 Neutrophils % 72.4 % (41.7-73.7) 02/11/20 05:56 Lymphocytes % 14.4 % (15.3-44.8) L 02/11/20 05:56 Monocytes % 9.9 % (3.3-12.3) 02/11/20 05:56 Eosinophils % 2.2 % (0-4.4) 02/11/20 05:56 Basophils % 1.1 % (0-1.3) 02/11/20 05:56 Absolute Neutrophils 5.2 K/uL (1.8-8.0) 02/11/20 05:56 Absolute Lymphocytes 1.0 K/uL (0.7-4.9) 02/11/20 05:56 Absolute Monocytes 0.7 K/uL (0.1-1.3) 02/11/20 05:56 Absolute Eosinophils 0.2 K/uL (0-0.5) 02/11/20 05:56 Absolute Basophils 0.1 K/uL (0-0.5) 02/11/20 05:56 Platelet Estimate Adeq 02/06/20 06:37 Anisocytosis 1+ 02/06/20 06:37 Morphology Comment Noted (NOT SEEN) 02/06/20 06:37 Sodium 141 mmol/L (136-145) 02/11/20 05:56 Potassium 4.3 mmol/L (3.5-5.1) 02/11/20 05:56 Chloride 109 mmol/L (98-107) H 02/11/20 05:56 Carbon Dioxide 27 mmol/L (21-32) 02/11/20 05:56 BUN 16 mg/dL (7-18) 02/11/20 05:56 Creatinine 0.49 mg/dL (0.55-1.3) L 02/11/20 05:56 Estimated GFR > 90 mL/min (=/>90) 02/11/20 05:56 Glucose 142 mg/dL (74-106) H 02/11/20 05:56 POC Glucose 132 mg/dL (65-120) H 02/12/20 07:30 Calcium 9.0 mg/dL (8.5-10.1) 02/11/20 05:56 Magnesium 2.2 mg/dL (1.8-2.4) 02/06/20 06:37 Albumin 2.6 g/dL (3.4-5.0) L 02/11/20 05:56 Prealbumin 15.0 mg/dL (20-40) L 02/11/20 05:56 Urine Color Yellow 02/05/20 23:15 Urine Appearance Cloudy 02/05/20 23:15 Urine pH 6.5 (5.0-7.0) 02/05/20 23:15 Ur Specific [place] 1.010 (1.005-1.030) 02/05/20 23:15 Glucose (UA)(Auto) Negative (NEG) 02/05/20 23:15 Urine Ketones Negative (NEG) 02/05/20 23:15 Urine Blood Negative (NEG) 02/05/20 23:15 Urine Nitrite Negative (NEG) 02/05/20 23:15 Urine Bilirubin Negative (NEG) 02/05/20 23:15 Urine Urobilinogen 1.0 mg/dL (0.2-1.0) 02/05/20 23:15 Ur Leukocyte Esterase 2+ (NEG) H 02/05/20 23:15 Urine RBC <5 /HPF (NONE SEEN) 02/05/20 23:15 Urine WBC 10-20 /HPF (<5) H 02/05/20 23:15 Ur Squamous Epith Cells <5 /HPF (NONE SEEN) 02/05/20 23:15 Urine Bacteria Loaded /HPF (<20) H 02/05/20 23:15 Urine Mucus 1+ /HPF (NONE SEEN) 02/05/20 23:15 Urine Culture Reflexed Not needed 02/05/20 23:15 Urine Total Protein Negative (NEG) 02/05/20 23:15 Smear Scan Ok (OK) 02/06/20 06:37 Weight: 165 lb Wound Present: No Closed Surgical Incision Present: Yes Negative Pressure Wound Therapy Present: No Physician Update: Systolic blood pressures range 139 to 170. Will increase lisinopril to 10 mg daily. She is doing well with occupational therapy including self care. She is at minimum assistance with self care. She walks 150' with min to moderate assistance to keep touch down weight bearing. Transfers are at minimum assistance. Functional Improvement: pt is demonstrating progress toward functional goals. She has met her short term goals. pt continues to encounter difficulties maintaining TDWB without physical support during functional mobility. When static, pt is able to maintain TDWB well. She is improving her strength of her UEs, which should allow her to improve her ability to maintain TDWB during functional mobility. 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 Please see the Rehabilitation Signature page for all necessary signatures.
[2020-02-12] MEDS ORDERED: lisinopriL 5 MG TAB PO ONE (12:00)
[2020-02-12] MEDS: RIVAROXABAN 20 MG TABLET PO SCH (16:12)
[2020-02-12] MEDS: ATORVASTATIN 20 MG TAB PO SCH (20:20)
[2020-02-12] MEDS: DOCUSATE NA/SENNA CONC 1 TAB PO PRN (20:36)
[2020-02-12] MEDS: TRAZODONE 50 MG TABLET PO PRN (20:37)
[2020-02-13] MEDS: SOTALOL HCL 80 MG TAB PO SCH ×2 (05:43→17:06)
[2020-02-13] MEDS: LEVOTHYROXINE SOD 0.088 MG TAB PO SCH (06:55)
[2020-02-13] MEDS: PANTOPRAZOLE 40MG TABLET PO SCH (06:55)
[2020-02-13] MEDS: INSULIN -REGULAR HUMAN 50 UNIT/0.5 ML ML SQ SCH ×4 (07:30→20:40)
[2020-02-13] MEDS: PROMOD 30 ML DOSE PO SCH ×2 (08:00→20:00)
[2020-02-13] MEDS: LIDOCAINE 4% PATCH TOP SCH (08:03)
[2020-02-13] MEDS: NITROFURAN MACRO 100 MG CAP PO SCH ×2 (08:04→17:06)
[2020-02-13] MEDS: FERROUS SULFATE 325 MG TAB PO SCH (08:04)
[2020-02-13] MEDS: AMLODIPINE 10 MG TAB PO SCH (08:06)
[2020-02-13] MEDS: PENTOXIFYLLINE ER 400 MG TAB PO SCH ×3 (08:06→20:42)
[2020-02-13] MEDS: BENAZEPRIL 20 MG TAB PO SCH (08:07)
[2020-02-13] MEDS: MAGNESIUM OXIDE 400 MG TAB PO SCH ×2 (08:07→20:41)
[2020-02-13] MEDS: FE SULF/FA/VIT B COMP & C TAB PO SCH (08:07)
[2020-02-13] MEDS: METOCLOPRAMIDE 5 MG TAB PO SCH (08:08)
[2020-02-13] MEDS: TRAMADOL HCL 50 MG TAB PO PRN ×3 (08:12→20:41)
[2020-02-13] MEDS: lisinopriL 10 MG TAB PO SCH (09:24)
[2020-02-13] MEDS: NPH (HUMAN) 100 UNITS/ML INSULIN SQ SCH ×2 (09:50→20:40)
[2020-02-13] MEDS: RIVAROXABAN 20 MG TABLET PO SCH (17:06)
[2020-02-13] MEDS: TRAZODONE 50 MG TABLET PO PRN (20:41)
[2020-02-13] MEDS: ATORVASTATIN 20 MG TAB PO SCH (20:41)
[2020-02-14] MEDS: SOTALOL HCL 80 MG TAB PO SCH ×2 (05:12→17:06)
[2020-02-14] MEDS: PANTOPRAZOLE 40MG TABLET PO SCH (07:27)
[2020-02-14] MEDS: LEVOTHYROXINE SOD 0.088 MG TAB PO SCH (07:28)
[2020-02-14] MEDS: INSULIN -REGULAR HUMAN 50 UNIT/0.5 ML ML SQ SCH ×4 (07:30→20:41)
[2020-02-14] MEDS: LIDOCAINE 4% PATCH TOP SCH (07:56)
[2020-02-14] MEDS: FERROUS SULFATE 325 MG TAB PO SCH (07:56)
[2020-02-14] MEDS: NITROFURAN MACRO 100 MG CAP PO SCH ×2 (07:56→17:06)
[2020-02-14] MEDS: lisinopriL 10 MG TAB PO SCH (07:56)
[2020-02-14] MEDS: AMLODIPINE 10 MG TAB PO SCH (07:57)
[2020-02-14] MEDS: BENAZEPRIL 20 MG TAB PO SCH (07:58)
[2020-02-14] MEDS: METOCLOPRAMIDE 5 MG TAB PO SCH (07:58)
[2020-02-14] MEDS: MAGNESIUM OXIDE 400 MG TAB PO SCH ×2 (07:59→20:41)
[2020-02-14] MEDS: FE SULF/FA/VIT B COMP & C TAB PO SCH (08:00)
[2020-02-14] MEDS: NPH (HUMAN) 100 UNITS/ML INSULIN SQ SCH ×2 (08:01→20:41)
[2020-02-14] MEDS: PROMOD 30 ML DOSE PO SCH ×2 (08:02→20:42)
[2020-02-14] MEDS: PENTOXIFYLLINE ER 400 MG TAB PO SCH ×3 (09:48→20:41)
[2020-02-14] MEDS: TRAMADOL HCL 50 MG TAB PO PRN ×2 (15:22→20:41)
[2020-02-14] MEDS: RIVAROXABAN 20 MG TABLET PO SCH (17:06)
[2020-02-14] MEDS: ATORVASTATIN 20 MG TAB PO SCH (20:40)
[2020-02-14] MEDS: TRAZODONE 50 MG TABLET PO PRN (20:40)
[2020-02-15] MEDS: SOTALOL HCL 80 MG TAB PO SCH ×2 (05:02→16:55)
[2020-02-15] MEDS: LEVOTHYROXINE SOD 0.088 MG TAB PO SCH (06:28)
[2020-02-15] MEDS: PANTOPRAZOLE 40MG TABLET PO SCH (07:22)
[2020-02-15] MEDS: INSULIN -REGULAR HUMAN 50 UNIT/0.5 ML ML SQ SCH ×4 (07:30→20:45)
[2020-02-15] MEDS: LIDOCAINE 4% PATCH TOP SCH (08:04)
[2020-02-15] MEDS: NPH (HUMAN) 100 UNITS/ML INSULIN SQ SCH ×2 (08:05→20:46)
[2020-02-15] MEDS: AMLODIPINE 10 MG TAB PO SCH (08:06)
[2020-02-15] MEDS: BENAZEPRIL 20 MG TAB PO SCH (08:06)
[2020-02-15] MEDS: NITROFURAN MACRO 100 MG CAP PO SCH ×2 (08:06→16:55)
[2020-02-15] MEDS: MAGNESIUM OXIDE 400 MG TAB PO SCH ×2 (08:07→20:45)
[2020-02-15] MEDS: FERROUS SULFATE 325 MG TAB PO SCH (08:07)
[2020-02-15] MEDS: FE SULF/FA/VIT B COMP & C TAB PO SCH (08:07)
[2020-02-15] MEDS: METOCLOPRAMIDE 5 MG TAB PO SCH (08:07)
[2020-02-15] MEDS: lisinopriL 10 MG TAB PO SCH (08:07)
[2020-02-15] MEDS: PENTOXIFYLLINE ER 400 MG TAB PO SCH ×3 (08:07→20:44)
[2020-02-15] MEDS: TRAMADOL HCL 50 MG TAB PO PRN ×3 (08:08→20:49)
[2020-02-15] MEDS: PROMOD 30 ML DOSE PO SCH ×2 (08:08→20:49)
[2020-02-15] MEDS: RIVAROXABAN 20 MG TABLET PO SCH (16:55)
--- NOTE | 2020-02-15 19:37 | R.PN ---
PROGRESS NOTES ENCOUNTER DATE AND TIME: 02/15/2020 19:33 (CDT) NAME MARIVEL MAS DATE OF : 1935 DATE OF ADMISSION: 02/05/2020 19:22 (CDT) LEFT FEMUR FRACTURECHIEF COMPLAINT: Left hip fracture SUBJECTIVE: Pt denied any depression. Pt denied any Shortness of Breath. WBC 7.2, Hgb 10.1, glucose 147 to 221, UA: loaded with bacteria, 2+ esterase, WBC 10-20 Ambulated 75' with moderate assistance using a rolling walker. Urine culture show E-Coli sensitive to Macrobid. VITAL SIGNS Temperature: 97.3 F SBP/DBP: 162/56 Pulse: 86 Resp: 16 MEDICATION ALLERGIES: No Known Drug Allergies (NKDA) ENVIRONMENTAL ALLERGIES: - Substance Allergies None Known - Other Allergies None Known NURSING: - Shower allowing shower - Skin care per protocol PRECAUTIONS: - Anterior Hip Precaution No abduction No active extension No adduction across midline No external rotation No hip flexion >90 degrees No internal rotation - Posterior Hip Precaution No adduction across midline No external rotation No hip flexion >90 degrees No internal rotation No wheel chair propulsion - Weight Bearing Precaution TTWB left LE ACTIVITIES OOB only with supervision THERAPIES: - Dietary and Nutrition Adequate Nutrition. Nutritional Education. Nutritional Supplements. PHYSICAL EXAM - Gen Alert and awake Lying in bed No apparent distress Oriented to: person, time, and place - Skin No skin breakdown. Normacephalic - Eyes No abnormalities - ENMT No abnormalities - Neck No abnormalities - CVS RRR - Chest Clear - Resp No wheezing - Abd Soft - GI + bowel sounds Deferred - No abnormalities - Ext Mild left lower extremity edema. - MSK 4+/5 weakness in left lower extremity - Neuro 4/5 strength left lower extremity. - Psych No abnormalities ASSESSMENT: Pt. is a 84 yo Right-handed female of unknown race.On 01/28/2020 she was admitted to [facility] and underwent emergency surgery for LEFT FEMUR FRACTURE (Unilateral Hip Fracture) by AISHA CARO.Pre-morbidly, Pt. was independent/mod-I in Safety Awareness, Balance, and Transfers Control ; and she had good Self-Care, Communication, and Endurance.Currently, she has deficits of Balance, Sa fety Awareness, Locomotion, Self-Care, Communication, and Sphincter Control.Pt. is now referred to [facility] for acute in-patient rehabilitation in order to maximize patient's fu nctional independence in activities of daily living, strength, ROM, and mobility.- Rehab Goal Patient has realistic goal of being discharged at assistance level 7-Ind to reside at Home with Pt s elf. MDM/PLAN: - Physical Therapy Decreased range of motion - to improve, our physical therapists will perform initial evaluation of p t's status upon admission and devise an individualized program for increasing patient's Range of Pasha on. Gait dysfunction - to improve, our physical therapists will perform initial evaluation of pt's statu s upon admission and devise an individualized program for Gait Training, and Wheel Chair mobility Need for home safety evaluation - to improve, our physical therapists will perform initial evaluatio n of pt's status upon admission and devise an individualized program for Home Evaluation Need in caregiver upon discharge - to improve, our physical therapists will perform initial evaluati on of pt's status upon admission and devise an individualized program for Caregiver Training New precaution - to improve, our physical therapists will perform initial evaluation of pt's status upon admission and devise an individualized program for Patient precaution education Edema - to improve, our physical therapists will perform initial evaluation of pt's status upon admi ssion and devise an individualized program for Elevation Training, and Lymphedema Therapy Poor balance - to improve, our physical therapists will perform initial evaluation of pt's status up on admission and devise an individualized program for Balance Training Weakness - to improve, our physical therapists will perform initial evaluation of pt's status upon a dmission and devise an individualized program for Aquatic Therapy, Neuromuscular Reeducation, and Str engthening Achieving independence - to improve, our physical therapists will perform initial evaluation of pt's status upon admission and devise an individualized program for Community Reintegration Activities - Occupational Therapy ADL deficits - to improve, our occupation therapists will perform initial evaluation of pt's status upon admission and devise an individualized program for Bathing, Bed mobility, Community Reintegratio n, Cooking, Dressing, Eating, Fine Motor Skills, Grooming, Homemaking, Kitchen Mobility, Laundry, Pat ient Education, Safety Awareness, Splinting - Positioning, Transfers(Toilet, Tub, Shower), and Wheel Chair Management Need for child care center administrator - to improve, our occupation therapists will perform initial evaluation of pt's status upon admission and devise an individualized program for Caregiver Training Weakness - to improve, our occupation therapists will perform initial evaluation of pt's status upon admission and devise an individualized program for Aquatic Therapy, Balance, Endurance, UE ROM, and UE strengthening - Other See attached MAR (Medication Administration Record) - Anterior Hip Precaution No abduction No active extension No adduction across midline No external rotation No hip flexion >90 degrees No internal rotation - Diet - Liquid Texture Continue Regular - Tube Feed Continue N/A - Diet Type Continue Regular - Posterior Hip Precaution No adduction across midline No external rotation No hip flexion >90 degrees No internal rotation No wheel chair propulsion - Weight Bearing Precaution TTWB left LE - Skin care per protocol - Diet - Solid Texture Continue Regular - Shower allowing shower FUNCTIONAL STATUS: UPDATED AT WEEKLY TEAM CONFERENCE - Bladder Same accident frequency: 7-Ind - No accidents in the past 7 days - Bowel Same accident frequency: 7-Ind - No accidents in the past 7 days - Walking Same score based on distance walked: 0(N/A) Same score based on distance walked: 1(<=50ft) - Wheelchair Same score based on distance traveled: 0(N/A) FUNCTIONAL STATUS: - Self-Care A. Eating Aliyah B. Grooming sup C. Bathing sup D. Dressing - Upper sup E. Dressing - Lower Kashif F. Toileting sup - Sphincter Control G. Bladder control Kashif H. Bowel control Kashif - Transfers Control I. Bed/Chair/Wheelchair modA J. Toilet modA K. Tub/Shower modA - Locomotion L. Walk/Wheelchair (B) sup M. Stairs sup - Communication N. Comprehension (B) Kashif O. Expression (B) sup - Social Cognition P. Social Interaction Aliyah Q. Problem Solving sup R. Memory Kashif - Endurance Fair - Balance Fair - Safety Awareness Fair QI SCORES: - Self-Care A. Eating 03-Partial/moderate assistance B. Oral hygiene 03-Partial/moderate assistance C. Toileting hygiene 02-Substantial/maximal assistance E. Shower/bathe self 02-Substantial/maximal assistance F. Upper body dressing 03-Partial/moderate assistance G. Lower body dressing 02-Substantial/maximal assistance H. Putting on/taking off footwear 88-Not attempted due to medical condition or safety concerns - Mobility A. Roll left and right 03-Partial/moderate assistance B. Sit to lying 03-Partial/moderate assistance C. Lying to sitting on side of bed 03-Partial/moderate assistance D. Sit to stand 02-Substantial/maximal assistance E. Chair/[id number] transfer 02-Substantial/maximal assistance F. Toilet transfer G. Car transfer 88-Not attempted due to medical condition or safety concerns I. Walk 10 feet 02-Substantial/maximal assistance J. Walk 50 feet with two turns 88-Not attempted due to medical condition or safety concerns K. Walk 150 feet 88-Not attempted due to medical condition or safety concerns L. Walking 10 feet on uneven surfaces 88-Not attempted due to medical condition or safety concerns M. 1 step (curb) 88-Not attempted due to medical condition or safety concerns N. 4 steps 88-Not attempted due to medical condition or safety concerns O. 12 steps 88-Not attempted due to medical condition or safety concerns P. Picking up object 88-Not attempted due to medical condition or safety concerns R. Wheel 50 feet with two turns 88-Not attempted due to medical condition or safety concerns S. Wheel 150 feet 88-Not attempted due to medical condition or safety concerns - Bladder and Bowel Bladder continence Bowel continence - Endurance Fair - Balance Fair - Safety Awareness Fair CURRENT [facility]. DEFICITS: Self-Care, Mobility, Endurance, Balance, and Safety Awareness SIGNATURE PANEL: (CDT)
[2020-02-15] MEDS: DOCUSATE NA/SENNA CONC 1 TAB PO PRN (20:44)
[2020-02-15] MEDS: ATORVASTATIN 20 MG TAB PO SCH (20:44)
[2020-02-15] MEDS: MELATONIN 3 MG TABLET PO PRN (20:45)
--- NOTE | 2020-02-16 02:12 | FAST ---
[employer] FORM SHIFT START DATE/TIME: 02/15/2020 19:00 (CDT) SHIFT END DATE/TIME: 02/16/2020 07:00 (CDT) NAME MARIVEL MAS DATE OF : 1935 DATE OF ADMISSION: 02/05/2020 19:22 (CDT) PHONE: AGE: 84 N# [id number] GENDER: Female ENCOUNTER PHYSICIAN: Dr. Missael Leram M.D. ADMISSION DIAGNOSIS: - Orthopaedic Disorders 08 - Unilateral Hip Fracture (08.11) LEFT FEMUR FRACTURE. EATING: Not assessed/no information CODE: - ORAL HYGIENE: ORAL HYGIENE - STEP 1: Does the patient complete the activity by him/herself with no assistance (physical, verbal/nonverbal cueing, setup/clean-up)? No. ORAL HYGIENE - STEP 2: Does the patient need only setup/clean-up assistance from one helper? No. ORAL HYGIENE - STEP 3: Does the patient need only verbal/nonverbal cueing or touching/steadying/contact guard assistance fro m one helper? Yes. 1. [id number] ADMISSION PERFORMANCE: Supervision or touching assistance CODE: 04 TOILETING HYGIENE: TOILETING HYGIENE - STEP 1: Does the patient complete the activity by him/herself with no assistance (physical, verbal/nonverbal cueing, setup/clean-up)? No. TOILETING HYGIENE - STEP 2: Does the patient need only setup/clean-up assistance from one helper? No. TOILETING HYGIENE - STEP 3: Does the patient need only verbal/nonverbal cueing or touching/steadying/contact guard assistance fro m one helper? Yes. 1. [id number] ADMISSION PERFORMANCE: Supervision or touching assistance CODE: 04 BATHING: Not assessed/no information CODE: - DRESSING - UPPER BODY: Not assessed/no information CODE: - DRESSING - LOWER BODY: Not assessed/no information CODE: - PUTTING ON/TAKING OFF FOOTWEAR: Not assessed/no information CODE: - ROLL LEFT AND RIGHT: ROLL LEFT AND RIGHT - STEP 1: Does the patient complete the activity by him/herself with no assistance (physical, verbal/nonverbal cueing, setup/clean-up)? No. ROLL LEFT AND RIGHT - STEP 2: Does the patient need only setup/clean-up assistance from one helper? No. ROLL LEFT AND RIGHT - STEP 3: Does the patient need only verbal/nonverbal cueing or touching/steadying/contact guard assistance fro m one helper? Yes. 1. [id number] ADMISSION PERFORMANCE: Supervision or touching assistance CODE: 04 SIT TO LYING: SIT TO LYING - STEP 1: Does the patient complete the activity by him/herself with no assistance (physical, verbal/nonverbal cueing, setup/clean-up)? No. SIT TO LYING - STEP 2: Does the patient need only setup/clean-up assistance from one helper? No. SIT TO LYING - STEP 3: Does the patient need only verbal/nonverbal cueing or touching/steadying/contact guard assistance fro m one helper? Yes. 1. [id number] ADMISSION PERFORMANCE: Supervision or touching assistance CODE: 04 LYING TO SITTING: LYING TO SITTING ON SIDE OF BED - STEP 1: Does the patient complete the activity by him/herself with no assistance (physical, verbal/nonverbal cueing, setup/clean-up)? No. LYING TO SITTING ON SIDE OF BED - STEP 2: Does the patient need only setup/clean-up assistance from one helper? No. LYING TO SITTING ON SIDE OF BED - STEP 3: Does the patient need only verbal/nonverbal cueing or touching/steadying/contact guard assistance fro m one helper? Yes. 1. [id number] ADMISSION PERFORMANCE: Supervision or touching assistance CODE: 04 SIT TO STAND: SIT TO STAND - STEP 1: Does the patient complete the activity by him/herself with no assistance (physical, verbal/nonverbal cueing, setup/clean-up)? No. SIT TO STAND - STEP 2: Does the patient need only setup/clean-up assistance from one helper? No. SIT TO STAND - STEP 3: Does the patient need only verbal/nonverbal cueing or touching/steadying/contact guard assistance fro m one helper? Yes. 1. [id number] ADMISSION PERFORMANCE: Supervision or touching assistance CODE: 04 TRANSFERS: BED, CHAIR: CHAIR/[id number] TRANSFER - STEP 1: Does the patient complete the activity by him/herself with no assistance (physical, verbal/nonverbal cueing, setup/clean-up)? No. CHAIR/[id number] TRANSFER - STEP 2: Does the patient need only setup/clean-up assistance from one helper? No. CHAIR/[id number] TRANSFER - STEP 3: Does the patient need only verbal/nonverbal cueing or touching/steadying/contact guard assistance fro m one helper? Yes. 1. [id number] ADMISSION PERFORMANCE: Supervision or touching assistance CODE: 04 TRANSFER TOILET: TOILET TRANSFER - STEP 1: Does the patient complete the activity by him/herself with no assistance (physical, verbal/nonverbal cueing, setup/clean-up)? No. TOILET TRANSFER - STEP 2: Does the patient need only setup/clean-up assistance from one helper? No. TOILET TRANSFER - STEP 3: Does the patient need only verbal/nonverbal cueing or touching/steadying/contact guard assistance fro m one helper? Yes. 1. [id number] ADMISSION PERFORMANCE: Supervision or touching assistance CODE: 04 TRANSFERS: CAR: Not assessed/no information CODE: - WALK 10 FEET: Not assessed/no information CODE: - 1 STEP (CURB): Not assessed/no information CODE: - PICKING UP OBJECT: Not assessed/no information CODE: - DOES THE PATIENT USE A WHEELCHAIR/SCOOTER? CODE: EXPR WHEEL 50 FEET WITH TWO TURNS: Not assessed/no information CODE: - INDICATE THE TYPE OF WHEELCHAIR/SCOOTER USED: CODE: EXPR WHEEL 150 FEET: Not assessed/no information CODE: - INDICATE THE TYPE OF WHEELCHAIR/SCOOTER USED: CODE: EXPR BLADDER AND BOWEL: H350. BLADDER CONTINENCE (3-DAY ASSESSMENT PERIOD): Always continent (no documented incontinence) CODE: 0 H400. BOWEL CONTINENCE (3-DAY ASSESSMENT PERIOD): Always continent CODE: 0
[2020-02-16] MEDS: ACETAMINOPHEN 500 MG TAB PO PRN ×2 (05:23→13:10)
[2020-02-16] MEDS: SOTALOL HCL 80 MG TAB PO SCH ×2 (05:24→17:03)
[2020-02-16] MEDS: LEVOTHYROXINE SOD 0.088 MG TAB PO SCH (07:03)
[2020-02-16] MEDS: PANTOPRAZOLE 40MG TABLET PO SCH (07:03)
[2020-02-16] MEDS: INSULIN -REGULAR HUMAN 50 UNIT/0.5 ML ML SQ SCH ×4 (07:30→20:30)
[2020-02-16] MEDS: NPH (HUMAN) 100 UNITS/ML INSULIN SQ SCH ×2 (08:00→20:30)
[2020-02-16] MEDS: LIDOCAINE 4% PATCH TOP SCH (08:30)
[2020-02-16] MEDS: PENTOXIFYLLINE ER 400 MG TAB PO SCH ×3 (08:30→20:28)
[2020-02-16] MEDS: FERROUS SULFATE 325 MG TAB PO SCH (08:30)
[2020-02-16] MEDS: METOCLOPRAMIDE 5 MG TAB PO SCH (08:30)
[2020-02-16] MEDS: BENAZEPRIL 20 MG TAB PO SCH (08:31)
[2020-02-16] MEDS: AMLODIPINE 10 MG TAB PO SCH (08:31)
[2020-02-16] MEDS: TRAMADOL HCL 50 MG TAB PO PRN ×2 (08:31→19:39)
[2020-02-16] MEDS: lisinopriL 10 MG TAB PO SCH (08:31)
[2020-02-16] MEDS: MAGNESIUM OXIDE 400 MG TAB PO SCH ×2 (08:32→19:38)
[2020-02-16] MEDS: NITROFURAN MACRO 100 MG CAP PO SCH ×2 (08:32→17:02)
[2020-02-16] MEDS: FE SULF/FA/VIT B COMP & C TAB PO SCH (08:32)
[2020-02-16] MEDS: PROMOD 30 ML DOSE PO SCH ×2 (08:32→20:30)
[2020-02-16] MEDS: RIVAROXABAN 20 MG TABLET PO SCH (17:02)
--- NOTE | 2020-02-16 17:52 | R.PN ---
PROGRESS NOTES ENCOUNTER DATE AND TIME: 02/16/2020 17:48 (CDT) NAME MARIVEL MAS DATE OF : 1935 DATE OF ADMISSION: 02/05/2020 19:22 (CDT) LEFT FEMUR FRACTURECHIEF COMPLAINT: Left hip fracture SUBJECTIVE: Pt denied any depression. Pt denied any Shortness of Breath. WBC 7.2, Hgb 10.1, glucose 157 to 195. Will increase NPH insulin to 22 units bid. UA: loaded with b acteria, 2+ esterase, WBC 10-20. Xarelto 20 mg daily. Ambulated 75' with moderate assistance using a rolling walker. Urine culture show E-Coli sensitive to Macrobid. VITAL SIGNS Temperature: 97.3 F SBP/DBP: 162/56 Pulse: 76 Resp: 16 MEDICATION ALLERGIES: No Known Drug Allergies (NKDA) ENVIRONMENTAL ALLERGIES: - Substance Allergies None Known - Other Allergies None Known NURSING: - Shower allowing shower - Skin care per protocol PRECAUTIONS: - Anterior Hip Precaution No abduction No active extension No adduction across midline No external rotation No hip flexion >90 degrees No internal rotation - Posterior Hip Precaution No adduction across midline No external rotation No hip flexion >90 degrees No internal rotation No wheel chair propulsion - Weight Bearing Precaution TTWB left LE ACTIVITIES OOB only with supervision THERAPIES: - Dietary and Nutrition Adequate Nutrition. Nutritional Education. Nutritional Supplements. PHYSICAL EXAM - Gen Alert and awake Lying in bed No apparent distress Oriented to: person, time, and place - Skin No skin breakdown. Normacephalic - Eyes No abnormalities - ENMT No abnormalities - Neck No abnormalities - CVS RRR - Chest Clear - Resp No wheezing - Abd Soft - GI + bowel sounds Deferred - No abnormalities - Ext Mild left lower extremity edema. - MSK 4+/5 weakness in left lower extremity - Neuro 4/5 strength left lower extremity. - Psych No abnormalities ASSESSMENT: Pt. is a 84 yo Right-handed female of unknown race.On 01/28/2020 she was admitted to [facility] and underwent emergency surgery for LEFT FEMUR FRACTURE (Unilateral Hip Fracture) by AISHA CARO.Pre-morbidly, Pt. was independent/mod-I in Safety Awareness, Balance, and Transfers Control ; and she had good Self-Care, Communication, and Endurance.Currently, she has deficits of Balance, Sa fety Awareness, Locomotion, Self-Care, Communication, and Sphincter Control.Pt. is now referred to [facility] for acute in-patient rehabilitation in order to maximize patient's fu nctional independence in activities of daily living, strength, ROM, and mobility.- Rehab Goal Patient has realistic goal of being discharged at assistance level 7-Ind to reside at Home with Pt s elf. MDM/PLAN: - Physical Therapy Decreased range of motion - to improve, our physical therapists will perform initial evaluation of p t's status upon admission and devise an individualized program for increasing patient's Range of Pasha on. Gait dysfunction - to improve, our physical therapists will perform initial evaluation of pt's statu s upon admission and devise an individualized program for Gait Training, and Wheel Chair mobility Need for home safety evaluation - to improve, our physical therapists will perform initial evaluatio n of pt's status upon admission and devise an individualized program for Home Evaluation Need in caregiver upon discharge - to improve, our physical therapists will perform initial evaluati on of pt's status upon admission and devise an individualized program for Caregiver Training New precaution - to improve, our physical therapists will perform initial evaluation of pt's status upon admission and devise an individualized program for Patient precaution education Edema - to improve, our physical therapists will perform initial evaluation of pt's status upon admi ssion and devise an individualized program for Elevation Training, and Lymphedema Therapy Poor balance - to improve, our physical therapists will perform initial evaluation of pt's status up on admission and devise an individualized program for Balance Training Weakness - to improve, our physical therapists will perform initial evaluation of pt's status upon a dmission and devise an individualized program for Aquatic Therapy, Neuromuscular Reeducation, and Str engthening Achieving independence - to improve, our physical therapists will perform initial evaluation of pt's status upon admission and devise an individualized program for Community Reintegration Activities - Occupational Therapy ADL deficits - to improve, our occupation therapists will perform initial evaluation of pt's status upon admission and devise an individualized program for Bathing, Bed mobility, Community Reintegratio n, Cooking, Dressing, Eating, Fine Motor Skills, Grooming, Homemaking, Kitchen Mobility, Laundry, Pat ient Education, Safety Awareness, Splinting - Positioning, Transfers(Toilet, Tub, Shower), and Wheel Chair Management Need for skin care instructor - to improve, our occupation therapists will perform initial evaluation of pt's status upon admission and devise an individualized program for Caregiver Training Weakness - to improve, our occupation therapists will perform initial evaluation of pt's status upon admission and devise an individualized program for Aquatic Therapy, Balance, Endurance, UE ROM, and UE strengthening - Other See attached MAR (Medication Administration Record) - Anterior Hip Precaution No abduction No active extension No adduction across midline No external rotation No hip flexion >90 degrees No internal rotation - Diet - Liquid Texture Continue Regular - Tube Feed Continue N/A - Diet Type Continue Regular - Posterior Hip Precaution No adduction across midline No external rotation No hip flexion >90 degrees No internal rotation No wheel chair propulsion - Weight Bearing Precaution TTWB left LE - Skin care per protocol - Diet - Solid Texture Continue Regular - Shower allowing shower FUNCTIONAL STATUS: UPDATED AT WEEKLY TEAM CONFERENCE - Bladder Same accident frequency: 7-Ind - No accidents in the past 7 days - Bowel Same accident frequency: 7-Ind - No accidents in the past 7 days - Walking Same score based on distance walked: 0(N/A) Same score based on distance walked: 1(<=50ft) - Wheelchair Same score based on distance traveled: 0(N/A) FUNCTIONAL STATUS: - Self-Care A. Eating Aliyah B. Grooming sup C. Bathing sup D. Dressing - Upper sup E. Dressing - Lower Kashif F. Toileting sup - Sphincter Control G. Bladder control Kashif H. Bowel control Kashif - Transfers Control I. Bed/Chair/Wheelchair modA J. Toilet modA K. Tub/Shower modA - Locomotion L. Walk/Wheelchair (B) sup M. Stairs sup - Communication N. Comprehension (B) Kashif O. Expression (B) sup - Social Cognition P. Social Interaction Aliyah Q. Problem Solving sup R. Memory Kashif - Endurance Fair - Balance Fair - Safety Awareness Fair QI SCORES: - Self-Care A. Eating 03-Partial/moderate assistance B. Oral hygiene 03-Partial/moderate assistance C. Toileting hygiene 02-Substantial/maximal assistance E. Shower/bathe self 02-Substantial/maximal assistance F. Upper body dressing 03-Partial/moderate assistance G. Lower body dressing 02-Substantial/maximal assistance H. Putting on/taking off footwear 88-Not attempted due to medical condition or safety concerns - Mobility A. Roll left and right 03-Partial/moderate assistance B. Sit to lying 03-Partial/moderate assistance C. Lying to sitting on side of bed 03-Partial/moderate assistance D. Sit to stand 02-Substantial/maximal assistance E. Chair/iay-[id number]-[id number] transfer 02-Substantial/maximal assistance F. Toilet transfer G. Car transfer 88-Not attempted due to medical condition or safety concerns I. Walk 10 feet 02-Substantial/maximal assistance J. Walk 50 feet with two turns 88-Not attempted due to medical condition or safety concerns K. Walk 150 feet 88-Not attempted due to medical condition or safety concerns L. Walking 10 feet on uneven surfaces 88-Not attempted due to medical condition or safety concerns M. 1 step (curb) 88-Not attempted due to medical condition or safety concerns N. 4 steps 88-Not attempted due to medical condition or safety concerns O. 12 steps 88-Not attempted due to medical condition or safety concerns P. Picking up object 88-Not attempted due to medical condition or safety concerns R. Wheel 50 feet with two turns 88-Not attempted due to medical condition or safety concerns S. Wheel 150 feet 88-Not attempted due to medical condition or safety concerns - Bladder and Bowel Bladder continence Bowel continence - Endurance Fair - Balance Fair - Safety Awareness Fair [facility] DEFICITS: Self-Care, Mobility, Endurance, Balance, and Safety Awareness SIGNATURE PANEL: (CDT)
[2020-02-16] MEDS ORDERED: INFLUENZA VACCINE (for 3y+) 0.5 ML DOSE IMVAC ONE (20:00)
[2020-02-16] MEDS: TRAZODONE 50 MG TABLET PO PRN (20:28)
[2020-02-16] MEDS: ATORVASTATIN 20 MG TAB PO SCH (20:28)
[2020-02-17] MEDS: ACETAMINOPHEN 500 MG TAB PO PRN ×2 (04:10→12:50)
[2020-02-17] MEDS: SOTALOL HCL 80 MG TAB PO SCH ×2 (05:15→16:50)
[2020-02-17] MEDS: LEVOTHYROXINE SOD 0.088 MG TAB PO SCH (06:45)
[2020-02-17] MEDS: PANTOPRAZOLE 40MG TABLET PO SCH (06:45)
[2020-02-17] MEDS: INSULIN -REGULAR HUMAN 50 UNIT/0.5 ML ML SQ SCH ×5 (07:13→21:00)
[2020-02-17] MEDS: LIDOCAINE 4% PATCH TOP SCH ×2 (08:14→17:37)
[2020-02-17] MEDS: BENAZEPRIL 20 MG TAB PO SCH (08:14)
[2020-02-17] MEDS: NITROFURAN MACRO 100 MG CAP PO SCH (08:14)
[2020-02-17] MEDS: PENTOXIFYLLINE ER 400 MG TAB PO SCH ×3 (08:15→20:38)
[2020-02-17] MEDS: MAGNESIUM OXIDE 400 MG TAB PO SCH ×2 (08:15→20:38)
[2020-02-17] MEDS: FERROUS SULFATE 325 MG TAB PO SCH (08:15)
[2020-02-17] MEDS: FE SULF/FA/VIT B COMP & C TAB PO SCH (08:15)
[2020-02-17] MEDS: METOCLOPRAMIDE 5 MG TAB PO SCH (08:15)
[2020-02-17] MEDS: AMLODIPINE 10 MG TAB PO SCH (08:16)
[2020-02-17] MEDS: lisinopriL 10 MG TAB PO SCH (08:16)
[2020-02-17] MEDS: TRAMADOL HCL 50 MG TAB PO PRN ×2 (08:16→20:39)
[2020-02-17] MEDS: PROMOD 30 ML DOSE PO SCH ×2 (08:18→20:40)
[2020-02-17] MEDS: NPH (HUMAN) 100 UNITS/ML INSULIN SQ SCH ×2 (08:18→20:40)
[2020-02-17] MEDS: RIVAROXABAN 20 MG TABLET PO SCH (16:50)
--- NOTE | 2020-02-17 17:28 | R.PN ---
PROGRESS NOTES ENCOUNTER DATE AND TIME: 02/17/2020 17:25 (CDT) NAME MARIVEL MAS DATE OF : 1935 DATE OF ADMISSION: 02/05/2020 19:22 (CDT) LEFT FEMUR FRACTURECHIEF COMPLAINT: Left hip fracture SUBJECTIVE: Pt denied any depression. Pt denied any Shortness of Breath. WBC 7.2, Hgb 10.1, glucose 117 to 212. Increased NPH insulin to 22 units bid. UA: loaded with bacte steven, 2+ esterase, WBC 10-20. Xarelto 20 mg daily. Ambulated 75' with moderate assistance using a rolling walker. Urine culture show E-Coli sensitive to Macrobid. VITAL SIGNS Temperature: 97.3 F SBP/DBP: 157/58 Pulse: 68 Resp: 15 MEDICATION ALLERGIES: No Known Drug Allergies (NKDA) ENVIRONMENTAL ALLERGIES: - Substance Allergies None Known - Other Allergies None Known NURSING: - Shower allowing shower - Skin care per protocol PRECAUTIONS: - Anterior Hip Precaution No abduction No active extension No adduction across midline No external rotation No hip flexion >90 degrees No internal rotation - Posterior Hip Precaution No adduction across midline No external rotation No hip flexion >90 degrees No internal rotation No wheel chair propulsion - Weight Bearing Precaution TTWB left LE ACTIVITIES OOB only with supervision THERAPIES: - Dietary and Nutrition Adequate Nutrition. Nutritional Education. Nutritional Supplements. PHYSICAL EXAM - Gen Alert and awake Lying in bed No apparent distress Oriented to: person, time, and place - Skin No skin breakdown. Normacephalic - Eyes No abnormalities - ENMT No abnormalities - Neck No abnormalities - CVS RRR - Chest Clear - Resp No wheezing - Abd Soft - GI + bowel sounds Deferred - No abnormalities - Ext Mild left lower extremity edema. - MSK 4+/5 weakness in left lower extremity - Neuro 4/5 strength left lower extremity. - Psych No abnormalities ASSESSMENT: Pt. is a 84 yo Right-handed female of unknown race.On 01/28/2020 she was admitted to [facility] and underwent emergency surgery for LEFT FEMUR FRACTURE (Unilateral Hip Fracture) by AISHA CARO.Pre-morbidly, Pt. was independent/mod-I in Safety Awareness, Balance, and Transfers Control ; and she had good Self-Care, Communication, and Endurance.Currently, she has deficits of Balance, Sa fety Awareness, Locomotion, Self-Care, Communication, and Sphincter Control.Pt. is now referred to [facility] for acute in-patient rehabilitation in order to maximize patient's fu nctional independence in activities of daily living, strength, ROM, and mobility.- Rehab Goal Patient has realistic goal of being discharged at assistance level 7-Ind to reside at Home with Pt s elf. MDM/PLAN: - Physical Therapy Decreased range of motion - to improve, our physical therapists will perform initial evaluation of p t's status upon admission and devise an individualized program for increasing patient's Range of Pasha on. Gait dysfunction - to improve, our physical therapists will perform initial evaluation of pt's statu s upon admission and devise an individualized program for Gait Training, and Wheel Chair mobility Need for home safety evaluation - to improve, our physical therapists will perform initial evaluatio n of pt's status upon admission and devise an individualized program for Home Evaluation Need in caregiver upon discharge - to improve, our physical therapists will perform initial evaluati on of pt's status upon admission and devise an individualized program for Caregiver Training New precaution - to improve, our physical therapists will perform initial evaluation of pt's status upon admission and devise an individualized program for Patient precaution education Edema - to improve, our physical therapists will perform initial evaluation of pt's status upon admi ssion and devise an individualized program for Elevation Training, and Lymphedema Therapy Poor balance - to improve, our physical therapists will perform initial evaluation of pt's status up on admission and devise an individualized program for Balance Training Weakness - to improve, our physical therapists will perform initial evaluation of pt's status upon a dmission and devise an individualized program for Aquatic Therapy, Neuromuscular Reeducation, and Str engthening Achieving independence - to improve, our physical therapists will perform initial evaluation of pt's status upon admission and devise an individualized program for Community Reintegration Activities - Occupational Therapy ADL deficits - to improve, our occupation therapists will perform initial evaluation of pt's status upon admission and devise an individualized program for Bathing, Bed mobility, Community Reintegratio n, Cooking, Dressing, Eating, Fine Motor Skills, Grooming, Homemaking, Kitchen Mobility, Laundry, Pat ient Education, Safety Awareness, Splinting - Positioning, Transfers(Toilet, Tub, Shower), and Wheel Chair Management Need for intensive care specialist - to improve, our occupation therapists will perform initial evaluation of pt's status upon admission and devise an individualized program for Caregiver Training Weakness - to improve, our occupation therapists will perform initial evaluation of pt's status upon admission and devise an individualized program for Aquatic Therapy, Balance, Endurance, UE ROM, and UE strengthening - Other See attached MAR (Medication Administration Record) - Anterior Hip Precaution No abduction No active extension No adduction across midline No external rotation No hip flexion >90 degrees No internal rotation - Diet - Liquid Texture Continue Regular - Tube Feed Continue N/A - Diet Type Continue Regular - Posterior Hip Precaution No adduction across midline No external rotation No hip flexion >90 degrees No internal rotation No wheel chair propulsion - Weight Bearing Precaution TTWB left LE - Skin care per protocol - Diet - Solid Texture Continue Regular - Shower allowing shower FUNCTIONAL STATUS: UPDATED AT WEEKLY TEAM CONFERENCE - Bladder Same accident frequency: 7-Ind - No accidents in the past 7 days - Bowel Same accident frequency: 7-Ind - No accidents in the past 7 days - Walking Same score based on distance walked: 0(N/A) Same score based on distance walked: 1(<=50ft) - Wheelchair Same score based on distance traveled: 0(N/A) FUNCTIONAL STATUS: - Self-Care A. Eating Aliyah B. Grooming sup C. Bathing sup D. Dressing - Upper sup E. Dressing - Lower Kashif F. Toileting sup - Sphincter Control G. Bladder control Kashif H. Bowel control Kashif - Transfers Control I. Bed/Chair/Wheelchair modA J. Toilet modA K. Tub/Shower modA - Locomotion L. Walk/Wheelchair (B) sup M. Stairs sup - Communication N. Comprehension (B) Kashif O. Expression (B) sup - Social Cognition P. Social Interaction Aliyah Q. Problem Solving sup R. Memory Kashif - Endurance Fair - Balance Fair - Safety Awareness Fair QI SCORES: - Self-Care A. Eating 03-Partial/moderate assistance B. Oral hygiene 03-Partial/moderate assistance C. Toileting hygiene 02-Substantial/maximal assistance E. Shower/bathe self 02-Substantial/maximal assistance F. Upper body dressing 03-Partial/moderate assistance G. Lower body dressing 02-Substantial/maximal assistance H. Putting on/taking off footwear 88-Not attempted due to medical condition or safety concerns - Mobility A. Roll left and right 03-Partial/moderate assistance B. Sit to lying 03-Partial/moderate assistance C. Lying to sitting on side of bed 03-Partial/moderate assistance D. Sit to stand 02-Substantial/maximal assistance E. Chair/[id number] transfer 02-Substantial/maximal assistance F. Toilet transfer G. Car transfer 88-Not attempted due to medical condition or safety concerns I. Walk 10 feet 02-Substantial/maximal assistance J. Walk 50 feet with two turns 88-Not attempted due to medical condition or safety concerns K. Walk 150 feet 88-Not attempted due to medical condition or safety concerns L. Walking 10 feet on uneven surfaces 88-Not attempted due to medical condition or safety concerns M. 1 step (curb) 88-Not attempted due to medical condition or safety concerns N. 4 steps 88-Not attempted due to medical condition or safety concerns O. 12 steps 88-Not attempted due to medical condition or safety concerns P. Picking up object 88-Not attempted due to medical condition or safety concerns R. Wheel 50 feet with two turns 88-Not attempted due to medical condition or safety concerns S. Wheel 150 feet 88-Not attempted due to medical condition or safety concerns - Bladder and Bowel Bladder continence Bowel continence - Endurance Fair - Balance Fair - Safety Awareness Fair [facility] DEFICITS: Self-Care, Mobility, Endurance, Balance, and Safety Awareness SIGNATURE PANEL: (CDT)
[2020-02-17] MEDS: CRANBERRY FRUIT EXTRACT 200 MG CAP PO SCH (20:37)
[2020-02-17] MEDS: TRAZODONE 50 MG TABLET PO PRN (20:37)
[2020-02-17] MEDS: ATORVASTATIN 20 MG TAB PO SCH (20:38)
[2020-02-18] MEDS: ACETAMINOPHEN 500 MG TAB PO PRN ×2 (04:10→14:57)
[2020-02-18] MEDS: SOTALOL HCL 80 MG TAB PO SCH ×2 (05:07→16:38)
[2020-02-18] MEDS: LEVOTHYROXINE SOD 0.088 MG TAB PO SCH (06:15)
[2020-02-18 06:25] LABS: Absolute Lymphocytes (CBC) 0.9 K/uL (0.7-4.9); Basophils % 1.1 % (0-1.3); Hematocrit 35.3 % (36.0-45.0); Lymphocytes % 14.5 % (15.3-44.8); MPV 7.6 fL (7.6-11.3); RBC Red Blood Cell Count 4.39 M/uL (3.86-4.86)
[2020-02-18 06:40] LABS: Albumin 2.6 g/dL (3.4-5.0); BUN Blood Urea Nitrogen 14 mg/dL (7-18); Bicarbonate 29 mmol/L (21-32); Glucose Level 109 mg/dL (74-106); Potassium 3.8 mmol/L (3.5-5.1); Prealbumin 20.5 mg/dL (20-40); Sodium Level 143 mmol/L (136-145)
[2020-02-18] MEDS: PANTOPRAZOLE 40MG TABLET PO SCH (07:13)
[2020-02-18] MEDS: AMLODIPINE 10 MG TAB PO SCH (07:14)
[2020-02-18] MEDS: BENAZEPRIL 20 MG TAB PO SCH (07:14)
[2020-02-18] MEDS: lisinopriL 10 MG TAB PO SCH (07:14)
[2020-02-18] MEDS: INSULIN -REGULAR HUMAN 50 UNIT/0.5 ML ML SQ SCH ×4 (07:22→20:53)
[2020-02-18] MEDS: NPH (HUMAN) 100 UNITS/ML INSULIN SQ SCH ×2 (07:52→20:52)
[2020-02-18] MEDS: CRANBERRY FRUIT EXTRACT 200 MG CAP PO SCH ×2 (07:53→20:51)
[2020-02-18] MEDS: PROMOD 30 ML DOSE PO SCH ×2 (07:53→20:54)
[2020-02-18] MEDS: PENTOXIFYLLINE ER 400 MG TAB PO SCH ×3 (07:53→20:51)
[2020-02-18] MEDS: METOCLOPRAMIDE 5 MG TAB PO SCH (07:53)
[2020-02-18] MEDS: MAGNESIUM OXIDE 400 MG TAB PO SCH ×2 (07:53→20:51)
[2020-02-18] MEDS: FE SULF/FA/VIT B COMP & C TAB PO SCH (07:53)
[2020-02-18] MEDS: FERROUS SULFATE 325 MG TAB PO SCH (07:53)
[2020-02-18] MEDS: TRAMADOL HCL 50 MG TAB PO PRN ×3 (07:54→20:53)
[2020-02-18] MEDS: LIDOCAINE 4% PATCH TOP SCH (11:04)
--- NOTE | 2020-02-18 14:39 | FAST ---
OT QI REPORT FORM ENCOUNTER DATE AND TIME: 02/18/2020 08:00 (CDT) NAME MARIVEL MAS DATE OF : 1935 DATE OF ADMISSION: 02/05/2020 19:22 (CDT) PHONE: AGE: 84 N# [id number] GENDER: Female ENCOUNTER PHYSICIAN: Dr. Missael Lerma M.D. ADMISSION DIAGNOSIS: - Orthopaedic Disorders 08 - Unilateral Hip Fracture (08.11) LEFT FEMUR FRACTURE. EATING: Not assessed/no information CODE: - ORAL HYGIENE: ORAL HYGIENE - STEP 1: Does the patient complete the activity by him/herself with no assistance (physical, verbal/nonverbal cueing, setup/clean-up)? Yes. 1. [id number] ADMISSION PERFORMANCE: Independent CODE: 06 TOILETING HYGIENE: Not assessed/no information CODE: - BATHING: SHOWER/BATHE SELF - STEP 1: Does the patient complete the activity by him/herself with no assistance (physical, verbal/nonverbal cueing, setup/clean-up)? No. SHOWER/BATHE SELF - STEP 2: Does the patient need only setup/clean-up assistance from one helper? No. SHOWER/BATHE SELF - STEP 3: Does the patient need only verbal/nonverbal cueing or touching/steadying/contact guard assistance fro m one helper? Yes. 1. [id number] ADMISSION PERFORMANCE: Supervision or touching assistance CODE: 04 DRESSING - UPPER BODY: DRESSING - UPPER BODY - STEP 1: Does the patient complete the activity by him/herself with no assistance (physical, verbal/nonverbal cueing, setup/clean-up)? Yes. 1. [id number] ADMISSION PERFORMANCE: Independent CODE: 06 DRESSING - LOWER BODY: DRESSING - LOWER BODY - STEP 1: Does the patient complete the activity by him/herself with no assistance (physical, verbal/nonverbal cueing, setup/clean-up)? No. DRESSING - LOWER BODY - STEP 2: Does the patient need only setup/clean-up assistance from one helper? No. DRESSING - LOWER BODY - STEP 3: Does the patient need only verbal/nonverbal cueing or touching/steadying/contact guard assistance fro m one helper? Yes. 1. [id number] ADMISSION PERFORMANCE: Supervision or touching assistance CODE: 04 PUTTING ON/TAKING OFF FOOTWEAR: FOOTWEAR - STEP 1: Does the patient complete the activity by him/herself with no assistance (physical, verbal/nonverbal cueing, setup/clean-up)? Yes. 1. [id number] ADMISSION PERFORMANCE: Independent CODE: 06 DOES THE PATIENT USE A WHEELCHAIR/SCOOTER? CODE: EXPR INDICATE THE TYPE OF WHEELCHAIR/SCOOTER USED: CODE: EXPR INDICATE THE TYPE OF WHEELCHAIR/SCOOTER USED: CODE: EXPR BLADDER AND BOWEL: CODE: EXPR CODE: EXPR SIGNATURE PANEL: The following modified sections: 1. [id number] Admission Performance, 1. [id number] Admission Performance, 1. [id number] Admission Performance, 1. IT2482s Admission Performance, 1. [id number] Admission Performance were [electronically] signed by HANSEL Hairston on SatFeb 18 2020 14:39:16 GMT-0500 (Central Daylight Time)
[2020-02-18] MEDS: RIVAROXABAN 20 MG TABLET PO SCH (16:38)
--- NOTE | 2020-02-18 18:03 | R.PN ---
PROGRESS NOTES ENCOUNTER DATE AND TIME: 02/18/2020 17:56 (CDT) NAME MARIVEL MAS DATE OF : 1935 DATE OF ADMISSION: 02/05/2020 19:22 (CDT) LEFT FEMUR FRACTURECHIEF COMPLAINT: Left hip fracture SUBJECTIVE: Pt denied any depression. Pt denied any Shortness of Breath. WBC 6.4, Hgb 11.1, glucose 106 to 137. Increased NPH insulin to 22 units bid. UA: loaded with bacte steven, 2+ esterase, WBC 10-20. Pushed fluids and cranberry 400 mg daily. Xarelto 20 mg daily. Ambulated 30' and 35' with moderate assistance using a rolling walker. Urine culture show E-Coli sensitive to Macrobid. VITAL SIGNS Temperature: 97.3 F SBP/DBP: 169/75 Pulse: 76 Resp: 16 MEDICATION ALLERGIES: No Known Drug Allergies (NKDA) ENVIRONMENTAL ALLERGIES: - Substance Allergies None Known - Other Allergies None Known NURSING: - Shower allowing shower - Skin care per protocol PRECAUTIONS: - Anterior Hip Precaution No abduction No active extension No adduction across midline No external rotation No hip flexion >90 degrees No internal rotation - Posterior Hip Precaution No adduction across midline No external rotation No hip flexion >90 degrees No internal rotation No wheel chair propulsion - Weight Bearing Precaution TTWB left LE ACTIVITIES OOB only with supervision THERAPIES: - Dietary and Nutrition Adequate Nutrition. Nutritional Education. Nutritional Supplements. PHYSICAL EXAM - Gen Alert and awake Lying in bed No apparent distress Oriented to: person, time, and place - Skin No skin breakdown. Normacephalic - Eyes No abnormalities - ENMT No abnormalities - Neck No abnormalities - CVS RRR - Chest Clear - Resp No wheezing - Abd Soft - GI + bowel sounds Deferred - No abnormalities - Ext Mild left lower extremity edema. - MSK 4+/5 weakness in left lower extremity - Neuro 4/5 strength left lower extremity. - Psych No abnormalities ASSESSMENT: Pt. is a 84 yo Right-handed female of unknown race.On 01/28/2020 she was admitted to [facility] and underwent emergency surgery for LEFT FEMUR FRACTURE (Unilateral Hip Fracture) by AISHA CARO.Pre-morbidly, Pt. was independent/mod-I in Safety Awareness, Balance, and Transfers Control ; and she had good Self-Care, Communication, and Endurance.Currently, she has deficits of Balance, Sa fety Awareness, Locomotion, Self-Care, Communication, and Sphincter Control.Pt. is now referred to [facility] for acute in-patient rehabilitation in order to maximize patient's fu nctional independence in activities of daily living, strength, ROM, and mobility.- Rehab Goal Patient has realistic goal of being discharged at assistance level 7-Ind to reside at Home with Pt s elf. MDM/PLAN: - Physical Therapy Decreased range of motion - to improve, our physical therapists will perform initial evaluation of p t's status upon admission and devise an individualized program for increasing patient's Range of Pasha on. Gait dysfunction - to improve, our physical therapists will perform initial evaluation of pt's statu s upon admission and devise an individualized program for Gait Training, and Wheel Chair mobility Need for home safety evaluation - to improve, our physical therapists will perform initial evaluatio n of pt's status upon admission and devise an individualized program for Home Evaluation Need in caregiver upon discharge - to improve, our physical therapists will perform initial evaluati on of pt's status upon admission and devise an individualized program for Caregiver Training New precaution - to improve, our physical therapists will perform initial evaluation of pt's status upon admission and devise an individualized program for Patient precaution education Edema - to improve, our physical therapists will perform initial evaluation of pt's status upon admi ssion and devise an individualized program for Elevation Training, and Lymphedema Therapy Poor balance - to improve, our physical therapists will perform initial evaluation of pt's status up on admission and devise an individualized program for Balance Training Weakness - to improve, our physical therapists will perform initial evaluation of pt's status upon a dmission and devise an individualized program for Aquatic Therapy, Neuromuscular Reeducation, and Str engthening Achieving independence - to improve, our physical therapists will perform initial evaluation of pt's status upon admission and devise an individualized program for Community Reintegration Activities - Occupational Therapy ADL deficits - to improve, our occupation therapists will perform initial evaluation of pt's status upon admission and devise an individualized program for Bathing, Bed mobility, Community Reintegratio n, Cooking, Dressing, Eating, Fine Motor Skills, Grooming, Homemaking, Kitchen Mobility, Laundry, Pat ient Education, Safety Awareness, Splinting - Positioning, Transfers(Toilet, Tub, Shower), and Wheel Chair Management Need for care professional - to improve, our occupation therapists will perform initial evaluation of pt's status upon admission and devise an individualized program for Caregiver Training Weakness - to improve, our occupation therapists will perform initial evaluation of pt's status upon admission and devise an individualized program for Aquatic Therapy, Balance, Endurance, UE ROM, and UE strengthening - Other See attached MAR (Medication Administration Record) - Anterior Hip Precaution No abduction No active extension No adduction across midline No external rotation No hip flexion >90 degrees No internal rotation - Diet - Liquid Texture Continue Regular - Tube Feed Continue N/A - Diet Type Continue Regular - Posterior Hip Precaution No adduction across midline No external rotation No hip flexion >90 degrees No internal rotation No wheel chair propulsion - Weight Bearing Precaution TTWB left LE - Skin care per protocol - Diet - Solid Texture Continue Regular - Shower allowing shower FUNCTIONAL STATUS: UPDATED AT WEEKLY TEAM CONFERENCE - Bladder Same accident frequency: 7-Ind - No accidents in the past 7 days - Bowel Same accident frequency: 7-Ind - No accidents in the past 7 days - Walking Same score based on distance walked: 0(N/A) Same score based on distance walked: 1(<=50ft) - Wheelchair Same score based on distance traveled: 0(N/A) FUNCTIONAL STATUS: - Self-Care A. Eating Aliyah B. Grooming sup C. Bathing sup D. Dressing - Upper sup E. Dressing - Lower Kashif F. Toileting sup - Sphincter Control G. Bladder control Kashif H. Bowel control Kashif - Transfers Control I. Bed/Chair/Wheelchair modA J. Toilet modA K. Tub/Shower modA - Locomotion L. Walk/Wheelchair (B) sup M. Stairs sup - Communication N. Comprehension (B) Kashif O. Expression (B) sup - Social Cognition P. Social Interaction Aliyah Q. Problem Solving sup R. Memory Kashif - Endurance Fair - Balance Fair - Safety Awareness Fair QI SCORES: - Self-Care A. Eating 03-Partial/moderate assistance B. Oral hygiene 03-Partial/moderate assistance C. Toileting hygiene 02-Substantial/maximal assistance E. Shower/bathe self 02-Substantial/maximal assistance F. Upper body dressing 03-Partial/moderate assistance G. Lower body dressing 02-Substantial/maximal assistance H. Putting on/taking off footwear 88-Not attempted due to medical condition or safety concerns - Mobility A. Roll left and right 03-Partial/moderate assistance B. Sit to lying 03-Partial/moderate assistance C. Lying to sitting on side of bed 03-Partial/moderate assistance D. Sit to stand 02-Substantial/maximal assistance E. Chair/znv-hy-eszel transfer 02-Substantial/maximal assistance F. Toilet transfer G. Car transfer 88-Not attempted due to medical condition or safety concerns I. Walk 10 feet 02-Substantial/maximal assistance J. Walk 50 feet with two turns 88-Not attempted due to medical condition or safety concerns K. Walk 150 feet 88-Not attempted due to medical condition or safety concerns L. Walking 10 feet on uneven surfaces 88-Not attempted due to medical condition or safety concerns M. 1 step (curb) 88-Not attempted due to medical condition or safety concerns N. 4 steps 88-Not attempted due to medical condition or safety concerns O. 12 steps 88-Not attempted due to medical condition or safety concerns P. Picking up object 88-Not attempted due to medical condition or safety concerns R. Wheel 50 feet with two turns 88-Not attempted due to medical condition or safety concerns S. Wheel 150 feet 88-Not attempted due to medical condition or safety concerns - Bladder and Bowel Bladder continence Bowel continence - Endurance Fair - Balance Fair - Safety Awareness Fair CURRENT [facility]. DEFICITS: Self-Care, Mobility, Endurance, Balance, and Safety Awareness SIGNATURE PANEL: (CDT)
[2020-02-18] MEDS: ATORVASTATIN 20 MG TAB PO SCH (20:51)
[2020-02-18] MEDS: DOCUSATE NA/SENNA CONC 1 TAB PO PRN (20:52)
[2020-02-18] MEDS: TRAZODONE 50 MG TABLET PO PRN (20:53)
[2020-02-19] MEDS: SOTALOL HCL 80 MG TAB PO SCH ×2 (05:07→16:47)
[2020-02-19] MEDS: ACETAMINOPHEN 500 MG TAB PO PRN (05:08)
[2020-02-19] MEDS: LEVOTHYROXINE SOD 0.088 MG TAB PO SCH (06:29)
[2020-02-19] MEDS: LIDOCAINE 4% PATCH TOP SCH (07:22)
[2020-02-19] MEDS: PANTOPRAZOLE 40MG TABLET PO SCH (07:22)
[2020-02-19] MEDS: INSULIN -REGULAR HUMAN 50 UNIT/0.5 ML ML SQ SCH ×4 (07:30→20:00)
[2020-02-19] MEDS: TRAMADOL HCL 50 MG TAB PO PRN ×2 (08:06→12:02)
[2020-02-19] MEDS: NPH (HUMAN) 100 UNITS/ML INSULIN SQ SCH ×2 (08:07→19:59)
[2020-02-19] MEDS: FERROUS SULFATE 325 MG TAB PO SCH (08:08)
[2020-02-19] MEDS: CRANBERRY FRUIT EXTRACT 200 MG CAP PO SCH ×2 (08:08→19:56)
[2020-02-19] MEDS: BENAZEPRIL 20 MG TAB PO SCH (08:08)
[2020-02-19] MEDS: FE SULF/FA/VIT B COMP & C TAB PO SCH (08:09)
[2020-02-19] MEDS: AMLODIPINE 10 MG TAB PO SCH (08:09)
[2020-02-19] MEDS: lisinopriL 10 MG TAB PO SCH (08:10)
[2020-02-19] MEDS: METOCLOPRAMIDE 5 MG TAB PO SCH (08:10)
[2020-02-19] MEDS: MAGNESIUM OXIDE 400 MG TAB PO SCH ×2 (08:10→19:59)
[2020-02-19] MEDS: PENTOXIFYLLINE ER 400 MG TAB PO SCH ×3 (08:10→19:59)
[2020-02-19] MEDS: PROMOD 30 ML DOSE PO SCH ×2 (08:11→19:56)
--- NOTE | 2020-02-19 09:52 | P.RH.PN ---
Estimated Length of Stay: 16 Expected Discharge Date: 02/20/20 Discharge Disposition Plan: Home Family Support: Yes Prison Goal: Mobility, Transfers, Self Care Vital Signs: Last Vital Signs Temp 97.5 F 02/19/20 08:00 Pulse 66 02/19/20 08:10 Resp 16 02/19/20 09:06 BP 164/70 H 02/19/20 08:10 Pulse Ox 97 02/19/20 09:06 Laboratory: Laboratory Last Values WBC 6.4 K/uL (4.3-10.9) 02/18/20 05:56 RBC 4.39 M/uL (3.86-4.86) 02/18/20 05:56 Hgb 11.1 g/dL (12.0-15.0) L 02/18/20 05:56 Hct 35.3 % (36.0-45.0) L 02/18/20 05:56 MCV 80.4 fL (80-100) 02/18/20 05:56 MCH 25.2 pg (27.0-35.0) L 02/18/20 05:56 MCHC 31.4 g/dL (32.0-36.0) L 02/18/20 05:56 RDW 30.6 % (12.1-15.2) H 02/18/20 05:56 Plt Count 317 K/uL (152-406) D 02/18/20 05:56 MPV 7.6 fL (7.6-11.3) D 02/18/20 05:56 Neutrophils % 72.3 % (41.7-73.7) 02/18/20 05:56 Lymphocytes % 14.5 % (15.3-44.8) L 02/18/20 05:56 Monocytes % 9.7 % (3.3-12.3) 02/18/20 05:56 Eosinophils % 2.4 % (0-4.4) 02/18/20 05:56 Basophils % 1.1 % (0-1.3) 02/18/20 05:56 Absolute Neutrophils 4.6 K/uL (1.8-8.0) 02/18/20 05:56 Absolute Lymphocytes 0.9 K/uL (0.7-4.9) 02/18/20 05:56 Absolute Monocytes 0.6 K/uL (0.1-1.3) 02/18/20 05:56 Absolute Eosinophils 0.2 K/uL (0-0.5) 02/18/20 05:56 Absolute Basophils 0.1 K/uL (0-0.5) 02/18/20 05:56 Platelet Estimate Adeq 02/06/20 06:37 Anisocytosis 1+ 02/06/20 06:37 Morphology Comment Noted (NOT SEEN) 02/06/20 06:37 Sodium 143 mmol/L (136-145) 02/18/20 05:56 Potassium 3.8 mmol/L (3.5-5.1) 02/18/20 05:56 Chloride 111 mmol/L (98-107) H 02/18/20 05:56 Carbon Dioxide 29 mmol/L (21-32) 02/18/20 05:56 BUN 14 mg/dL (7-18) 02/18/20 05:56 Creatinine 0.49 mg/dL (0.55-1.3) L 02/18/20 05:56 Estimated GFR > 90 mL/min (=/>90) 02/18/20 05:56 Glucose 109 mg/dL (74-106) H 02/18/20 05:56 POC Glucose 111 mg/dL (65-120) 02/19/20 07:20 Calcium 8.9 mg/dL (8.5-10.1) 02/18/20 05:56 Magnesium 2.2 mg/dL (1.8-2.4) 02/06/20 06:37 Albumin 2.6 g/dL (3.4-5.0) L 02/18/20 05:56 Prealbumin 20.5 mg/dL (20-40) 02/18/20 05:56 Urine Color Yellow 02/05/20 23:15 Urine Appearance Cloudy 02/05/20 23:15 Urine pH 6.5 (5.0-7.0) 02/05/20 23:15 Ur Specific Wyatt 1.010 (1.005-1.030) 02/05/20 23:15 Glucose (UA)(Auto) Negative (NEG) 02/05/20 23:15 Urine Ketones Negative (NEG) 02/05/20 23:15 Urine Blood Negative (NEG) 02/05/20 23:15 Urine Nitrite Negative (NEG) 02/05/20 23:15 Urine Bilirubin Negative (NEG) 02/05/20 23:15 Urine Urobilinogen 1.0 mg/dL (0.2-1.0) 02/05/20 23:15 Ur Leukocyte Esterase 2+ (NEG) H 02/05/20 23:15 Urine RBC <5 /HPF (NONE SEEN) 02/05/20 23:15 Urine WBC 10-20 /HPF (<5) H 02/05/20 23:15 Ur Squamous Epith Cells <5 /HPF (NONE SEEN) 02/05/20 23:15 Urine Bacteria Loaded /HPF (<20) H 02/05/20 23:15 Urine Mucus 1+ /HPF (NONE SEEN) 02/05/20 23:15 Urine Culture Reflexed Not needed 02/05/20 23:15 Urine Total Protein Negative (NEG) 02/05/20 23:15 Smear Scan Ok (OK) 02/06/20 06:37 Weight: 162 lb 4 oz Wound Present: No Closed Surgical Incision Present: Yes Negative Pressure Wound Therapy Present: No Physician Update: Labs reviewed and are stable. She has done well with physical and occupational therapy. She is ready for d/c in the AM. Medical Issues: HX OF HTN, IDDM, PAD, HYPOTHROID, HYPERLIPIDEMIA, SLEEP APNEA, PPM, TONSILECTOMY, APPENDECTOMY. Pain Issues: PT TAKING TYLENOL, LIDOCAINE PATCH, TRAMADOL FOR PAIN. Nutritional Needs: TAKING PROMOD, FERROUS SULFATE, HEMOCYTE PLUS, AND ENSURE TO BOOST NUTRITION. Functional Improvement: Patient has met all short-term and long-term goals at this time, w/ the exception of performing a car transfer or D/C from Inpatient therapy. Summary: Patient's care plan and superintendent container terminal goals have been reviewed and revised as necessary. Please see the Rehabilitation Signature page for all necessary signatures.
[2020-02-19] MEDS: RIVAROXABAN 20 MG TABLET PO SCH (16:47)
[2020-02-19] MEDS: ATORVASTATIN 20 MG TAB PO SCH (19:59)
[2020-02-20] MEDS: ACETAMINOPHEN 500 MG TAB PO PRN (04:34)
[2020-02-20] MEDS: SOTALOL HCL 80 MG TAB PO SCH (05:13)
[2020-02-20 05:25] VITALS: BMI 27.1
[2020-02-20] MEDS: PANTOPRAZOLE 40MG TABLET PO SCH (06:45)
[2020-02-20] MEDS: LEVOTHYROXINE SOD 0.088 MG TAB PO SCH (06:45)
[2020-02-20 07:05] VITALS: BP 156/63; TEMP 97.2
[2020-02-20] MEDS: INSULIN -REGULAR HUMAN 50 UNIT/0.5 ML ML SQ SCH (07:30)
[2020-02-20] MEDS: MAGNESIUM OXIDE 400 MG TAB PO SCH (08:00)
[2020-02-20] MEDS: TRAMADOL HCL 50 MG TAB PO PRN (08:34)
[2020-02-20] MEDS: PENTOXIFYLLINE ER 400 MG TAB PO SCH (08:34)
[2020-02-20] MEDS: BENAZEPRIL 20 MG TAB PO SCH (08:34)
[2020-02-20] MEDS: FE SULF/FA/VIT B COMP & C TAB PO SCH (08:35)
[2020-02-20] MEDS: FERROUS SULFATE 325 MG TAB PO SCH (08:35)
[2020-02-20] MEDS: CRANBERRY FRUIT EXTRACT 200 MG CAP PO SCH (08:35)
[2020-02-20] MEDS: AMLODIPINE 10 MG TAB PO SCH (08:36)
[2020-02-20] MEDS: METOCLOPRAMIDE 5 MG TAB PO SCH (08:36)
[2020-02-20] MEDS: lisinopriL 10 MG TAB PO SCH (08:36)
[2020-02-20] MEDS: PROMOD 30 ML DOSE PO SCH (08:37)
[2020-02-20] MEDS: NPH (HUMAN) 100 UNITS/ML INSULIN SQ SCH (08:39)
[2020-02-20] MEDS: LIDOCAINE 4% PATCH TOP SCH (08:39)
== END 2020-02-20 11:30 | disposition home health service (06) | DRG 561 ==
LOC: 5TH 02-05 21:22
PROVIDERS: ADMIT Psychiatry & Neurology Neurology with Special Qualifications in Child Neurology; ATTEND Psychiatry & Neurology Neurology with Special Qualifications in Child Neurology
DX: S72.92XD Unspecified fracture of left femur, subsequent encounter for closed fracture with routine healing (principal); I10 Essential (primary) hypertension; E11.9 Type 2 diabetes mellitus without complications; K21.9 Gastro-esophageal reflux disease without esophagitis; E78.5 Hyperlipidemia, unspecified; Z95.810 Presence of automatic (implantable) cardiac defibrillator; Z90.49 Acquired absence of other specified parts of digestive tract; Z20.828 Contact with and (suspected) exposure to other viral communicable diseases
CPT/HCPCS: 36415; 80048; 81003; 81015; 82040; 82947; 83735; 84134; 85025; 87077; 87086; 87088; 87186; 90471; 97110; 97112; 97116; 97161; 97530; 97542; J1815; Q2035; U0002

== ENCOUNTER 2021-04-06 11:11 | Emergency (ER) | payer OTHER ==
--- OUTSIDE RECORDS SUMMARY | 2021-04-06 11:13 | XMS REPORT | Continuity of Care Document ---
:1935 Author Organization [facility] t Address [address] [place] [address] Dr. Shanks [address] [place] [id number] Care Team Providers Name Role Phone Ajibade_O_AH Attending Clinician Unavailable Ige-Odunuga_J_AH Attending Clinician Unavailable Ajibade_O_AH Admitting Clinician Unavailable Ige-Odunuga_J_AH Admitting Clinician Unavailable Payers Payer Name Policy Type Policy Number Effective Date Expiration Date S dory [facility] - [id number] 2019 [employer] 00:00:00 (MEDICARE REPLACEMENT/ADVANT AGE - HMO) Problems This patient has no known problems. Allergies, Adverse Reactions, Alerts This patient has no known allergies or adverse reactions. Medications This patient has no known medications. Procedures This patient has no known procedures. Encounters Start End Encounter Admission Attending Care Care Encounter Source Date/Time Date/Time Type Type Clinicians Facility Department ID 2021-03-29 Outpatient Ajibade_O_A VFP VFP [id number] [facility] 05:56:50 H [id number] Family Practic e 2021-03-26 Outpatient Ige-Odunuga VFP VFP [id number] [facility] 17:33:18 _J_AH [id number] Family Practic e 2021-03-25 Outpatient Ajibade_O_A VFP VFP [id number] [facility] 06:56:08 H [id number] Family Practic e Results This patient has no known results.
[2021-04-06 12:11] LABS: Urine Blood 2+ (Negative); Urine Glucose Negative (Negative); Urine Protein Negative (Negative); Urine pH 5.5 (5.0-7.0)
[2021-04-06] MEDS ORDERED: NA CHLORIDE 0.9% 50 ML ONE (12:22)
[2021-04-06] MEDS ORDERED: CEFTRIAXONE 1000 MG/VIAL ONE (12:22)
[2021-04-06 12:27] LABS: Absolute Lymphocytes (CBC) 1.4 K/uL (0.7-4.9); Basophils % 1.5 % (0-1.3); Hematocrit 44.2 % (36.0-45.0); Lymphocytes % 12.8 % (15.3-44.8); MPV 8.8 fL (7.6-11.3); RBC Red Blood Cell Count 4.85 M/uL (3.86-4.86)
[2021-04-06 12:45] LABS: Bilirubin Direct 0.2 mg/dL (0-0.2); Bilirubin Total 0.6 mg/dL (0.2-1.0); Potassium 3.8 mmol/L (3.5-5.1); Protein, Total 6.9 g/dL (6.4-8.2)
--- NOTE | 2021-04-06 13:12 | EDPHYS ---
Physician Documentation [facility] Name: Kailee Mcgraw Age: 85 yrs Sex: Female : 1935 Arrival Date: 04/06/2021 Time: 11:15 Bed 6 Private MD: Alin Fagan ED Physician Poncho Cherry HPI: 04/06 12:40 This 85 yrs old Female presents to ER via Ambulatory with complaints of Blood In Urine. ma2 12:40 Onset: The symptoms/episode began/occurred gradually, 2 day(s) ago. Associated signs ma2 and symptoms: Pertinent positives: urinary frequency, Pertinent negatives: constipation, cramping, diarrhea, dyspareunia, dysuria, fever, nausea, vaginal bleeding, vaginal discharge. Severity of symptoms: At their worst the symptoms were very mild, in the emergency department the symptoms have resolved. The patient has experienced similar episodes in the past. Historical: - Allergies: 11:45 No Known Allergies; vg1 - Home Meds: 11:45 amlodipine-benazepril Oral [Active]; atorvastatin 20 mg Oral tab 1 tab once daily vg1 [Active]; Furosemide Oral [Active]; levothyroxine 88 mcg tab 1 tab once daily [Active]; lorazepam 1 mg Oral tab [Active]; omeprazole 40 mg Oral cpDR 1 cap once daily [Active]; Xarelto Oral [Active]; tramadol 50 mg Oral tab [Active]; sotalol Oral [Active]; metoclopramide HCl 10 mg Oral tab 1 tab once daily [Active]; pentoxifyline 400 mg [Active]; - PMHx: 11:45 Diabetes - IDDM; Hyperlipidemia; Hypertension; Hypothyroidism; vg1 - PSHx: 11:45 Hysterectomy; Back; Left Hip; vg1 - Immunization history:: Client reports receiving the 2nd dose of the Covid vaccine. - Social history:: Smoking status: Patient denies any tobacco usage or history of. Patient/guardian denies using alcohol, street drugs, The patient lives with family. - Family history:: not pertinent. ROS: 12:40 Positive for urinary symptoms, Negative for difficulty urinating, foul smelling ma2 urine, menstrual abnormality, missed period, acute changes. 12:40 Constitutional: Negative for fever, chills, and weight loss. 12:40 All other systems are negative. Exam: 12:40 Constitutional: This is a well developed, well nourished patient who is awake, alert, ma2 and in no acute distress. ENT: Nares patent. No nasal discharge, no septal abnormalities noted. Tympanic membranes are normal and external auditory canals are clear. Oropharynx with no redness, swelling, or masses, exudates, or evidence of obstruction, uvula midline. Mucous membranes moist. Neck: Trachea midline, no thyromegaly or masses palpated, and no cervical lymphadenopathy. Supple, full range of motion without nuchal rigidity, or vertebral point tenderness. No Meningismus. Chest/axilla: Normal chest wall appearance and motion. Nontender with no deformity. No lesions are appreciated. Cardiovascular: Regular rate and rhythm with a normal S1 and S2. No gallops, murmurs, or rubs. Normal PMI, no JVD. No pulse deficits. Respiratory: Lungs have equal breath sounds bilaterally, clear to auscultation and percussion. No rales, rhonchi or wheezes noted. No increased work of breathing, no retractions or nasal flaring. Abdomen/GI: Soft, non-tender, with normal bowel sounds. No distension or tympany. No guarding or rebound. No evidence of tenderness throughout. Skin: Warm, dry with normal turgor. Normal color with no rashes, no lesions, and no evidence of cellulitis. MS/ Extremity: Pulses equal, no cyanosis. Neurovascular intact. Full, normal range of motion. Neuro: Awake and alert, GCS 15, oriented to person, place, time, and situation. Cranial nerves II-XII grossly intact. Motor strength 5/5 in all extremities. Sensory grossly intact. Cerebellar exam normal. Normal gait. Vital Signs: 11:39 BP 154 / 67; Pulse 60; Resp 16; Temp 97.7; Pulse Ox 98% ; Weight 82.55 kg; Height 5 ft. vg1 5 in. (165.10 cm); Pain 7/10; 13:08 BP 182 / 87; Pulse 72; Resp 16; Pulse Ox 100% on R/A; kd3 11:39 Body Mass Index 30.29 (82.55 kg, 165.10 cm) vg1 MDM: 11:53 Patient medically screened. ma2 12:40 Differential diagnosis: menorrhea, nonspecific abdominal pain, urinary tract infection, ma2 vaginosis. 13:11 Data reviewed: vital signs, nurses notes. Counseling: I had a detailed discussion with ma the patient and/or guardian regarding: the historical points, exam findings, and any diagnostic results supporting the discharge/admit diagnosis, the presence of at least one elevated blood pressure reading (>120/80) during this emergency department visit, the need for outpatient follow up. Response to treatment: the patient's symptoms have markedly improved after treatment. 04/06 12:00 Order name: Basic Metabolic Panel; Complete Time: 13:11 [facility] 04/06 12:00 Order name: CBC with Diff; Complete Time: 13: [facility] 04/06 12:00 Order name: Hepatic Function; Complete Time: 13: [facility] 04/06 12:00 Order name: Lipase; Complete Time: 13: [facility] 04/06 12:11 Order name: Urine Dipstick-Ancillary; Complete Time: 12:17 [facility] 04/06 12:00 Order name: IV Saline Lock; Complete Time: 12:11 [facility] 04/06 12:00 Order name: Labs collected and sent; Complete Time: 12:11 [facility] 04/06 12:00 Order name: Urine Dipstick-Ancillary (obtain specimen); Complete Time: 12:11 [facility] Administered Medications: 12:34 Drug: Rocephin (cefTRIAXone) 1 grams Route: IV; Rate: calculated rate; Site: right ll3 antecubital; 13:07 Follow up: IV Status: Completed infusion; IV Intake: 50ml kd3 Disposition Summary: 04/06/21 13:11 Discharge Ordered Location: Home ma2 Condition: Stable ma2 Diagnosis - Acute cystitis with hematuria ma2 Followup: ma2 - With: Private Physician - When: Tomorrow - Reason: If symptoms return, Continuance of care Discharge Instructions: - Discharge Summary Sheet ma2 - Urinary Tract Infection, Adult ma2 Forms: - Medication Reconciliation Form ma2 - Thank You Letter ma2 - Antibiotic Education ma2 - Prescription Opioid Use ma2 Prescriptions: - cefpodoxime 200 mg Oral Tablet - take 1 tablet by ORAL route every 12 hours with food; 10 tablet; Refills: 0, ma2 Product Selection Permitted Signatures: Dispatcher [employer] EDMS Poncho Cherry MD MD ma2 Shama Hartley RN RN 1 Isabel Mercado, RN RN ll3 Sissy, Kristin RN kd3
--- NOTE | 2021-04-06 13:12 | ER ---
Nurse's Notes [facility] Name: Kailee Mcgraw Age: 85 yrs Sex: Female : 1935 Arrival Date: 04/06/2021 Time: 11:15 Bed 6 Private MD: Alin Fagan Diagnosis: Acute cystitis with hematuria Presentation: 04/06 11:39 Chief complaint: Patient states: Noticed blood in toilet and toilet paper after vg1 urinating this morning around 0300. Denies ABD pain, states lower back pain but states " my back is always hurting". States nausea. Coronavirus screen: Vaccine status: Patient reports receiving the 2nd dose of the covid vaccine. Client denies travel out of the [place] in the last 14 days. Ebola Screen: Patient negative for fever greater than or equal to 101.5 degrees Fahrenheit, and additional compatible Ebola Virus Disease symptoms. Initial Sepsis Screen: Does the patient meet any 2 criteria? No. Patient's initial sepsis screen is negative. Does the patient have a suspected source of infection? No. Patient's initial sepsis screen is negative. Risk Assessment: Do you want to hurt yourself or someone else? Patient reports no desire to harm self or others. Onset of symptoms was April 06, 2021. 11:39 Method Of Arrival: Ambulatory vg1 11:39 Acuity: IAN 3 vg1 Triage Assessment: 11:45 General: Appears in no apparent distress. uncomfortable, Behavior is calm, cooperative. vg1 Pain: Complains of pain in left low back. : Reports blood in urine. Historical: - Allergies: 11:45 No Known Allergies; vg1 - Home Meds: 11:45 amlodipine-benazepril Oral [Active]; atorvastatin 20 mg Oral tab 1 tab once daily vg1 [Active]; Furosemide Oral [Active]; levothyroxine 88 mcg tab 1 tab once daily [Active]; lorazepam 1 mg Oral tab [Active]; omeprazole 40 mg Oral cpDR 1 cap once daily [Active]; Xarelto Oral [Active]; tramadol 50 mg Oral tab [Active]; sotalol Oral [Active]; metoclopramide HCl 10 mg Oral tab 1 tab once daily [Active]; pentoxifyline 400 mg [Active]; - PMHx: 11:45 Diabetes - IDDM; Hyperlipidemia; Hypertension; Hypothyroidism; vg1 - PSHx: 11:45 Hysterectomy; Back; Left Hip; vg1 - Immunization history:: Client reports receiving the 2nd dose of the Covid vaccine. - Social history:: Smoking status: Patient denies any tobacco usage or history of. Patient/guardian denies using alcohol, street drugs, The patient lives with family. - Family history:: not pertinent. Screenin:50 Abuse screen: Denies threats or abuse. Denies injuries from another. Nutritional kd3 screening: No deficits noted. Tuberculosis screening: No symptoms or risk factors identified. 13:46 Fall Risk IV access (20 points). kd3 Vital Signs: 11:39 BP 154 / 67; Pulse 60; Resp 16; Temp 97.7; Pulse Ox 98% ; Weight 82.55 kg; Height 5 ft. vg1 5 in. (165.10 cm); Pain 7/10; 13:08 BP 182 / 87; Pulse 72; Resp 16; Pulse Ox 100% on R/A; kd3 11:39 Body Mass Index 30.29 (82.55 kg, 165.10 cm) vg1 ED Course: 11:15 Patient arrived in ED. ds1 11:15 Alin Fagan MD is Private Physician. ds1 11:45 Kristin Sheehan RN is Primary Nurse. kd3 11:45 Triage completed. vg1 11:45 Arm band placed on. vg1 11:50 Patient has correct armband on for positive identification. Bed in low position. Call kd3 light in reach. Side rails up X2. 11:53 Poncho Cherry MD is Attending Physician. ma2 12:11 Inserted saline lock: 22 gauge in right forearm, using aseptic technique. kd3 13:46 No provider procedures requiring assistance completed. IV discontinued. kd3 Administered Medications: 12:34 Drug: Rocephin (cefTRIAXone) 1 grams Route: IV; Rate: calculated rate; Site: right ll3 antecubital; 13:07 Follow up: IV Status: Completed infusion; IV Intake: 50ml kd3 Intake: 13:07 IV: 50ml; Total: 50ml. kd3 Outcome: 13:11 Discharge ordered by . ma2 13:46 Discharged to home ambulatory, with family. kd3 13:46 Condition: stable 13:46 Discharge instructions given to patient, family, Instructed on discharge instructions, follow up and referral plans. medication usage, Demonstrated understanding of instructions, follow-up care, medications, Prescriptions given X 1. 13:47 Patient left the ED. kd3 Signatures: Jennifer Archibald ds1 Poncho Cherry MD MD ma2 Shama Hartley, RN RN vg1 Isabel Mercdao RN RN ll3 Kristin Sheehan RN RN kd3
[2021-04-06 13:55] VITALS: TEMP 97.7
[2021-04-06 13:56] VITALS: BP 182/87; O2SAT 100
== END 2021-04-06 13:47 | disposition home or self-care (01) ==
LOC: ER 11:11
DX: N30.01 Acute cystitis with hematuria (principal); I10 Essential (primary) hypertension; E11.9 Type 2 diabetes mellitus without complications; E78.5 Hyperlipidemia, unspecified; E03.9 Hypothyroidism, unspecified; Z79.01 Long term (current) use of anticoagulants
CPT/HCPCS: 36415; 80048; 80076; 81003; 83690; 85025; 96365; 99283

== ENCOUNTER 2021-10-24 08:11 | Day surgery (SDC) | payer OTHER ==
[2021-10-20 14:36] LABS: Absolute Lymphocytes (CBC) 1.5 K/uL (0.7-4.9); Hematocrit 48.4 % (36.0-45.0); Lymphocytes % 10.6 % (15.3-44.8); MPV 8.1 fL (7.6-11.3); RBC Red Blood Cell Count 5.13 M/uL (3.86-4.86)
[2021-10-20 14:44] LABS: Protime INR 1.5
[2021-10-20 14:50] LABS: Potassium 4.2 mmol/L (3.5-5.1)
--- NOTE | 2021-10-20 15:07 | RAD REPORT ---
EXAM DESCRIPTION: RAD - Chest Pa And Lat (2 Views) - 10/20/2021 2:38 pm CLINICAL HISTORY: Pre op pending heart cath COMPARISON: Two view chest 04/12/2021 TECHNIQUE: Frontal and lateral views of the chest were obtained. FINDINGS: The lungs are clear. Two lead left subclavian pacemaker in place. Interstitial pattern mat ches prior imaging. Heart size is normal and central vasculature is within normal limits. No pleural effusion or pneumothorax seen. No acute bony finding noted. No aortic abnormality. IMPRESSION: No acute cardiopulmonary process. No significant change from comparison study.
[2021-10-24] MEDS ORDERED: NA CHLORIDE 0.9% 500 ML ONE (08:16)
[2021-10-24] MEDS ORDERED: HEPA 1000U/500MLS 1,000 UNIT/500 ML BAG IV ONE (08:44)
[2021-10-24] MEDS ORDERED: LIDOCAINE 1% 20 ML MDV ONE (08:44)
[2021-10-24] MEDS ORDERED: FENTANYL CITR 100 MCG/2 ML ONE (08:44)
[2021-10-24] MEDS ORDERED: NA CHLORIDE 0.9% 0 ML ONE (08:45)
[2021-10-24] MEDS ORDERED: MIDAZOLAM HCL 2 MG/2 ML INJ ONE (08:45)
[2021-10-24] MEDS ORDERED: ATROPINE SULF 1 MG/10 ML SYR IV ONE (08:45)
[2021-10-24 09:01] VITALS: TEMP 97.6
[2021-10-24 11:17] VITALS: BP 152/62; O2SAT 97
--- NOTE | 2021-10-24 13:44 | OP ---
Surgeon: Dav Pozo MD Nursery Helper: Ms. Melisa Vigil. Procedures: Admitted on 10/24/2021 to the labor relations worker as an outpatient. She underwent left heart mahad terization, left ventriculogram, left ventricular end-diastolic pressure measurement, common femoral artery angiogram, and selective coronary arteriogram. Indication: Stable angina. Ms. Mcgraw is 85. Has a history of CAD, unstable angina, hypertension, dyslipidemia, paroxysmal atrial fibrillation, on Xarelto. Has held Xarelto for 48 hours. Procedure In Detail: Brought to the labor relations worker today as an outpatient, prepped and draped in routine s terile fashion. Given Versed and fentanyl for sedation. A 6-Slovenian sheath introduced in the right c ommon femoral artery successfully using Seldinger technique and 10 cc of Xylocaine. Latoya catheter left and right were used to cannulate the left main and right main respectively. She was found to h ave an 80% left main ostium. Her LAD has a 50% stenosis at the first diagonal level. She had normal circumflex. RCA showed mild plaquing, diffuse. No focal stenosis. She was right dominant. LV-gra m was done showing a normal ejection fraction with an end-diastolic pressure of 13 mmHg. Common femo ral artery angiogram was done, this showed 100% occlusion of the ostial SFA. Angio-Seal was used to close the case. There were no complications. Blood loss was 5 mL. Postoperative Diagnosis: Severe peripheral arterial disease, 100% right SFA, medical treatment for n ow, coronary artery disease, severe left main. We will plan to transfer to [place] for CABG versus left main stent. I will discuss the case further with the family and the patient. Anesthesia: Total conscious sedation 45 minutes. NB/MODL Voice ID: [id number] Report ID: [id number]
== END 2021-10-24 11:40 | disposition home or self-care (01) ==
LOC: CCL 08:11
DX: I25.110 Atherosclerotic heart disease of native coronary artery with unstable angina pectoris (principal); I70.203 Unspecified atherosclerosis of native arteries of extremities, bilateral legs; I70.92 Chronic total occlusion of artery of the extremities; I11.0 Hypertensive heart disease with heart failure; I50.31 Acute diastolic (congestive) heart failure; I35.1 Nonrheumatic aortic (valve) insufficiency; I34.0 Nonrheumatic mitral (valve) insufficiency; I48.0 Paroxysmal atrial fibrillation; I65.23 Occlusion and stenosis of bilateral carotid arteries; I27.21 Secondary pulmonary arterial hypertension; G47.33 Obstructive sleep apnea (adult) (pediatric); E78.2 Mixed hyperlipidemia; E11.9 Type 2 diabetes mellitus without complications; K21.9 Gastro-esophageal reflux disease without esophagitis; E03.9 Hypothyroidism, unspecified; D64.9 Anemia, unspecified; Z95.0 Presence of cardiac pacemaker; Z87.891 Personal history of nicotine dependence; Z79.01 Long term (current) use of anticoagulants; Z79.899 Other long term (current) drug therapy; Z20.822 Contact with and (suspected) exposure to COVID-19
CPT/HCPCS: 85025; 80048; 36415; 85610; 82947 ×2; 85730; 71046; 93458; U0003; C1893; Q9966; C1760; G0269; J2250; J3010; J7040; J1644; J0583

== ENCOUNTER 2021-11-05 15:45 | Emergency (ER) | payer OTHER ==
[2021-11-05] MEDS ORDERED: ONDANSETRON 4 MG/2 ML VIAL ONE (18:16)
[2021-11-05 18:39] LABS: Absolute Lymphocytes (CBC) 1.6 K/uL (0.7-4.9); Hematocrit 46.4 % (36.0-45.0); Lymphocytes % 18.6 % (15.3-44.8); MPV 7.9 fL (7.6-11.3); RBC Red Blood Cell Count 5.01 M/uL (3.86-4.86)
[2021-11-05 19:01] LABS: Albumin 3.3 g/dL (3.4-5.0); Bilirubin Total 0.5 mg/dL (0.2-1.0); Protein, Total 6.8 g/dL (6.4-8.2); Troponin High Sensitivity 30.4 pg/mL (<58.9)
[2021-11-05 19:09] LABS: Potassium 2.8 mmol/L (3.5-5.1)
[2021-11-05] MEDS ORDERED: MORPHINE 4 MG/ML SYR ONE (19:17)
--- NOTE | 2021-11-05 19:38 | RAD REPORT ---
EXAM DESCRIPTION: RAD - Chest Single View - 11/05/2021 6:43 pm CLINICAL HISTORY: SOB COMPARISON: Two view chest 10/20/2021 TECHNIQUE: AP portable chest image was obtained 11/05/2021 6:43 pm . FINDINGS: No acute lung parenchymal process. Interstitial pattern matches comparison. Left subclavia n [address] Failure and volume overload are not suspected. Heart and vasculature are normal. No measurable pleural effusion and no pneumothorax. No acute bony abnormality seen. No acute aortic findings suspected. IMPRESSION: No acute cardiopulmonary process.
--- NOTE | 2021-11-05 19:43 | RAD REPORT ---
EXAM DESCRIPTION: CT - Abdomen Pelvis W Contrast - 11/05/2021 7:26 pm CLINICAL HISTORY: LLQ abdominal pain COMPARISON: No comparisons TECHNIQUE: Biphasic, helical CT imaging of the abdomen and pelvis was performed following 100 ml non -ionic IV contrast. No oral contrast was administered. All CT scans are performed using dose optimization technique as appropriate and may include automated exposure control or mA/KV adjustment according to patient size. FINDINGS: No suspicious findings in the lung bases. The liver, spleen, and pancreas show no suspicious findings. Gallbladder and biliary tree are also wi thout suspicious finding. Symmetric renal function is seen with no hydronephrosis or suspicious renal mass. No obstructing calc iva seen. Renal hilar calcifications could be vascular or nonobstructing calyx calculi. No calcificat ion within the ureter. No pyelonephritis or acute parenchymal process. No bladder abnormalities. No a drenal abnormalities. Uterus is absent. Ovaries are absent or atrophic. No gastric dilatation or gastric wall thickening. No dilated large or small bowel loop. Sigmoid diver ticulosis is present without diverticulitis. Numerous hyperdensities are present within the lumen of the bowel. No contrast was administered for this study. This could be bismuth medication or other hyp erdense material used by the patient. No history of recent outside diagnostic study using contrast. No free air, free fluid or inflammatory stranding. No hernia, mass or bulky lymphadenopathy. No suspicious bony findings. Degenerative changes are present without pathologic component IMPRESSION: Contrast enhanced CT abdomen and pelvis showing no acute or emergent finding.
[2021-11-05] MEDS ORDERED: POTASSIUM 25 MEQ EFFERV TAB ONE (19:55)
--- NOTE | 2021-11-05 20:04 | ER ---
Nurse's Notes [facility] Name: Kailee Mcgraw Age: 85 yrs Sex: Female : 1935 Arrival Date: 11/05/2021 Time: 15:47 Bed 5 Private MD: Diagnosis: Abdominal pain, unspecified;Hypokalemia Presentation: 11/05 16:17 Chief complaint: Patient states: Epigastric pain, LUQ pain and back pain with SOB since vg1 x1 week; daughter states pt has preop tomorrow for a heart stent due to "80% blockage to Left main artery". Coronavirus screen: Vaccine status: Patient reports receiving the 2nd dose of the covid vaccine. Client denies travel out of the [place] in the last 14 days. Ebola Screen: Patient denies exposure to infectious person. Patient denies travel to an Ebola-affected area in the 21 days before illness onset. Initial Sepsis Screen: Does the patient meet any 2 criteria? No. Patient's initial sepsis screen is negative. Does the patient have a suspected source of infection? No. Patient's initial sepsis screen is negative. Risk Assessment: Do you want to hurt yourself or someone else? Patient reports no desire to harm self or others. Onset of symptoms was October 29, 2021. 16:17 Method Of Arrival: Ambulatory vg1 16:17 Acuity: IAN 3 vg1 Triage Assessment: 16:19 General: Appears uncomfortable, ill, Behavior is cooperative. Pain: Complains of pain vg1 in back, epigastric area and left upper quadrant Pain currently is 7 out of 10 on a pain scale. GI: Patient currently denies diarrhea, nausea, vomiting. Historical: - Allergies: 16:19 No Known Allergies; vg1 - PMHx: 16:19 Diabetes - IDDM; Hyperlipidemia; Hypertension; Hypothyroidism; vg1 - PSHx: 16:19 back; hysterectomy; Left hip; vg1 - Immunization history:: Client reports receiving the 2nd dose of the Covid vaccine. - Social history:: Smoking status: Patient denies any tobacco usage or history of. Screenin:43 Abuse screen: Denies threats or abuse. Denies injuries from another. Nutritional ww screening: No deficits noted. Tuberculosis screening: No symptoms or risk factors identified. Fall Risk None identified. Assessment: 17:35 General: Appears in no apparent distress. Behavior is cooperative. Pain: Complains of ww pain in abdomen. Neuro: Level of Consciousness is awake, alert, obeys commands, Oriented to person, place, time, situation, Speech is normal. Cardiovascular: Capillary refill < 3 seconds Patient's skin is warm and dry. Respiratory: Airway is patent Respiratory effort is even, unlabored, Respiratory pattern is regular, symmetrical. GI: Abdomen is round Abd is soft Abdomen is tender to palpation. Derm: No signs and/or symptoms reported regarding the dermatologic system. Skin is fragile, is thin. 18:43 Reassessment: Patient appears in no apparent distress at this time. No changes from ww previously documented assessment. Patient and/or family updated on plan of care and expected duration. Pain level reassessed. Patient is alert, oriented x 3, equal unlabored respirations, skin warm/dry/pink. Vital Signs: 16:17 BP 112 / 63; Pulse 76; Resp 16; Temp 98.2(O); Pulse Ox 99% on R/A; Weight 78.02 kg; vg1 Height 5 ft. 5 in. (165.10 cm); Pain 7/10; 18:43 BP 126 / 73; Pulse 74; Resp 16; Pulse Ox 100% ; ww 20:24 BP 156 / 78; Pulse 78; Resp 26 S; Pulse Ox 98% on R/A; as6 16:17 Body Mass Index 28.62 (78.02 kg, 165.10 cm) vg1 ED Course: 15:47 Patient arrived in ED. as 16:19 Triage completed. vg1 16:19 Arm band placed on. vg1 17:12 Oswaldo Marie NP is PHCP. pm1 17:12 Poncho Cherry MD is Attending Physician. pm1 17:16 Roxana Vasquez, RN is Primary Nurse. ww 18:20 Missed attempt(s): 22 gauge in right antecubital area. Bleeding controlled, band aid aa5 applied, catheter tip intact. 18:23 Initial lab(s) drawn, by pa, sent to lab. Inserted saline lock: 20 gauge in left aa5 antecubital area, using aseptic technique. Blood collected. 18:43 Patient has correct armband on for positive identification. Bed in low position. Call ww light in reach. Side rails up X2. Adult w/ patient. Client placed on continuous cardiac and pulse oximetry monitoring. NIBP monitoring applied. 18:44 Chest Single View XRAY In Process Unspecified. EDMS 19:28 CT Abd/Pelvis - IV Contrast Only In Process Unspecified. EDMS 20:48 No provider procedures requiring assistance completed. IV discontinued, intact, as6 bleeding controlled, No redness/swelling at site. Pressure dressing applied. Administered Medications: 18:30 Not Given (Patient Refused): Zofran (Ondansetron) 4 mg IVP once; over 2 minutes ww 19:14 Drug: morphine 4 mg Route: IVP; Infused Over: 4 mins; Site: left antecubital; ld1 20:48 Follow up: Response: No adverse reaction as6 19:15 Drug: Zofran (Ondansetron) 4 mg Route: IVP; Site: left antecubital; ld1 20:48 Follow up: Response: No adverse reaction as6 20:24 Drug: Potassium Effervescent Tablet 50 mEq Route: PO; as6 20:48 Follow up: Response: No adverse reaction as6 20:24 Drug: Bentyl (dicyclomine) 20 mg Route: IM; Site: right gluteus; as6 20:48 Follow up: Response: No adverse reaction as6 Medication: 20:48 VIS not applicable for this client. as6 Outcome: 20:04 Discharge ordered by . pm1 20:46 Patient left the ED. mw2 20:48 Discharged to home via wheelchair, with family. as6 20:48 Condition: stable 20:48 Discharge instructions given to patient, family, Instructed on discharge instructions, follow up and referral plans. medication usage, Demonstrated understanding of instructions, follow-up care, medications, Prescriptions given X 1. Signatures: Dispatcher [employer] EDMS Joanne Hebert Audri, RN RN aa5 Oswaldo Marie, CARY HAND PACKER/PACKAGER pm1 Duncan Umana mw2 Shama Hartley RN RN vg1 Macy Bedoya RN RN ld1 Beni Russ RN RN as6 Roxana Vasquez, KARIME RN ww Corrections: (The following items were deleted from the chart) 16:20 16:17 Chief complaint: Patient states: Epigastric pain, LUQ pain and back pain since x1 vg1 week vg1 16:33 16:17 Chief complaint: Patient states: Epigastric pain, LUQ pain and back pain since x1 vg1 week; daughter states pt has preop tomorrow for a heart stent due to "80% blockage to Left main artery" vg1
--- NOTE | 2021-11-05 20:04 | EDPHYS ---
Physician Documentation [facility] Name: Kailee Mcgraw Age: 85 yrs Sex: Female : 1935 Arrival Date: 11/05/2021 Time: 15:47 Bed 5 Private MD: ED Physician Poncho Cherry HPI: 11/05 17:20 This 85 yrs old Female presents to ER via Ambulatory with complaints of Abdominal Pain. pm1 17:20 The patient presents with abdominal pain in the left lower quadrant. Onset: The pm1 symptoms/episode began/occurred 1 week(s) ago. The symptoms do not radiate. Associated signs and symptoms: Pertinent positives: patient reports her baseline level of shortness of breath, Pertinent negatives: nausea, vomiting, and diarrhea, chest pain, fever. The symptoms are described as cramping. Reports seeing a wave of cramping going across her lower abdomen per daughter. Modifying factors: The symptoms are alleviated by nothing, the symptoms are aggravated by nothing. Severity of pain: in the emergency department the pain is unchanged. The patient has not experienced similar symptoms in the past. The patient has not recently seen a physician, But has preop for her cardiac cath tomorrow. Historical: - Allergies: 16:19 No Known Allergies; vg1 - PMHx: 16:19 Diabetes - IDDM; Hyperlipidemia; Hypertension; Hypothyroidism; vg1 - PSHx: 16:19 back; hysterectomy; Left hip; vg1 - Immunization history:: Client reports receiving the 2nd dose of the Covid vaccine. - Social history:: Smoking status: Patient denies any tobacco usage or history of. ROS: 17:20 Constitutional: Negative for fever, chills, and weight loss, Cardiovascular: Negative pm1 for chest pain, palpitations, and edema. 17:20 Back: Negative for injury and pain, : Negative for injury, bleeding, discharge, and swelling, MS/Extremity: Negative for injury and deformity, Skin: Negative for injury, rash, and discoloration, Neuro: Negative for headache, weakness, numbness, tingling, and seizure. 17:20 Abdomen/GI: Positive for abdominal pain, of the left lower quadrant, Negative for nausea, vomiting, and diarrhea. 17:20 All other systems are negative. Exam: 17:20 Constitutional: This is a well developed, well nourished patient who is awake, alert, pm1 and in no acute distress. Head/Face: Normocephalic, atraumatic. 17:20 Back: No spinal tenderness. No costovertebral tenderness. Full range of motion. Skin: Warm, dry with normal turgor. Normal color with no rashes, no lesions, and no evidence of cellulitis. MS/ Extremity: Pulses equal, no cyanosis. Neurovascular intact. Full, normal range of motion. 17:20 Cardiovascular: Exam negative for acute changes, Rate: normal, Rhythm: regular, Pulses: no pulse deficits are appreciated, Heart sounds: normal. 17:20 Respiratory: Exam negative for acute changes, respiratory distress, shortness of breath, Breath sounds: are clear throughout. 17:20 Abdomen/GI: Inspection: obese Palpation: soft, in all quadrants, moderate abdominal tenderness, in the left lower quadrant. 17:20 Neuro: Exam negative for acute changes, Orientation: is normal, Mentation: is normal, Motor: is normal, moves all fours. Vital Signs: 16:17 BP 112 / 63; Pulse 76; Resp 16; Temp 98.2(O); Pulse Ox 99% on R/A; Weight 78.02 kg; vg1 Height 5 ft. 5 in. (165.10 cm); Pain 7/10; 18:43 BP 126 / 73; Pulse 74; Resp 16; Pulse Ox 100% ; ww 20:24 BP 156 / 78; Pulse 78; Resp 26 S; Pulse Ox 98% on R/A; as6 16:17 Body Mass Index 28.62 (78.02 kg, 165.10 cm) vg1 MDM: 17:12 Patient medically screened. pm1 20:03 Data reviewed: vital signs. Data interpreted: Pulse oximetry: on room air is 100 %. pm1 Interpretation: normal. Counseling: I had a detailed discussion with the patient and/or guardian regarding: the historical points, exam findings, and any diagnostic results supporting the discharge/admit diagnosis, lab results, radiology results, the need for outpatient follow up, to return to the emergency department if symptoms worsen or persist or if there are any questions or concerns that arise at home. 11/05 17:19 Order name: CBC with Diff; Complete Time: 18:46 pm1 11/05 17:19 Order name: CMP; Complete Time: 19:10 pm1 11/05 17:19 Order name: Lipase; Complete Time: 19:10 pm1 11/05 17:19 Order name: CT Abd/Pelvis - IV Contrast Only; Complete Time: 19:48 pm1 11/05 17:19 Order name: Troponin High Sensitivity; Complete Time: 19:10 pm1 11/05 17:19 Order name: COVID-19 SARS RT PCR (Document "Date of Onset" if Symptomatic); Complete pm1 Time: 20:03 11/05 17:19 Order name: IV Saline Lock; Complete Time: 18:25 pm1 11/05 17:19 Order name: Labs collected and sent; Complete Time: 18:25 pm1 11/05 17:19 Order name: Chest Single View XRAY; Complete Time: 19:42 pm1 Administered Medications: 18:30 Not Given (Patient Refused): Zofran (Ondansetron) 4 mg IVP once; over 2 minutes ww 19:14 Drug: morphine 4 mg Route: IVP; Infused Over: 4 mins; Site: left antecubital; ld1 20:48 Follow up: Response: No adverse reaction as6 19:15 Drug: Zofran (Ondansetron) 4 mg Route: IVP; Site: left antecubital; ld1 20:48 Follow up: Response: No adverse reaction as6 20:24 Drug: Potassium Effervescent Tablet 50 mEq Route: PO; as6 20:48 Follow up: Response: No adverse reaction as6 20:24 Drug: Bentyl (dicyclomine) 20 mg Route: IM; Site: right gluteus; as6 20:48 Follow up: Response: No adverse reaction as6 Disposition Summary: 11/05/21 20:04 Discharge Ordered Location: Home pm1 Problem: new pm1 Symptoms: have improved pm1 Condition: Stable pm1 Diagnosis - Abdominal pain, unspecified pm1 - Hypokalemia pm1 Followup: pm1 - With: Emergency Department - When: As needed - Reason: Worsening of condition Followup: pm1 - With: Private Physician - When: 2 - 3 days - Reason: Recheck today's complaints, Continuance of care, Re-evaluation by your physician Discharge Instructions: - Discharge Summary Sheet pm1 - Abdominal Pain, Adult pm1 - Hypokalemia pm1 - Potassium Content of Foods pm1 Forms: - Medication Reconciliation Form pm1 - Thank You Letter pm1 - Antibiotic Education pm1 - Prescription Opioid Use pm1 Prescriptions: - dicyclomine 20 mg Oral Tablet - take 1 tablet by ORAL route 4 times per day As needed; 20 tablet; Refills: 0, pm1 Product Selection Permitted Signatures: Dispatcher [employer] Oswaldo Lawler NP WASH DRILLER HELPER pm1 Shama Hartley RN RN vg1 Macy Bedoya RN RN ld1 Beni Russ RN RN as6 Roxana Vasquez RN ww
[2021-11-05] MEDS ORDERED: DICYCLOMINE HCL 20 MG/2 ML AMP IM ONE (20:20)
[2021-11-05 20:54] VITALS: TEMP 98.2
[2021-11-05 20:58] VITALS: BP 156/78; O2SAT 98
--- NOTE | 2021-11-06 14:41 | EKG ---
Test Date: 2021-11-05 Test Time: 16:23:37 [employer] Rig Operator: BRENDA MEASUREMENT RESULTS: Intervals: Rate: 75 MO: 134 QRSD: 94 QT: 444 QTc: 495 Wittmann: P: 31 MO: 134 QRS: -35 T: 78 INTERPRETIVE STATEMENTS: Normal sinus rhythm with sinus arrhythmia Left axis deviation Left ventricular hypertrophy with repolarization abnormality Possible Lateral infarct, age undetermined Abnormal ECG Compared to ECG 01/28/2020 23:05:28 Left-axis deviation now present Myocardial infarct finding now present Electronically Signed On 11-06-21 14:40:28 CDT by Papito Thayer
== END 2021-11-05 20:46 | disposition home or self-care (01) ==
LOC: ER 15:45
DX: R10.12 Left upper quadrant pain (principal); E87.6 Hypokalemia; E11.8 Type 2 diabetes mellitus with unspecified complications; E78.5 Hyperlipidemia, unspecified; I10 Essential (primary) hypertension; E03.9 Hypothyroidism, unspecified
CPT/HCPCS: 93005; 85025; 36415; 84484; 83690; 80053; 74177; 71045; 96375; 96372; 96374; 99284; U0003; Q9967; J0500; J2405

== ENCOUNTER 2022-02-10 20:06 | Emergency (ER) | payer OTHER ==
--- OUTSIDE RECORDS SUMMARY | 2022-02-10 20:10 | XMS REPORT | Continuity of Care Document ---
:1935 Author Organization [facility] t Address [address] [place] [address] [address]. [address] [place] [address] Care Team Providers Name Role Phone Asked, No Pcp Primary Care Physician Unavailable Papito Thayer Attending Clinician Unavailable Roderick Dunn Attending Clinician Unavailable Ajibade_Deuce_AH Attending Clinician Unavailable Ige-Odunrenay_J_AH Attending Clinician Unavailable Papito Thayer Admitting Clinician Unavailable Alin Fagan Admitting Clinician Unavailable Physician, No Primary or Family Admitting Clinician Unavaila Roderick Rea Admitting Clinician Unavailable Ajibade_O_AH Admitting Clinician Unavailable Ige-Odunrenay_J_AH Admitting Clinician Unavailable Payers Payer Name Policy Type Policy Number Effective Date Expiration Date S dory [facility] [place] - [id number] 2019 [employer] 00:00:00 (MEDICARE REPLACEMENT/ADVANT AGE - HMO) Problems Condition Condition Condition Status Onset Resolution Last Treating Co mments Source Name Details Category Date Date Treatment Clinician Date SVT SVT Disease Active Methodi (supravent (supravent 5-24 st ricular ricular 00:00: Hospita tachycardi tachycardi 00 l a) a) Arrhythmia Arrhythmia Disease Active M ethodi 5-21 st 00:00: Hospita 00 l Allergies, Adverse Reactions, Alerts Allergy Allergy Status Severity Reaction(s) Onset Inactive Treating Comm ents Source Name Type Date Date Clinician No Known DA Active U [facility] Allergie 6-27 Clear s 00:00: Zhao 00 [facility] Social History Social Habit Start Date Stop Date Quantity Comments Source Alcohol intake 2018-10-10 2018-10-10 Ex-drinker Mandaen 00:00:00 00:00:00 (finding) Hospital Tobacco use and 2018-09-30 2018-09-30 Smokeless tobacco [facility] exposure 00:00:00 00:00:00 non-user Hospital Sex Assigned At [birth year] Mandaen 00:00:00 00:00:00 Hospital Smoking Status Start Date Stop Date Source Never smoked tobacco [facility] Medications Ordered Filled Start Stop Current Ordering Indication Dosage Frequency Signature Comments Components Source Medication Medication Date Date Medication? Clinician (SIG) Name Name omeprazole Yes 40mg QD Take 40 mg M ethodi (PriLOSEC) 5-[address] 40 MG 16:39: daily. Hospita capsule 43 l metoclopram Yes 10mg Q.25D Take 10 mg Methodi hemal 5-[address] (REGLAN) 10 16:39: (four) [facility] tablet 43 times a l day. And before bedtime traMADol Yes 50mg Q24H Take 50 mg Met hodi (ULTRAM) 50 5-[address] mg tablet 16:39: daily as [facility] 43 needed for l moderate pain. levothyroxi Yes 88ug QD Take 88 Met hodi ne 5-[address] (SYNTHROID, 16:39: mouth Hospi ta LEVOXYL) 88 43 daily. l mcg tablet amlodipine- Yes 1{capsu QD Take 1 M ethodi benazepril 5-24 le} capsule by st (LOTREL) 16:39: mouth Hospita 10-20 mg 43 daily. l per capsule LORAZepam Yes 1mg Q6H Take 1 mg Met hodi (ATIVAN) 1 5-[address] MG tablet 16:39: every 6 Hospi ta 43 (six) l hours as needed for anxiety. atorvastati Yes 20mg QD Take 20 mg Methodi n (LIPITOR) 5-[address] 20 MG 16:39: daily. Hospita tablet 43 Default OP l ins atorvastati Yes 20mg QD Take 20 mg Methodi n (LIPITOR) 5-[address] 20 MG 16:39: daily. Hospita tablet 43 Default OP l ins insulin NPH 2019-0 Yes 29U QD Inject 29 M ethodi (HumuLIN-N) 5-[address] 100 unit/mL 16:39: under the H ospita injection 43 skin daily l before breakfast. pentoxifyll 2019-0 Yes 400mg Q.[id number] Take 400 Methodi ine 5-[id number] (TRENTal) 16:39: 3D mouth 3 Hospi ta 400 mg CR 43 (three) l tablet times a day with meals. omeprazole 2019-0 Yes 40mg QD Take 40 mg M ethodi (PriLOSEC) 5-[address] 40 MG 16:39: daily. Hospita capsule 43 l metoclopram 2018-0 Yes 10mg Q.25D Take 10 mg Methodi hemal 5-[address] (REGLAN) 10 16:39: (four) [facility] MG tablet 43 times a l day. And before bedtime traMADol 2018-0 Yes 50mg Q24H Take 50 mg Met hodi (ULTRAM) 50 5-[address] mg tablet 16:39: daily as [facility] 43 needed for l moderate pain. levothyroxi 20190 Yes 88ug QD Take 88 Met hodi ne 5-[address] (SYNTHROID, 16:39: mouth Hospi ta LEVOXYL) 88 43 daily. l mcg tablet amlodipine- 2018-0 Yes 1{capsu QD Take 1 M ethodi benazepril 5-24 le} capsule by st (LOTREL) 16:39: mouth Hospita 10-20 mg 43 daily. l per capsule LORAZepam 0 Yes 1mg Q6H Take 1 mg Met hodi (ATIVAN) 1 5-[address] MG tablet 16:39: every 6 Hospi ta 43 (six) l hours as needed for anxiety. insulin NPH 2019-0 Yes 29U QD Inject 29 M ethodi (HumuLIN-N) 5-[address] 100 unit/mL 16:39: under the H ospita injection 43 skin daily l before breakfast. pentoxifyll 2019-0 Yes 400mg Q.[id number] Take 400 Methodi ine 5-[id number] (TRENTal) 16:39: 3D mouth 3 Hospi ta 400 mg CR 43 (three) l tablet times a day with meals. Procedures Procedure Date / Time Performed Performing Clinician Maryann camara [id number] 2021-12-13 00:00:00 RASSA [facility] [id number] 2021-11-11 00:00:00 ALDMO [facility] [id number] 2021-11-11 00:00:00 ALDMO [facility] [id number] 2021-11-11 00:00:00 ALDMO [facility] [id number] 2021-11-10 00:00:00 ALDMO [facility] [id number] 2021-11-10 00:00:00 ALDMO [facility] [id number] 2021-11-10 00:00:00 ALDMO [facility] Plan of Care Planned Activity Planned Date Details Comments Source Future Scheduled 2022-01-13 HEPATITIS B VACCINES [facility] Test 02:14:04 (1 of 3 - 3-dose series) [code = HEPATITIS B VACCINES (1 of 3 - 3-dose series)] Future Scheduled 2022-01-13 COVID-19 VACCINE (#1) [facility] Test 02:14:04 [code = COVID-19 VACCINE (#1)] Future Scheduled 2022-01-13 HEPATITIS B VACCINES Met [facility] Test 02:14:04 (1 of 3 - 3-dose series) [code = HEPATITIS B VACCINES (1 of 3 - 3-dose series)] Future Scheduled 2022-01-13 COVID-19 VACCINE (#1) [facility] Test 02:14:04 [code = COVID-19 VACCINE (#1)] Future Scheduled 2022-01-13 SHINGLES VACCINES (1 Met [facility] Test 02:14:04 of 2) [code = SHINGLES VACCINES (1 of 2)] Future Scheduled 2022-01-13 65+ [facility] 02:14:04 VACCINE (1 - PCV) [code = 65+ PNEUMOCOCCAL VACCINE (1 - PCV)] Future Scheduled 2022-01-13 INFLUENZA VACCINE [facility] Test 02:14:04 [code = INFLUENZA VACCINE] Future Scheduled 2022-01-13 SHINGLES [facility]ACCINES ([facility] 02:14:04 of 2) [code = SHINGLES VACCINES (1 of 2)] Future Scheduled 2022-01-13 65+ PNEUMOCOCCAL [facility] Test 02:14:04 VACCINE (1 - PCV) [code = 65+ PNEUMOCOCCAL VACCINE (1 - PCV)] Future Scheduled 2022-01-13 INFLUENZA VACCINE [facility] Test 02:14:04 [code = INFLUENZA VACCINE] Encounters Start End Encounter Admission Attending Care Care Encounter Source Date/Time Date/Time Type Type Clinicians Facility Department ID 2021-12-13 Inpatient JEANETTE PerezCL INTE.02 [id number] [facility] 11:24:00 Papito [id number] [facility] 2022-01-24 2022-01-24 Outpatient LISETTE Perez OUTD [id number] [facility] 05:07:00 05:07:00 Papito 63 [facility] 2021-12-13 2021-12-13 Inpatient JEANETTE PerezCL INTE.02 [id number] [facility] 11:24:00 13:30:00 Papito 99 [facility] 2021-12-06 2021-12-06 Outpatient LISETTE PerezCL [id number] [facility] 05:12:00 05:12:00 Papito [id number] [facility] 2021-12-06 2021-12-06 Outpatient LISETTE Perez OUTD [id number] [facility] 05:12:00 05:12:00 Papito 02 [facility] 2021-11-08 2021-11-11 Inpatient JEANETTE OrtegaCL MEDI.01 [id number] [facility] 12:44:00 14:33:00 Roderick 77 [facility] 2021-11-08 2021-11-11 Inpatient JEANETTE OrtegaCL MEDI.01 [id number] [facility] 12:44:00 14:33:00 Roderick [id number] [facility] 2020-01-07 2020-01-07 Outpatient Ajibade_O_A VFP VFP [phone] [place] [address] 03:34:00 03:34:00 H [id number] [facility] 2020-01-07 2020-01-07 Outpatient Ajibade_O_A VFP VFP [id number] [id number] [facility] 03:34:00 03:34:00 H [id number] Family Practic e 2019-07-01 2019-07-01 Outpatient Pedro-Noy [facility] [id number] [facility] 07:18:00 07:18:00 _LYNDON [id number] Family Practic e Results Test Description Test Time Test Comments Results Result Comments Source GLUCOSE BEDSIDE 2022-01-24 07:07:00 Test Item Value Reference Range Interpretation Comme nts GLUCOSE BEDSIDE (test code = 160 MG/DL 70-110 H Performed by certified 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 [facility]) [facility] BASIC METABOLIC [id number] 12:28:00 Test Item Value Reference Range Interpretation Comments SODIUM (test code = NA) 143 mEq/L 134-147 N POTASSIUM (test code = 3.5 mEq/L 3.4-5.0 N K) CHLORIDE (test code = 105 mEq/L 100-108 N CL) CARBON DIOXIDE (test 28 mEq/l 21-33 N code = CO2) ANION GAP (test code = 14 0-20 N GAP) GLUCOSE (test code = 203 mg/dL 70-110 H GLU) BLOOD UREA NITROGEN 21 mg/dL 7-18 H (test code = BUN) GLOMERULAR FILTRATION 59.1 70-80 L Units of measure = RATE (test code = GFR) ml/mi n/1.73 m2 CREATININE (test code = 0.9 mg/dL 0.6-1.3 N CREAT) CALCIUM (test code = 9.3 mg/dL 8.0-10.5 N CA) PROTHROMBIN [id number] 12:09:00 Test Item Value Reference Range Interpretation Comments PROTHROMBIN TIME 25.6 SECONDS 9.3-12.9 H PATIENT (test code = PTP) INTERNATIONAL NORMAL 2.3 0.8-1.2 H TARGET INR BY RATIO (test code = INDICATIO N Indication INR) INR1. Prophylax is of venous thrombos is 2.0 - 3.0 (orthoped ic surgery), Proph ylaxis of venous throm bosis (other than hig h-risk surgery), Treat ment of Deep Vein Thrombosis/Pulm onary Embolism, Preve ntion of systemic emb olism - Tissue heart va lves, Acute Myocardia l Infarction (to prevent systemic emboli sm), Valvular heart disease, Atrial Fibrillation, Bileaflet mecha nical valve in aortic position.2. Mec hanical prosthetic valv es (high risk), 2. 5 - 3.5 Presence of Lup us Anticoagulant o r Antiphospholipi d Antibodies, Pre vention of systemic emb olism - Acute Myocardia l Infarction (to prevent recurrent infar ct). CBC W/AUTO [id number] 12:05:00 Test Item Value Reference Range Interpretation Comments WHITE BLOOD CELL (test code = 10.5 x10 3/uL 4.5-11.0 N WBC) RED BLOOD CELL (test code = 3.02 x10 6/uL 3.54-5.02 L RBC) HEMOGLOBIN (test code = HGB) 9.3 g/dL 11.0-15.0 L HEMATOCRIT (test code = HCT) 29.7 % 33.0-45.0 L MEAN CELL VOLUME (test code = 98.3 fL 81.0-99.0 N MCV) MEAN CELL HGB (test code = MCH) 30.8 pg 27.0-33.0 N MEAN CELL HGB CONCETRATION 31.3 g/dL 33.0-37.0 L (test code = MCHC) RED CELL DISTRIBUTION WIDTH CV 14.3 % 11.5-14.5 N (test code = RDW) RED CELL DISTRIBUTION WIDTH SD 49.8 fL 37.0-54.0 N (test code = RDW-SD) PLATELET COUNT (test code = 305 x10 3/uL 150-400 N PLT) MEAN PLATELET VOLUME (test code 10.0 fL 7.0-9.0 H = MPV) NEUTROPHIL % (test code = NT%) 74.4 % 56.0-77.0 N IMMATURE GRANULOCYTE % (test 0.7 % 0.0-2.0 N code = IG%) LYMPHOCYTE % (test code = LY%) 11.2 % 14.0-32.0 L MONOCYTE % (test code = MO%) 9.9 % 4.8-9.0 H EOSINOPHIL % (test code = EO%) 3.1 % 0.3-3.7 N BASOPHIL % (test code = BA%) 0.7 % 0.0-2.0 N NUCLEATED RBC % (test code = 0.2 % 0-0 H NRBC%) NEUTROPHIL # (test code = NT#) 7.81 x10 3/uL 2.0-7.6 H IMMATURE GRANULOCYTE # (test 0.07 x10 3/uL 0.00-0.03 H code = IG#) LYMPHOCYTE # (test code = LY#) 1.18 x10 3/uL 1.0-3.8 N MONOCYTE # (test code = MO#) 1.04 x10 3/uL 0.1-0.8 H EOSINOPHIL # (test code = EO#) 0.33 x10 3/uL 0.0-0.2 H BASOPHIL # (test code = BA#) 0.07 x10 3/uL 0.0-0.2 N NUCLEATED RBC # (test code = 0.02 x10 3/uL 0.0-0.1 N NRBC#) MANUAL DIFF REQUIRED (test code NO = MDIFF) GLUCOSE [id number] 12:25:00 Test Item Value Reference Range Interpretation Comments GLUCOSE BEDSIDE (test 95 MG/DL 70-110 N Perfor med by certified code = GLUBED) 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 [facility] GLUCOSE [id number] 11:07:00 Test Item Value Reference Range Interpretation Comments GLUCOSE BEDSIDE (test 58 MG/DL 70-110 L Perfor med by certified code = GLUBED) 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 [facility] [id number] 10:36:00 Test Item Value Reference Range Interpretation Comments ACT-ISTAT (test code 306 SEC 74-137 H Perform ed by certified = ACTI) 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 [facility] COMPREHENSIVE METABOLIC [id number] 08:50:00 Test Item Value Reference Range Interpretation Comments SODIUM (test code = NA) 144 mEq/L 134-147 N POTASSIUM (test code = 3.4 mEq/L 3.4-5.0 N K) CHLORIDE (test code = 110 mEq/L 100-108 H CL) CARBON DIOXIDE (test 29 mEq/l 21-33 N code = CO2) ANION GAP (test code = 9 0-20 N GAP) GLUCOSE (test code = 71 mg/dL 70-110 N GLU) BLOOD UREA NITROGEN 19 mg/dL 7-18 H (test code = BUN) GLOMERULAR FILTRATION 67.7 70-80 L Units of measure = RATE (test code = GFR) ml/mi n/1.73 m2 CREATININE (test code = 0.8 mg/dL 0.6-1.3 N CREAT) TOTAL PROTEIN (test 6.4 g/dL 6.4-8.2 N code = PROT) ALBUMIN (test code = 3.50 g/dL 3.4-5.0 N ALB) CALCIUM (test code = 10.0 mg/dL 8.0-10.5 N CA) BILIRUBIN TOTAL (test 0.70 mg/dL 0.0-1.0 N code = BILT) SGOT/AST (test code = 18 IUnit/L 15-37 N AST) SGPT/ALT (test code = 18 IUnit/L 30-65 L ALT) ALKALINE PHOSPHATASE 129 IUnit/L 20-125 H TOTAL (test code = ALKP) PROTHROMBIN [id number] 08:37:00 Test Item Value Reference Range Interpretation Comments PROTHROMBIN TIME 11.5 SECONDS 9.3-12.9 N PATIENT (test code = PTP) INTERNATIONAL NORMAL 1.0 0.8-1.2 N TARGET INR BY RATIO (test code = INDICATIO N Indication INR) INR1. Prophylax is of venous thrombos is 2.0 - 3.0 (orthoped ic surgery), Proph ylaxis of venous throm bosis (other than hig h-risk surgery), Treat ment of Deep Vein Thrombosis/Pulm onary Embolism, Preve ntion of systemic emb olism - Tissue heart va lves, Acute Myocardia l Infarction (to prevent systemic emboli sm), Valvular heart disease, Atrial Fibrillation, Bileaflet mecha nical valve in aortic position.2. Mec hanical prosthetic valv es (high risk), 2. 5 - 3.5 Presence of Lup us Anticoagulant o r Antiphospholipi d Antibodies, Pre vention of systemic emb olism - Acute Myocardia l Infarction (to prevent recurrent infar ct). CBC W/AUTO [id number] 08:28:00 Test Item Value Reference Range Interpretation Comments WHITE BLOOD CELL (test code = 8.8 x10 3/uL 4.5-11.0 N WBC) RED BLOOD CELL (test code = 3.95 x10 6/uL 3.54-5.02 N RBC) HEMOGLOBIN (test code = HGB) 12.7 g/dL 11.0-15.0 N HEMATOCRIT (test code = HCT) 38.6 % 33.0-45.0 N MEAN CELL VOLUME (test code = 97.7 fL 81.0-99.0 N MCV) MEAN CELL HGB (test code = MCH) 32.2 pg 27.0-33.0 N MEAN CELL HGB CONCETRATION 32.9 g/dL 33.0-37.0 L (test code = MCHC) RED CELL DISTRIBUTION WIDTH CV 14.2 % 11.5-14.5 N (test code = RDW) RED CELL DISTRIBUTION WIDTH SD 51.0 fL 37.0-54.0 N (test code = RDW-SD) PLATELET COUNT (test code = 241 x10 3/uL 150-400 N PLT) MEAN PLATELET VOLUME (test code 10.0 fL 7.0-9.0 H = MPV) NEUTROPHIL % (test code = NT%) 75.1 % 56.0-77.0 N IMMATURE GRANULOCYTE % (test 0.6 % 0.0-2.0 N code = IG%) LYMPHOCYTE % (test code = LY%) 12.8 % 14.0-32.0 L MONOCYTE % (test code = MO%) 9.5 % 4.8-9.0 H EOSINOPHIL % (test code = EO%) 1.4 % 0.3-3.7 N BASOPHIL % (test code = BA%) 0.6 % 0.0-2.0 N NUCLEATED RBC % (test code = 0.0 % 0-0 N NRBC%) NEUTROPHIL # (test code = NT#) 6.60 x10 3/uL 2.0-7.6 N IMMATURE GRANULOCYTE # (test 0.05 x10 3/uL 0.00-0.03 H code = IG#) LYMPHOCYTE # (test code = LY#) 1.12 x10 3/uL 1.0-3.8 N MONOCYTE # (test code = MO#) 0.83 x10 3/uL 0.1-0.8 H EOSINOPHIL # (test code = EO#) 0.12 x10 3/uL 0.0-0.2 N BASOPHIL # (test code = BA#) 0.05 x10 3/uL 0.0-0.2 N NUCLEATED RBC # (test code = 0.00 x10 3/uL 0.0-0.1 N NRBC#) MANUAL DIFF REQUIRED (test code NO = MDIFF) GLUCOSE [id number] 07:40:00 Test Item Value Reference Range Interpretation Comments GLUCOSE BEDSIDE (test 70 MG/DL 70-110 N [facility] med by certified code = GLUBED) 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 [facility] - XR CHEST 1 [id number] [facility] 1935 Sex: F FAX: Papito Dotson MD [phone] [place]: St: ADM FAX: Alin Almanzar MD [phone] FAX: Benjy Mendez [phone] Name: MARIVEL MAS [facility] : 1935 Age/S: 86/F [address] [place] [address] Bl Unit #: [id number] Loc: [place] [address] Phys: Benjy Mendez [facility] Acct: [id number] Dis Date: Status: ADM IN PHONE #: [phone] Exam Date: 12/13/20211217 FAX #: [phone] Reason: WATCHMAN EXAMS: CPT CODE: [id number] XR CHEST 1 V 13356 PROCEDURE INFORMATION: Exam: XR Chest Exam date and time: 12/13 11:39 AM Age: 86 years old Clinical indication: Pre-operative exam; Respiratory screening exam; Additional info: Watchman TECHNIQUE: Imaging protocol: Radiologic exam of the chest. Views: 1 view.COMPARISON: DX XR CHEST 2 V 12/04/2021 12:31 PM FINDINGS: Lungs: Mild decreased lung volumes. No conso lidation. Pleural spaces: Unremarkable. No pleural effusion. No pneumothorax. Heart/Mediastinum: Theheart is enlarged. Status post median sternotomy. Aortic atherosclerosis. Atrial appendage occluderdevice noted. Bones/joints: Unchanged. IMPRESSION: No acute cardiopulmonary disease at 1335 Reported and signed by: Oj Gould M.D. CC: Papito Thayer MD; Alin Fagan MD; Benjy Mendez Technologist: RT Harry(Rudolph) Trnscrd Date/Time/By: 12/13/2021 (4268) : By: [email or web address] Orig Print D/T: S: 12/13/2021 (3997) PAGE 1 Signed ReportBASIC METABOLIC [id number] 13:13:00 Test Item Value Reference Range Interpretation Comments SODIUM (test code = NA) 141 mEq/L 134-147 N POTASSIUM (test code = 3.2 mEq/L 3.4-5.0 L K) CHLORIDE (test code = 104 mEq/L 100-108 N CL) CARBON DIOXIDE (test 31 mEq/l 21-33 N code = CO2) ANION GAP (test code = 10 0-20 N GAP) GLUCOSE (test code = 200 mg/dL 70-110 H GLU) BLOOD UREA NITROGEN 15 mg/dL 7-18 N (test code = BUN) GLOMERULAR FILTRATION 59.1 70-80 L Units of measure = RATE (test code = GFR) ml/mi n/1.73 m2 CREATININE (test code = 0.9 mg/dL 0.6-1.3 N CREAT) CALCIUM (test code = 10.1 mg/dL 8.0-10.5 N CA) [id number] 13:13:00 Test Item Value Reference Range Interpretation Comments PREALBUMIN (test code = PREALB) 26.4 mg/dL 16.0-40.0 N PROTHROMBIN [id number] 13:02:00 Test Item Value Reference Range Interpretation Comments PROTHROMBIN TIME 11.5 SECONDS 9.3-12.9 N PATIENT (test code = PTP) INTERNATIONAL NORMAL 1.0 0.8-1.2 N TARGET INR BY RATIO (test code = INDICATIO N Indication INR) INR1. Prophylax is of venous thrombos is 2.0 - 3.0 (orthoped ic surgery), Proph ylaxis of venous throm bosis (other than hig h-risk surgery), Treat ment of Deep Vein Thrombosis/Pulm onary Embolism, Preve ntion of systemic emb olism - Tissue heart va lves, Acute Myocardia l Infarction (to prevent systemic emboli sm), Valvular heart disease, Atrial Fibrillation, Bileaflet mecha nical valve in aortic position.2. Mec hanical prosthetic valv es (high risk), 2. 5 - 3.5 Presence of Lup us Anticoagulant o r Antiphospholipi d Antibodies, Pre vention of systemic emb olism - Acute Myocardia l Infarction (to prevent recurrent infar ct). CBC W/AUTO [id number] 12:48:00 Test Item Value Reference Range Interpretation Comments WHITE BLOOD CELL (test code = 8.8 x10 3/uL 4.5-11.0 N WBC) RED BLOOD CELL (test code = 4.39 x10 6/uL 3.54-5.02 N RBC) HEMOGLOBIN (test code = HGB) 13.9 g/dL 11.0-15.0 N HEMATOCRIT (test code = HCT) 42.8 % 33.0-45.0 N MEAN CELL VOLUME (test code = 97.5 fL 81.0-99.0 N MCV) MEAN CELL HGB (test code = MCH) 31.7 pg 27.0-33.0 N MEAN CELL HGB CONCETRATION 32.5 g/dL 33.0-37.0 L (test code = MCHC) RED CELL DISTRIBUTION WIDTH CV 14.5 % 11.5-14.5 N (test code = RDW) RED CELL DISTRIBUTION WIDTH SD 51.9 fL 37.0-54.0 N (test code = RDW-SD) PLATELET COUNT (test code = 229 x10 3/uL 150-400 N PLT) MEAN PLATELET VOLUME (test code 10.2 fL 7.0-9.0 H = MPV) NEUTROPHIL % (test code = NT%) 75.7 % 56.0-77.0 N IMMATURE GRANULOCYTE % (test 0.3 % 0.0-2.0 N code = IG%) LYMPHOCYTE % (test code = LY%) 12.6 % 14.0-32.0 L MONOCYTE % (test code = MO%) 9.0 % 4.8-9.0 N EOSINOPHIL % (test code = EO%) 1.6 % 0.3-3.7 N BASOPHIL % (test code = BA%) 0.8 % 0.0-2.0 N NUCLEATED RBC % (test code = 0.0 % 0-0 N NRBC%) NEUTROPHIL # (test code = NT#) 6.62 x10 3/uL 2.0-7.6 N IMMATURE GRANULOCYTE # (test 0.03 x10 3/uL 0.00-0.03 N code = IG#) LYMPHOCYTE # (test code = LY#) 1.10 x10 3/uL 1.0-3.8 N MONOCYTE # (test code = MO#) 0.79 x10 3/uL 0.1-0.8 N EOSINOPHIL # (test code = EO#) 0.14 x10 3/uL 0.0-0.2 N BASOPHIL # (test code = BA#) 0.07 x10 3/uL 0.0-0.2 N NUCLEATED RBC # (test code = 0.00 x10 3/uL 0.0-0.1 N NRBC#) MANUAL DIFF REQUIRED (test code NO = MDIFF) - XR CHEST 2 [id number] 00:00:00 [facility] : 1935 Sex: F FAX: Papito Dotson MD [phone] [place]: St: PRE Name: MARIVEL MAS [facility] : 1935 Age/S: 86/F [address] [place] [address] Blvd Unit #: [id number] Loc: [place] [address] Phys: Papito Thayer MD Acct: [id number] Dis Date: Status: PRE SD PHONE #: [phone] Exam Date: 12/04/2021 1231 FAX #: [phone] Reason: PREOP EXAMS: CPT CODE: [id number] XR CHEST 2 V 17972 PROCEDURE INFORMATION: Exam: XR Chest Examdate and time: 12/04/2021 12:31 PM Age: 86 years old Clinical indication: Other: Preop TECHNIQUE: Imaging protocol: Radiologic exam of the chest. Views: 2 views. PA and Lateral COMPARISON: CTA ABD PEL WCONT 11/08/2021 6:40 PM FINDINGS: Tubes, catheters and devices: Pacemaker is noted. Lungs: There are normal lung volumes without consolidation or interstitial oppacities. Pleural spaces: No pleural effusion. No pneumothorax. Heart/Mediastinum: The heart size is normal. Vasculature: Aortic arch calcifications. Diaphragm: Mild elevation of left hemidiaphragm. Bones/joints: No acute abnormality. IMPRESSION: No acute cardiopulmonary process. at 1331 Reported and signed by: Surjit Combs M.D. CC: Papito Thayer MD Technologist: RT Ziggy(R) Trnscrd Date/Time/By: 12/04/2021 (1330) : By: [email or web address] Orig Print D/T: S: 12/04/2021 (644) PAGE 1 Signed ReportCOAGULATION TIME [id number] 12:55:00 Test Item Value Reference Range Interpretation Comments COAGULATION TIME 385 SECONDS Performed b y ACTIVATED (test code = certi fied acid pump operator ACT) at [facility] GLUCOSE [id number] 12:57:00 Test Item Value Reference Range Interpretation Comments GLUCOSE BEDSIDE (test 151 MG/DL 70-110 H Perfor med by certified code = GLUBED) 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 [facility] [place] GLUCOSE [id number] 04:48:00 Test Item Value Reference Range Interpretation Comments GLUCOSE BEDSIDE (test 160 MG/DL 70-110 H Perfor med by certified code = GLUBED) 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 [facility] [place] GLUCOSE [id number] 19:50:00 Test Item Value Reference Range Interpretation Comments GLUCOSE BEDSIDE (test 133 MG/DL 70-110 H Perfor med by certified code = GLUBED) 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 [facility] [place] [id number] 15:56:00 Test Item Value Reference Range Interpretation Comments ACT-ISTAT (test code 312 SEC 74-137 H Perform ed by certified = ACTI) 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 [facility] GLUCOSE [id number] 11:28:00 Test Item Value Reference Range Interpretation Comments GLUCOSE BEDSIDE (test 158 MG/DL 70-110 H Perfor med by certified code = GLUBED) 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 [facility] [place] BASIC METABOLIC [id number] 07:08:00 Test Item Value Reference Range Interpretation Comments SODIUM (test code = NA) 139 mEq/L 134-147 N POTASSIUM (test code = 3.8 mEq/L 3.4-5.0 N K) CHLORIDE (test code = 108 mEq/L 100-108 N CL) CARBON DIOXIDE (test 28 mEq/l 21-33 N code = CO2) ANION GAP (test code = 7 0-20 N GAP) GLUCOSE (test code = 151 mg/dL 70-110 H GLU) BLOOD UREA NITROGEN 11 mg/dL 7-18 N (test code = BUN) GLOMERULAR FILTRATION 79.2 70-80 N Units of measure = RATE (test code = GFR) ml/mi n/1.73 m2 CREATININE (test code = 0.7 mg/dL 0.6-1.3 N CREAT) CALCIUM (test code = 9.8 mg/dL 8.0-10.5 N CA) COMMENTS: To be done morning of Heart CathTHROMBOPLASTIN TIME [id number] 06:57:00 Test Item Value Reference Range Interpretation Comments THROMBOPLASTIN TIME 29.7 Seconds 25.0-39.5 N Therape utic Range: PARTIAL (test code = 50.4 - 88.3 Seconds PTT) Effective 08/26/2018 CBC W/AUTO [id number] 06:41:00 Test Item Value Reference Range Interpretation Comments WHITE BLOOD CELL (test code = 10.3 x10 3/uL 4.5-11.0 N WBC) RED BLOOD CELL (test code = 4.66 x10 6/uL 3.54-5.02 N RBC) HEMOGLOBIN (test code = HGB) 14.7 g/dL 11.0-15.0 N HEMATOCRIT (test code = HCT) 43.3 % 33.0-45.0 N MEAN CELL VOLUME (test code = 92.9 fL 81.0-99.0 N MCV) MEAN CELL HGB (test code = MCH) 31.5 pg 27.0-33.0 N MEAN CELL HGB CONCETRATION 33.9 g/dL 33.0-37.0 N (test code = MCHC) RED CELL DISTRIBUTION WIDTH CV 14.2 % 11.5-14.5 N (test code = RDW) RED CELL DISTRIBUTION WIDTH SD 48.0 fL 37.0-54.0 N (test code = RDW-SD) PLATELET COUNT (test code = 252 x10 3/uL 150-400 N PLT) MEAN PLATELET VOLUME (test code 9.8 fL 7.0-9.0 H = MPV) NEUTROPHIL % (test code = NT%) 72.6 % 56.0-77.0 N IMMATURE GRANULOCYTE % (test 0.5 % 0.0-2.0 N code = IG%) LYMPHOCYTE % (test code = LY%) 13.7 % 14.0-32.0 L MONOCYTE % (test code = MO%) 11.9 % 4.8-9.0 H EOSINOPHIL % (test code = EO%) 1.0 % 0.3-3.7 N BASOPHIL % (test code = BA%) 0.3 % 0.0-2.0 N NUCLEATED RBC % (test code = 0.0 % 0-0 N NRBC%) NEUTROPHIL # (test code = NT#) 7.45 x10 3/uL 2.0-7.6 N IMMATURE GRANULOCYTE # (test 0.05 x10 3/uL 0.00-0.03 H code = IG#) LYMPHOCYTE # (test code = LY#) 1.41 x10 3/uL 1.0-3.8 N MONOCYTE # (test code = MO#) 1.22 x10 3/uL 0.1-0.8 H EOSINOPHIL # (test code = EO#) 0.10 x10 3/uL 0.0-0.2 N BASOPHIL # (test code = BA#) 0.03 x10 3/uL 0.0-0.2 N NUCLEATED RBC # (test code = 0.00 x10 3/uL 0.0-0.1 N NRBC#) MANUAL DIFF REQUIRED (test code NO = MDIFF) COMMENTS: To be done morning of Heart CathCOVID 19 Asymptomatic IH [id number] 06:09:00 Test Item Value Reference Range Interpretation Comments COVID 19 Asymptomatic Negative Negative A nega tive result is IH AG (test code = presumpti ve and should COVNONPUIAG) be confirmedwit h an FDA authorized mole cular assay, if neces tae forpatient aubrey gement.A positive result does not rule out co-inf ections withother patho gens.This test detects rosio th viable (live) and non-viable,SARS -CoV, and SARS-CoV-2. Malia t performance dep ends on theamount of vi amelia (antigen) in th e sample.This malia t has not been FDA cleare d or approved; the t est hasbeen authori zed by FDA under an Em ergency Use Authorizati on(EUA) for use by labo ratories certified under the CLIA thatmeet the requirements to perform moderate, high or waivedcomplexit y tests. 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 [facility] GLUCOSE [id number] 16:05:00 Test Item Value Reference Range Interpretation Comments GLUCOSE BEDSIDE (test 141 MG/DL 70-110 H Perfor med by certified code = GLUBED) 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 [facility] GLUCOSE [id number] 11:13:00 Test Item Value Reference Range Interpretation Comments GLUCOSE BEDSIDE (test 180 MG/DL 70-110 H Perfor med by certified code = GLUBED) 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 [facility] COMPREHENSIVE METABOLIC [id number] 07:59:00 Test Item Value Reference Range Interpretation Comments SODIUM (test code = NA) 140 mEq/L 134-147 N POTASSIUM (test code = 3.7 mEq/L 3.4-5.0 N K) CHLORIDE (test code = 106 mEq/L 100-108 N CL) CARBON DIOXIDE (test 28 mEq/l 21-33 N code = CO2) ANION GAP (test code = 10 0-20 N GAP) GLUCOSE (test code = 141 mg/dL 70-110 H GLU) BLOOD UREA NITROGEN 11 mg/dL 7-18 N (test code = BUN) GLOMERULAR FILTRATION 59.2 70-80 L Units of measure = RATE (test code = GFR) ml/mi n/1.73 m2 CREATININE (test code = 0.9 mg/dL 0.6-1.3 N CREAT) TOTAL PROTEIN (test 5.6 g/dL 6.4-8.2 L code = PROT) ALBUMIN (test code = 3.10 g/dL 3.4-5.0 L ALB) CALCIUM (test code = 10.1 mg/dL 8.0-10.5 N CA) BILIRUBIN TOTAL (test 0.60 mg/dL 0.0-1.0 N code = BILT) SGOT/AST (test code = 15 IUnit/L 15-37 N AST) SGPT/ALT (test code = 16 IUnit/L 30-65 L ALT) ALKALINE PHOSPHATASE 64 IUnit/L 20-125 N TOTAL (test code = ALKP) [id number] 07:59:00 Test Item Value Reference Range Interpretation Comments LIPASE (test code = LIP) 22 U/L 13-57 N CBC W/AUTO [id number] 07:47:00 Test Item Value Reference Range Interpretation Comments WHITE BLOOD CELL (test code = 8.4 x10 3/uL 4.5-11.0 N WBC) RED BLOOD CELL (test code = 4.28 x10 6/uL 3.54-5.02 N RBC) HEMOGLOBIN (test code = HGB) 13.7 g/dL 11.0-15.0 N HEMATOCRIT (test code = HCT) 40.2 % 33.0-45.0 N MEAN CELL VOLUME (test code = 93.9 fL 81.0-99.0 N MCV) MEAN CELL HGB (test code = MCH) 32.0 pg 27.0-33.0 N MEAN CELL HGB CONCETRATION 34.1 g/dL 33.0-37.0 N (test code = MCHC) RED CELL DISTRIBUTION WIDTH CV 14.3 % 11.5-14.5 N (test code = RDW) RED CELL DISTRIBUTION WIDTH SD 49.0 fL 37.0-54.0 N (test code = RDW-SD) PLATELET COUNT (test code = 246 x10 3/uL 150-400 N PLT) MEAN PLATELET VOLUME (test code 10.1 fL 7.0-9.0 H = MPV) NEUTROPHIL % (test code = NT%) 69.3 % 56.0-77.0 N IMMATURE GRANULOCYTE % (test 0.4 % 0.0-2.0 N code = IG%) LYMPHOCYTE % (test code = LY%) 17.1 % 14.0-32.0 N MONOCYTE % (test code = MO%) 11.6 % 4.8-9.0 H EOSINOPHIL % (test code = EO%) 1.1 % 0.3-3.7 N BASOPHIL % (test code = BA%) 0.5 % 0.0-2.0 N NUCLEATED RBC % (test code = 0.0 % 0-0 N NRBC%) NEUTROPHIL # (test code = NT#) 5.84 x10 3/uL 2.0-7.6 N IMMATURE GRANULOCYTE # (test 0.03 x10 3/uL 0.00-0.03 N code = IG#) LYMPHOCYTE # (test code = LY#) 1.44 x10 3/uL 1.0-3.8 N MONOCYTE # (test code = MO#) 0.98 x10 3/uL 0.1-0.8 H EOSINOPHIL # (test code = EO#) 0.09 x10 3/uL 0.0-0.2 N BASOPHIL # (test code = BA#) 0.04 x10 3/uL 0.0-0.2 N NUCLEATED RBC # (test code = 0.00 x10 3/uL 0.0-0.1 N NRBC#) MANUAL DIFF REQUIRED (test code NO = MDIFF) GLUCOSE [id number] 06:02:00 Test Item Value Reference Range Interpretation Comments GLUCOSE BEDSIDE (test 139 MG/DL 70-110 H [facility] med by certified code = GLUBED) 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 [facility] - CTA ABD PEL W [id number] 00:00[facility]00 [facility] 1935 Sex: F Name: MARIVEL MAS [facility] : 1935 Age/S: 85 / F [address] [place] [address] Bl Unit #: [id number] Loc: [place] [address] Phys: Roderick Dunn MD Acct: [id number] Dis Date: Status: ADM IN PHONE #: [phone] Exam Date: 11/08/2021 184 FAX #: [phone] Reason: EVAL FOR BOWEL ISCHEMIA/ PVD EXAMS: CPT CODE: [id number] CTA ABD PEL W CONT [id number] PROCEDURE INFORMATION: Exam: CTA Abdomen and Pelvis W ith Contrast Exam date and time: 11/08/2021 6:40 PM Age: 85 years old Clinical indication: Other: Abddistenstion; Additional info: Eval for bowel ischemia/ pvd TECHNIQUE: Imaging protocol: Computed tomographic angiography of the abdomen and pelvis with contrast. 3D rendering (Not supervised by radiologist): MIP and/or 3D reconstructed images were created by the technologist. Radiation optimization: All CT scans at this facility use at least one of these dose optimization techniques: automated exposure control; mA and/or kV adjustment per patient size (includes targeted exams where dose is matched to clinical indication); or iterative reconstruction. Contrast material: ISO 300; Contrast volume: 100ml; Contrast route: INTRAVENOUS (IV); Other technique: CT RADIATION DOSE DLP: 1921.75 MGY-CM COMPARISON: No relevant prior studies available. FINDINGS: Tubes, catheters and devices: The patient has a dual lead pacemaker battery with no visible complication along the visualized segments. Lungs: Bibasilar subpleural subsegmental atelectasis and or scarring with no edema or lobar consolidation. Pleuralspaces: No pleural effusion. No pneumothorax. Heart: No pericardial thickening or effusion. Cardiomegaly with mild concentric left ventricular hypertrophy. No intracardiac thrombus or ventricular aneurysm. Severe coronary atherosclerosis. Aorta: Severe aortoiliac atherosclerosis without aneurysm or dissection. Celiac trunk and mesenteric arteries: Patent celiac and mesenteric arterial circulation with mild eccentric calcified SMA and moderate eccentric ABHISHEK plaque. Renal arteries: No occlusion or significant stenosis. Right iliac arteries: No occlusion or significant stenosis. Left iliac arteries: No occlusion or significant stenosis. Veins: Few venous collaterals are seen in the left anterior chest wall, of indeterminate significance. Liver: Faint 14 mm non masslike area of arterial enhancement is seen in the right liver lobe segment 7 (3, 32), becoming isodense delayed postcontrast images. This may reflect benign regional arterialization. Low volume focal fatty infiltration is seen in the left lateral liver lobe near the falciform ligament. No cirrhotic PAGE 1 Signed Report (CONTINUED) Name:MARIVEL MAS [facility] : 1935 Age/S: 85 / F [address] [place], [place] [address]vd Unit #: [id number]: RAFI aTbares [id number] Phys: Roderick Dunn MD Acct: [id number] Dis Date: Status: ADM IN PHONE #:[phone] Exam Date: 11/08/2021 184 FAX #: [phone] Reason: EVAL FOR BOWEL ISCHEMIA/ PVD EXAMS: CPT CODE: [id number] CTA ABD PEL W CONT 03675 (Continued) change. Patent splenoportal circulation. Gallbladder and bile ducts: No calcified stones. No ductal dilation. Pancreas: Diffuse pancreatic atrophy without calcification or focal lesion. Spleen: Unremarkable spleen. Adrenal glands: No adrenallesions. Kidneys and ureters: Bilateral renal vascular calcification and or nonobstructive nephrolithiasis. No enhancing renal lesions. No hydronephrosis. Stomach and bowel: Large volume colonic fecal material diffusely. Colonic diverticulosis without signs of diverticulitis. Appendix: Probable prior appendectomy changes to be correlated with history. Intraperitoneal space: No ascites. Lymph nodes: No adenopathy. Urinary bladder: No bladder filling defects or diverticula. Reproductive: Prior hysterectomy. Bones/joints: Prior antegrade intramedullary nailing and hip screw fixation of the left hip with no visible complication. Severe thoracolumbar/lumbosacral spondylosis , symphyseal and bilateral SI joint osteoarthritis. IMPRESSION: 1. Severe aortoiliac atherosclerosis without aneurysm or dissection. 2. Patent celiac and mesenteric arterial circulation. 3. Constipation with nonobstructive bowel gas pattern and no CT signs of mesenteric ischemia. 4. Cardiomegaly with severe coronary atherosclerosis. 5. Hysterectomy, left hip fixation and probable prior appendectomy. 6. Colonic diverticulosis. 7. Additional non emergent findings as described. at 0817 Reported and signed by: Dionte Dong M.D. 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 Prophylax is of venous thrombos is 2.0 - 3.0 (orthoped ic surgery), Proph ylaxis of venous throm bosis (other than hig h-risk surgery), Treat ment of Deep Vein Thrombosis/Pulm onary Embolism, Preve ntion of systemic emb olism - Tissue heart va lves, Acute Myocardia l Infarction (to prevent systemic emboli sm), Valvular heart disease, Atrial Fibrillation, Bileaflet mecha nical valve in aortic position.2. Mec hanical prosthetic valv es (high risk), 2. 5 - 3.5 Presence of Lup us Anticoagulant o r Antiphospholipi d Antibodies, Pre vention of systemic emb olism - Acute Myocardia l Infarction (to prevent recurrent infar ct).
[2022-02-10 21:45] LABS: Urine Blood 3+ (Negative); Urine Glucose Negative (Negative); Urine Protein Negative (Negative); Urine Specific Gravity 1.015 (1.005-1.030)
--- NOTE | 2022-02-10 23:31 | ER ---
Nurse's Notes [facility] Name: Kailee Mcgraw Age: 86 yrs Sex: Female : 1935 Arrival Date: 02/10/2022 Time: 20:08 Bed 18 Private MD: Diagnosis: UTI/ Urinary tract infection, site not specified;Acute cystitis with hematuria Presentation: 02/10 20:36 Chief complaint: Patient states: I have been peeing blood since this morning. 7 Coronavirus screen: At this time, the client does not indicate any symptoms associated with coronavirus-19. Ebola Screen: No symptoms or risks identified at this time. Initial Sepsis Screen: Does the patient meet any 2 criteria? No. Patient's initial sepsis screen is negative. Does the patient have a suspected source of infection? No. Patient's initial sepsis screen is negative. Risk Assessment: Do you want to hurt yourself or someone else? Patient reports no desire to harm self or others. Onset of symptoms was February 10, 2022. 20:36 Method Of Arrival: Wheelchair [facility] 20:36 Acuity: IAN 3 bm7 Triage Assessment: 20:40 General: Appears in no apparent distress. uncomfortable, Behavior is calm, cooperative, bm7 appropriate for age. Pain: Complains of pain in pelvis. EENT: No deficits noted. No signs and/or symptoms were reported regarding the EENT system. Neuro: No deficits noted. Cardiovascular: No deficits noted. Respiratory: No deficits noted. GI: No deficits noted. No signs and/or symptoms were reported involving the gastrointestinal system. : Reports burning with urination, urinary frequency, vaginal bleeding that is. Derm: No deficits noted. No signs and/or symptoms reported regarding the dermatologic system. Musculoskeletal: No deficits noted. No signs and/or symptoms reported regarding the musculoskeletal system. Historical: - Allergies: 20:37 No Known Allergies; bm7 - Home Meds: 20:37 Xarelto Oral [Active]; amlodipine-benazepril Oral [Active]; Aspirin Oral [Active]; bm7 atorvastatin 20 mg Oral tab 1 tab once daily [Active]; tramadol 50 mg Oral tab [Active]; pentoxifyline 400 mg [Active]; sotalol Oral [Active]; metoclopramide HCl 10 mg Oral tab 1 tab once daily [Active]; Furosemide Oral [Active]; gabapentin Oral [Active]; levothyroxine 88 mcg tab 1 tab once daily [Active]; lorazepam 1 mg Oral tab [Active]; omeprazole 40 mg Oral cpDR 1 cap once daily [Active]; - Immunization history:: Adult Immunizations up to date. - Social history:: Smoking status: Patient denies any tobacco usage or history of. Screenin:30 Abuse screen: Denies threats or abuse. Nutritional screening: No deficits noted. jb4 Tuberculosis screening: No symptoms or risk factors identified. Fall Risk Ambulatory Aid- Crutches/Cane/Walker (15 pts). Total Bennett Fall Scale indicates No Risk (0-24 pts). Assessment: 21:26 Reassessment: Dr. Nogueira to assess patient in triage. bm7 22:30 Reassessment: Patient appears in no apparent distress at this time. Patient and/or jb4 family updated on plan of care and expected duration. Pain level reassessed. Patient is alert, oriented x 3, equal unlabored respirations, skin warm/dry/pink. 23:53 Reassessment: Patient appears in no apparent distress at this time. Patient and/or jb4 family updated on plan of care and expected duration. Pain level reassessed. Patient is alert, oriented x 3, equal unlabored respirations, skin warm/dry/pink. Vital Signs: 20:35 BP 140 / 64; Pulse 84; Resp 16; Temp 97.5; Pulse Ox 95% on R/A; Weight 75.75 kg (R); bm7 Height 5 ft. 5 in. (165.10 cm); Pain 10/10; 22:30 BP 138 / 49; Pulse 75; Resp 16; Pulse Ox 98% on R/A; jb4 23:30 BP 136 / 56; Pulse 78; Resp 16; Pulse Ox 98% on R/A; jb4 20:35 Body Mass Index 27.79 (75.75 kg, 165.10 cm) bm7 ED Course: 20:08 Patient arrived in ED. bp1 20:24 Chaz Nogueira MD is Attending Physician. kdr 20:35 Arm band placed on right wrist. bm7 20:37 Triage completed. bm7 22:09 Marino Moe, KARIME is Primary Nurse. jb4 22:30 Patient has correct armband on for positive identification. Bed in low position. Call jb4 light in reach. Side rails up X 1. Client placed on continuous cardiac and pulse oximetry monitoring. NIBP monitoring applied. 23:54 No provider procedures requiring assistance completed. Patient did not have IV access jb4 during this emergency room visit. Administered Medications: 23:51 Drug: Bactrim (trimethoprim-sulfamethoxazole) (160 mg-800 mg (DS) 1 tablet Route: PO; jb4 23:52 Follow up: Response: Medication administered at discharge. jb4 23:51 Drug: Pyridium (phenazopyridine) 100 mg Route: PO; jb4 23:52 Follow up: Response: Medication administered at discharge. jb4 Medication: 23:30 VIS not applicable for this client. jb4 Outcome: 23:31 Discharge ordered by . kdr 23:54 Discharged to home via wheelchair, with family. jb4 23:54 Condition: stable 23:54 Discharge instructions given to patient, Instructed on discharge instructions, follow up and referral plans. medication usage, Demonstrated understanding of instructions, follow-up care, medications, Prescriptions given X 2. 23:55 Patient left the ED. jb4 Signatures: Chaz Nogueira MD MD kdr Bryson, James, RN RN jb4 Alia Lea Brittany, RN RN bm7 Corrections: (The following items were deleted from the chart) 20:38 20:37 PMHx: Diabetes - IDDM; bm7 bm7 20:38 20:37 PMHx: Hypertension; bm7 bm7 20:38 20:37 PMHx: Hypothyroidism; bm7 bm7 20:38 20:37 PMHx: Hyperlipidemia; bm7 bm7 20:38 20:37 PSHx: hysterectomy; bm7 bm7 20:38 20:37 PSHx: back; bm7 bm7 20:38 20:37 PSHx: Left hip; bm7 bm7
--- NOTE | 2022-02-10 23:31 | EDPHYS ---
Physician Documentation [facility] Name: Kailee Mcgraw Age: 86 yrs Sex: Female : 1935 Arrival Date: 02/10/2022 Time: 20:08 Bed 18 Private MD: ED Physician Chaz Nogueira HPI: 02/11 19:02 This 86 yrs old Female presents to ER via Wheelchair with complaints of Pain With kdr Urination, Blood in urine. 19:02 The patient states that she has been urinating blood since this morning she has had kdr similar symptoms previously. She denies any back pain or fever.. Onset: The symptoms/episode began/occurred this morning. Severity of symptoms: At their worst the symptoms were mild in the emergency department the symptoms have improved. The patient has experienced similar episodes in the past, a few times. The patient has not recently seen a physician. Historical: - Allergies: 02/10 20:37 No Known Allergies; bm7 - Home Meds: 20:37 Xarelto Oral [Active]; amlodipine-benazepril Oral [Active]; Aspirin Oral [Active]; bm7 atorvastatin 20 mg Oral tab 1 tab once daily [Active]; tramadol 50 mg Oral tab [Active]; pentoxifyline 400 mg [Active]; sotalol Oral [Active]; metoclopramide HCl 10 mg Oral tab 1 tab once daily [Active]; Furosemide Oral [Active]; gabapentin Oral [Active]; levothyroxine 88 mcg tab 1 tab once daily [Active]; lorazepam 1 mg Oral tab [Active]; omeprazole 40 mg Oral cpDR 1 cap once daily [Active]; - Immunization history:: Adult Immunizations up to date. - Social history:: Smoking status: Patient denies any tobacco usage or history of. ROS: 02/11 19:02 Constitutional: Negative for fever, chills, and weight loss, Eyes: Negative for injury, kdr pain, redness, and discharge, ENT: Negative for injury, pain, and discharge, Neck: Negative for injury, pain, and swelling, Cardiovascular: Negative for chest pain, palpitations, and edema, Respiratory: Negative for shortness of breath, cough, wheezing, and pleuritic chest pain, Abdomen/GI: Negative for abdominal pain, nausea, vomiting, diarrhea, and constipation, Back: Negative for injury and pain, MS/Extremity: Negative for injury and deformity, Skin: Negative for injury, rash, and discoloration, Neuro: Negative for headache, weakness, numbness, tingling, and seizure activity. Psych: Negative for depression, anxiety, suicide ideation, homicidal ideation, and hallucinations, Allergy/Immunology: Negative for hives, rash, and allergies, Endocrine: Negative for neck swelling, polydipsia, polyuria, polyphagia, and marked weight changes, Hematologic/Lymphatic: Negative for swollen nodes, abnormal bleeding, and unusual bruising. : Positive for urinary symptoms, urinary frequency, small amounts, hematuria, burning with urination. Exam: 19:02 Constitutional: This is a well developed, well nourished patient who is awake, alert, kdr and in no acute distress. Head/Face: Normocephalic, atraumatic. Eyes: Pupils equal round and reactive to light, extra-ocular motions intact. Lids and lashes normal. Conjunctiva and sclera are non-icteric and not injected. Cornea within normal limits. Periorbital areas with no swelling, redness, or edema. Neck: Trachea midline, no thyromegaly or masses palpated, and no cervical lymphadenopathy. Supple, full range of motion without nuchal rigidity, or vertebral point tenderness. No Meningismus. Chest/axilla: Normal chest wall appearance and motion. Nontender with no deformity. No lesions are appreciated. Cardiovascular: Regular rate and rhythm with a normal S1 and S2. No gallops, murmurs, or rubs. Normal PMI, no JVD. No pulse deficits. Respiratory: Lungs have equal breath sounds bilaterally, clear to auscultation and percussion. No rales, rhonchi or wheezes noted. No increased work of breathing, no retractions or nasal flaring. Abdomen/GI: Soft, non-tender, with normal bowel sounds. No distension or tympany. No guarding or rebound. No evidence of tenderness throughout. Back: No spinal tenderness. No costovertebral tenderness. Full range of motion. Skin: Warm, dry with normal turgor. Normal color with no rashes, no lesions, and no evidence of cellulitis. MS/ Extremity: Pulses equal, no cyanosis. Neurovascular intact. Full, normal range of motion. Neuro: Awake and alert, GCS 15, oriented to person, place, time, and situation. Cranial nerves II-XII grossly intact. Motor strength 5/5 in all extremities. Sensory grossly intact. Cerebellar exam normal. Normal gait. Psych: Awake, alert, with orientation to person, place and time. Behavior, mood, and affect are within normal limits. Vital Signs: 02/10 20:35 BP 140 / 64; Pulse 84; Resp 16; Temp 97.5; Pulse Ox 95% on R/A; Weight 75.75 kg (R); bm7 Height 5 ft. 5 in. (165.10 cm); Pain 10/; 22:30 BP 138 / 49; Pulse 75; Resp 16; Pulse Ox 98% on R/A; jb4 23:30 BP 136 / 56; Pulse 78; Resp 16; Pulse Ox 98% on R/A; jb4 20:35 Body Mass Index 27.79 (75.75 kg, 165.10 cm) bm7 MDM: 23:31 Patient medically screened. kdr 02/11 19:02 Data reviewed: vital signs, nurses notes, lab test result(s). Counseling: I had a kdr detailed discussion with the patient and/or guardian regarding: the historical points, exam findings, and any diagnostic results supporting the discharge/admit diagnosis, lab results, the need for outpatient follow up. Medical screen evaluation completed. EMTALA emergency medical condition absent. ED course: Patient was stable in the ED and without further need for intervention. The patient was nontoxic at all times in the ED and is stable. Patient was happy with the care provided and the plan for discharge and follow-up. 02/10 21:46 Order name: Urine Dipstick-Ancillary; Complete Time: 23:10 EDMS 02/10 21:14 Order name: Urine Dipstick-Ancillary (obtain specimen); Complete Time: 22:00 kdr Administered Medications: 02/10 23:51 Drug: Bactrim (trimethoprim-sulfamethoxazole) (160 mg-800 mg (DS) 1 tablet Route: PO; jb4 23:52 Follow up: Response: Medication administered at discharge. jb4 23:51 Drug: Pyridium (phenazopyridine) 100 mg Route: PO; jb4 23:52 Follow up: Response: Medication administered at discharge. jb4 Disposition Summary: 02/10/22 23:31 Discharge Ordered Location: Home kdr Problem: new kdr Symptoms: have improved kdr Condition: Stable kdr Diagnosis - UTI/ Urinary tract infection, site not specified kdr - Acute cystitis with hematuria kdr Followup: kdr - With: Private Physician - When: 2 - 3 days - Reason: If symptoms return, Further diagnostic work-up, Recheck today's complaints, Continuance of care, Re-evaluation by your physician Discharge Instructions: - Discharge Summary Sheet kdr - Dysuria kdr - Urinary Tract Infection, Adult, [id number] kdr Forms: - Medication Reconciliation Form kdr - Thank You Letter kdr - Antibiotic Education kdr Prescriptions: - Pyridium 200 mg Oral Tablet - take 1 tablet by ORAL route every 8 hours for 3 days; 9 tablet; Refills: 0, kdr Product Selection Permitted - Bactrim DS 800-160 mg Oral Tablet - take 1 tablet by ORAL route every 12 hours for 10 days; 20 tablet; Refills: 0, kdr Product Selection Permitted Signatures: Chaz Nogueira MD MD kdr Marino Moe RN RN jb4 Alia Mcfadden RN RN bm7 Corrections: (The following items were deleted from the chart) 20:38 20:37 PMHx: Diabetes - IDDM; bm7 bm7 20:38 20:37 PMHx: Hypertension; bm7 bm7 20:38 20:37 PMHx: Hypothyroidism; bm7 bm7 20:38 20:37 PMHx: Hyperlipidemia; bm7 bm7 20:38 20:37 PSHx: hysterectomy; bm7 bm7 20:38 20:37 PSHx: back; bm7 bm7 20:38 20:37 PSHx: Left hip; bm7 bm7
[2022-02-10] MEDS ORDERED: SMZ./TMP. 800/160 MG TABLET ONE (23:43)
[2022-02-10] MEDS ORDERED: PHENAZOPYRIDINE 100MG TAB PO ONE (23:43)
[2022-02-11 00:15] VITALS: O2SAT 98
[2022-02-11 00:17] VITALS: TEMP 97.5
[2022-02-11 00:18] VITALS: BP 136/56
== END 2022-02-10 23:55 | disposition home or self-care (01) ==
LOC: ER 20:06
DX: N30.01 Acute cystitis with hematuria (principal)
CPT/HCPCS: 81003; 99283

== ENCOUNTER 2022-02-22 13:30 | Day surgery (SDC) | payer OTHER ==
[2022-02-19 17:07] LABS: SARS-CoV-2 Antigen Rapid Res Negative (Negative)
[2022-02-19 17:11] LABS: Absolute Lymphocytes (CBC) 1.4 K/uL (0.7-4.9); Hematocrit 35.6 % (36.0-45.0); Lymphocytes % 16.8 % (15.3-44.8); MCV 85.5 fL (80-100); MPV 7.1 fL (7.6-11.3); RBC Red Blood Cell Count 4.17 M/uL (3.86-4.86)
[2022-02-19 17:17] LABS: Protime INR 0.94
[2022-02-19 17:27] LABS: Potassium 4.2 mmol/L (3.5-5.1)
--- NOTE | 2022-02-20 13:34 | EKG ---
Test Date: 2022-02-19 Test Time: 15:52:51 Web Marketing Manager: SAMUEL MEASUREMENT RESULTS: Intervals: Rate: 68 KS: 164 QRSD: 116 QT: 484 QTc: 514 [place]: P: 74 KS: 164 QRS: -42 T: 96 INTERPRETIVE STATEMENTS: Normal sinus rhythm Left axis deviation Anterolateral infarct, age undetermined Prolonged QT Abnormal ECG Compared to ECG 11/05/2021 16:23:37 Prolonged QT interval now present Sinus arrhythmia no longer present Left ventricular hypertrophy no longer present Early repolarization no longer present Myocardial infarct finding still present Electronically Signed On 02-20-22 13:33:49 CDT by Papito Thayer
[~2022-02-22 13:30] MED LIST: NA CHLORIDE 0.9% 500 ML ONE
[2022-02-22 14:12] VITALS: TEMP 97.5
[2022-02-22] MEDS ORDERED: HEPA 1000U/500MLS 2,000 UNIT/1,000 ML BAG IV ONE (14:40)
[2022-02-22] MEDS ORDERED: MIDAZOLAM HCL 2 MG/2 ML INJ ONE (14:42)
[2022-02-22] MEDS ORDERED: ATROPINE SULF 1 MG/10 ML SYR IV ONE (14:42)
[2022-02-22] MEDS ORDERED: FENTANYL CITR 100 MCG/2 ML ONE (14:42)
--- NOTE | 2022-02-22 16:01 | OP ---
Date of Procedure: 02/22/2022 Surgeon: URBAN VARGAS Procedures Performed: 1.Selective bilateral carotid angiogram. 2.Peripheral angiogram, distal aortogram with runoff. Indication: 1.Severe peripheral vascular disease by Doppler. 2.Severe carotid stenosis by Doppler. Access: Right femoral artery 4-[place] closed with manual pressure. Complications: None. Bleeding: Less than 10 mL. Anesthesia: Total time used for sedation was 40 minutes. Used fentanyl and Versed. Description Of Procedure: After risks, benefits, and alternatives were explained, the patient agreed to procedure and signed informed consent. The patient was brought into the cardiac catheterization laboratory, prepped and draped in the usual sterile fashion. Then, I accessed right femoral artery u sing ultrasound guidance micropuncture kit and fluoroscopy and placed a 4-[place] sheath. Th en, I took subsequently a 4-[place] JR4 catheter into the aortic root, engaged the right common caroti d artery, took standard views, and then engaged the left common carotid artery, took standard views a nd then exchanged for a straight pigtail catheter, placed in distal aorta and performed distal aortog sarah with runoff. I then removed the catheter and sheath and manual pressure was used for hemostasis. 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 2.Right common and left common iliac and right internal and left internal iliac arteries are all pat ent. 3.Right common femoral artery and left common femoral artery are patent. No significant disease. 4.Bilateral ostial SFA stenosis and reconstitute in the mid of the thigh from collaterals coming fro m profunda. 5.Bilateral profunda are widely patent. 6.Could not see below the knee very well due to were occluded. Recommendations And Plan: 1.Consult CT Surgery for a carotid endarterectomy on the right side. 2.After that is done, we will plan to bring her back for a peripheral intervention on the SFAs, the left and the right, which will be done in [place]. SR/MODL Voice ID: [id number] Report ID: [id number]
[2022-02-22 18:13] VITALS: BP 130/51; O2SAT 97
== END 2022-02-22 18:14 | disposition home or self-care (01) ==
LOC: CCL 13:30
PROVIDERS: ATTEND Internal Medicine
DX: I65.23 Occlusion and stenosis of bilateral carotid arteries (principal); I70.213 Atherosclerosis of native arteries of extremities with intermittent claudication, bilateral legs; I70.92 Chronic total occlusion of artery of the extremities; I71.40 Abdominal aortic aneurysm, without rupture, unspecified; I35.1 Nonrheumatic aortic (valve) insufficiency; I25.10 Atherosclerotic heart disease of native coronary artery without angina pectoris; I11.0 Hypertensive heart disease with heart failure; I50.31 Acute diastolic (congestive) heart failure; I48.91 Unspecified atrial fibrillation; I27.20 Pulmonary hypertension, unspecified; E78.5 Hyperlipidemia, unspecified; E11.9 Type 2 diabetes mellitus without complications; K21.9 Gastro-esophageal reflux disease without esophagitis; E03.9 Hypothyroidism, unspecified; D64.9 Anemia, unspecified; Z95.0 Presence of cardiac pacemaker; Z87.891 Personal history of nicotine dependence; Z79.899 Other long term (current) drug therapy; Z79.02 Long term (current) use of antithrombotics/antiplatelets; Z79.82 Long term (current) use of aspirin; Z79.4 Long term (current) use of insulin; Z20.822 Contact with and (suspected) exposure to COVID-19; Z82.49 Family history of ischemic heart disease and other diseases of the circulatory system
CPT/HCPCS: 93005; 85025; 80048; 36415; 85610; 82947; 85730; 75630; 36222; 76937; 87811; C1893; J2250; J3010; J7040; J1644

== ENCOUNTER 2022-07-10 09:34 | Inpatient (IN) | payer OTHER ==
--- OUTSIDE RECORDS SUMMARY | 2022-07-10 09:47 | XMS REPORT | Continuity of Care Document ---
:1935 Author Organization [facility] t Address [address] [facility]. [address] [place] [address] Care Team Providers Name Role Phone Asked, No Pcp Primary Care Physician Unavailable Papito Thayer Attending Clinician Unavailable Trisha LEYVA, Pavan Abdi Attending Clinician [phone] Alyssa SCHAFFER, Cris Attending Clinician Unavailable Sigrid Weston MA Attending Clinician Unavailable Roderick Dunn Attending Clinician Unavailable Ajibade_O_AH Attending Clinician Unavailable Ige-Edgarunrenay_George_AH Attending Clinician Unavailable Papito Thayer Admitting Clinician Unavailable Alin Fagan Admitting Clinician Unavailable Physician, No Primary or Family Admitting Clinician UnavailRoderick Huffman Admitting Clinician Unavailable Ajibade_O_AH Admitting Clinician Unavailable Ige-Noy_George_AH Admitting Clinician Unavailable Payers Payer Name Policy Type Policy Number Effective Date Expiration Date [facility] OF [place] - [id number] 2019 [employer] 00:00:00 (MEDICARE REPLACEMENT/ADVANT AGE - HMO) Problems Condition Condition Condition Status Onset Resolution Last Treating Co mments Source Name Details Category Date Date Treatment Clinician Date 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 00:00: Hospit a 00 l SVT SVT Disease Active [facility] (supravent (supravent [...] Allergie 6-27 Clear s 00:00: Zhao 00 [facility] Social History Social Habit Start Date Stop Date Quantity Comments Source Alcohol intake 2022-04-17 2022-04-17 Ex-drinker [facility] 00:00:00 00:00:00 (finding) Hospital Tobacco use and 2022-04-17 2022-04-17 Smokeless tobacco Me thodist exposure 00:00:00 00:00:00 non-user Hospital Sex Assigned At [birth year] [facility] 00:00:00 00:00:00 Hospital Smoking Status Start Date Stop Date Source Never smoked tobacco [facility]spital Medications Ordered Filled Start Stop Current Ordering Indication Dosage Frequency Signature Comments Components Source Medication Medication Date Date Medication? Clinician (SIG) Name Name LORAZepam 2021-05 Yes 1mg Q6H Take 1 mg Met hodi (ATIVAN) 1 2-[address] MG tablet 10:21: every 6 Hospi ta 10 (six) l hours as needed for anxiety. omeprazole 2021-05 Yes 40mg QD Take 40 mg M ethodi (PriLOSEC) 2-[address] 40 MG 10:21: daily. Hospita capsule 10 l traMADol 2021-05 Yes 50mg Q24H Take 50 mg Met hodi (ULTRAM) 50 2-[address] mg tablet 10:21: daily as [facility] 10 needed for l moderate pain. aspirin 2021-05 Yes 81mg QD Take 1 Method[facility] (ECOTRIN) 2-06 tablet (81 st 81 MG 10:21: mg total) Hospita enteric 10 by mouth l coated daily. tablet pentoxifyll 2021-05 Yes 400mg Q.[id number] Take 400 Methodi ine 2-[id number] (TRENTal) 10:19: 3D mouth 3 Hospi ta 400 mg CR 18 (three) l tablet times a day with meals. amlodipine- 2021-05 Yes 1{capsu QD Take 1 M ethodi benazepril 2-06 le} capsule by st (LOTREL) 10:17: mouth Hospita 10-20 mg 37 daily. l per capsule atorvastati 2021-05 Yes 20mg QD Take 20 mg Methodi n (LIPITOR) 2-[address] 20 MG 10:17: daily. Hospita tablet 37 Default OP l ins insulin NPH 2021-05 Yes 29U QD Inject 29 M ethodi (HumuLIN-N) 2-[address] 100 unit/mL 10:17: under the H ospita injection 37 skin daily l before breakfast. metoclopram 2021-05 Yes 10mg Q.25D Take 10 mg Methodi hemal 2-[address] (REGLAN) 10 10:17: (four) [facility] MG tablet 37 times a l day. And before bedtime levothyroxi 2021-05 Yes 88ug QD Take 88 Met hodi ne 2-[address] (SYNTHROID, 10:17: mouth Hospi ta LEVOXYL) 88 37 daily. l mcg tablet sotaloL 2021-05 Yes Methodi (BETAPACE) 1-28 st 80 MG 00:00: Hospita tablet 00 l amitriptyli 2021-05 Yes Method i ne (ELAVIL) 1-23 st 10 MG 00:00: Hospita tablet 00 l gabapentin 2021-05 Yes Methodi (NEURONTIN) 1-22 st 100 mg 00:00: Hospita capsule 00 l HYDROcodone 2021-05 Yes Method i -acetaminop 1-22 st hen (NORCO) 00:00: Hospit a 5-325 mg 00 l per tablet Klor-Con 2021-05 Yes Methodi M20 20 mEq 1-07 st CR tablet 00:00: Hospita 00 l clopidogreL 2021-05 Yes Method i (PLAVIX) 75 0-29 st mg tablet 00:00: Hospita 00 l furosemide 2021-05 Yes Methodi (LASIX) 40 0-09 st mg tablet 00:00: Hospita 00 l lisinopriL 2021-05 Yes Methodi (PRINIVIL) 0-04 st 10 mg 00:00: Hospita tablet 00 l insulin NPH Yes 29U QD Inject 29 M ethodi (HumuLIN-N) 5-[address] 100 unit/mL 16:39: under the H ospita injection 43 skin daily l before breakfast. pentoxifyll Yes 400mg Q.[id number] Take 400 Methodi ine 5-[id number] (TRENTal) 16:39: 3D mouth 3 Hospi ta 400 mg CR 43 (three) l tablet times a day with meals. omeprazole Yes 40mg QD Take 40 mg M ethodi (PriLOSEC) 5-[address] 40 MG 16:39: daily. Hospita capsule 43 l metoclopram 20190 Yes 10mg Q.25D Take 10 mg Methodi [...] 43 Default OP l ins insulin NPH 0 Yes 29U QD Inject 29 M ethodi (HumuLIN-N) 5-[address] 100 unit/mL 16:39: under the H ospita injection 43 skin daily l before breakfast. pentoxifyll 0 Yes 400mg Q.74493651 Take 400 Methodi ine 5-[id number] (TRENTal) 16:39: 3D mouth 3 Hospi ta 400 mg CR 43 (three) l tablet times a day with meals. omeprazole Yes 40mg QD Take 40 mg [...] Hospita tablet 43 Default OP l ins Vital Signs Vital Name Observation Time Observation Value Comments Source Systolic blood 2022-04-17 16:14:00 172 mm[Hg] [facility] pressure Diastolic blood 2022-04-17 16:14:00 84 mm[Hg] [facility] pressure Heart rate 2022-04-17 16:09:00 72 /min [facility] Body temperature 2022-04-17 16:09:00 36.61 [facility] Body height 2022-04-17 16:09:00 165.1 cm [facility] Body weight 2022-04-17 16:09:00 76.522 kg [facility] BMI 2022-04-17 16:09:00 28.07 kg/m2 [facility] Oxygen saturation in 2022-04-17 16:09:00 97 /min [facility] Arterial blood by Pulse oximetry Procedures Procedure Date / Time Performed Performing Clinician [facility] e US CAROTID DUPLEX 2022-04-17 17:14:53 Pavan Rhodes [facility] BILATERAL Kalachand [id number] 2021-12-13 00:00:00 RASSA [facility] [id number] 2021-11-11 00:00:00 ALDMO [facility] [id number] 2021-11-11 00:00:00 ALDMO [facility] [id number] 2021-11-11 00:00:00 ALDMO [facility] [id number] 2021-11-10 00:00:00 ALDMO [facility] [id number] 2021-11-10 00:00:00 ALDMO [facility] [id number] 2021-11-10 00:00:00 ALDMO [facility] Plan of Care Planned Activity Planned Date Details Comments Source Future Scheduled 2022-07-03 COVID-19 VACCINE (#1) [facility] Test 17:40:37 [code = COVID-19 VACCINE (#1)] Future Scheduled 2022-07-03 SHINGLES VACCINES (1 Met [facility] Test 17:40:37 of 2) [code = SHINGLES VACCINES (1 of 2)] Future Scheduled 2022-07-03 65+ [facility] 17:40:37 VACCINE (1 - PCV) [code = 65+ PNEUMOCOCCAL VACCINE (1 - PCV)] Future Scheduled 2022-07-03 INFLUENZA VACCINE Method [facility] Test 17:40:37 [code = INFLUENZA VACCINE] Future Scheduled 2022-01-13 HEPATITIS B VACCINES Met [facility] Test 02:14:04 (1 of 3 - 3-dose series) [code = HEPATITIS B VACCINES (1 of 3 - 3-dose series)] Future Scheduled 2022-01-13 COVID-19 VACCINE (#1) [facility] Test 02:14:04 [code = COVID-19 VACCINE (#1)] Future Scheduled 2022-01-13 SHINGLES VACCINES (1 Met [facility] Test 02:14:04 of 2) [code = SHINGLES VACCINES (1 of 2)] Future Scheduled 2022-01-13 65+ PNEUMOCOCCAL Methodi [facility]3] Test 02:14:04 VACCINE (1 - PCV) [code = 65+ PNEUMOCOCCAL VACCINE (1 - PCV)] Future Scheduled 2022-01-13 INFLUENZA VACCINE Method [facility] Test 02:14:04 [code = INFLUENZA VACCINE] Future Scheduled 2022-01-13 HEPATITIS B VACCINES Met [facility] Test 02:14:04 (1 of 3 - 3-dose series) [code = HEPATITIS B VACCINES (1 of 3 - 3-dose series)] Future Scheduled 2022-01-13 COVID-19 VACCINE (#1) [facility] Test 02:14:04 [code = COVID-19 VACCINE (#1)] Future Scheduled 2022-01-13 SHINGLES VACCINES (1 Met [facility] Test 02:14:04 of 2) [code = SHINGLES VACCINES (1 of 2)] Future Scheduled 2022-01-13 65+ [facility] Test 02:14:04 VACCINE (1 - PCV) [code = 65+ PNEUMOCOCCAL VACCINE (1 - PCV)] Future Scheduled 2022-01-13 INFLUENZA VACCINE Method [facility] Test 02:14:04 [code = INFLUENZA VACCINE] Encounters Start End Encounter Admission Attending Care Care Encounter Source Date/Time Date/Time Type Type Clinicians Facility Department ID 2021-12-13 Inpatient JEANETTE Perez INTE.02 [id number] [facility] 11:24:00 Papito [id number] [facility] 2022-04-17 2022-04-17 Office Trisha 1.2.840.1 [id number] Methodi 10:00:00 16:29:26 Visit , Pavan [address]207.1.[address] [facility] 3.430.2.7 [facility] .3.763959 l .8 2022-04-17 2022-04-17 Julia Shah 1.2.840.1 [id number] Methodi 00:00:00 00:00:[address] 3.430.2.7 Hospit a .3.880000 l .8 2022-04-17 2022-04-17 Travel 1.2.840.1 1.2.808.633 5003 [id number] Methodi 00:00:00 00:00:[address] 3.430.2.7 0.2.7.3.698 spita .3.146336 084.8 l .8 2022-04-17 2022-04-17 Outpatient TRISHA [facility] 119 [id number] [place] 00:00:00 00:00:00 , PAVAN [address] 2022-04-17 2022-04-17 Outpatient TRISHA [facility] 757 [id number] [place] 00:00:00 00:00:00 , PAVAN [address] 2022-04-13 2022-04-13 Telephone [place], 1.2.840.1 [id number] 2100 [id number] Methodi 00:00:00 00:00:[address] 3.430.2.7 Hospit a .3.692448 l .8 2022-04-02 2022-04-02 Telephone [place], 1.2.840.1 [id number] 2100 [id number] Methodi 00:00:00 00:00:[address] 3.430.2.7 Hospit a .3.450096 l .8 2022-03-28 2022-03-28 Telephone Trisha 1.2.840.1 [id number] Methodi 00:00:00 00:00:00 , Pavan [address].1.[address] [facility] 3.430.2.7 [facility] .3.598638 l .8 2022-01-24 2022-01-24 Outpatient KAMILA ThayerLISETTE OUTD [id number] [facility] 05:07:00 05:07:00 Papito 63 [facility] 2021-12-13 2021-12-13 Inpatient KAMILA ThayerLISETTE INTE.02 [id number] [facility] 11:24:00 13:30:00 Papito 99 [facility] 2021-12-06 2021-12-06 Outpatient KAMILA ThayerLISETTECL [id number] [facility] 05:12:00 05:12:00 Papito [id number] [facility] 2021-12-06 2021-12-06 Outpatient KAMILA Thayer [facility] [id number] [facility] 05:12:00 05:12:00 Papito 02 [facility] 2021-11-08 2021-11-11 Inpatient KAMILA Dunn [facility] MEDI.01 [id number] [facility] 12:44:00 14:33:00 Roderick 77 [facility] 2021-11-08 2021-11-11 Inpatient KAMILA Dunn [facility] MEDI.01 [id number] [facility] 12:44:00 14:33:00 Roderick [id number] [facility] 2020-01-07 2020-01-07 Outpatient Ajibade_O_A VFP VFP 794 [facility]202 [facility] 03:34:00 03:34:00 H [facility]74 Family Practic [facility] 2020-01-07 2020-01-07 Outpatient Ajibade_O_A VFP VFP [address] [place] [address] 03:34:00 03:34:00 H 39237 Family Practic e 2019-07-01 2019-07-01 Outpatient Ige-Odunuga VFP VFP 794 [facility]202 [facility] 07:18:00 07:18:00 _J_ 63782 Family Practic e Results Test Description Test Time Test Comments Results Result Comments Source GLUCOSE BEDSIDE 2022-01-24 07:07:00 Test Item Value Reference Range Interpretation Comme nts GLUCOSE BEDSIDE (test code = 160 MG/DL 70-110 H Performed by certified basket machine operator at [facility]) [facility] BASIC METABOLIC [id number] 12:28:00 Test Item Value Reference Range Interpretation [...] = 9.3 mg/dL 8.0-10.5 N CA) PROTHROMBIN [id number] 12:09:00 Test Item Value Reference Range Interpretation [...] (to prevent recurrent infar ct). CBC W/AUTO [id number] 12:05:00 Test Item Value Reference Range Interpretation [...] REQUIRED (test code NO = MDIFF) GLUCOSE [id number] 12:25:00 Test Item Value Reference Range Interpretation Comments GLUCOSE BEDSIDE (test 95 MG/DL 70-110 N Perfor med by certified code = GLUBED) basket machine operator at [facility] GLUCOSE [id number] 11:07:00 Test Item Value Reference Range Interpretation Comments GLUCOSE BEDSIDE (test 58 MG/DL 70-110 L Perfor med by certified code = GLUBED) basket machine operator at [facility] [id number] 10:36:00 Test Item Value Reference Range Interpretation Comments ACT-ISTAT (test code 306 SEC 74-137 H Perform ed by certified = WALT) basket machine operator at [facility] COMPREHENSIVE METABOLIC [id number] 08:50:00 Test Item Value Reference Range Interpretation [...] H TOTAL (test code = ALKP) PROTHROMBIN [id number] 08:37:00 Test Item Value Reference Range Interpretation [...] (to prevent recurrent infar ct). CBC W/AUTO [id number] 08:28:00 Test Item Value Reference Range Interpretation [...] REQUIRED (test code NO = MDIFF) GLUCOSE [id number] 07:40:00 Test Item Value Reference Range Interpretation Comments GLUCOSE BEDSIDE (test 70 MG/DL 70-110 N Perfor med by certified code = GLUBED) basket machine operator at [facility] - XR CHEST 1 [id number] [facility]:00[facility]00 [facility] 1935 Sex: F FAX: Papito Dotson MD [phone] [place]: St: ADM FAX: Alin Almanzar MD [phone] FAX: Benjy Mendez [phone] Name: [facility]EL [facility] : 1935 Age/S: 86/F [address] [place] [address] Bl Unit #: [id number] Loc: [place] [address] Phys: Benjy Mendez Acct: [id number] Dis Date: Status: ADM IN PHONE #: [phone] Exam Date: 12/13/2021 1218 FAX #: [phone] Reason: WATCHMAN EXAMS: CPT CODE: [id number] XR CHEST 1 V 98910 PROCEDURE INFORMATION: Exam: XR Chest Exam date and time: 12/13/2021 11:39 AM Age: 86 years old Clinical [...] post median sternotomy. Aortic atherosclerosis. Atrial appendage occluder device noted. Bones/joints: Unchanged. IMPRESSION: No acute cardiopulmonary disease ElectronicallySigned by Brenda Gould on 12/13/2021 at 0783 Reported and signed by: Brenda Sawyer CC: Papito Thayer MD; Alin Fagan MD; Benjy Mendez Technologist: RT Harry(Rudolph) Trnscrd Date/Time/By: 12/13/2021 (7744) : By: [email or web address] Orig Print D/T: S: 12/13/2021 (3674) PAGE 1 Signed Report BASIC METABOLIC [id number] 13:13:00 Test Item Value Reference Range Interpretation [...] code = 10.1 mg/dL 8.0-10.5 N CA) [id number] 13:13:00 Test Item Value Reference Range Interpretation Comments PREALBUMIN (test code = PREALB) 26.4 mg/dL 16.0-40.0 N PROTHROMBIN [id number] 13:02:00 Test Item Value Reference Range Interpretation [...] (to prevent recurrent infar ct). CBC W/AUTO [id number] 12:48:00 Test Item Value Reference Range Interpretation [...] NO = MDIFF) - XR CHEST 2 [id number] 00:00:00 [facility] : 1935 Sex: F FAX: Papito Dotson MD [phone] [place]: St: PRE Name: TGMARIVEL [facility] : 1935 Age/S: 86/F [address] [facility] Unit #: [id number] Loc: [place] [address] Phys: Papito Thayer MD Acct: [id number] Dis Date: Status: PRE [facility] PHONE #: [phone] Exam Date: 12/04/2021 1231 FAX #: [phone] Reason: PREOP EXAMS: CPT CODE: [id number] XR CHEST 2 V 80799 PROCEDURE INFORMATION: Exam: XR Chest Exam date and time: 12/04/2021 12:31 PM Age: 86 years old Clinical indication: Other: Preop TECHNIQUE: Imaging protocol: Radiologic exam of the chest. Views: 2 views. PA and Lateral COMPARISON: CTA ABD PEL W CONT 11/08/2021 6:40 PM FINDINGS: Tubes, catheters and [...] Surjit Combs M.D. CC: Papito Thayer MD Technologist:RT Ziggy(Rudolph) Trnscrd Date/Time/By: 12/04/2021 (1330) : By: [email or web address] Orig Print D/T: S: 12/04/2021 (1330) PAGE 1 Signed ReportCOAGULATION TIME [id number] 12:55:00 Test Item Value Reference Range Interpretation Comments COAGULATION TIME 385 SECONDS Performed b y ACTIVATED (test code = certi fied basket machine operator ACT) at [facility] C[facility] GLUCOSE [id number] 12:57:00 Test Item Value Reference Range Interpretation Comments GLUCOSE BEDSIDE (test 151 MG/DL 70-110 H Perfor med by certified code = GLUBED) basket machine operator at [facility] GLUCOSE [id number] 04:48:00 Test Item Value Reference Range Interpretation Comments GLUCOSE BEDSIDE (test 160 MG/DL 70-110 H Perfor med by certified code = GLUBED) basket machine operator at [facility] GLUCOSE [id number] 19:50:00 Test Item Value Reference Range Interpretation Comments GLUCOSE BEDSIDE (test 133 MG/DL 70-110 H Perfor med by certified code = GLUBED) basket machine operator at [facility] [id number] 15:56:00 Test Item Value Reference Range Interpretation Comments ACT-ISTAT (test code 312 SEC 74-137 H Perform ed by certified = ACTI) basket machine operator at [facility] GLUCOSE [id number] 11:28:00 Test Item Value Reference Range Interpretation Comments GLUCOSE BEDSIDE (test 158 MG/DL 70-110 H Perfor med by certified code = GLUBED) basket machine operator at [facility] BASIC METABOLIC [id number] 07:08:00 Test Item Value Reference Range Interpretation [...] be done morning of Heart CathTHROMBOPLASTIN TIME [id number] 06:57:00 Test Item Value Reference Range Interpretation Comments THROMBOPLASTIN TIME 29.7 Seconds 25.0-39.5 N Therape utic Range: PARTIAL (test code = 50.4 - 88.3 Seconds PTT) Effective 08/26/2018 CBC W/AUTO [id number] 06:41:00 Test Item Value Reference Range Interpretation [...] morning of Heart CathCOVID 19 Asymptomatic IH [id number] 06:09:00 Test Item Value Reference Range Interpretation [...] moderate, high or waivedcomplexit y tests. GLUCOSE [id number] 04:08:00 Test Item Value Reference Range Interpretation Comments GLUCOSE BEDSIDE (test 128 MG/DL 70-110 H Perfor med by certified code = GLUBED) basket machine operator at [facility] GLUCOSE [id number] 00:03:00 Test Item Value Reference Range Interpretation Comments GLUCOSE BEDSIDE (test 188 MG/DL 70-110 H Perfor med by certified code = GLUBED) basket machine operator at [facility] GLUCOSE [id number] 16:05:00 Test Item Value Reference Range Interpretation Comments GLUCOSE BEDSIDE (test 141 MG/DL 70-110 H Perfor med by certified code = GLUBED) basket machine operator at [facility] GLUCOSE [id number] 11:13:00 Test Item Value Reference Range Interpretation Comments GLUCOSE BEDSIDE (test 180 MG/DL 70-110 H Perfor med by certified code = GLUBED) basket machine operator at [facility] COMPREHENSIVE METABOLIC [id number] 07:59:00 Test Item Value Reference Range Interpretation [...] 20-125 N TOTAL (test code = ALKP) [id number] 07:59:00 Test Item Value Reference Range Interpretation Comments LIPASE (test code = LIP) 22 U/L 13-57 N CBC W/AUTO [id number] 07:47:00 Test Item Value Reference Range Interpretation [...] REQUIRED (test code NO = MDIFF) GLUCOSE [id number] 06:02:00 Test Item Value Reference Range Interpretation Comments GLUCOSE BEDSIDE (test 139 MG/DL 70-110 H Perfor med by certified code = GLUBED) basket machine operator at [facility] Ctr - CTA ABD PEL W [id number] 00:00:00 [facility] MARIVEL MAS : 1935 Sex: F Name: MARIVEL MAS [facility] : 1935 Age/S: 85 / F [address] [place], [place] [address]vd Unit #: [id number]: RayshawnRAFI [address] Phys: Roderick Dunn MD Acct: [id number] Dis Date: Status: ADM IN PHONE #: [phone] Exam Date: 11/08/2021 1843 FAX #: [phone] Reason: EVAL FOR BOWEL ISCHEMIA/ PVD EXAMS: CPT CODE: [id number] CTA ABD PEL W CONT 89224 PROCEDURE INFORMATION: Exam: CTA Abdomen and Pelvis With Contrast Exam date and time: 11/08/2021 6:40 [...] scarring with no edema or lobar consolidation. Pleural spaces: No pleural effusion. No pneumothorax. Heart: No pericardial thickening or effusion. Cardiomegaly with mild concentric left ventricular hypertrophy. No intracardiac thrombus or ventricular aneurysm. Severe coronary atherosclerosis. Aorta: Severe aortoiliac atherosclerosis without aneurysm or dissection. Celiac trunk and mesenteric arteries: Patent celiac and mesenteric arterial circulation withmild eccentric calcified SMA and moderate eccentric ABHISHEK plaque. Renal arteries: No occlusion or significant stenosis. Right iliac arteries: No occlusion or significant stenosis. Left iliac arteries: Noocclusion or significant stenosis. Veins: Few venous collaterals are seen in the left anterior chestwall, of indeterminate significance. Liver: Faint 14 mm non masslike area of arterial enhancement isseen in the right liver lobe segment 7 (3, 32), becoming isodense delayed postcontrast images. This may reflect benign regional arterialization. Low volume focal fatty infiltration is seen in the left lateral liver lobe near the falciform ligament. No cirrhotic PAGE 1 Signed Report (CONTINUED) Name: MARIVEL MAS [facility] : 1935 Age/S: 85 / F [address] [place] [address] Blvd Unit #: [id number] Loc: [place] [address] Phys: Roderick Dunn MD Acct: [id number] Dis Date: Status: ADM IN PHONE #: [phone] Exam Date: 11/08/20211842 FAX #: [phone] Reason: EVAL FOR BOWEL ISCHEMIA/ PVD EXAMS: CPT CODE: [id number] CTA ABD PEL W CONT 63702 (Continued) change. Patent splenoportal circulation. Gallbladder and bile ducts: No calcified stones. No ductal dilation. Pancreas: Diffuse pancreatic atrophy without calcification or focal lesion. Spleen: Unremarkable spleen. Adrenal glands: No adrenal lesions. Kidneys and ureters: Bilateral renal vascular calcification and or nonobstructive nephrolithiasis. No enhancing renal lesions. No hydronephrosis. Stomach and bowel: Large volume colonic fecal ma terial diffusely. Colonic diverticulosis without signs of diverticulitis. Appendix: Probable prior appendectomy changes to be correlated with history. Intraperitoneal space: No ascites. Lymph nodes: Noadenopathy. Urinary bladder: No bladder filling defects or diverticula. Reproductive: Prior hysterectomy. Bones/joints: Prior antegrade intramedullary nailing and hip screw fixation of the left hip with no visible complication. Severe thoracolumbar/lumbosacral spondylosis , symphyseal and bilateral SIjoint osteoarthritis. IMPRESSION: 1. Severe aortoiliac atherosclerosis without [...] signed by: Dionte Dong M.D. CC: Roderick Dunn; Papito Thayer MD Technologist:Florinda Farley, RT(R)(CT) CTDI: DLP: Trnscb Date/Time: 11/09/2021 (816) [email or web address] Orig Print D/T: S: 11/09/2021 (18) PAGE 2 Signed ReportGLUCOSE [id number] 19:45:00 Test Item Value Reference Range Interpretation Comments GLUCOSE BEDSIDE (test 207 MG/DL 70-110 H Perfor med by certified code = GLUBED) basket machine operator at [facility] GLUCOSE [id number] 16:12:00 Test Item Value Reference Range Interpretation Comments GLUCOSE BEDSIDE (test 198 MG/DL 70-110 H Perfor med by certified code = GLUBED) basket machine operator at [facility] GLUCOSE [id number] 12:14:00 Test Item Value Reference Range Interpretation Comments GLUCOSE BEDSIDE (test 179 MG/DL 70-110 H Perfor med by certified code = GLUBED) basket machine operator at [facility] PROTHROMBIN [id number] 12:21:00 Test Item Value Reference Range Interpretation [...]
--- NOTE | 2022-07-10 10:33 | RAD REPORT ---
EXAM DESCRIPTION: CT - CTHCSPWOC - 07/10/2022 10:07 am CLINICAL HISTORY: fall, confusion. Found down. Weakness COMPARISON: No comparisons TECHNIQUE: Axial thin cut noncontrast CT images of the head were obtained. Axial thin cut noncontrast CT images of the cervical spine were obtained. Multiplanar reformatted images were generated and reviewed. All CT scans are performed using dose optimization technique as appropriate and may include automated exposure control or mA/KV adjustment according to patient size. FINDINGS: CT HEAD WITHOUT CONTRAST: No acute hemorrhage, hydrocephalus or extra-axial collection is identified.No areas of brain edema or midline shift. The paranasal sinuses and mastoids are clear.The calvarium is intact. CT CERVICAL SPINE WITHOUT CONTRAST: No fracture or subluxation.Multilevel degenerative changes with minimal degrees of spondylolisthesis at multiple levels secondary to endplate remodeling and facet arthropathy. No bony canal stenosis. Va riable degrees of uncovertebral joint spurring as well, contributing to up to moderate neural foramin al narrowing bilaterally at C6-7, and on the left at C5-6.No prevertebral soft tissues swelling is id entified. IMPRESSION: No acute traumatic intracranial or cervical spine findings.Multilevel cervical spine deg enerative changes as above.
[2022-07-10 11:35] LABS: Urine Blood Negative (Negative); Urine Glucose Negative (Negative); Urine Protein 1+ (Negative); Urine Specific Gravity 1.015 (1.005-1.030); Urine pH 6.5 (5.0-7.0)
[2022-07-10 11:52] LABS: SARS-COV-2 RT PCR NEGATIVE (NEGATIVE)
--- NOTE | 2022-07-10 12:10 | RAD REPORT ---
EXAM DESCRIPTION: RADChest Single View07/10/2022 10:57 am CLINICAL HISTORY: fever, weakness COMPARISON: Chest Single View dated 11/05/2021; Chest Pa And Lat (2 Views) dated 10/20/2021; Chest Pa And Lat (2 Views) dated 04/12/2021; Chest Single View dated 01/28/2020 TECHNIQUE: Portable AP view of the chest. FINDINGS: Developing left basilar patchy airspace opacities. No pneumothorax or effusion. The cardio mediastinal contours are unremarkable. IMPRESSION: Developing left basilar patchy airspace opacities, concerning for pneumonia.
[2022-07-10] MEDS ORDERED: CEFTRIAXONE 1000 MG/VIAL ONE (13:20)
[2022-07-10] MEDS ORDERED: HYDROCODONE/APAP 5/325 MG TAB ONE (13:26)
[2022-07-10 13:36] LABS: Absolute Lymphocytes (CBC) 1.1 K/uL (0.7-4.9); Hematocrit 44.1 % (36.0-45.0); Lymphocytes % 8.5 % (15.3-44.8); MCV 92.5 fL (80-100); MPV 7.7 fL (7.6-11.3); RBC Red Blood Cell Count 4.77 M/uL (3.86-4.86)
[2022-07-10 13:37] LABS: Protime INR 1.07
[2022-07-10 13:49] LABS: Magnesium 2.1 mg/dL (1.6-2.4); Potassium 3.5 mmol/L (3.5-5.1)
--- NOTE | 2022-07-10 14:10 | EDPHYS ---
Physician Documentation [facility] Name: Kailee Mcgraw Age: 86 yrs Sex: Female : 1935 Arrival Date: 07/10/2022 Time: 09:37 Bed 20 Private MD: Alin Fagan ED Physician Matthew Cantu HPI: 07/10 09:48 This 86 yrs old Female presents to ER via Wheelchair with complaints of Fall Injury, jmm Fever, Confusion. 09:48 Details of fall: The patient fell from an upright position. Onset: The symptoms/episode jmm began/occurred acutely, last night. Associated injuries: The patient sustained no obvious injury. This is an 86-year-old female with history of hypertension, diabetes mellitus, hypothyroidism the presents emerged department with generalized body aches fever. Daughter states she found her on the floor this morning presumed that she fell out of bed while attempting to go to the restroom. States the patient was mildly confused yesterday and noticed the patient had a low-grade fever.. Historical: - Allergies: 09:51 No Known Allergies; ap3 - PMHx: 09:51 Hypertensive disorder; Diabetes mellitus; Hypothyroidism; ap3 - Immunization history:: Client reports receiving the 2nd dose of the Covid vaccine. - Social history:: Smoking status: Patient denies any tobacco usage or history of. ROS: 09:48 All other systems are negative. jmm 09:48 Constitutional: Positive for fatigue, fever. jmm 09:48 Neuro: Positive for altered mental status. Exam: 09:48 Head/Face: atraumatic. Eyes: EOMI, no conjunctival erythema appreciated ENT: Moist jm Mucus Membranes Neck: Trachea midline, Supple Chest/axilla: Normal chest wall appearance and motion. Cardiovascular: Regular rate and rhythm. No edema appreciated Respiratory: Normal respirations, no respiratory distress appreciated Abdomen/GI: Non distended Back: Normal ROM Skin: General appearance color normal 09:48 Constitutional: The patient appears in no acute distress, alert, awake. 09:48 Musculoskeletal/extremity: ROM: intact in all extremities. 09:48 Skin: Appearance: Color: normal in color. 09:48 Neuro: Motor: is normal. 09:48 Psych: Behavior/mood is pleasant, cooperative. Vital Signs: 09:48 BP 148 / 73; Pulse 103; Resp 18; Pulse Ox 93% ; Weight 77.11 kg; ap3 09:48 Temp 99.9(O); ap3 10:00 BP 157 / 80; Pulse 84; Resp 16; Pulse Ox 100% ; ko1 11:01 BP 156 / 85; Pulse 92; Resp 18; Pulse Ox 99% ; ko1 11:58 BP 155 / 69; Pulse 84; Resp 16; Pulse Ox 99% ; ko1 MDM: 09:48 Patient medically screened. rn 10:15 Data reviewed: vital signs, nurses notes. [facility] 14:06 Differential diagnosis: Pneumonia, UTI, ACS, sepsis, CVA, TIA, rhabdo. Consideration of [facility] Admission/Observation Patient was admitted/placed on observation. Management of patient was discussed with the following: Dr. Fagan. I considered the following discharge prescriptions or medication management in the emergency department Medications were administered in the Emergency Department. See MAR. Independent interpretation of the following test(s) in the Emergency Department X-Ray: My interpretation is Infiltrate appreciated. Historians other than the Patient: Daughter. Counseling: I had a detailed discussion with the patient and/or guardian regarding: the historical points, exam findings, and any diagnostic results supporting the discharge/admit diagnosis, lab results, radiology results, the need for further work-up and treatment in the hospital. 07/10 09:51 Order name: Basic Metabolic Panel; Complete Time: 13:54 [facility] 07/10 09:51 Order name: CBC with Diff; Complete Time: 14:37 [facility] 07/10 09:51 Order name: Magnesium; Complete Time: 13:54 [facility] 07/10 09:51 Order name: NT PRO-BNP; Complete Time: 13:54 [facility] 07/10 09:51 Order name: PT-INR; Complete Time: 13:44 [facility] 07/10 09:51 Order name: Troponin HS; Complete Time: 13:54 [facility] 07/10 09:51 Order name: XRAY Chest (1 view); Complete Time: 12:14 [facility] 07/10 09:51 Order name: EKG; Complete Time: 09:54 [facility] 07/10 09:51 Order name: Cardiac monitoring; Complete Time: 09:57 [facility] 07/10 09:51 Order name: EKG - Nurse/Tech; Complete Time: 10:41 [facility] 07/10 09:51 Order name: IV Saline Lock; Complete Time: 10:39 [facility] 07/10 09:51 Order name: Labs collected and sent; Complete Time: 10:39 [facility] 07/10 09:51 Order name: O2 Per Protocol; Complete Time: 09:57 [facility] 07/10 09:51 Order name: O2 Sat Monitoring; Complete Time: 09:57 [facility] 07/10 09:51 Order name: Urine Dipstick-Ancillary (obtain specimen); Complete Time: 11:35 [facility] 07/10 09:51 Order name: Urine Culture [facility] 07/10 09:51 Order name: Lactate w/ 2H reflex if indic.; Complete Time: 13:54 [facility] 07/10 09:51 Order name: Blood Culture Adult (2) [facility] 07/10 09:51 Order name: CT Head C Spine; Complete Time: 10:37 [facility] 07/10 09:52 Order name: CPK; Complete Time: 13:54 [facility] 07/10 09:56 Order name: COVID-19/FLU A+B; Complete Time: 11:58 [facility] 07/10 11:20 Order name: Straight Cath; Complete Time: 11:35 [facility] 07/10 11:35 Order name: Urine Dipstick-Ancillary; Complete Time: 11:36 [facility] 07/10 14:30 Order name: CBC Smear Scan; Complete Time: 14:37 [facility] 07/10 14:42 Order name: CONS Physician Consult [facility] 07/10 14:42 Order name: 60g Consistent Carbohydrate (ADA 1800/2000) [facility] 07/10 14:42 Order name: Basic Metabolic Panel [facility] 07/10 14:42 Order name: Basic Metabolic Panel [facility] 07/10 14:42 Order name: CBC with Automated Diff [facility] 07/10 14:42 Order name: CBC with Automated Diff EDNC Administered Medications: 13:33 Drug: Rocephin (cefTRIAXone) 1 grams Route: IV; Rate: calculated rate; Site: right ko1 wrist; 13:33 Drug: HYDROcodone-acetaminophen 5 mg-325 mg 1 tabs Route: PO; ko1 14:26 Drug: Lovenox (enoxaparin) 1 mg/kg Route: Sub-Q; Site: abdomen; ko1 14:26 Drug: Aspirin Chewable Tablet 324 mg Route: PO; ko1 14:26 Drug: Meropenem 1 grams Route: IV; Rate: calculated rate; Site: right wrist; ko1 Disposition Summary: 07/10/22 14:09 Hospitalization Ordered Hospitalization Status: Inpatient Admission [facility] Provider: Alin Fagan Condition: Stable jmm Problem: new jmm Symptoms: are unchanged jmm Bed/Room Type: Standard [facility] Location: Telemetry/MedSurg (Inpatient)(07/11/22 07:35) ja1 Room Assignment: [facility](07/11/22 07:35) fabiola Diagnosis - Community-acquired pneumonia jmm - Urinary tract infection jmm - Altered mental status jmm Forms: - Medication Reconciliation Form jmm - SBAR form jmm Addendum: 07/12/2022 10:30 Co-signature as Attending Physician, Matthew Cantu MD I reviewed the patient's care r n provided by the Advanced Practice Provider and agree with the diagnosis and treatment plan. Signatures: Dispatcher [employer] [facility] Alex Castano PA PA [facility] Matthew Cantu MD MD rn Smirch, Shelby, RN RN ss Unruly Kenny RN RN [email or web address] Patricia Waters RN RN [email or web address] Giselle Graham RN RN ko1 Corrections: (The following items were deleted from the chart) 07/10 09:52 09:51 Home Meds: Xarelto Oral; ap3 ap3 10:14 09:48 Constitutional: Negative for fever, chills, and weight loss, Cardiovascular: [facility] Negative for chest pain, palpitations, and edema, Respiratory: Negative for shortness of breath, cough, wheezing, and pleuritic chest pain, [facility] 11:54 09:54 CREATINE PHOSPHOKINASE+C.LAB.BRZ ordered. [facility] 17:55 14:09 Telemetry/MedSurg (Inpatient) [facility] 17:55 14:09 [facility] 07/11 07:35 07/10 17:55 [facility] ER HOLD [facility] 07/11 07:35 07/10 17:55 ERHOLD- [facility]
--- NOTE | 2022-07-10 14:10 | ER ---
Nurse's Notes [facility] Name: Kailee Mcgraw Age: 86 yrs Sex: Female : 1935 Arrival Date: 07/10/2022 Time: 09:37 Bed 20 Private MD: Alin Fagan Diagnosis: Community-acquired pneumonia;Urinary tract infection;Altered mental status Presentation: 07/10 09:48 Chief complaint: Patient's son or daughter states: patient was weak yesterday and slept ap3 a lot throughout the day. patients daughter woke up this morning to find that the patient was on the floor next to her bed. Patients daughter reports that the patient was confused earlier this morning, and has had some fever recently. Coronavirus screen: Client presents with at least one sign or symptom that may indicate coronavirus-19. Ebola Screen: No symptoms or risks identified at this time. Initial Sepsis Screen: Does the patient meet any 2 criteria? HR > 90 bpm. Does the patient have a suspected source of infection? No. Patient's initial sepsis screen is negative. Risk Assessment: Do you want to hurt yourself or someone else? Patient reports no desire to harm self or others. Onset of symptoms was July 09, 2022. 09:48 Method Of Arrival: Wheelchair ap3 09:48 Acuity: IAN 3 ap3 Triage Assessment: 09:52 General: Appears uncomfortable, Behavior is calm, cooperative. Pain: Denies pain. ap3 Neuro: Level of Consciousness is awake, alert, obeys commands, patients daughter reports that the patient was confused this morning. Cardiovascular: Patient's skin is warm and dry. Respiratory: Airway is patent Respiratory effort is even, unlabored, Respiratory pattern is regular, symmetrical. Historical: - Allergies: 09:51 No Known Allergies; ap3 - PMHx: 09:51 Hypertensive disorder; Diabetes mellitus; Hypothyroidism; ap3 - Immunization history:: Client reports receiving the 2nd dose of the Covid vaccine. - Social history:: Smoking status: Patient denies any tobacco usage or history of. Screenin:53 Abuse screen: Denies threats or abuse. Nutritional screening: No deficits noted. ap3 Tuberculosis screening: No symptoms or risk factors identified. 11:01 [facility] ED Fall Risk Assessment (Adult) History of falling in the last 3 months, ko1 including since admission Yes- single mechanical fall (1 pt) Confusion or Disorientation Yes (5 pts) Intoxicated or Sedated No (0 pts) Impaired Gait Yes (1 pt) Mobility Assist Device Used Yes (1 pt) Altered Elimination Yes (1 pt) Score/Fall Risk Level 3 or more points = High Risk Oriented to surroundings, Maintained a safe environment, Educated pt \T\ family on fall prevention, incl call for assistance when getting out of bed, Assessed \T\ reinforced patient's understanding of fall precautions, Provided non-skid footwear, Hourly rounding (assess needs \T\ fall precautionary measures) done, Used ambulatory aids as needed (educated on \T\ assisted with), Used gait belt as appropriate Implemented a Fall Risk Plan of Care, Apply high fall risk patient identification: yellow non skid footwear/ fall signage, Remained w/in arm's length of patient and in sight while toileting, Offered frequent toileting (1:1 observation), Remained with patient while ambulating, Utilized family, sitter, or virtual transmitter supervisor as indicated. Primary Survey: 09:53 NO uncontrolled hemorrhage observed. A: The client is awake and alert. The airway is ap3 patent. Breathing/Chest: Spontaneous respiratory effort, equal unlabored respirations, breath sounds clear bilaterally, regular pattern, symmetrical chest rise and fall. Respiratory effort: spontaneous, Respiratory pattern: regular, Chest inspection: symmetrical rise and fall of the chest. Circulation: No external hemorrhage present. Regular and strong central pulse, skin warm/dry/normal color. Disability Client is alert. Assessment: 10:00 General: Appears in no apparent distress. uncomfortable, ill, Behavior is calm, ko1 cooperative, appropriate for age. Pain: Denies pain. Neuro: No deficits noted. Cardiovascular:. Respiratory: No deficits noted. GI: No deficits noted. : No deficits noted. EENT: No deficits noted. Derm: Bruising that is on scattered all over. Musculoskeletal: No deficits noted. Vital Signs: 09:48 BP 148 / 73; Pulse 103; Resp 18; Pulse Ox 93% ; Weight 77.11 kg; ap3 09:48 Temp 99.9(O); ap3 10:00 BP 157 / 80; Pulse 84; Resp 16; Pulse Ox 100% ; ko1 11:01 BP 156 / 85; Pulse 92; Resp 18; Pulse Ox 99% ; ko1 11:58 BP 155 / 69; Pulse 84; Resp 16; Pulse Ox 99% ; ko1 ED Course: 09:37 Patient arrived in ED. mr 09:37 Alin Fagan MD is Private Physician. mr 09:48 Matthew Cantu MD is Attending Physician. rn 09:49 [facility] jmm 09:51 Triage completed. ap3 09:53 Arm band placed on right wrist. ap3 09:53 Patient has correct armband on for positive identification. Bed in low position. Call ap3 light in reach. Side rails up X2. Adult w/ patient. 09:53 Patient maintains SpO2 saturation greater than 95% on room air. ap3 09:56 Giselle Graham, RN is Primary Nurse. ko1 10:08 CT Head C Spine In Process Unspecified. EDMS 10:39 Basic Metabolic Panel Sent. ko1 10:39 CBC with Diff Sent. ko1 10:39 Magnesium Sent. ko1 10:39 NT PRO-BNP Sent. ko1 10:39 PT-INR Sent. ko1 10:39 Troponin HS Sent. ko1 10:39 Lactate w/ 2H reflex if indic. Sent. ko1 10:40 COVID-19/FLU A+B Sent. ko1 10:59 XRAY Chest (1 view) In Process Unspecified. EDMS 11:01 Client placed on continuous cardiac and pulse oximetry monitoring. NIBP monitoring ko1 applied. [address] recording monitor on. Warm blanket given. Pillow given. 11:35 Urine Culture Sent. ko1 11:40 Inserted saline lock: 22 gauge in right wrist, using aseptic technique. Blood collected.ss 12:48 Missed attempt(s): 22 gauge in left upper arm. vg1 14:08 Alin Fagan MD is Hospitalizing Provider. [facility] Administered Medications: 13:33 Drug: Rocephin (cefTRIAXone) 1 grams Route: IV; Rate: calculated rate; Site: right ko1 wrist; 13:33 Drug: HYDROcodone-acetaminophen 5 mg-325 mg 1 tabs Route: PO; ko1 14:26 Drug: Lovenox (enoxaparin) 1 mg/kg Route: Sub-Q; Site: abdomen; ko1 14:26 Drug: Aspirin Chewable Tablet 324 mg Route: PO; ko1 14:26 Drug: Meropenem 1 grams Route: IV; Rate: calculated rate; Site: right wrist; ko1 Outcome: 14:09 Decision to Hospitalize by Provider. cherrie 07/11 08:19 Patient left the ED. ph Signatures: Dispatcher [employer] EDMS Alex Castano PA PA demarco Sona Hudson, MD MD karime Castro Shelby, KARIME RN Jennifer De León RN RN Patricia Waters RN RN [email or web address] Shama Hartley RN RN [facility] Giselle Graham RN RN ko1 Corrections: (The following items were deleted from the chart) 07/10 09:52 09:51 Home Meds: Xarelto Oral; ap3 ap3 11:54 10:39 CREATINE PHOSPHOKINASE+C.LAB.BRZ drawn and sent. jose1 EDIN
[2022-07-10] MEDS ORDERED: ASPIRIN 81 MG CHEWABLE TABLET ONE (14:26)
[2022-07-10] MEDS ORDERED: Meropenem 1000 MG/VIAL IV ONE (14:26)
[2022-07-10] MEDS ORDERED: NA CHLORIDE 0.9% 100 ML ONE (14:27)
[2022-07-10] MEDS ORDERED: ENOXAPARIN 80 MG/0.8 ML SQ ONE (14:27)
[2022-07-10 14:30] LABS: Blood Morphology Comment NOT SEEN (NOT SEEN); Platelet Estimate ADEQ; White Blood Cell Scan OK (OK)
[2022-07-10] MEDS ORDERED: ACETAMINOPHEN 500 MG TAB PO PRN (14:38)
[2022-07-10] MEDS ORDERED: ONDANSETRON 4 MG/2 ML VIAL IV PRN (14:38)
[2022-07-10] MEDS: NA CHLORIDE 0.9% 1,000 ML IV SCH (14:49)
[2022-07-10] MEDS ORDERED: Meropenem 1,000 MG in NA CHLORIDE 0.9% 100 ML IV SCH (15:00)
[2022-07-10] MEDS ORDERED: NA CHLORIDE 0.9% 1,000 ML ONE (17:07)
[2022-07-10] MEDS: Meropenem 1,000 MG in NA CHLORIDE 0.9% 100 ML IV SCH (21:00)
[2022-07-11] MEDS: IPRATROPIUM BROM 0.5MG/2.5ML NEB SCH ×4 (01:00→20:25)
[2022-07-11 02:45] LABS: Hematocrit 40.7 % (36.0-45.0); Lymphocytes % 9.9 % (15.3-44.8); MCV 92.5 fL (80-100); MPV 8.1 fL (7.6-11.3)
[2022-07-11 02:53] LABS: Potassium 3.5 mmol/L (3.5-5.1)
[2022-07-11] MEDS: NA CHLORIDE 0.9% 1,000 ML IV SCH ×2 (05:18→18:47)
[2022-07-11] MEDS ORDERED: NA CHLORIDE 0.9% 1,000 ML ONE (07:28)
[2022-07-11] MEDS ORDERED: D50W 25 GM/50 ML SYRINGE IV PRN (08:37)
[2022-07-11] MEDS ORDERED: GLUCAGON 1 MG/VIAL IM PRN (08:37)
[2022-07-11] MEDS ORDERED: Meropenem 1000 MG/VIAL IV ONE (08:39)
[2022-07-11] MEDS ORDERED: NA CHLORIDE 0.9% 100 ML ONE (08:42)
[2022-07-11] MEDS ORDERED: D10W 125 ML IV PRN (08:48)
[2022-07-11] MEDS ORDERED: HOME MED 1 EA UNK (Potassium Chloride [Klor-Con] 20 MEQ Packet) PO SCH (09:00)
[2022-07-11] MEDS ORDERED: METOPROLOL TARTRATE 5 MG/5 ML INJ IV STA (09:11)
[2022-07-11] MEDS: POTASSIUM CL SA 10 MEQ TAB PO SCH (09:18)
[2022-07-11] MEDS: FUROSEMIDE 20 MG TABLET PO SCH ×2 (09:19→17:24)
[2022-07-11] MEDS: CLOPIDOGREL 75 MG TABLET PO SCH (09:19)
[2022-07-11] MEDS: GABAPENTIN 100 MG CAP PO SCH ×5 (09:19→23:45)
[2022-07-11] MEDS: lisinopriL 10 MG TAB PO SCH (09:19)
[2022-07-11] MEDS: ASPIRIN 81 MG CHEWABLE TABLET PO SCH (09:19)
[2022-07-11] MEDS: LEVOTHYROXINE SOD 0.088 MG TAB PO SCH (09:19)
[2022-07-11] MEDS: NPH (HUMAN) 100 UNITS/ML INSULIN SQ SCH ×2 (09:20→21:00)
[2022-07-11] MEDS: Meropenem 1,000 MG in NA CHLORIDE 0.9% 100 ML IV SCH ×2 (09:20→23:04)
[2022-07-11] MEDS: BENAZEPRIL 20 MG TAB PO SCH (10:07)
[2022-07-11] MEDS: AMLODIPINE 10 MG TAB PO SCH (10:07)
--- NOTE | 2022-07-11 11:18 | EKG ---
Test Date: 2022-07-10 Test Time: 10:54:06 [employer]: ONEL MEASUREMENT RESULTS: Intervals: Rate: 95 CA: QRSD: 126 QT: 402 QTc: 505 [place]: P: CA: QRS: -46 T: 98 INTERPRETIVE STATEMENTS: Atrial fibrillation with premature ventricular or aberrantly conducted complexes Left axis deviation Left bundle branch block Abnormal ECG Compared to ECG 02/19/2022 15:52:51 Ventricular premature complex(es) now present Left bundle-branch block now present Sinus rhythm no longer present Myocardial infarct finding no longer present Prolonged QT interval no longer present Electronically Signed On 07-11-22 11:15:37 FINISHING FRAME RUNNER by Papito Thayer
[2022-07-11 12:09] VITALS: BMI 28.3
[2022-07-11] MEDS: METOCLOPRAMIDE 5 MG TAB PO SCH ×3 (12:32→23:07)
[2022-07-11] MEDS: PENTOXIFYLLINE ER 400 MG TAB PO SCH ×2 (12:33→17:23)
--- NOTE | 2022-07-11 14:18 | RAD REPORT ---
EXAM DESCRIPTION: RAD - Chest Single View - 07/11/2022 2:11 pm CLINICAL HISTORY: sob Chest pain. COMPARISON: Chest Single View dated 07/10/2022; Chest Single View dated 11/05/2021; Chest Pa And Lat ( 2 Views) dated 10/20/2021; Chest Pa And Lat (2 Views) dated 04/12/2021 FINDINGS: Portable technique limits examination quality. Mild left base opacities have mildly improved since the prior study. The heart is mildly enlarged. Oleksandr hobbs lead pacer device. IMPRESSION: Mild improvement left base aeration.
[2022-07-11] MEDS: HYDROCODONE/APAP 5/325 MG TAB PO SCH ×2 (14:20→23:08)
[2022-07-11] MEDS: SOTALOL HCL 80 MG TAB PO SCH (17:24)
[2022-07-11] MEDS ORDERED: SOTALOL HCL 80 MG TAB PO SCH (18:00)
--- NOTE | 2022-07-11 18:05 | PN ---
Date of Progress Note: 07/11/2022 The patient seems somewhat better today, fully orientated. Has a nonproductive cough. Some of the p ossibility of developing pneumonia is present, although it looks like the primary insult was the UTI. Awaiting Cardiology evaluation as well. We will continue antibiotics and her home medications. HR/MODL Voice ID: [id number] Report ID: [id number]
[2022-07-11] MEDS: DOCUSATE NA 100 MG CAP PO PRN (18:47)
--- NOTE | 2022-07-11 21:26 | CON ---
Date of Consultation: 07/11/2022 Reason For Consultation: Elevated troponin. History Of Present Illness: This is an 86-year-old female with past medical history of atrial fibril lation, status post left atrial appendage closure in the past, history of hypertension, diabetes, and hypothyroidism, presented to the emergency room with altered mental status and generalized weakness, sleeping all day and this morning they found her on the floor next to the bed. Patient is confused, found to have urinary tract infection. She denies having any chest pain or shortness of breath. Ly ing in bed comfortably. Past Medical History: As outlined above in the HPI. Medications: Refer reconciliation sheet for detailed list. Allergies: NO KNOWN DRUG ALLERGIES. Family History: No premature coronary artery disease or cancer. Social History: She does not smoke or drink. Does not use any drugs. Review of Systems: All systems reviewed and they were negative except as mentioned in the HPI. Physical Examination: Vital Signs: Reviewed. Temperature is 97.5, heart rate 126, breathing at 18, blood pressure 122/76, saturating 96% on room air. General: Pleasant elderly female, in no apparent distress. Head and Neck: Pupils are equal, reactive to light. Intact eye movements. No JVD. No cervical lym phadenopathy. Neck is supple. Thyroid is not enlarged. Lungs: Clear to auscultation bilaterally. No rhonchi, wheezing, or crackles. No accessory muscle u se. Heart: Irregularly irregular. No extra sounds. Abdomen: Soft, nontender. Bowel sounds positive. No organomegaly. No masses or hernia. No rigidi ty or rebound. Extremities: No edema, clubbing, or cyanosis. Intact pulses. Skin: No rash. Neurologic: Alert, awake, oriented x3. No acute focal deficits appreciated. Investigations: Troponin 189, BUN 25, creatinine 0.80, and hemoglobin 13.5. Assessment And Recommendation: 1.Elevated troponin. There is no chest pain. Had only 1 set. Repeat another set now, likely this is demand ischemia but depends on the troponin value, the recommendation will follow. 2.Atrial fibrillation, rate is not controlled. We will increase the sotalol to 120 mg twice a day a nd use metoprolol 5 mg IV on as needed basis for rate control, status post left atrial appendage clos ure, so she does not need anticoagulation. 3.Altered mental status, probably due to urinary tract infection. SR/MODL Voice ID: [id number] Report ID: [id number]
[2022-07-11] MEDS: ATORVASTATIN 20 MG TAB PO SCH (23:05)
[2022-07-11] MEDS: AMITRIPTYLINE 10 MG TAB PO SCH (23:08)
[2022-07-12] MEDS: HEPARIN/D5W 25,000 UNIT/500 ML BAG IV PRN (00:07)
[2022-07-12] MEDS: GABAPENTIN 100 MG CAP PO SCH ×8 (03:45→23:35)
[2022-07-12] MEDS: LEVOTHYROXINE SOD 0.088 MG TAB PO SCH (06:14)
[2022-07-12] MEDS: SOTALOL HCL 80 MG TAB PO SCH ×2 (06:14→17:13)
[2022-07-12] MEDS ORDERED: PNEUMOCOCCAL VACCINE 0.5 ML IMVAC ONE (08:00)
[2022-07-12] MEDS: IPRATROPIUM BROM 0.5MG/2.5ML NEB SCH ×2 (08:10→14:05)
[2022-07-12] MEDS: Meropenem 1,000 MG in NA CHLORIDE 0.9% 100 ML IV SCH ×2 (09:24→21:00)
[2022-07-12] MEDS: NA CHLORIDE 0.9% 1,000 ML IV SCH (09:54)
[2022-07-12] MEDS: METOCLOPRAMIDE 5 MG TAB PO SCH ×4 (11:30→21:00)
[2022-07-12] MEDS: NPH (HUMAN) 100 UNITS/ML INSULIN SQ SCH ×2 (11:36→21:00)
[2022-07-12] MEDS: HYDROCODONE/APAP 5/325 MG TAB PO SCH ×3 (11:39→21:00)
[2022-07-12] MEDS: CLOPIDOGREL 75 MG TABLET PO SCH (11:40)
[2022-07-12] MEDS: FUROSEMIDE 20 MG TABLET PO SCH (11:40)
[2022-07-12] MEDS: PENTOXIFYLLINE ER 400 MG TAB PO SCH ×3 (11:40→17:17)
[2022-07-12] MEDS: BENAZEPRIL 20 MG TAB PO SCH (11:41)
[2022-07-12] MEDS: AMLODIPINE 10 MG TAB PO SCH (11:41)
[2022-07-12] MEDS: lisinopriL 10 MG TAB PO SCH (11:42)
[2022-07-12] MEDS: ASPIRIN 81 MG CHEWABLE TABLET PO SCH (11:42)
[2022-07-12] MEDS: POTASSIUM CL SA 10 MEQ TAB PO SCH (11:44)
--- NOTE | 2022-07-12 15:56 | PN ---
Date of Progress Note: 07/12/2022 Patient has been seen by Cardiology. She developed pulse into the 160s last night despite the beta-b locker and it was decided to increase her dosage and due to the fact that her enzyme secondary was si gnificantly increased, started on heparin drip with the probability of doing catheterization __ in the morning. Her urine culture today is negative. Blood counts are stable. Long discussion h eld with the daughter as to the value of the catheterization. I feel at this stage, it is the proper course and she will be scheduled accordingly. HR/MODL Voice ID: [id number] Report ID: [id number]
[2022-07-12] MEDS: FUROSEMIDE 40 MG/4 ML VIAL IV SCH (17:12)
--- NOTE | 2022-07-12 18:29 | PN ---
Date of Progress Note: 07/12/2022 Subjective: Seen by bedside. Doing better. Does not have any chest pain, but she is short of breat h and wheezing. Physical Examination: Vital Signs: Reviewed. Head and Neck: Pupils are equal, reactive to light. Intact eye movements. Positive JVD. No cervic al lymphadenopathy. Neck is supple. Thyroid is not enlarged. Lungs: She has rhonchi and wheezing bilaterally and crackles. Slight increased respiratory effort. Heart: Irregularly irregular. No extra sounds. Abdomen: Soft, nontender. Bowel sounds positive. No organomegaly. No masses or hernia. No rigidi ty or rebound. Extremities: Edema bilaterally. No clubbing or cyanosis. Intact pulses. Skin: No rash. Neurologic: Alert, awake, oriented x3. No acute focal deficits appreciated. Investigations: Troponin is down to 936 and BUN 25, creatinine 0.8. Assessment And Recommendations: 1.Atrial fibrillation with rapid ventricular response. Heart rate improved with the increase of sot alol. Continue current management. 2.Acute on chronic diastolic heart failure exacerbation. She was on IV fluids. I discontinued the normal saline and I have started her on Lasix 40 mg IV q.8 hours for the next 24 hours and reassess t he frequency tomorrow. We will re-evaluate her labs in the morning and plan accordingly. 3.Elevated troponin. She has no chest pain noted. environmental laboratory technician is not functional. If her breathing st atus permits, I will plan to obtain a Lexiscan nuclear stress test on her to further evaluate the nee d for further invasive cardiac workup. 4.Acute on chronic diastolic heart failure exacerbation. She is fluid overloaded. IV fluids were d iscontinued and Lasix as above. SR/MODL Voice ID: [id number] Report ID: [id number]
[2022-07-12] MEDS: AMITRIPTYLINE 10 MG TAB PO SCH (21:00)
[2022-07-12] MEDS: ATORVASTATIN 20 MG TAB PO SCH (21:00)
[2022-07-13] MEDS: IPRATROPIUM BROM 0.5MG/2.5ML NEB SCH ×3 (01:20→13:00)
[2022-07-13] MEDS: FUROSEMIDE 40 MG/4 ML VIAL IV SCH ×3 (01:49→16:32)
[2022-07-13] MEDS: HEPARIN/D5W 25,000 UNIT/500 ML BAG IV PRN (02:49)
[2022-07-13] MEDS: GABAPENTIN 100 MG CAP PO SCH ×6 (04:44→23:45)
[2022-07-13] MEDS: SOTALOL HCL 80 MG TAB PO SCH ×2 (05:02→18:00)
[2022-07-13] MEDS: LEVOTHYROXINE SOD 0.088 MG TAB PO SCH (05:02)
[2022-07-13] MEDS ORDERED: REGADENOSON 0.4 MG/5 ML SYR IV ONE (07:25)
[2022-07-13] MEDS: NPH (HUMAN) 100 UNITS/ML INSULIN SQ SCH ×2 (09:00→21:00)
[2022-07-13] MEDS: Meropenem 1,000 MG in NA CHLORIDE 0.9% 100 ML IV SCH ×2 (11:17→23:36)
[2022-07-13] MEDS: BENAZEPRIL 20 MG TAB PO SCH (11:22)
[2022-07-13] MEDS: lisinopriL 10 MG TAB PO SCH (11:22)
[2022-07-13] MEDS: METOCLOPRAMIDE 5 MG TAB PO SCH ×4 (11:23→23:57)
[2022-07-13] MEDS: HYDROCODONE/APAP 5/325 MG TAB PO SCH ×3 (11:23→23:37)
[2022-07-13] MEDS: ASPIRIN 81 MG CHEWABLE TABLET PO SCH (11:23)
[2022-07-13] MEDS: AMLODIPINE 10 MG TAB PO SCH (11:23)
[2022-07-13] MEDS: PENTOXIFYLLINE ER 400 MG TAB PO SCH ×3 (11:23→17:00)
[2022-07-13] MEDS: POTASSIUM CL SA 10 MEQ TAB PO SCH (11:24)
--- NOTE | 2022-07-13 11:32 | RAD REPORT ---
EXAM DESCRIPTION: NM - Rest Stress Cardiac Imaging - 07/13/2022 10:36 am CLINICAL HISTORY: Chest pain. COMPARISON: None. TECHNIQUE: The patient was administered 10.9 mCi of Tc 99m Sestamibi prior to resting SPECT imaging of the heart. The patient was then administered 30. 7 mCi of Tc 99m Sestamibi following exercise or p harmacologic stress. Multiplanar SPECT images were reviewed. FINDINGS: Small area diminished radiotracer uptake involves the left lateral left ventricular myocar dium on stress images. Small area of diminished radiotracer uptake involves the anterior apical left ventricular myocardium on stress images. Rest images demonstrate relatively normal radiotracer uptake throughout left ventricular myocardium The left ventricular ejection fraction equals 47% IMPRESSION: Small reversible perfusion defect lateral left ventricular myocardium Small reversible perfusion defect anterior apical left ventricular myocardium. Most likely these indicate areas of stress induced ischemia
[2022-07-13] MEDS: DOCUSATE NA 100 MG CAP PO PRN (11:40)
[2022-07-13] MEDS: CLOPIDOGREL 75 MG TABLET PO SCH (11:48)
[2022-07-13] MEDS ORDERED: NA CHLORIDE 0.9% 500 ML ONE (15:07)
[2022-07-13] MEDS ORDERED: HEPA 1000U/500MLS 2,000 UNIT/1,000 ML BAG IV ONE (15:28)
[2022-07-13] MEDS ORDERED: LIDOCAINE 1% 20 ML MDV ONE (15:28)
--- NOTE | 2022-07-13 15:29 | PN ---
Date of Progress Note: 07/13/2022 The patient is somewhat better, coughing up some thick mucus. She seemed more alert according to her daughter and she is now down having her stress test as if she is still having some issues with the c ath lab. Obviously depending on the stress test, it was negative to a pulmonary status an d she could go home on antibiotics and inhalation therapy, on Atrovent probably in the morning. If i t is positive and depending on what Dr. Marin wants to do next as to her disposition. HR/MODL Voice ID: [id number] Report ID: [id number]
[2022-07-13] MEDS ORDERED: FENTANYL CITR 100 MCG/2 ML ONE (16:07)
[2022-07-13] MEDS ORDERED: CLOPIDOGREL 75 MG TABLET ONE (16:08)
[2022-07-13] MEDS ORDERED: MIDAZOLAM HCL 2 MG/2 ML INJ ONE (16:08)
[2022-07-13] MEDS ORDERED: ASPIRIN 325 MG TAB ONE (16:08)
[2022-07-13] MEDS ORDERED: TICAGRELOR 90 MG TABLET PO ONE (16:08)
[2022-07-13] MEDS ORDERED: HEPARIN 10,000 UNIT/10 ML VIAL IV ONE (16:09)
[2022-07-13] MEDS ORDERED: FUROSEMIDE 20 MG/ 2ML VIAL ONE (16:15)
[2022-07-13] MEDS ORDERED: HYDRALAZINE HCL 20 MG/ML VIAL ONE (17:43)
--- NOTE | 2022-07-13 18:44 | PN ---
Date of Progress Note: 07/13/2022 Subjective: Seen by the bedside, doing clinically well. Atrial fibrillation, heart rate is under be tter control. Review of Systems: No chest pain, shortness of breath, orthopnea, cough, nausea, vomiting, or diarrhea. All other syste ms reviewed and they were negative. Physical Examination: Vital Signs: Reviewed. Head And Neck: Pupils are equal and reactive to light. Intact eye movements. No JVD. No cervical lymphadenopathy. Neck is supple. Thyroid is not enlarged. Lungs: Clear to auscultation bilaterally. No rhonchi, wheezing, or crackles. No accessory muscle u se. Heart: Regular rate and rhythm. No extra sounds. Abdomen: Soft, nontender. Bowel sounds positive. No organomegaly. No masses or hernia. No rigidi ty or rebound. Extremities: Trace edema bilaterally. No clubbing or cyanosis. Intact pulses. Skin: No rash or nodules. Neurologic: Alert, awake, and oriented x3. No focal deficits appreciated. Lymph Nodes: No cervical or axillary lymphadenopathy. Investigations: Labs were reviewed. Assessment/recommendation: 1.Non-ST elevation myocardial infarction. Stress test showing reversible ischemia. We will plan fo r coronary angiogram today. 2.Wxmrx-mf-vqtomee diastolic heart failure exacerbation. She is on Lasix, switch to b.i.d. and plea se check basic metabolic panel daily while she is on the IV diuretics. 3.Atrial fibrillation. Heart rate is better controlled. Continue sotalol and she is status post left atrial appendage closure so she does not need anticoagulants. Sh e can be on aspirin 81 mg daily. SR/MODL Voice ID: [id number] Report ID: [id number]
[2022-07-13] MEDS: AMITRIPTYLINE 10 MG TAB PO SCH (23:37)
[2022-07-13] MEDS: ATORVASTATIN 20 MG TAB PO SCH (23:37)
[2022-07-14 00:14] LABS: Potassium 3.4 mmol/L (3.5-5.1)
[2022-07-14] MEDS: IPRATROPIUM BROM 0.5MG/2.5ML NEB SCH ×3 (00:29→22:20)
--- NOTE | 2022-07-14 02:34 | OP ---
Date of Procedure: 07/13/2022 Surgeon: URBAN VARGAS Procedures Performed: 1.Selective coronary angiogram. 2.Left heart catheterization. 3.PCI of ostial severe left main stenosis, used 4.0 x 12 mm Synergy drug-eluting stent. Indication: Non-ST elevation myocardial infarction. Access: Right femoral artery 6-Bulgarian closed with StarClose and manual pressure. Complications: None. Estimated Blood Loss: Bleeding less than 10 mL. Description Of Procedure: After risks, benefits, and alternatives were explained, the patient agreed to proceed and signed informed consent. The patient was brought into the cardiac catheterization la boratory and prepped and draped in usual sterile fashion. Then I accessed right femoral artery using micropuncture kit, fluoroscopy, and ultrasound guidance. I placed 6-Bulgarian [place] sheath and took 6-Bulgarian JL4 catheter into aortic root, engaged left main, took standard views and took a 6-Bulgarian J R4 catheter over J-wire, engaged the RCA, took standard views and then the catheter was pushed over t he wire into the LV, measured the LVEDP and pullback did not record any gradient and then gave system ic heparin to assure ACT level above 250. The patient is already on Plavix and aspirin and took EBU 3.5 guide with 6-Bulgarian with side holes into the aortic root, engaged left main, took short Runthroug h and placed it distally in the LAD and predilated the ostium of the left main and then placed a 4.0 x 12 mm Synergy drug-eluting stent with excellent results. Then, we removed the guide and the wire a nd sheath and StarClose was used for closure with good hemostasis. The patient tolerated the procedu re very well. Findings: 1.Left main ostial 80% status post successful PCI as above. 2.Patent proximal LAD to mid LAD stent and then the LAD with luminal irregularities. 3.Left circumflex: Ostial 30% and then mid 30%. 4.RCA: It has a dominant circulation with mid diffuse 60%. 5.LVEDP elevated at 27 mmHg. Conclusion: 1.Severe left main stenosis, ostial status post successful percutaneous coronary intervention as abo ve. 2.Elevated left ventricular end-diastolic pressure. 3.Moderate coronary artery disease elsewhere. 4.Patent proximal to mid left anterior descending stent. Plan: 1.Continue aspirin, Plavix, and statin. 2.IV diuretics. SR/MODL Voice ID: [id number] Report ID: [id number]
[2022-07-14] MEDS: GABAPENTIN 100 MG CAP PO SCH ×5 (03:53→20:52)
[2022-07-14] MEDS: SOTALOL HCL 80 MG TAB PO SCH ×2 (06:41→17:34)
[2022-07-14] MEDS: LEVOTHYROXINE SOD 0.088 MG TAB PO SCH (06:41)
[2022-07-14 07:24] LABS: Potassium 3.1 mmol/L (3.5-5.1)
--- NOTE | 2022-07-14 08:23 | P.PN ---
Subjective Date of Service: 07/14/22 Chief Complaint: Coronary artery disease s/p PCI CHF Subjective: Improving (Patient is doing well she has had a heart stent placed elevated end-diastolic pressure denies any shortness of breath) Review of Systems 10-point ROS is otherwise unremarkable General: Weakness Physical Examination - Vital Signs Temperature: 97.0 F Blood Pressure: 134/67 Pulse: 70 Respirations: 18 Pulse Ox (%): 99 - Physical Exam General: Alert, In no apparent distress, Oriented x3 Respiratory: Clear to auscultation bilaterally, Friction rub Cardiovascular: Regular rate/rhythm, Normal S1 S2 Assessment And Plan - Current Problems (Diagnosis) (1) Non-STEMI (non-ST elevated myocardial infarction) Current Visit: Yes Status: Acute Plan: Patient is 86 years of age admitted with non-STEMI s/p PCI elevated left end- diastolic pressure discussed with Dr. Thayer continue to observe diuresis no history of chest pain signs are currently stable we will check off oxygen no evidence of sepsis DC antibiotic mild hypokalemia replace
[2022-07-14] MEDS: POTASSIUM 25 MEQ EFFERV TAB PO SCH ×2 (08:53→20:51)
[2022-07-14] MEDS: BENAZEPRIL 20 MG TAB PO SCH (08:53)
[2022-07-14] MEDS: ASPIRIN 81 MG CHEWABLE TABLET PO SCH (08:54)
[2022-07-14] MEDS: HYDROCODONE/APAP 5/325 MG TAB PO SCH ×3 (08:54→20:52)
[2022-07-14] MEDS: METOCLOPRAMIDE 5 MG TAB PO SCH ×4 (08:55→20:52)
[2022-07-14] MEDS: PENTOXIFYLLINE ER 400 MG TAB PO SCH ×3 (08:55→16:49)
[2022-07-14] MEDS: CLOPIDOGREL 75 MG TABLET PO SCH (08:55)
[2022-07-14] MEDS: AMLODIPINE 10 MG TAB PO SCH (08:55)
[2022-07-14] MEDS: lisinopriL 10 MG TAB PO SCH (08:56)
[2022-07-14] MEDS: NPH (HUMAN) 100 UNITS/ML INSULIN SQ SCH ×2 (08:57→20:53)
[2022-07-14] MEDS: FUROSEMIDE 40 MG/4 ML VIAL IV SCH ×2 (08:57→16:51)
[2022-07-14] MEDS: DOCUSATE NA 100 MG CAP PO PRN (16:54)
[2022-07-14] MEDS: AMITRIPTYLINE 10 MG TAB PO SCH (20:53)
[2022-07-14] MEDS: ATORVASTATIN 20 MG TAB PO SCH (20:53)
[2022-07-15] MEDS: GABAPENTIN 100 MG CAP PO SCH ×3 (00:28→08:56)
[2022-07-15] MEDS: LEVOTHYROXINE SOD 0.088 MG TAB PO SCH (06:22)
[2022-07-15] MEDS: SOTALOL HCL 80 MG TAB PO SCH (06:22)
[2022-07-15] MEDS: IPRATROPIUM BROM 0.5MG/2.5ML NEB SCH (08:26)
[2022-07-15 08:34] VITALS: O2SAT 96
[2022-07-15] MEDS: POTASSIUM 25 MEQ EFFERV TAB PO SCH (08:54)
[2022-07-15] MEDS: BENAZEPRIL 20 MG TAB PO SCH (08:54)
[2022-07-15] MEDS: HYDROCODONE/APAP 5/325 MG TAB PO SCH (08:55)
[2022-07-15] MEDS: ASPIRIN 81 MG CHEWABLE TABLET PO SCH (08:57)
[2022-07-15] MEDS: METOCLOPRAMIDE 5 MG TAB PO SCH (08:57)
[2022-07-15] MEDS: PENTOXIFYLLINE ER 400 MG TAB PO SCH (08:57)
--- NOTE | 2022-07-15 08:57 | P.DS ---
Admission Date: 07/10/22 Discharge Date: 07/15/22 Disposition: ROUTINE DISCHARGE Discharge Condition: FAIR Reason for Admission: Coronary artery disease s/p PCI CHF - Problems (1) Non-STEMI (non-ST elevated myocardial infarction) Current Visit: Yes Status: Acute Brief History of Present Illness: Patient is 86 years of age admitted with a possible urinary tract infection was found to have a non-STEMI Hospital Course: Patient did undergo cardiac cath and had a stent placed left mainstem was fairly tight cording to Dr. Thayer with some diastolic dysfunction the time of discharge patient was doing well ambulating to the bathroom had some chest congestion and a cough proved with nebulizers and inhalers patient was treated with meropenem cultures negative treated with IV Lasix 80% occlusion of the left mainstem No changes to home medication except added Advair and breathing treatments as needed at time of discharge alert oriented responsive cooperative daughter at the bedside chest shows some rhonchi signs all stable room air oxygenation stable cardiovascular system heart sounds normal Vital Signs/Physical Exam: Temp Pulse Resp BP Pulse Ox 96.9 F 71 18 156/69 H 94 07/15/22 04:00 07/15/22 04:00 07/15/22 04:00 07/15/22 04:00 07/15/22 04:00 Laboratory Data at Discharge: WBC 10.40 K/uL (4.3-10.9) 07/11/22 02:11 Hgb 13.5 g/dL (12.0-15.0) 07/11/22 02:11 Hct 40.7 % (36.0-45.0) 07/11/22 02:11 Plt Count 175 K/uL (152-406) 07/11/22 02:11 PT 11.8 SECONDS (9.5-12.5) 07/10/22 13:16 INR 1.07 07/10/22 13:16 APTT 29.2 SECONDS (24.3-36.9) 07/14/22 06:45 Sodium 142 mmol/L (136-145) 07/14/22 06:45 Potassium 3.1 mmol/L (3.5-5.1) L 07/14/22 06:45 BUN 25 mg/dL (7-18) H 07/14/22 06:45 Creatinine 0.68 mg/dL (0.55-1.02) 07/14/22 06:45 Glucose 203 mg/dL (74-106) H 07/14/22 06:45 Magnesium 2.1 mg/dL (1.6-2.4) 07/10/22 13:16 Home Medications: Pentoxifylline 400 mg PO TIDWM 09/28/18 Amlodipine Besylate/Benazepril [Amlodipine-Benazepril 10-20 mg] 1 each PO DAILY #30 02/19/20 Atorvastatin Calcium [Lipitor*] 20 mg PO BEDTIME #30 tab 02/19/20 Levothyroxine Sodium [Euthyrox] 88 mcg PO DAILY #30 02/19/20 Sotalol HCl [Betapace*] 80 mg PO BID 6AM 6PM #60 tab 02/19/20 lisinopriL [Lisinopril] 10 mg PO DAILY #30 tablet 02/20/20 Amitriptyline HCl 10 mg PO BEDTIME 02/19/22 Aspirin [Loly Chewable Aspirin] 81 mg PO DAILY 02/19/22 Clopidogrel Bisulfate [Plavix*] 75 mg PO DAILY 02/19/22 Furosemide [Lasix] 60 mg PO BID 02/19/22 Gabapentin [Neurontin*] 200 mg PO Q4H 02/19/22 Hydrocodone Bit/Acetaminophen [Hydrocodon-Acetaminophen 5-325] 1 each PO TID 02/19/22 Insulin NPH Human Isophane [Novolin N] 25 unit SQ BID 02/19/22 Metoclopramide [Reglan*] 10 ml PO ACHS 02/19/22 Potassium Chloride [Klor-Con] 20 meq PO DAILY 02/19/22 Albuterol Sulfate 1.25 mg IH Q8HP PRN 15 Days #150 ml 07/15/22 Fluticasone/Salmeterol [Advair 250-50 Diskus] 1 each IH BID 30 Days #60 aero 07/15/22 New Medications: Fluticasone/Salmeterol [Advair 250-50 Diskus] 1 each IH BID 30 Days #60 aero Albuterol Sulfate 1.25 mg IH Q8HP PRN 15 Days #150 ml PRN Reason: sob Followup: Alin Fagan MD [Primary Care Provider] - Papito Thayer MD [ACTIVE - CAN ADMIT] -
[2022-07-15] MEDS: DOCUSATE NA 100 MG CAP PO PRN (08:58)
[2022-07-15] MEDS: CLOPIDOGREL 75 MG TABLET PO SCH (08:59)
[2022-07-15] MEDS: AMLODIPINE 10 MG TAB PO SCH (08:59)
[2022-07-15] MEDS: lisinopriL 10 MG TAB PO SCH (08:59)
[2022-07-15 09:01] VITALS: BP 147/73; TEMP 96.8
[2022-07-15 09:03] LABS: Potassium 3.8 mmol/L (3.5-5.1)
[2022-07-15] MEDS: NPH (HUMAN) 100 UNITS/ML INSULIN SQ SCH (09:03)
[2022-07-15] MEDS: FUROSEMIDE 40 MG/4 ML VIAL IV SCH (09:04)
--- NOTE | 2022-07-16 07:37 | TREADPHA ---
DX: ELEVATED TROPONIN Date of Study: 07/13/2022 Ht: 5' 5 " Wt: 170 lb 0 oz Consulting Physician: ALICIA MEDICATIONS: TYLENOL, NORCO, ELAVIL, NORVASC, ASPIRIN, LIPITOR, LOTENSIN, PLAVIX, NEURONTIN, GLUCAGEN, HEPARIN, PRINIVIL, SYNTHROID, REGLAN, ZOFRAN, KLOR-CON, BETAPACE HISTORY: PHYSICIAL EXAMINATION: RESTING B.P.: 159/107 RESTING H.R.: 82 RESTING EKG: ATRIAL BASED WITH IDIOVENTRICULAR CONDUCTION DELAY PROTOCOL: PHARMACOLOGIC EXERCISE TIME: 3:30 B.P. AT PEAK STRESS: 162/81 IMPRESSION: LEXISCAN INJECTED. CARDIOLITE INJECTED (SEE NUCLEAR MEDICINE REPORT). ATRIAL FIBRILLATION DURING EXAM. NO CHEST PAIN OR NAUSEA. PREMATURE ATRIAL COMPLEXES NOTED. NO VENTRICULAR TACHYCARIA, SUPRAVENTRICULAR TACHYCARDIA. NO ELECTROCARDIOGRAM CHANGE OF ISCHEMIA.
== END 2022-07-15 12:15 | disposition home or self-care (01) | DRG 246 ==
LOC: ER 09:34 → ERHOLD 14:38 → 4TH 07-11 08:03
PROVIDERS: ADMIT Family Medicine; ATTEND Internal Medicine Sleep Medicine
PROC: 027034Z Dilation of Coronary Artery, One Artery with Drug-eluting Intraluminal Device, Percutaneous Approach (ICD-10-PCS; principal; 2022-07-13)
PROC: 4A023N7 Measurement of Cardiac Sampling and Pressure, Left Heart, Percutaneous Approach (ICD-10-PCS; 2022-07-13)
PROC: B2111ZZ Fluoroscopy of Multiple Coronary Arteries using Low Osmolar Contrast (ICD-10-PCS; 2022-07-13)
DX: I21.4 Non-ST elevation (NSTEMI) myocardial infarction (principal); I50.33 Acute on chronic diastolic (congestive) heart failure; J18.9 Pneumonia, unspecified organism; N39.0 Urinary tract infection, site not specified; I11.0 Hypertensive heart disease with heart failure; E03.9 Hypothyroidism, unspecified; I48.91 Unspecified atrial fibrillation; E11.9 Type 2 diabetes mellitus without complications; R77.8 Other specified abnormalities of plasma proteins; Z79.4 Long term (current) use of insulin; Z79.02 Long term (current) use of antithrombotics/antiplatelets; Z79.899 Other long term (current) drug therapy; Z20.822 Contact with and (suspected) exposure to COVID-19; W06.XXXA Fall from bed, initial encounter; Y93.9 Activity, unspecified; Y92.9 Unspecified place or not applicable
CPT/HCPCS: 0240U; 36415; 70450; 71045; 72125; 76937; 78452; 80048; 81003; 82550; 82947; 83605; 83735; 83880; 84484; 85025; 85347; 85610; 85730; 87086; 87088; 93005; 93017; 93458; 94640; 96372; 96374; 96375; 99285; A9500; C1725; C1893; C9600; G0269; J0360; J1644; J1650; J1815; J1940; J2001; J2185; J2250; J2785; J3010; J7030; J7040; J7644

== ENCOUNTER 2022-07-20 12:31 | Inpatient (IN) | payer OTHER ==
--- OUTSIDE RECORDS SUMMARY | 2022-07-20 12:36 | XMS REPORT | Continuity of Care Document ---
:1935 Author Organization [facility] t Address [address] [facility] [address] [place] [address] Care Team Providers Name Role Phone Asked, No Pcp Primary Care Physician Unavailable Papito Thayer Attending Clinician Unavailable Meagan LEYVA, Pavan Abdi Attending Clinician [phone] Alyssa SCHAFFER, Cris Attending Clinician Unavailable Sigrid Weston MA Attending Clinician Unavailable Roderick Dunn Attending Clinician Unavailable Ajibade_O_AH Attending Clinician Unavailable Ige-Noy_George_AH Attending Clinician Unavailable Papito Thayer Admitting Clinician Unavailable Alin Fagan Admitting Clinician Unavailable Physician, No Primary or Family Admitting Clinician UnavailRoderick Huffman Admitting Clinician Unavailable Ajibade_O_AH Admitting Clinician Unavailable Ige-Noy_George_AH Admitting Clinician Unavailable Payers Payer Name Policy Type Policy Number Effective Date Expiration Date [facility] OF [place] - [id number] 2019 [employer] 00:00:00 (MEDICARE REPLACEMENT/ADVANT AGE - [...] No Known DA Active U [facility] Allergie 6- Clear s 00:00: Zhao 00 [facility] Social History Social Habit Start Date Stop Date Quantity Comments Source Alcohol intake 2022-04-17 2022-04-17 Ex-drinker Judaism 00:00:00 00:00:00 (finding) Hospital Tobacco use and 2022-04-17 2022-04-17 Smokeless tobacco Me thodist exposure 00:00:00 00:00:00 non-user Hospital Sex Assigned At [birth year] [facility] 00:00:00 00:00:00 Hospital Smoking Status Start Date Stop Date Source Never smoked tobacco [facility] H ospital Medications Ordered Filled Start Stop [...] 10 by mouth l coated daily. tablet LORAZepam 2021-05 Yes 1mg Q6H Take 1 [...] coated daily. tablet pentoxifyll 2021-05 Yes 400mg Q.32104677 Take 400 Methodi ine 2-[id number] (TRENTal) 10:19: 3D mouth 3 Hospi ta 400 mg CR 18 (three) l tablet times a day with meals. pentoxifyll 2021-05 Yes 400mg Q.95361723 Take 400 Methodi ine 2-[id number] (TRENTal) 10:19: 3D mouth [...] Hospita tablet 37 Default OP l ins amlodipine- 2021-05 Yes 1{capsu QD Take 1 [...] LEVOXYL) 88 37 daily. l mcg tablet insulin NPH 2021-05 Yes 29U QD Inject [...] mcg tablet sotaloL 2021-05 Yes Methodi (BETAPACE) 1- st 80 MG 00:00: Hospita tablet 00 l sotaloL 2021-05 Yes Methodi (BETAPACE) 06-09 st 80 MG 00:00: Hospita tablet 00 l amitriptyli 2021-05 Yes Method i ne (ELAVIL) 1- st 10 MG 00:00: Hospita tablet 00 l amitriptyli 2021-05 Yes Method i ne (ELAVIL) - st 10 MG 00:00: Hospita tablet 00 l gabapentin 2021-05 Yes Methodi (NEURONTIN) 1- st 100 mg 00:00: Hospita capsule 00 l HYDROcodone 2021-05 Yes Method i -acetaminop 1- st hen (NORCO) 00:00: Hospit a 5-325 mg 00 l per tablet gabapentin 2021-05 Yes Methodi (NEURONTIN) 1- st 100 mg 00:00: Hospita capsule 00 l HYDROcodone 2021-05 Yes Method i -acetaminop 1-22 st hen (NORCO) 00:00: Hospit a 5-325 mg 00 l per tablet Klor-Con 2021-05 Yes Methodi M20 20 mEq 1-07 st CR tablet 00:00: Hospita 00 l Klor-Con 2021-05 Yes Methodi M20 20 mEq 1-07 st CR tablet 00:00: Hospita 00 l clopidogreL 2021-05 Yes Method i (PLAVIX) 75 0-29 st mg tablet 00:00: Hospita 00 l clopidogreL 2021-05 Yes Method i (PLAVIX) 75 0-29 st mg tablet 00:00: Hospita 00 l furosemide 2021-05 Yes Methodi (LASIX) 40 0-09 st mg tablet 00:00: Hospita 00 l furosemide 2021-05 Yes Methodi (LASIX) 40 0-09 st mg tablet 00:00: Hospita 00 l lisinopriL 2021-05 Yes Methodi (PRINIVIL) 0-04 st 10 mg 00:00: Hospita tablet 00 l lisinopriL 2021-05 Yes Methodi (PRINIVIL) 0-04 st 10 mg 00:00: Hospita tablet 00 l insulin NPH Yes 29U QD Inject 29 M ethodi (HumuLIN-N) 5-[address] 100 unit/mL 16:39: under the H ospita injection 43 skin daily l before breakfast. pentoxifyll Yes 400mg Q.81149388 Take 400 Methodi ine 5-[id number] (TRENTal) 16:39: 3D mouth 3 Hospi ta 400 mg CR 43 (three) l tablet times a day with meals. omeprazole Yes 40mg QD Take 40 mg M ethodi (PriLOSEC) 5-[address] 40 MG 16:39: daily. Hospita capsule 43 l metoclopram Yes 10mg Q.25D Take 10 mg Methodi ehmal 5-[address] (REGLAN) 10 [...] 88 43 daily. l mcg tablet amlodipine- 2018- Yes 1{capsu QD Take 1 M ethodi benazepril 5-24 le} capsule by st (LOTREL) 16:39: mouth Hospita 10-20 mg 43 daily. l per capsule LORAZepam 2018-0 Yes 1mg Q6H Take 1 mg Met hodi (ATIVAN) 1 5-[address] MG tablet 16:39: every 6 Hospi ta 43 (six) l hours as needed for anxiety. atorvastati 0 Yes 20mg QD Take 20 mg Methodi n (LIPITOR) 5-[address] 20 MG 16:39: daily. Hospita tablet 43 Default OP l ins insulin NPH 2019-0 Yes 29U QD Inject 29 M ethodi (HumuLIN-N) 5-[address] 100 unit/mL 16:39: under the H ospita injection 43 skin daily l before breakfast. pentoxifyll 2018-0 Yes 400mg Q.63448791 Take 400 Methodi ine 5-[id number] (TRENTal) 16:39: 3D mouth 3 Hospi ta 400 mg CR 43 (three) l tablet times a day with meals. omeprazole 0 Yes 40mg QD Take 40 mg M [...] 43 needed for l moderate pain. levothyroxi 2019-0 Yes 88ug QD Take 88 Met hodi ne 5-[address] (SYNTHROID, 16:39: mouth Hospi ta LEVOXYL) 88 43 daily. l mcg tablet amlodipine- 2019-0 Yes 1{capsu QD Take 1 M ethodi benazepril 5-24 le} capsule by st (LOTREL) 16:39: mouth Hospita 10-20 mg 43 daily. l per capsule LORAZepam 2018-0 Yes 1mg Q6H Take 1 mg Met hodi (ATIVAN) 1 5-[address] MG tablet 16:39: every 6 Hospi ta 43 (six) l hours as needed for anxiety. atorvastati 2019-0 Yes 20mg QD Take 20 mg Methodi n (LIPITOR) 5-[address] 20 MG 16:39: daily. Hospita tablet 43 Default OP l ins Vital Signs Vital Name Observation Time Observation Value Comments Source Systolic blood 2022-04-17 16:14:00 172 mm[Hg] [facility] pressure Diastolic blood 2022-04-17 16:14:00 84 mm[Hg] [facility] pressure Heart rate 2022-04-17 16:09:00 72 /min [facility] Body temperature 2022-04-17 16:09:00 36.61 Leah [facility] Body height 2022-04-17 16:09:00 165.1 cm [facility] Body weight 2022-04-17 16:09:00 76.522 kg [facility] BMI 2022-04-17 16:09:00 28.07 kg/m2 [facility] Oxygen saturation in 2022-04-17 16:09:00 97 /min [facility] Arterial blood by Pulse oximetry Procedures Procedure Date / Time Performed Performing Clinician [facility] e US CAROTID DUPLEX 2022-04-17 17:14:53 Pavan Rhoeds [facility] BILATERAL [place] [id number] 2021-12-13 00:00:00 RASSA [facility] [id number] 2021-11-11 00:00:00 ALDMO [facility] [id number] 2021-11-11 00:00:00 ALDMO [facility] [id number] 2021-11-11 00:00:00 ALDMO [facility] [id number] 2021-11-10 00:00:00 ALDMO [facility] [id number] 2021-11-10 00:00:00 ALDMO [facility] [id number] 2021-11-10 00:00:00 ALDMO [facility] Plan of Care Planned Activity Planned Date Details Comments Source Future Scheduled 2022-07-03 COVID-19 VACCINE (#1) [facility] Test 17:40:37 [code = COVID-19 VACCINE (#1)] Future Scheduled 2022-07-03 SHINGLES VACCINES (1 Met [facility] Test 17:40:37 of 2) [code = SHINGLES VACCINES (1 of 2)] Future Scheduled 2022-07-03 65+ PNEUMOCOCCAL [facility] Hospital Test 17:40:37 VACCINE (1 - PCV) [code = 65+ PNEUMOCOCCAL VACCINE (1 - PCV)] Future Scheduled 2022-07-03 INFLUENZA VACCINE Method [facility] Hospital Test 17:40:37 [code = INFLUENZA VACCINE] Future Scheduled 2022-07-03 COVID-19 VACCINE (#1) [facility] Test 17:40:37 [code = COVID-19 VACCINE (#1)] Future Scheduled 2022-07-03 SHINGLES VACCINES (1 Met [facility] Hospital Test 17:40:37 of 2) [code = SHINGLES VACCINES (1 of 2)] Future Scheduled 2022-07-03 65+ PNEUMOCOCCAL [facility] Test 17:40:37 VACCINE (1 - PCV) [code = 65+ PNEUMOCOCCAL VACCINE (1 - PCV)] Future Scheduled 2022-07-03 INFLUENZA VACCINE Method [facility] Test 17:40:37 [code = INFLUENZA VACCINE] Future Scheduled 2022-01-13 HEPATITIS B VACCINES Met [facility] Test 02:14:04 (1 of 3 - 3-dose series) [code = HEPATITIS B VACCINES (1 of 3 - 3-dose series)] Future Scheduled 2022-01-13 COVID-19 VACCINE (#1) [facility] Test 02:14:04 [code = COVID-19 VACCINE (#1)] Future Scheduled 2022-01-13 SHINGLES VACCINES (1 Met [facility] Hospital Test 02:14:04 of 2) [code = SHINGLES VACCINES (1 of 2)] Future Scheduled 2022-01-13 65+ PNEUMOCOCCAL [facility] Test 02:14:04 VACCINE (1 - PCV) [code = 65+ PNEUMOCOCCAL VACCINE (1 - PCV)] Future Scheduled 2022-01-13 INFLUENZA VACCINE Method [facility] Test 02:14:04 [code = INFLUENZA VACCINE] Future Scheduled 2022-01-13 HEPATITIS B VACCINES Met [facility] Test 02:14:04 (1 of 3 - 3-dose series) [code = HEPATITIS B VACCINES (1 of 3 - 3-dose series)] Future Scheduled 2022-01-13 COVID-19 VACCINE (#1) [facility] Test 02:14:04 [code = COVID-19 VACCINE (#1)] Future Scheduled 2022-01-13 SHINGLES VACCINES (1 Met [facility] Hospital Test 02:14:04 of 2) [code = [...] Type Clinicians Facility Department ID 2021-12-13 Inpatient LISETTE Perez INTE.02 [id number] [facility] 11:24:00 Papito [id number] [facility] 2022-04-17 2022-04-17 Office Meagan 1.2.840.1 [id number] 21 [id number] Methodi 10:00:00 16:29:26 Visit , Pavan 49724.1.[address] [facility] [address] 3.430.2.7 [facility] .3.321862 l .8 2022-04-17 2022-04-17 Office Meagan 1.2.840.1 [id number] 21 [id number] Methodi 10:00:00 16:29:26 Visit , Pavan [address]8789.1.[address] [facility] [address] 3.430.2.7 [facility] .3.008680 l .8 2022-04-17 2022-04-17 Telephone Alyssa 1.2.840.1 [id number] Methodi 00:00:00 00:00:[address] 3.430.2.7 Hospit a .3.208541 l .8 2022-04-17 2022-04-17 Travel 1.2.840.1 1.2.617.148 1077 [id number] Methodi 00:00:00 00:00:[address] 3.430.2.7 0.2.7.3.698 Ho spita .3.223956 084.8 l .8 2022-04-17 2022-04-17 Telephone Alyssa, 1.2.840.1 [id number] Methodi 00:00:00 00:00:[address] 3.430.2.7 Hospit a .3.489453 l .8 2022-04-17 2022-04-17 Travel 1.2.840.1 1.2.981.510 6273 058685 Methodi 00:00:00 00:00:[address] 3.430.2.7 0.2.7.3.698 Ho spita .3.822385 084.8 l .8 2022-04-17 2022-04-17 Outpatient [facility] 776 [id number] Jenera 00:00:00 00:00:00 , PAVAN [address] 2022-04-13 2022-04-13 Telephone [place], 1.2.840.1 [id number] 2099 [id number] Methodi 00:00:00 00:00:[address] 3.430.2.7 Hospit a .3.950148 l .8 2022-04-13 2022-04-13 Telephone [place]on, 1.2.840.1 [id number] 2099 [id number] Methodi 00:00:00 00:00:[address] 3.430.2.7 Hospit a .3.335370 l .8 2022-04-02 2022-04-02 Telephone [place], 1.2.840.1 [id number] 2099 [id number] Methodi 00:00:00 00:00:[address] 3.430.2.7 Hospit a .3.743479 l .8 2022-04-02 2022-04-02 Telephone [place]on, 1.2.840.1 [id number] 2099 [id number] Methodi 00:00:00 00:00:[address] 3.430.2.7 Hospit a .3.200820 l .8 2022-03-28 2022-03-28 Telephone Meagan 1.2.840.1 [id number] Methodi 00:00:00 00:00:00 , Pavan 22886.1.[address] [place] 3.430.2.7 [facility] .3.817105 l .8 2022-03-28 2022-03-28 Telephone Meagan 1.2.840.1 [id number] Methodi 00:00:00 00:00:00 , Pavan 56846.1.[address] [place] 3.430.2.7 [facility] .3.578499 l .8 2022-01-24 2022-01-24 Outpatient KAMILA Thayer, HCACL OUTD [id number] [facility] 05:07:00 05:07:00 Papito 63 [facility] 2021-12-13 2021-12-13 Inpatient KAMILA Thayer, HCACL INTE.02 [id number] [facility] 11:24:00 13:30:00 Papito 99 [facility] 2021-12-06 2021-12-06 Outpatient KAMILA Thayer, JEANETTECL HCACL [id number] [facility] 05:12:00 05:12:00 Papito [id number] [facility] 2021-12-06 2021-12-06 Outpatient KAMILA Thayer, HCACL OUTD [id number] [facility] 05:12:00 05:12:00 Papito 02 [facility] 2021-11-08 2021-11-11 Inpatient KAMILA Dunn HCACL MEDI.01 [id number] [facility] 12:44:00 14:33:00 Roderick 77 [facility] 2021-11-08 2021-11-11 Inpatient KAMILA Dunn, HCACL MEDI.01 [id number] [facility] 12:44:00 14:33:00 Roderick [id number] [facility] 2020-01-07 2020-01-07 Outpatient Ajibade_O_A VFP VF [address] [place] [address] 03:34:00 03:34:00 H [facility]08 [facility] 2020-01-07 2020-01-07 Outpatient Ajibade_O_A VFP [address] 03:34:00 03:34:00 H 08493 Family Practic e 2019-07-01 2019-07-01 Outpatient Ige-Noy VFP [address] 07:18:00 07:18:00 _J_ 56330 Family Practic e Results Test Description Test Time Test Comments Results Result Comments Source GLUCOSE BEDSIDE 2022-01-24 07:07:00 Test Item Value Reference Range Interpretation Comme nts GLUCOSE BEDSIDE (test code = 160 MG/DL 70-110 H Performed by certified paver operator at [facility]) [facility] BASIC METABOLIC [id number] 12:28:00 Test Item Value Reference Range Interpretation [...] = 9.3 mg/dL 8.0-10.5 N CA) PROTHROMBIN [id number] 12:09:00 Test Item Value Reference Range Interpretation [...] (to prevent recurrent infar ct). CBC W/AUTO [id number] 12:05:00 Test Item Value Reference Range Interpretation [...] REQUIRED (test code NO = MDIFF) GLUCOSE [id number] 12:25:00 Test Item Value Reference Range Interpretation Comments GLUCOSE BEDSIDE (test 95 MG/DL 70-110 N Perfor med by certified code = GLUBED) paver operator at [facility] GLUCOSE [id number] 11:07:00 Test Item Value Reference Range Interpretation Comments GLUCOSE BEDSIDE (test 58 MG/DL 70-110 L Perfor med by certified code = GLUBED) paver operator at [facility] [id number] 10:36:00 Test Item Value Reference Range Interpretation Comments ACT-ISTAT (test code 306 SEC 74-137 H Perform ed by certified = ACTI) paver operator at [facility] COMPREHENSIVE METABOLIC [id number] 08:50:00 Test Item Value Reference Range Interpretation [...] H TOTAL (test code = ALKP) PROTHROMBIN [id number] 08:37:00 Test Item Value Reference Range Interpretation [...] (to prevent recurrent infar ct). CBC W/AUTO [id number] 08:28:00 Test Item Value Reference Range Interpretation [...] REQUIRED (test code NO = MDIFF) GLUCOSE [id number] 07:40:00 Test Item Value Reference Range Interpretation Comments GLUCOSE BEDSIDE (test 70 MG/DL 70-110 N [facility] med by certified code = GLUBED) paver operator at [facility] Ctr - XR CHEST 1 [id number] [facility]:00[facility] 1935 Sex: F FAX: Papito Dotson MD [phone] [place]: St: ADM FAX: Alin Almanzar MD [phone] FAX: Benjy Mendez [phone] Name: ALICIA MASH [facility] : 1935 Age/S: 86/F [address] [place] [address] Unit #: [id number] Loc: [place] [address] Phys: Benjy MendezP Acct: [id number] Dis Date: Status: ADM IN PHONE #: [phone] Exam Date: 12/13/2021 1218 FAX #: [phone] Reason: WATCHMAN EXAMS: CPT CODE: [id number] XR CHEST 1 V 38487 PROCEDURE INFORMATION: Exam: XR Chest Exam date and time: 12/13/2021 11:39 AM Age: 86 years old Clinical indication: Pre-operative exam; Respiratory screening exam; Additional info: Watchman TECHNIQUE: Imaging protocol: Radiologic exam of the chest. Views: 1 view. COMPARISON: DX XR CHEST 2 V 12/04/2021 12:31 PM FINDINGS: Lungs: Mild decreased lung volumes. No con solidation. Pleural spaces: Unremarkable. No pleural effusion. No pneumothorax. Heart/Mediastinum: The heart is enlarged. Status post median sternotomy. Aortic atherosclerosis. Atrial appendage occluder device noted. Bones/joints: Unchanged. IMPRESSION: No acute cardiopulmonary disease at 6958 Reported and signed by: Oj Gould M.D. CC: Papito Thayer MD; Alin Fagan MD; Benjy Mendez Technologist: ANDREW Cline) Trnscrd Date/Time/By: 12/13/2021 (0819) : By: [email or web address] Orig Print D/T: S: 12/13/2021(7649) PAGE 1 Signed ReportBASIC METABOLIC [id number] 13:13:00 Test Item Value Reference Range Interpretation [...] code = 10.1 mg/dL 8.0-10.5 N CA) [id number] 13:13:00 Test Item Value Reference Range Interpretation Comments PREALBUMIN (test code = PREALB) 26.4 mg/dL 16.0-40.0 N PROTHROMBIN [id number] 13:02:00 Test Item Value Reference Range Interpretation [...] (to prevent recurrent infar ct). CBC W/AUTO [id number] 12:48:00 Test Item Value Reference Range Interpretation [...] NO = MDIFF) - XR CHEST 2 [id number] 00:00:00 [facility] 1935 Sex: F FAX: Papito Dotson MD [phone] [place]: St: PRE Name: MARIVEL MAS [facility] : 1935 Age/S: 86/F [address] [facility] Unit #: [id number] Loc: [place] [address] Phys: Papito Thayer MD Acct: [id number] Dis Date: Status: PRE SDC PHONE #: [phone] Exam Date: 12/04/2021 1231 FAX #: [phone] Reason: PREOP EXAMS: CPT CODE: [id number] XR CHEST 2 V 76809 PROCEDURE INFORMATION: Exam: XR Chest Exam date [...] of left hemidiaphragm. Bones/joints: No acute abnormality. IMPRESSIO N: No acute cardiopulmonary process. at 1331 Reported and signed by: Surjit Combs M.D. CC: Papito Thaeyr MD Technologist: RT Ziggy(R) Trnscrd Date/Time/By: 12/04/2021 (1331) : By: [email or web address] Orig Print D/T: S: 12/04/2021 (5810) PAGE 1 Signed ReportCOAGULATION TIME [id number] 12:55:00 Test Item Value Reference Range Interpretation Comments COAGULATION TIME 385 SECONDS Performed b y ACTIVATED (test code = certi fied paver operator ACT) at [facility] Ctr GLUCOSE [id number] 12:57:00 Test Item Value Reference Range Interpretation Comments GLUCOSE BEDSIDE (test 151 MG/DL 70-110 H Perfor med by certified code = GLUBED) paver operator at [facility] GLUCOSE [id number] 04:48:00 Test Item Value Reference Range Interpretation Comments GLUCOSE BEDSIDE (test 160 MG/DL 70-110 H Perfor med by certified code = GLUBED) paver operator at [facility] GLUCOSE [id number] 19:50:00 Test Item Value Reference Range Interpretation Comments GLUCOSE BEDSIDE (test 133 MG/DL 70-110 H Perfor med by certified code = GLUBED) paver operator at [facility] [id number] 15:56:00 Test Item Value Reference Range Interpretation Comments ACT-ISTAT (test code 312 SEC 74-137 H Perform ed by certified = ACTI) paver operator at [facility] GLUCOSE [id number] 11:28:00 Test Item Value Reference Range Interpretation Comments GLUCOSE BEDSIDE (test 158 MG/DL 70-110 H Perfor med by certified code = GLUBED) paver operator at [facility] BASIC METABOLIC [id number] 07:08:00 Test Item Value Reference Range Interpretation [...] be done morning of Heart CathTHROMBOPLASTIN TIME [id number] 06:57:00 Test Item Value Reference Range Interpretation Comments THROMBOPLASTIN TIME 29.7 Seconds 25.0-39.5 N Therape utic Range: PARTIAL (test code = 50.4 - 88.3 Seconds PTT) Effective 08/26/2018 CBC W/AUTO [id number] 06:41:00 Test Item Value Reference Range Interpretation [...] morning of Heart CathCOVID 19 Asymptomatic IH [id number] 06:09:00 Test Item Value Reference Range Interpretation [...] moderate, high or waivedcomplexit y tests. GLUCOSE [id number] 04:08:00 Test Item Value Reference Range Interpretation Comments GLUCOSE BEDSIDE (test 128 MG/DL 70-110 H Perfor med by certified code = GLUBED) paver operator at [facility] Ctr GLUCOSE [id number] 00:03:00 Test Item Value Reference Range Interpretation Comments GLUCOSE BEDSIDE (test 188 MG/DL 70-110 H Perfor med by certified code = GLUBED) paver operator at [facility] GLUCOSE [id number] 16:05:00 Test Item Value Reference Range Interpretation Comments GLUCOSE BEDSIDE (test 141 MG/DL 70-110 H Perfor med by certified code = GLUBED) paver operator at [facility] GLUCOSE [id number] 11:13:00 Test Item Value Reference Range Interpretation Comments GLUCOSE BEDSIDE (test 180 MG/DL 70-110 H Perfor med by certified code = GLUBED) paver operator at [facility] COMPREHENSIVE METABOLIC [id number] 07:59:00 Test Item Value Reference Range Interpretation [...] 20-125 N TOTAL (test code = ALKP) [id number] 07:59:00 Test Item Value Reference Range Interpretation Comments LIPASE (test code = LIP) 22 U/L 13-57 N CBC W/AUTO [id number] 07:47:00 Test Item Value Reference Range Interpretation [...] REQUIRED (test code NO = MDIFF) GLUCOSE [id number] 06:02:00 Test Item Value Reference Range Interpretation Comments GLUCOSE BEDSIDE (test 139 MG/DL 70-110 H Perfor med by certified code = GLUBED) paver operator at [facility] Ctr - CTA ABD PEL W [id number] 00:00[facility]00 [facility] 1935 Sex: F Name: MARIVEL MAS [facility] : 1935 Age/S: 85 / F [address] [place] [address] Unit #: [id number] Loc: [place] [address] Phys: Roderick Dunn MD Acct: [id number] Dis Date: Status: ADM IN PHONE #: [phone] Exam Date: 11/08/2021 1843 FAX #: [phone] Reason: EVAL FOR BOWEL ISCHEMIA/ PVD EXAMS: CPT CODE: [id number] CTA ABD PEL W CONT 66003 PROCEDURE INFORMATION: Exam: CTA Abdomen and Pelvis [...] 14 mm non masslike area of arterial enhancementis seen in the right liver lobe segment 7 (3, 32), becoming isodense delayed postcontrast images. This may reflect benign regional arterialization. Low volume focal fatty infiltration is seen in the left lateral liver lobe near the falciform ligament. No cirrhotic PAGE 1 Signed Report (CONTINUED) Name: MARIVEL MAS [facility] : 1935 Age/S: 85 / F [address] [place] [address] Unit #: [id number] Loc: [place] [address] Phys: Roderick Dunn MD Acct: [id number] Dis Date: Status: ADM IN PHONE #: [phone] Exam Date: 11/08/2021 184 FAX #: [phone] Reason: EVAL FOR BOWEL ISCHEMIA/ PVD EXAMS: CPT CODE: [id number] CTA ABD PEL W CONT 31948 (Continued) change. Patent splenoportal circulation. Gallbladder and [...] diverticulosis without signs of diverticulitis. Appendix: Probable priorappendectomy changes to be correlated with history. Intraperitoneal space: No ascites. Lymph nodes:No adenopathy. Urinary bladder: No bladder filling defects or diverticula. Reproductive: Prior hysterectomy. Bones/joints: Prior antegrade intramedullary nailing and hip screw fixation of the left hip with no visible complication. Severe thoracolumbar/lumbosacral spondylosis , symphyseal and bilateralSI joint osteoarthritis. IMPRESSION: 1. Severe aortoiliac atherosclerosis without aneurysm or dissection. 2. Patent celiac and mesenteric arterial circulation. 3. Constipation with nonobstructive bowelgas pattern and no CT signs of mesenteric ischemia. 4. Cardiomegaly with severe coronary atherosclerosis. 5. Hysterectomy, left hip fixation and probable prior appendectomy. 6. Colonic diverticulosis. 7. Additional non emergent findings as described. at 0817 Reported and signed by: Dionte Dong M.D. CC: Roderick Dunn; Papito Thayer MD Technologist:RT Nick(R)(CT) CTDI: DLP: Trnscb Date/Time: 11/09/2021 (0817) [email or web address] Orig Print D/T: S: 11/09/2021 (0818) PAGE 2 Signed ReportGLUCOSE [id number] 19:45:00 Test Item Value Reference Range Interpretation Comments GLUCOSE BEDSIDE (test 207 MG/DL 70-110 H Perfor med by certified code = GLUBED) paver operator at [facility] Ctr GLUCOSE [id number] 16:12:00 Test Item Value Reference Range Interpretation Comments GLUCOSE BEDSIDE (test 198 MG/DL 70-110 H Perfor med by certified code = GLUBED) paver operator at [facility] Ctr GLUCOSE [id number] 12:14:00 Test Item Value Reference Range Interpretation Comments GLUCOSE BEDSIDE (test 179 MG/DL 70-110 H Perfor med by certified code = GLUBED) paver operator at [facility] PROTHROMBIN [id number] 12:21:00 Test Item Value Reference Range Interpretation [...]
[2022-07-20 13:12] LABS: Protime INR 1.03
[2022-07-20 13:13] LABS: Absolute Lymphocytes (CBC) 0.6 K/uL (0.7-4.9); Hematocrit 39.8 % (36.0-45.0); Lymphocytes % 2.4 % (15.3-44.8); MCV 91.9 fL (80-100); RBC Red Blood Cell Count 4.33 M/uL (3.86-4.86)
[2022-07-20 13:26] LABS: Bilirubin Direct 0.2 mg/dL (0-0.2); Bilirubin Total 0.7 mg/dL (0.2-1.0); Potassium 3.7 mmol/L (3.5-5.1); Protein, Total 6.7 g/dL (6.4-8.2); Troponin High Sensitivity 22.5 pg/mL (<58.9)
--- NOTE | 2022-07-20 13:40 | RAD REPORT ---
EXAM DESCRIPTION: CT - [id number] - 07/20/2022 1:02 pm CLINICAL HISTORY: fall, ams COMPARISON: 07/10/[address] TECHNIQUE: Axial thin cut noncontrast CT images of the head were obtained. Axial thin cut noncontrast CT images of the cervical spine were obtained. Multiplanar reformatted images were generated and reviewed. All CT scans are performed using dose optimization technique as appropriate and may include automated exposure control or mA/KV adjustment according to patient size. FINDINGS: CT HEAD WITHOUT CONTRAST: No acute hemorrhage, hydrocephalus or extra-axial collection is identified.No areas of brain edema or midline shift. The paranasal sinuses and mastoids are clear.The calvarium is intact. CT CERVICAL SPINE WITHOUT CONTRAST: No fracture or subluxation.No prevertebral soft tissues swelling is identified. Stable multilevel de generative changes, contributing to up to moderate neural foraminal narrowing bilaterally at C6-7 and on the left at C5-6. IMPRESSION: No acute traumatic intracranial or cervical spine findings. Stable multilevel cervical spine degenerative changes.
[2022-07-20 13:45] LABS: Urine Blood Trace-intact (Negative); Urine Glucose Negative (Negative); Urine Protein Negative (Negative); Urine Specific Gravity 1.015 (1.005-1.030); Urine pH 7.5 (5.0-7.0)
[2022-07-20 14:17] LABS: White Blood Cell Scan OK (OK)
[2022-07-20 14:18] LABS: Blood Morphology Comment NOT SEEN (NOT SEEN); Platelet Estimate ADEQ
--- NOTE | 2022-07-20 15:22 | RAD REPORT ---
EXAM DESCRIPTION: RADChest Single View07/20/2022 1:48 pm CLINICAL HISTORY: sob, ams COMPARISON: Chest Single View dated 07/11/2022; Chest Single View dated 07/10/2022; Chest Single View d ated 11/05/2021; Chest Pa And Lat (2 Views) dated 10/20/2021 TECHNIQUE: Portable AP view of the chest. FINDINGS: Progressive bilateral perihilar patchy airspace opacification with interstitial prominence since the prior exam. No pneumothorax or effusion. The cardiomediastinal contours are unremarkable. Left chest wall pacer in place. IMPRESSION: Progressive bilateral perihilar patchy opacities, which could reflect central congestion / CHF, with or without superimposed airspace disease.
--- NOTE | 2022-07-20 15:24 | RAD REPORT ---
EXAM DESCRIPTION: RAD - Foot Left 3 View - 07/20/2022 1:48 pm CLINICAL HISTORY: Fall COMPARISON: None. FINDINGS: Three views of the left foot. Diffuse osteopenia which limits evaluation. Cortical buckling with medial apex angulation at the seco nd and third digit metatarsal neck regions. Lucency present transversely across the third metatarsal neck suggesting an acute/ recent component of fracture. No evidence of Dislocation or periosteal reac tion. Moderate calcaneal spur. Vascular calcifications. No air or foreign body in the soft tissues. Diffuse swelling along the dorsum of the foot. IMPRESSION: Cortical buckling with medial apex angulation at the second and third digit metatarsal neck regions. Lucency present transversely across the third metatarsal neck suggesting an acute/ rece nt component of fracture..
[2022-07-20] MEDS ORDERED: ONDANSETRON 4 MG/2 ML VIAL IV PRN (15:55)
[2022-07-20] MEDS ORDERED: ACETAMINOPHEN 500 MG TAB PO PRN (15:55)
[2022-07-20] MEDS ORDERED: IPRATROPIUM BROM 0.5MG/2.5ML NEB PRN (15:55)
[2022-07-20] MEDS ORDERED: Meropenem 1000 MG/VIAL IV ONE (16:27)
[2022-07-20] MEDS ORDERED: NA CHLORIDE 0.9% 100 ML ONE (16:27)
[2022-07-20 16:40] LABS: SARS-CoV-2 Antigen Rapid Res Negative (Negative)
[2022-07-20] MEDS: Meropenem 1,000 MG in NA CHLORIDE 0.9% 100 ML IV SCH (17:00)
[2022-07-20 17:41] VITALS: BMI 28.3
[2022-07-20] MEDS ORDERED: INFLUENZA VACCINE (for 6+ mo) 0.5 ML DOSE IMVAC ONE (18:00)
[2022-07-20] MEDS ORDERED: GLUCAGON 1 MG/VIAL IM PRN (18:37)
[2022-07-20] MEDS ORDERED: D10W 250 ML BAG IV PRN (18:45)
[2022-07-20] MEDS: AZITHROMYCIN IV 500 MG in NA CHLORIDE 0.9% 250 ML IVPB SCH (20:43)
[2022-07-20] MEDS: AMITRIPTYLINE 10 MG TAB PO SCH (20:44)
[2022-07-20] MEDS: ALBUTEROL 2.5 MG/3 ML NEB SOL NEB PRN (20:45)
[2022-07-20] MEDS: SOTALOL HCL 80 MG TAB PO SCH (20:45)
[2022-07-20] MEDS: HYDROCODONE/APAP 5/325 MG TAB PO SCH (20:45)
[2022-07-20] MEDS: CLOPIDOGREL 75 MG TABLET PO SCH (20:46)
[2022-07-20] MEDS: INSULIN -REGULAR HUMAN 50 UNIT/0.5 ML ML SQ SCH (21:00)
[2022-07-20] MEDS ORDERED: FUROSEMIDE 40 MG/4 ML VIAL IV ONE (21:00)
[2022-07-21] MEDS: SOTALOL HCL 80 MG TAB PO SCH ×2 (06:20→17:12)
[2022-07-21] MEDS: HYDROCODONE/APAP 5/325 MG TAB PO SCH ×3 (06:25→18:36)
[2022-07-21] MEDS: INSULIN -REGULAR HUMAN 50 UNIT/0.5 ML ML SQ SCH ×4 (07:30→21:00)
[2022-07-21 07:56] LABS: Absolute Lymphocytes (CBC) 0.8 K/uL (0.7-4.9); Hematocrit 32.2 % (36.0-45.0); Lymphocytes % 3.7 % (15.3-44.8); MPV 8.1 fL (7.6-11.3)
[2022-07-21] MEDS ORDERED: FUROSEMIDE 40 MG/4 ML VIAL IV ONE ×2 (08:00→21:00)
[2022-07-21 08:12] LABS: Potassium 3.8 mmol/L (3.5-5.1)
[2022-07-21] MEDS: Meropenem 1,000 MG in NA CHLORIDE 0.9% 100 ML IV SCH ×2 (09:00→09:43)
[2022-07-21] MEDS: AZITHROMYCIN IV 500 MG in NA CHLORIDE 0.9% 250 ML IVPB SCH (09:43)
[2022-07-21] MEDS: CLOPIDOGREL 75 MG TABLET PO SCH (09:43)
[2022-07-21] MEDS: NPH (HUMAN) 100 UNITS/ML INSULIN SQ SCH ×2 (09:44→17:13)
[2022-07-21] MEDS ORDERED: GLUCAGON 1 MG/VIAL IM PRN (11:36)
[2022-07-21] MEDS ORDERED: D50W 25 GM/50 ML SYRINGE IV PRN (11:36)
--- NOTE | 2022-07-21 12:01 | P.CNS ---
Date of Consult: 07/21/22 Reason for Consult: Pneumonia Chief Complaint: Weakness fall History of Present Illness: This patient is 86 years of age was recently discharged from the hospital with non-STEMI status post stent placement and a UTI she has been weak apparently she went to see Dr. Fagan in his office 2 days ago and then suddenly became very weak had a fall admitted with left lower lobe pneumonia Allergies No Known Allergies Allergy (Verified 02/19/22 15:36) Home Medications: Pentoxifylline 400 mg PO TIDWM 09/28/18 Amlodipine Besylate/Benazepril [Amlodipine-Benazepril 10-20 mg] 1 each PO DAILY #30 02/19/20 Atorvastatin Calcium [Lipitor*] 20 mg PO BEDTIME #30 tab 02/19/20 Levothyroxine Sodium [Euthyrox] 88 mcg PO DAILY #30 02/19/20 Sotalol HCl [Betapace*] 80 mg PO BID 6AM 6PM #60 tab 02/19/20 lisinopriL [Lisinopril] 10 mg PO DAILY #30 tablet 02/20/20 Amitriptyline HCl 10 mg PO BEDTIME 02/19/22 Aspirin [Loly Chewable Aspirin] 81 mg PO DAILY 02/19/22 Clopidogrel Bisulfate [Plavix*] 75 mg PO DAILY 02/19/22 Furosemide [Lasix] 60 mg PO BID 02/19/22 Gabapentin [Neurontin*] 200 mg PO Q4H 02/19/22 Hydrocodone Bit/Acetaminophen [Hydrocodon-Acetaminophen 5-325] 1 each PO TID 02/19/22 Insulin NPH Human Isophane [Novolin N] 25 unit SQ BID 02/19/22 Metoclopramide [Reglan*] 10 ml PO ACHS 02/19/22 Potassium Chloride [Klor-Con] 20 meq PO DAILY 02/19/22 Albuterol Sulfate 1.25 mg IH Q8HP PRN 15 Days #150 ml 07/15/22 Fluticasone/Salmeterol [Advair 250-50 Diskus] 1 each IH BID 30 Days #60 aero 07/15/22 - Past Medical/Surgical History Diabetic: Yes -: Hypertension -: Diabetes mellitus type 2-insulin dependent -: Peripheral artery disease -: Paroxysmal atrial flutter S/P pacemaker defibrillator placement -: GERD -: Hyperlipidemia -: Hypothyroidism -: Hysterectomy -: tonsillectomy -: appendectomy -: tendonitis -: back surgery -: Pacemaker/defibrillator Psychosocial/ Personal History: Patient lives at home with her daughter. - Family History Mother Medical History: Heart disease, Hypertension, Lung disease Notes: CHF and COPD - Social History Smoking Status: Unknown if ever smoked Alcohol use: No CD- Drugs: No Caffeine use: Yes Review of Systems General: Weakness Respiratory: Cough, Shortness of Breath Neurological: Weakness Physical Examination Temp Pulse Resp BP Pulse Ox 98.3 F 74 23 H 142/60 H 97 07/21/22 08:00 07/21/22 09:44 07/21/22 08:00 07/21/22 09:44 07/21/22 08:00 General: Alert, Mild distress Respiratory: Crackles/rales, Expiratory wheezes Cardiovascular: No edema, Regular rate/rhythm, Normal S1 S2 Gastrointestinal: Normal bowel sounds, Soft and benign Musculoskeletal: Other (Left foot is bruised and swollen) Laboratory Data (last 24 hrs) 07/20/22 12:53: PT 11.3, INR 1.03 07/20/22 12:53: WBC 26.10 H*, Hgb 13.0, Hct 39.8, Plt Count 304 07/20/22 12:53: Sodium 144, Potassium 3.7, BUN 25 H, Creatinine 0.96, Glucose 182 H, Magnesium 2.0, Total Bilirubin 0.7, AST 15, ALT 23, Alkaline Phosphatase 75 - Problems (1) Pneumonia Current Visit: Yes Status: Acute Plan: Patient is 86 years of age was recently discharged from the hospital with non- STEMI and a stent placement in addition to diastolic heart failure admitted once more with now with a left lower lobe pneumonia she had fallen recent fracture of the left third metatarsal of the left foot add vancomycin DC Zithromax continue with meropenem blood cultures are pending White count is elevated but pressure satisfactory oxygenation satisfactory chest x-ray shows left lower lobe pneumonia patient is a little congested urinalysis abnormal leuk leukocyte esterase positive recent hematuria Qualifiers: Pneumonia type: due to unspecified organism Laterality: left Lung location: lower lobe of lung Qualified Code(s): J18.9 - Pneumonia, unspecified organism
--- NOTE | 2022-07-21 12:54 | RAD REPORT ---
EXAM DESCRIPTION: CT - Thorax Wo Con - 07/21/2022 12:46 pm CLINICAL HISTORY: Poss pneumonia COMPARISON: Thorax Wo Con dated 09/27/2018Thorax Wo Con dated 09/27/2018; Chest Single View dated 07/20 FINDINGS: Chest Wall: No suspicious thyroid nodules or pathologic lymphadenopathy. Left upper chest wall pacemaker. Lungs: Mild nodular and consolidative airspace disease is present in the lower lungs bilaterally. Pleura: No significant effusions or pneumothorax. Mediastinum/keyanna: Left hilar adenopathy. Pulmonary arteries/Aorta: Limited evaluation without contrast. No aortic aneurysm. Heart: No significant pericardial effusion. Mild cardiomegaly. Atrial appendage occlusion device. Mul ti-vessel coronary artery disease. . Upper abdomen: No acute abnormality. . Bones: No acute abnormality.Remote appearing T5 and T6 compression fractures. Bilateral nonobstructiv e nephrolithiasis. All CT scans are performed using dose optimization technique as appropriate and may include automated exposure control or mA/KV adjustment according to patient size. IMPRESSION: Nodular and consolidative airspace disease in the lower lungs likely reflecting pneumoni a or pneumonitis.
[2022-07-21] MEDS ORDERED: VANCOMYCIN 2 GM in NA CHLORIDE 0.9% 500 ML IVPB ONE (13:00)
[2022-07-21] MEDS: ALBUTEROL 2.5 MG/3 ML NEB SOL NEB PRN (13:09)
[2022-07-21] MEDS: IPRATROPIUM BROM 0.5MG/2.5ML NEB SCH ×3 (13:09→19:45)
[2022-07-21] MEDS: PENTOXIFYLLINE ER 400 MG TAB PO SCH ×2 (13:26→17:12)
[2022-07-21] MEDS: METOCLOPRAMIDE 10MG/10ML UCUP PO SCH ×2 (16:30→21:38)
[2022-07-21] MEDS ORDERED: SOTALOL HCL 80 MG TAB PO SCH (18:00)
[2022-07-21] MEDS ORDERED: NPH (HUMAN) 100 UNITS/ML INSULIN SQ SCH (21:00)
[2022-07-21] MEDS: FUROSEMIDE 40 MG TABLET PO SCH (21:00)
[2022-07-21] MEDS: MUPIROCIN 2% OINT 22GM TUBE TOP SCH (21:00)
[2022-07-21] MEDS ORDERED: AMITRIPTYLINE 10 MG TAB PO SCH (21:00)
[2022-07-21] MEDS: AMITRIPTYLINE 10 MG TAB PO SCH (21:22)
[2022-07-21] MEDS: GABAPENTIN 100 MG CAP PO SCH (21:22)
[2022-07-21] MEDS: ATORVASTATIN 20 MG TAB PO SCH (21:22)
[2022-07-22] MEDS: IPRATROPIUM BROM 0.5MG/2.5ML NEB SCH ×4 (01:15→21:00)
[2022-07-22] MEDS: Meropenem 1,000 MG in NA CHLORIDE 0.9% 100 ML IV SCH ×4 (01:28→17:07)
[2022-07-22] MEDS: GABAPENTIN 100 MG CAP PO SCH ×6 (01:33→20:43)
[2022-07-22 04:22] LABS: Absolute Lymphocytes (CBC) 0.9 K/uL (0.7-4.9); Lymphocytes % 6.5 % (15.3-44.8); MCV 91.5 fL (80-100); MPV 8.1 fL (7.6-11.3); RBC Red Blood Cell Count 3.39 M/uL (3.86-4.86)
[2022-07-22 04:26] LABS: Specific Gravity 1.005 (1.005-1.030); Urine Bacteria <20 /HPF (<20); Urine Bilirubin NEGATIVE (Negative); Urine Blood Negative (Negative); Urine Clarity Clear (Clear); Urine Color Colorless (Yellow); Urine Glucose NEGATIVE (Negative); Urine Mucus Slight /HPF (None Seen); Urine Protein NEGATIVE (Negative); Urine RBC <5 /HPF (None Seen); Urine Urobilinogen Normal (Normal); Urine pH 7.5 (5.0-7.0)
[2022-07-22 04:35] LABS: Potassium 3.1 mmol/L (3.5-5.1)
[2022-07-22] MEDS: SOTALOL HCL 80 MG TAB PO SCH ×2 (06:07→17:05)
[2022-07-22] MEDS: INSULIN -REGULAR HUMAN 50 UNIT/0.5 ML ML SQ SCH ×4 (07:30→21:04)
[2022-07-22] MEDS: METOCLOPRAMIDE 10MG/10ML UCUP PO SCH ×4 (07:30→20:46)
[2022-07-22] MEDS: ALBUTEROL 2.5 MG/3 ML NEB SOL NEB PRN (08:00)
[2022-07-22] MEDS ORDERED: CLOPIDOGREL 75 MG TABLET PO SCH (09:00)
[2022-07-22] MEDS: HYDROCODONE/APAP 5/325 MG TAB PO SCH ×3 (09:00→20:44)
[2022-07-22] MEDS ORDERED: lisinopriL 10 MG TAB PO SCH (09:00)
[2022-07-22] MEDS: BENAZEPRIL 20 MG TAB PO SCH (09:39)
[2022-07-22] MEDS: POTASSIUM CL SA 10 MEQ TAB PO SCH (09:40)
[2022-07-22] MEDS: LEVOTHYROXINE SOD 0.088 MG TAB PO SCH (09:40)
[2022-07-22] MEDS: ASPIRIN 81 MG CHEWABLE TABLET PO SCH (09:40)
[2022-07-22] MEDS: PENTOXIFYLLINE ER 400 MG TAB PO SCH ×3 (09:40→17:05)
[2022-07-22] MEDS: AMLODIPINE 10 MG TAB PO SCH (09:40)
[2022-07-22] MEDS: FUROSEMIDE 40 MG TABLET PO SCH ×2 (09:40→20:45)
[2022-07-22] MEDS: CLOPIDOGREL 75 MG TABLET PO SCH (09:40)
[2022-07-22] MEDS: MUPIROCIN 2% OINT 22GM TUBE TOP SCH ×2 (09:41→20:43)
[2022-07-22] MEDS: NPH (HUMAN) 100 UNITS/ML INSULIN SQ SCH ×2 (09:42→17:06)
[2022-07-22] MEDS ORDERED: VANCOMYCIN 1.5 GM in NA CHLORIDE 0.9% 500 ML IVPB SCH (13:00)
[2022-07-22] MEDS ORDERED: POTASSIUM CL SA 10 MEQ TAB PO ONE (16:00)
[2022-07-22] MEDS: ATORVASTATIN 20 MG TAB PO SCH (20:43)
[2022-07-22] MEDS: AMITRIPTYLINE 10 MG TAB PO SCH (20:44)
--- NOTE | 2022-07-22 21:19 | PN ---
Date of Progress Note: 07/22/2022 The patient feels considerably better today, looks considerably better as well. She attributes this to the addition of the gabapentin. She has required little else for pain. Her potassium level is sl ightly low. We will put her on the protocol and we will order a boot for her foot in hopes of mobili zing her in the next day or so. The PICC line is now in and we will follow with a chest x-ray for pro gression of the presumed pneumonia. HR/MODL Voice ID: [id number] Report ID: [id number]
[2022-07-22] MEDS: MORPHINE 2 MG/ML SYR IV PRN (23:31)
[2022-07-23] MEDS: GABAPENTIN 100 MG CAP PO SCH ×6 (00:28→20:35)
[2022-07-23] MEDS: Meropenem 1,000 MG in NA CHLORIDE 0.9% 100 ML IV SCH (01:16)
[2022-07-23] MEDS: IPRATROPIUM BROM 0.5MG/2.5ML NEB SCH ×4 (02:05→20:35)
[2022-07-23] MEDS: SOTALOL HCL 80 MG TAB PO SCH ×2 (05:54→17:02)
[2022-07-23 06:15] LABS: Absolute Lymphocytes (CBC) 0.9 K/uL (0.7-4.9); Hematocrit 31.5 % (36.0-45.0); Lymphocytes % 9.6 % (15.3-44.8); MCV 92.1 fL (80-100); RBC Red Blood Cell Count 3.42 M/uL (3.86-4.86)
[2022-07-23] MEDS: INSULIN -REGULAR HUMAN 50 UNIT/0.5 ML ML SQ SCH ×4 (07:30→20:36)
[2022-07-23] MEDS: LEVOTHYROXINE SOD 0.088 MG TAB PO SCH (08:32)
[2022-07-23] MEDS: FUROSEMIDE 40 MG TABLET PO SCH ×2 (08:33→20:34)
[2022-07-23] MEDS: METOCLOPRAMIDE 10MG/10ML UCUP PO SCH ×4 (08:33→20:36)
[2022-07-23] MEDS: CLOPIDOGREL 75 MG TABLET PO SCH (08:33)
[2022-07-23] MEDS: BENAZEPRIL 20 MG TAB PO SCH (08:33)
[2022-07-23] MEDS: NPH (HUMAN) 100 UNITS/ML INSULIN SQ SCH ×2 (08:33→17:03)
[2022-07-23] MEDS: AMLODIPINE 10 MG TAB PO SCH (08:34)
[2022-07-23] MEDS: POTASSIUM CL SA 10 MEQ TAB PO SCH (08:34)
[2022-07-23] MEDS: PENTOXIFYLLINE ER 400 MG TAB PO SCH ×3 (08:34→17:02)
[2022-07-23] MEDS: ASPIRIN 81 MG CHEWABLE TABLET PO SCH (08:34)
[2022-07-23] MEDS: MUPIROCIN 2% OINT 22GM TUBE TOP SCH ×2 (08:35→20:35)
--- NOTE | 2022-07-23 08:40 | RAD REPORT ---
EXAM DESCRIPTION: [place] Single View07/23/2022 7:58 am CLINICAL HISTORY: Pneumonia COMPARISON: July 22 2022 FINDINGS: Mild improvement in the left lower lobe opacities. Mild additional bilateral pulmonary opacities partially resolved Heart is mildly enlarged. PICC line placed. Pacemaker leads noted
[2022-07-23] MEDS ORDERED: levoFLOXacin 750 MG TAB PO SCH (09:00)
[2022-07-23] MEDS: DOXYCYCLINE 100 MG CAP PO SCH ×2 (09:51→20:34)
[2022-07-23] MEDS: AMOX/K CLAV 500 MG TAB PO SCH ×2 (09:51→14:34)
[2022-07-23] MEDS ORDERED: NITROFURAN MACRO 50 MG CAP PO SCH (12:53)
--- NOTE | 2022-07-23 12:54 | P.PN ---
Subjective Date of Service: 07/23/22 Chief Complaint: Bilateral pneumonia Subjective: Improving (Patient is improving chest congestion is also improved feeling better) Review of Systems General: Weakness Respiratory: Shortness of Breath Physical Examination - Vital Signs Temperature: 97.2 F Blood Pressure: 178/75 Pulse: 92 Respirations: 16 Pulse Ox (%): 99 - Physical Exam General: Alert, In no apparent distress, Oriented x3 Respiratory: Crackles/rales (Crackles at the base) Cardiovascular: No edema, Regular rate/rhythm, Normal S1 S2 Gastrointestinal: Normal bowel sounds, Soft and benign Assessment And Plan - Current Problems (Diagnosis) (1) Pneumonia Current Visit: Yes Status: Acute Plan: Patient admitted with bilateral pneumonia improving changed to p.o. Augmentin and doxycycline patient has Enterococcus faecalis in the urine sensitive to Macrodantin patient's white count is now normal chest congestion has improved his scan reviewed bilateral lower lobe pneumonia blood pressures little elevated patient has normal QT interval although she is on sotalol quinolones would be a relative contraindication oxygenation Qualifiers: Pneumonia type: due to unspecified organism Laterality: left Lung location: lower lobe of lung Qualified Code(s): J18.9 - Pneumonia, unspecified organism
--- NOTE | 2022-07-23 13:13 | EKG ---
Test Date: 2022-07-20 Test Time: 13:52:31 Television Engineering Teacher: TM MEASUREMENT RESULTS: Intervals: Rate: 90 OH: 128 QRSD: 114 QT: 402 QTc: 491 [place]: P: 12 OH: 128 QRS: -29 T: 131 INTERPRETIVE STATEMENTS: Normal sinus rhythm Minimal voltage criteria for LVH, may be normal variant Inferior infarct, age undetermined Anterior infarct, age undetermined Marked ST abnormality, possible lateral subendocardial injury Abnormal ECG Compared to ECG 07/10/2022 10:54:06 Left ventricular hypertrophy now present Myocardial infarct finding now present ST (T wave) deviation now present Atrial fibrillation no longer present Ventricular premature complex(es) no longer present Left-axis deviation no longer present Left bundle-branch block no longer present Electronically Signed On 07-23-22 13:07:51 CDT by Papito Thayer
--- NOTE | 2022-07-23 13:29 | RAD REPORT ---
EXAM DESCRIPTION: XR Chest, 1 View CLINICAL HISTORY: The patient is 86 years old and is Female; S/P PICC insertion TECHNIQUE: Frontal view of the chest. COMPARISON: No relevant prior studies available. FINDINGS: LUNGS: Unremarkable. No consolidation. PLEURAL SPACE: Unremarkable. No pneumothorax. HEART: The cardiac silhouette is enlarged. MEDIASTINUM: Unremarkable. BONES/JOINTS: Multilevel degenerative change of the spine is present. VASCULATURE: Atherosclerosis of the aorta is present. Fullness of the central vasculature is p resent. TUBES, LINES AND DEVICES: A right upper extremity PICC is present with the tip in the region of the SVC. Left-sided pacemaker is noted. UPPER ABDOMEN: Unremarkable as visualized. IMPRESSION: A right upper extremity PICC is present with the tip in the region of the SVC. Electronically signed by: Regina Andrade MD 07/22/2022 12:00 AM COMMUNITY OUTREACH WORKER Due to temporary technical issues with the PACS/Fluency reporting system, reports are being signed by the in house radiologists without review as a courtesy to insure prompt reporting. The interpreting radiologist is fully responsible for the content of the report.
--- NOTE | 2022-07-23 15:43 | RAD REPORT ---
EXAM DESCRIPTION: RAD - Foot Left 3 View - 07/23/2022 3:07 pm CLINICAL HISTORY: Fall. Abnormality on prior radiograph. Follow-up COMPARISON: None. FINDINGS: Three views of the left foot. Diffuse osteopenia somewhat limits evaluation. Osseous remodeling, early callus formation, and decreased conspicuity of the transverse lucency at th e neck of the third metatarsal. No significant change along the neck of the second metatarsal, with s table cortical buckling. No other acute fracture, dislocation or periosteal reaction. Midfoot degenerative changes. Slightly improved swelling along the dorsum of the foot. No air or foreign body in the soft tissues. IMPRESSION: Sequelae of partial healing most notably along the neck of the third metatarsal. Other s table findings as above.
[2022-07-23] MEDS: HYDROCODONE/APAP 5/325 MG TAB PO PRN (17:15)
--- NOTE | 2022-07-23 18:25 | PN ---
Date of Progress Note: 07/23/2022 Pain is much better controlled. She seems much better both clinically symptomatically. Chest x-ray shows improvement. Edema of the leg is markedly less. However, repeat x-ray of the foot prior to mo bilization. Analgesics seems to be under control as well at this time on a p.r.n. basis utilizing th e morphine and hydrocodone. With the PICC line, she should be able to be discharged in the next day or so. HR/MODL Voice ID: [id number] Report ID: [id number]
[2022-07-23] MEDS: AMITRIPTYLINE 10 MG TAB PO SCH (20:34)
[2022-07-23] MEDS: ATORVASTATIN 20 MG TAB PO SCH (20:35)
[2022-07-23] MEDS: MORPHINE 2 MG/ML SYR IV PRN (20:36)
[2022-07-24] MEDS: Meropenem 1,000 MG in NA CHLORIDE 0.9% 100 ML IV SCH ×3 (00:20→18:17)
[2022-07-24] MEDS: GABAPENTIN 100 MG CAP PO SCH ×6 (00:21→21:32)
[2022-07-24] MEDS: IPRATROPIUM BROM 0.5MG/2.5ML NEB SCH ×4 (01:30→19:35)
[2022-07-24] MEDS: HYDROCODONE/APAP 5/325 MG TAB PO PRN ×2 (03:44→13:44)
[2022-07-24 04:17] LABS: Hematocrit 33.5 % (36.0-45.0); Lymphocytes % 12.2 % (15.3-44.8); MCV 91.3 fL (80-100); MPV 7.8 fL (7.6-11.3); RBC Red Blood Cell Count 3.66 M/uL (3.86-4.86)
[2022-07-24 04:22] LABS: Potassium 3.9 mmol/L (3.5-5.1)
[2022-07-24] MEDS: SOTALOL HCL 80 MG TAB PO SCH ×2 (05:50→18:24)
[2022-07-24] MEDS: INSULIN -REGULAR HUMAN 50 UNIT/0.5 ML ML SQ SCH ×4 (07:30→21:29)
[2022-07-24] MEDS: ALBUTEROL 2.5 MG/3 ML NEB SOL NEB PRN (08:17)
[2022-07-24] MEDS ORDERED: AMOX/K CLAV 875 MG TAB PO SCH (09:00)
[2022-07-24] MEDS ORDERED: POTASSIUM CL SA 10 MEQ TAB PO ONE (09:00)
[2022-07-24] MEDS: POTASSIUM CL SA 10 MEQ TAB PO SCH (10:11)
[2022-07-24] MEDS: BENAZEPRIL 20 MG TAB PO SCH (10:11)
[2022-07-24] MEDS: PENTOXIFYLLINE ER 400 MG TAB PO SCH ×3 (10:12→18:18)
[2022-07-24] MEDS: ASPIRIN 81 MG CHEWABLE TABLET PO SCH (10:12)
[2022-07-24] MEDS: AMLODIPINE 10 MG TAB PO SCH (10:12)
[2022-07-24] MEDS: MUPIROCIN 2% OINT 22GM TUBE TOP SCH ×2 (10:13→21:35)
[2022-07-24] MEDS: CLOPIDOGREL 75 MG TABLET PO SCH (10:13)
[2022-07-24] MEDS: FUROSEMIDE 40 MG TABLET PO SCH ×2 (10:14→21:30)
[2022-07-24] MEDS: METOCLOPRAMIDE 10MG/10ML UCUP PO SCH ×4 (10:37→21:00)
[2022-07-24] MEDS: LEVOTHYROXINE SOD 0.088 MG TAB PO SCH (11:58)
[2022-07-24] MEDS: DOXYCYCLINE 100 MG CAP PO SCH ×2 (11:58→21:32)
[2022-07-24] MEDS: NPH (HUMAN) 100 UNITS/ML INSULIN SQ SCH ×2 (11:59→18:25)
[2022-07-24] MEDS: MORPHINE 2 MG/ML SYR IV PRN (18:24)
--- NOTE | 2022-07-24 19:07 | PN ---
Date of Progress Note: 07/24/2022 The patient continues to improve, both symptomatically and clinically. She has been up and weightbea ring with the boot on the fracture foot she said with minimal problem. Breathing is better. We will continue with Merrem at home for a week and organize her Home Health with the PICC line in place. S he does have a little yeast 1+ and we will add Diflucan to the regimen and possibly discharge tomorro or . HR/MODL Voice ID: [id number] Report ID: [id number]
[2022-07-24] MEDS: ATORVASTATIN 20 MG TAB PO SCH (21:30)
[2022-07-24] MEDS: AMITRIPTYLINE 10 MG TAB PO SCH (21:32)
[2022-07-25] MEDS: GABAPENTIN 100 MG CAP PO SCH ×6 (00:39→21:09)
[2022-07-25] MEDS: Meropenem 1,000 MG in NA CHLORIDE 0.9% 100 ML IV SCH ×3 (00:39→17:58)
[2022-07-25] MEDS: IPRATROPIUM BROM 0.5MG/2.5ML NEB SCH ×4 (01:10→19:20)
[2022-07-25] MEDS: HYDROCODONE/APAP 5/325 MG TAB PO PRN ×2 (03:00→12:02)
[2022-07-25 03:31] LABS: Absolute Lymphocytes (CBC) 1.3 K/uL (0.7-4.9); Hematocrit 35.8 % (36.0-45.0); Lymphocytes % 10.6 % (15.3-44.8); MPV 7.6 fL (7.6-11.3); RBC Red Blood Cell Count 3.93 M/uL (3.86-4.86)
[2022-07-25 03:52] LABS: Potassium 3.7 mmol/L (3.5-5.1)
[2022-07-25] MEDS: SOTALOL HCL 80 MG TAB PO SCH ×2 (05:39→18:00)
[2022-07-25] MEDS: INSULIN -REGULAR HUMAN 50 UNIT/0.5 ML ML SQ SCH ×4 (07:30→21:00)
[2022-07-25] MEDS: LEVOTHYROXINE SOD 0.088 MG TAB PO SCH (08:46)
[2022-07-25] MEDS: DOXYCYCLINE 100 MG CAP PO SCH ×2 (08:46→21:09)
[2022-07-25] MEDS: BENAZEPRIL 20 MG TAB PO SCH (08:46)
[2022-07-25] MEDS: ASPIRIN 81 MG CHEWABLE TABLET PO SCH (08:46)
[2022-07-25] MEDS: CLOPIDOGREL 75 MG TABLET PO SCH (08:46)
[2022-07-25] MEDS: AMLODIPINE 10 MG TAB PO SCH (08:46)
[2022-07-25] MEDS: FUROSEMIDE 40 MG TABLET PO SCH ×2 (08:47→21:09)
[2022-07-25] MEDS: METOCLOPRAMIDE 10MG/10ML UCUP PO SCH ×4 (08:47→21:09)
[2022-07-25] MEDS: MUPIROCIN 2% OINT 22GM TUBE TOP SCH ×2 (08:48→21:08)
[2022-07-25] MEDS: POTASSIUM CL SA 10 MEQ TAB PO SCH (08:57)
[2022-07-25] MEDS: PENTOXIFYLLINE ER 400 MG TAB PO SCH ×3 (08:57→17:59)
[2022-07-25] MEDS: NPH (HUMAN) 100 UNITS/ML INSULIN SQ SCH ×2 (08:57→17:59)
[2022-07-25] MEDS ORDERED: POTASSIUM CL SA 10 MEQ TAB PO ONE (09:00)
--- NOTE | 2022-07-25 11:59 | RAD REPORT ---
EXAM DESCRIPTION: [facility] Pa And Lat (2 Views)07/25/2022 9:59 am CLINICAL HISTORY: follow up COMPARISON: Chest Single View dated 07/23/2022; Chest Single View dated 07/21/2022; Chest Single View dated 07/20/2022; Chest Single View dated 07/11/2022 TECHNIQUE: PA and lateral views of the chest. FINDINGS: Right arm PICC and left chest wall pacer/ AICD are stable in position. The lungs are apart from left basilar streaky opacities which are stable. Right lung is clear. No pneumothorax or effusi on. The cardiomediastinal contours are unremarkable. IMPRESSION: Stable patchy left basilar airspace opacities.
[2022-07-25] MEDS: ALBUTEROL 2.5 MG/3 ML NEB SOL NEB PRN (19:20)
[2022-07-25] MEDS: AMITRIPTYLINE 10 MG TAB PO SCH (21:09)
[2022-07-25] MEDS: ATORVASTATIN 20 MG TAB PO SCH (21:11)
[2022-07-26] MEDS: Meropenem 1,000 MG in NA CHLORIDE 0.9% 100 ML IV SCH ×2 (00:13→10:36)
[2022-07-26] MEDS: GABAPENTIN 100 MG CAP PO SCH ×3 (00:13→09:00)
[2022-07-26] MEDS: IPRATROPIUM BROM 0.5MG/2.5ML NEB SCH ×2 (01:00→08:46)
[2022-07-26] MEDS: HYDROCODONE/APAP 5/325 MG TAB PO PRN ×2 (01:17→11:30)
[2022-07-26 04:22] LABS: Absolute Lymphocytes (CBC) 1.1 K/uL (0.7-4.9); Lymphocytes % 12.3 % (15.3-44.8); MCV 90.4 fL (80-100); RBC Red Blood Cell Count 3.42 M/uL (3.86-4.86)
[2022-07-26 04:30] LABS: Potassium 3.7 mmol/L (3.5-5.1)
[2022-07-26] MEDS: SOTALOL HCL 80 MG TAB PO SCH (06:02)
[2022-07-26] MEDS: INSULIN -REGULAR HUMAN 50 UNIT/0.5 ML ML SQ SCH ×2 (07:30→11:31)
[2022-07-26] MEDS: PENTOXIFYLLINE ER 400 MG TAB PO SCH ×2 (08:59→11:31)
[2022-07-26] MEDS: METOCLOPRAMIDE 10MG/10ML UCUP PO SCH ×2 (08:59→11:30)
[2022-07-26] MEDS: NPH (HUMAN) 100 UNITS/ML INSULIN SQ SCH (08:59)
[2022-07-26] MEDS: DOXYCYCLINE 100 MG CAP PO SCH (08:59)
[2022-07-26] MEDS: LEVOTHYROXINE SOD 0.088 MG TAB PO SCH (08:59)
[2022-07-26] MEDS: BENAZEPRIL 20 MG TAB PO SCH (09:00)
[2022-07-26] MEDS: CLOPIDOGREL 75 MG TABLET PO SCH (09:00)
[2022-07-26] MEDS: POTASSIUM CL SA 10 MEQ TAB PO SCH (09:00)
[2022-07-26] MEDS: ASPIRIN 81 MG CHEWABLE TABLET PO SCH (09:00)
[2022-07-26] MEDS: AMLODIPINE 10 MG TAB PO SCH (09:00)
[2022-07-26] MEDS: FUROSEMIDE 40 MG TABLET PO SCH (09:01)
[2022-07-26] MEDS: MUPIROCIN 2% OINT 22GM TUBE TOP SCH (09:01)
[2022-07-26 09:11] VITALS: O2SAT 89
--- NOTE | 2022-07-26 12:31 | PN ---
Date of Progress Note: 07/25/2022 The patient states she does not feel quite as well yesterday and her white count has been elevated on this occasion to 12,000 plus. However, her symptoms have improved. Her chest x-ray is improved wit h pneumonia present only on 1 side now. Seems can lie comfortably without oxygen, has been up and we ightbearing with her foot with no problem. The antibiotics in the afternoon as far as the administration and we will hold off doing discharge until the morning when we repeat her white count and then decide when she is ready to go home on her PICC line and meropenem and the doxycycline. 2 doses of the Diflucan were given, held because of the sotalol from further usage. HR/MODL Voice ID: [id number] Report ID: [id number]
--- NOTE | 2022-07-26 12:42 | PN ---
Date of Progress Note: 07/26/2022 Patient feels much better than yesterday. She can weightbear, although it is painful in that area of the ecchymosis on the anterior part of her foot. She has good motion. Will continue with PT. We w ill discharge her on meropenem q.12 and a PICC line for 1 week and continue the doxycycline 100 mg b. i.d. for 1 week and re-evaluate her with a chest x-ray and office visit next week. Will be discharge d this afternoon and the antibiotic will be delivered to the house, family can administer. Also, [facility] for general medications, OT, and PT. HR/MODL Voice ID: [id number] Report ID: [id number]
[2022-07-26 13:01] VITALS: BP 113/61; TEMP 97
== END 2022-07-26 13:30 | disposition home health service (06) | DRG 871 ==
LOC: ER 12:31 → ERHOLD 15:55 → 2ND 17:07
PROVIDERS: ADMIT Family Medicine; ATTEND Family Medicine
PROC: 02HV33Z Insertion of Infusion Device into Superior Vena Cava, Percutaneous Approach (ICD-10-PCS; principal; 2022-07-21)
DX: A41.9 Sepsis, unspecified organism (principal); J18.9 Pneumonia, unspecified organism; I50.32 Chronic diastolic (congestive) heart failure; N30.90 Cystitis, unspecified without hematuria; I11.0 Hypertensive heart disease with heart failure; E11.51 Type 2 diabetes mellitus with diabetic peripheral angiopathy without gangrene; E78.5 Hyperlipidemia, unspecified; E03.9 Hypothyroidism, unspecified; K21.9 Gastro-esophageal reflux disease without esophagitis; I25.2 Old myocardial infarction; B95.2 Enterococcus as the cause of diseases classified elsewhere; Z95.5 Presence of coronary angioplasty implant and graft; Z90.49 Acquired absence of other specified parts of digestive tract; Z79.82 Long term (current) use of aspirin; Z79.02 Long term (current) use of antithrombotics/antiplatelets; Z79.899 Other long term (current) drug therapy; Z79.890 Hormone replacement therapy; Z95.810 Presence of automatic (implantable) cardiac defibrillator; Z20.822 Contact with and (suspected) exposure to COVID-19; W18.30XA Fall on same level, unspecified, initial encounter; Y93.9 Activity, unspecified; Y92.89 Other specified places as the place of occurrence of the external cause
CPT/HCPCS: 36415; 36569; 70450; 71045; 71046; 71250; 72125; 80048; 80076; 81001; 81003; 82947; 83605; 83735; 83880; 84132; 84484; 85025; 85610; 87040; 87070; 87077; 87086; 87088; 87186; 87205; 87811; 93005; 94640; 94760; 96374; 97116; 97161; 97530; 97760; 99284; J1815; J1940; J2185; J2270; J7040; J7050; J7613; J7644

== ENCOUNTER 2022-09-05 01:44 | Emergency (ER) | payer OTHER ==
--- OUTSIDE RECORDS SUMMARY | 2022-09-05 01:48 | XMS REPORT | Continuity of Care Document ---
:1935 Author Organization [facility] t Address [address] [facility] [address] [place] [address] Care Team Providers Name Role Phone Asked, No Pcp Primary Care Physician Unavailable Papito Thayer Attending Clinician Unavailable Trisha LEYVA, Pavan Abdi Attending Clinician [phone] Alyssa SCHAFFER, Cris Attending Clinician Unavailable Sigrid [...] Type Policy Number Effective Date Expiration Date [facility] OF [place] - [id number] 2019 [employer] 00:00:00 (MEDICARE REPLACEMENT/ADVANT AGE - [...] No Known DA Active U [facility] Allergie 6 Clear s 00:00: Zhao 00 [facility] Social History Social Habit Start Date Stop Date Quantity Comments Source [facility] Tobacco use and 2022-04-17 2022-04-17 Smokeless [facility] exposure 00:00:00 00:00:00 tobacco non-user Hospital Alcohol intake 2022-04-17 2022-04-17 Ex-drinker [facility] 00:00:00 00:00:00 (finding) Hospital History of Social 2022-04-17 2022-04-[address] function 00:00:00 00:00:00 Hospital Sex Assigned At [birth year] [facility] 00[facility]00 [facility] Smoking Status Start Date Stop Date Source Never smoked tobacco [facility] Medications Ordered Filled Start Stop Current [...] coated daily. tablet pentoxifyll 2021-05 Yes 400mg Q.96999704 Take 400 Methodi ine 2-[id number] (TRENTal) 10:19: 3D mouth 3 Hospi ta 400 mg CR 18 (three) l tablet times a day with meals. pentoxifyll 2021-05 Yes 400mg Q.25972137 Take 400 Method[facility] ine 2-[address] (TRENTal) 10:19: 3D mouth 3 Hospi ta 400 mg CR 18 (three) l tablet times a day with meals. pentoxifyll 2021-05 Yes 400mg Q.75506412 Take 400 Methodi ine 2-[id number] (TRENTal) 10:19: 3D mouth [...] LEVOXYL) 88 37 daily. l mcg tablet amlodipine- 2021-05 Yes 1{capsu QD Take 1 [...] LEVOXYL) 88 37 daily. l mcg tablet amlodipine- 2021-05 Yes 1{capsu QD Take 1 [...] mcg tablet sotaloL 2021-05 Yes Methodi (BETAPACE) 06-09 st 80 MG 00:00: Hospita tablet 00 l sotaloL 2021-05 Yes [facility] (BETAPACE) - st 80 MG 00:00: Hospita tablet 00 l sotaloL 2021-05 Yes Method[facility] (BETAPACE) 06-09 st 80 MG 00:00: Hospita tablet 00 l amitriptyli 2021-05 Yes Method i ne (ELAVIL) 06-04 st 10 MG 00:00: Hospita tablet 00 l amitriptyli 2021-05 Yes Method i ne (ELAVIL) 06-04 st 10 MG 00:00: Hospita tablet 00 l amitriptyli 2021-05 Yes Method i ne (ELAVIL) 06-04 st 10 MG 00:00: Hospita tablet 00 l gabapentin 2021-05 Yes Method[facility] (NEURONTIN) 06-03 st 100 mg 00:00: Hospita capsule 00 l HYDROcodone 2021-05 Yes Method i -acetaminop - st hen (NORCO) 00:00: Hospit a 5-325 mg 00 l per tablet gabapentin 2021-05 Yes Methodi (NEURONTIN) 06-03 st 100 mg 00:00: Hospita capsule 00 l HYDROcodone 2021-05 Yes Method i -acetaminop 1-22 st hen (NORCO) 00:00: Hospit a 5-325 mg 00 l per tablet gabapentin 2021-05 Yes Methodi (NEURONTIN) 1-22 st [...] daily l before breakfast. pentoxifyll Yes 400mg Q.43406313 Take 400 Methodi ine 5-[address] (TRENTal) 16:39: 3D mouth [...] l before breakfast. pentoxifyll 0 Yes 400mg Q.14264830 Take 400 Methodi ine 5-[address] (TRENTal) 16:39: 3D mouth [...] Source Systolic blood 2022-04-17 16:14:00 172 mm[Hg] [facility] pressure Diastolic blood 2022-04-17 16:14:00 84 mm[Hg] [facility] pressure Heart rate 2022-04-17 16:09:00 72 /min [facility] Body temperature 2022-04-17 16:09:00 36.61 Leah [facility] Body height 2022-04-17 16:09:00 165.1 cm [facility] Body weight 2022-04-17 16:09:00 76.522 kg [facility] BMI 2022-04-17 16:09:00 28.07 kg/m2 [facility] Oxygen saturation in 2022-04-17 16:09:00 97 /min [facility] Arterial blood by Pulse oximetry Procedures Procedure Date / Time Performed Performing Clinician [facility] e US CAROTID DUPLEX 2022-04-17 17:14:53 Pavan Rhodes [facility] BILATERAL [place] [id number] 2021-12-13 00:00:00 RASSA [facility] [id number] 2021-11-11 00:00:00 ALDMO [facility] [id number] 2021-11-11 00:00:00 ALDMO [facility] [id number] 2021-11-11 00:00:00 ALDMO [facility] [id number] 2021-11-10 00:00:00 ALDMO [facility] [id number] 2021-11-10 00:00:00 ALDMO [facility] [id number] 2021-11-10 00:00:00 ALDMO [facility] Plan of Care Planned Activity Planned Date Details Comments Source Future Scheduled 2022-09-05 COVID-19 VACCINE (#1) [facility] Test 01:47:11 [code = COVID-19 VACCINE (#1)] Future Scheduled 2022-09-05 SHINGLES VACCINES (1 Met [facility] Test 01:47:11 of 2) [code = SHINGLES VACCINES (1 of 2)] Future Scheduled 2022-09-05 65+ [facility] 01:47:11 VACCINE (1 - PCV) [code = 65+ PNEUMOCOCCAL VACCINE (1 - PCV)] Future Scheduled 2022-09-05 INFLUENZA VACCINE Method [facility] Test 01:47:11 [code = INFLUENZA VACCINE] Future Scheduled 2022-07-03 COVID-19 VACCINE (#1) [facility] Test 17:40:37 [code = COVID-19 VACCINE (#1)] Future Scheduled 2022-07-03 SHINGLES VACCINES (1 Met [facility] Test 17:40:37 of 2) [code = SHINGLES VACCINES (1 of 2)] Future Scheduled 2022-07-03 65+ [facility]AL [facility] Test 17:40:37 VACCINE (1 - PCV) [code = 65+ PNEUMOCOCCAL VACCINE (1 - PCV)] Future Scheduled 2022-07-03 INFLUENZA VACCINE Method [facility] Test 17:40:37 [code = INFLUENZA VACCINE] Future Scheduled 2022-07-03 COVID-19 VACCINE (#1) [facility] Test 17:40:37 [code = COVID-19 VACCINE (#1)] Future Scheduled 2022-07-03 SHINGLES VACCINES (1 Met [facility] Test 17:40:37 of 2) [code = SHINGLES VACCINES (1 of 2)] Future Scheduled 2022-07-03 65+ [facility]OCOCCAL [facility] Test 17:40:37 VACCINE (1 - PCV) [code = 65+ PNEUMOCOCCAL VACCINE (1 - PCV)] Future Scheduled 2022-07-03 INFLUENZA VACCINE [facility] Test 17:40:37 [code = INFLUENZA VACCINE] Future Scheduled 2022-01-13 HEPATITIS B VACCINES Met [facility] Test 02:14:04 (1 of 3 - 3-dose series) [code = HEPATITIS B VACCINES (1 of 3 - 3-dose series)] Future Scheduled 2022-01-13 COVID-19 VACCINE (#1) [facility] Test 02:14:04 [code = COVID-19 VACCINE (#1)] Future Scheduled 2022-01-13 SHINGLES VACCINES (1 Met [facility] Test 02:14:04 of 2) [code = SHINGLES VACCINES (1 of 2)] Future Scheduled 2022-01-13 65+ [facility]AL [facility] Test 02:14:04 VACCINE (1 - PCV) [code = 65+ PNEUMOCOCCAL VACCINE (1 - PCV)] Future Scheduled 2022-01-13 INFLUENZA VACCINE [facility] Test 02:14:04 [code = INFLUENZA VACCINE] Future Scheduled 2022-01-13 HEPATITIS B VACCINES Met [facility] Test 02:14:04 (1 of 3 - 3-dose series) [code = HEPATITIS B VACCINES (1 of 3 - 3-dose series)] Future Scheduled 2022-01-13 COVID-19 VACCINE (#1) [facility] Test 02:14:04 [code = COVID-19 VACCINE (#1)] Future Scheduled 2022-01-13 SHINGLES VACCINES (1 Met [facility] Test 02:14:04 of 2) [code = SHINGLES VACCINES (1 of 2)] Future Scheduled 2022-01-13 65+ [facility]CC[facility] Test 02:14:04 VACCINE (1 - PCV) [code = 65+ PNEUMOCOCCAL VACCINE (1 - PCV)] Future Scheduled 2022-01-13 INFLUENZA VACCINE [facility] Test 02:14:04 [code = INFLUENZA VACCINE] Encounters Start End Encounter Admission Attending Care Care Encounter Source Date/Time Date/Time Type Type Clinicians Facility Department ID 2021-12-13 Inpatient LISETTE Perez INTE.02 [id number] [facility] 11:24:00 Papito [id number] [facility] 2022-04-17 2022-04-17 Office Trisha 1.2.840.1 [id number] [facility] 10:00:00 16:29:26 Visit , Pavan 70573.1.[address] [facility] 3.430.2.7 [facility] .3.850042 l .8 2022-04-17 2022-04-17 Office Trisha 1.2.840.1 [id number] [facility] 10:00:00 16:29:26 Visit , Pavan 12948.1.[address] [facility] 3.430.2.7 [facility] .3.720750 l .8 2022-04-17 2022-04-17 Telephone Alyssa, 1.2.840.1 [id number] Method[facility] 00:00:00 00:00:[address] 3.430.2.7 Hospit a .3.490142 l .8 2022-04-17 2022-04-17 Travel 1.2.840.1 1.2.503.398 4152 [id number] [facility] 00:00:00 00:00:[address] 3.430.2.7 0.2.7.3.698 Ho spita .3.026465 084.8 l .8 2022-04-17 2022-04-17 Telephone Alyssa 1.2.840.1 [id number] [facility] 00:00:00 00:00:[address] 3.430.2.7 Hospit a .3.222752 l .8 2022-04-17 2022-04-17 Travel 1.2.840.1 1.2.812.167 5001 [id number] [facility] 00:00:00 00:00:[address] 3.430.2.7 0.2.7.3.698 Ho spita .3.222985 084.8 l .8 2022-04-17 2022-04-17 Outpatient TRISHA [facility] 632 [id number] [place] 00:00:00 00:00:00 , PAVAN [address] 2022-04-13 2022-04-13 Telephone Weston, 1.2.840.1 [id number] [id number] Method[facility] 00:00:00 00:00:[address] 3.430.2.7 Hospit a .3.673222 l .8 2022-04-13 2022-04-13 Telephone [place], 1.2.840.1 [id number] 2099 [id number] Method[facility] 00:00:00 00:00:[address] 3.430.2.7 Hospit a .3.667683 l .8 2022-04-02 2022-04-02 Telephone [place], 1.2.840.1 [id number] 2100 [id number] Method[facility] 00:00:00 00:00:[address] 3.430.2.7 Hospit a .3.942768 l .8 2022-04-02 2022-04-02 Telephone [place]on, 1.2.840.1 [id number] [id number] [facility] 00:00:00 00:00:[address] 3.430.2.7 Hospit a .3.175625 l .8 2022-03-28 2022-03-28 Telephone Trisha 1.2.840.1 [id number] [facility] 00:00:00 00:00:00 , Pavan 94751.1.[address] [place] 3.430.2.7 [facility] .3.391030 l .8 2022-03-28 2022-03-28 Telephone Trisha 1.2.840.1 [id number] Method[facility] 00:00:00 00:00:00 , Pavan 93186.1.1 052 [facility] 3.430.2.7 [facility]osp [facility] .3.275326 l .8 2022-01-24 2022-01-24 Outpatient KAMILA Thayer, HCACL OUTD [id number] [facility] 05:07:00 05:07:00 Papito 63 [facility] 2021-12-13 2021-12-13 Inpatient KAMILA Thayer HCACL INTE.02 [id number] [facility] 11:24:00 13:30:00 Papito 99 [facility] 2021-12-06 2021-12-06 Outpatient KAMILA Thayer HCACL HCACL [id number] [facility] 05:12:00 05:12:00 Papito [id number] [facility] 2021-12-06 2021-12-06 Outpatient KAMILA Thayer HCACL OUTD [id number] [facility] 05:12:00 05:12:00 Papito 02 [facility] 2021-11-08 2021-11-11 Inpatient KAMILA Dunn HCACL MEDI.01 [id number] [facility] 12:44:00 14:33:00 Roderick 77 [facility] 2021-11-08 2021-11-11 Inpatient KAMILA Dunn HCACL MEDI.01 [id number] [facility] 12:44:00 14:33:00 Roderick [id number] [facility] 2020-01-07 2020-01-07 Outpatient Ajibade_O_A VFP VFP 794 [id number] [facility] 03:34:00 03:34:00 H [facility]69 [facility] 2020-01-07 2020-01-07 Outpatient Ajibade_O_A VFP VFP 794 [id number] [facility] 03:34:00 03:34:00 H 22887 Family Practic e 2019-07-01 2019-07-01 Outpatient Ige-Odunuga VFP VFP 794 [id number] [facility] 07:18:00 07:18:00 _J_AH 12510 Family Practic e Results Test Description Test Time Test Comments Results Result Comments Source GLUCOSE BEDSIDE 2022-01-24 07:07:00 Test Item Value Reference Range Interpretation Comme nts GLUCOSE BEDSIDE (test code = 160 MG/DL 70-110 H Performed by certified play back operator at [facility]) [facility] BASIC METABOLIC [id number] 12:28:00 Test Item Value Reference Range Interpretation [...] = 9.3 mg/dL 8.0-10.5 N CA) PROTHROMBIN [id number] 12:09:00 Test Item Value Reference Range Interpretation [...] (to prevent recurrent infar ct). CBC W/AUTO [id number] 12:05:00 Test Item Value Reference Range Interpretation [...] REQUIRED (test code NO = MDIFF) GLUCOSE [id number] 12:25:00 Test Item Value Reference Range Interpretation Comments GLUCOSE BEDSIDE (test 95 MG/DL 70-110 N Perfor med by certified code = GLUBED) play back operator at [facility] GLUCOSE [id number] 11:07:00 Test Item Value Reference Range Interpretation Comments GLUCOSE BEDSIDE (test 58 MG/DL 70-110 L Perfor med by certified code = GLUBED) play back operator at [facility] [id number] 10:36:00 Test Item Value Reference Range Interpretation Comments ACT-ISTAT (test code 306 SEC 74-137 H Perform ed by certified = ACTI) play back operator at [facility] COMPREHENSIVE METABOLIC [id number] 08:50:00 Test Item Value Reference Range Interpretation [...] H TOTAL (test code = ALKP) PROTHROMBIN [id number] 08:37:00 Test Item Value Reference Range Interpretation Comments PROTHROMBIN TIME 11.5 SECONDS 9.3-12.9 N PATIENT (test code = PTP) INTERNATIONAL NORMAL 1.0 0.8-1.2 N TARGET INR BY RATIO (test code = INDICATIO N Indication INR) INR1. Prophylax is of venous thrombos is 2.0 - 3.0 (orthoped ic surgery), Proph ylaxis of venous thro mbosis (other than hig h-risk surgery), Treat ment [...] (to prevent recurrent infar ct). CBC W/AUTO [id number] 08:28:00 Test Item Value Reference Range Interpretation [...] REQUIRED (test code NO = MDIFF) GLUCOSE [id number] 07:40:00 Test Item Value Reference Range Interpretation Comments GLUCOSE BEDSIDE (test 70 MG/DL 70-110 N Perfor med by certified code = GLUBED) play back operator at [facility] - XR CHEST 1 [id number] 00:00:00 [facility] 1935 Sex: F FAX: Papito Dotson MD [phone] [place]: St: ADM FAX: Alin Almanzar MD [phone] FAX: Benjy Mendez [phone] Name: MARIVEL MAS [facility] : 1935 Age/S: 86/F [address] [place] [address] Unit #: [id number] Loc: [place] [address] Phys: Benjy Mendez [facility] Acct: [id number] Dis Date: Status: ADM IN PHONE #: [phone] Exam Date: 12/13/2021 1218 FAX #: [phone] Reason: WATCHMAN EXAMS: CPT CODE: [id number] XR CHEST 1 V 38302 PROCEDURE INFORMATION: Exam: XR Chest Exam date and time: 12/13/2021 11:39 AM Age: 86 years old Clinical indication: Pre-operative exam; Respiratory screening exam; Additional info: Watchman TECHNIQUE: Imaging protocol: Radiologic exam of the chest. Views: 1 view. COMPARISON: DX XR CHEST 2 V 12/04/2021 12:31 PM FINDINGS: Lungs: Mild decreased lung volumes. No consolidation. Pleural spaces: Unremarkable. No pleural effusion. No pneumothorax. Heart/Mediastinum: The heart is enlarged. Status post median sternotomy. Aortic atherosclerosis. Atrial appendage occluder device noted. Bones/joints: Unchanged. IMPRESSION: No acute cardiopulmonary disease at 1335 Reported and signed by: Oj Gould M.D. CC: Papito Thayer MD; Alin Fagan MD; Benjy Mendez Technologist: ANDREW Cline) Trnscrd Date/Time/By: 12/13/2021 (6021) : By: [email or web address] Orig Print D/T: S: 12/13/2021 (1786) PAGE 1 Signed ReportBASIC METABOLIC [id number] 13:13:00 Test Item Value Reference Range Interpretation [...] code = 10.1 mg/dL 8.0-10.5 N CA) [id number] 13:13:00 Test Item Value Reference Range Interpretation Comments PREALBUMIN (test code = PREALB) 26.4 mg/dL 16.0-40.0 N PROTHROMBIN [id number] 13:02:00 Test Item Value Reference Range Interpretation [...] (to prevent recurrent infar ct). CBC W/AUTO [id number] 12:48:00 Test Item Value Reference Range Interpretation [...] MANUAL DIFF REQUIRED (test code NO = IFF) - XR CHEST 2 [id number] 00:00:00 [facility] : 1935 Sex: F FAX: Papito Dotson MD [phone] [place]: St: PRE Name: MARIVEL MAS [facility] : 1935 Age/S: 86/F [address] [facility] Unit #: [id number] Loc: [place] [address] Phys: Papito Thayer MD Acct: [id number] Dis Date: Status: PRE SDC PHONE #: [phone] Exam Date: 12/04/2021 1231 FAX #: [phone] Reason: PREOP EXAMS: CPT CODE: [id number] XR CHEST 2 V 13206 PROCEDURE INFORMATION: Exam: XR Chest Exam date [...] Surjit Combs M.D. CC: Papito Thayer MD Technologist:Mago Bryant RT(R) Trnscrd Date/Time/By: 12/04/2021 (133) : By: [email or web address] Orig Print D/T: S: 12/04/2021 (1331) PAGE 1 Signed ReportCOAGULATION TIME [id number] 12:55:00 Test Item Value Reference Range Interpretation Comments COAGULATION TIME 385 SECONDS Performed b y ACTIVATED (test code = certi fied play back operator ACT) at [facility] GLUCOSE [id number] 12:57:00 Test Item Value Reference Range Interpretation Comments GLUCOSE BEDSIDE (test 151 MG/DL 70-110 H Perfor med by certified code = GLUBED) play back operator at [facility] GLUCOSE [id number] 04:48:00 Test Item Value Reference Range Interpretation Comments GLUCOSE BEDSIDE (test 160 MG/DL 70-110 H Perfor med by certified code = GLUBED) play back operator at [facility] GLUCOSE [id number] 19:50:00 Test Item Value Reference Range Interpretation Comments GLUCOSE BEDSIDE (test 133 MG/DL 70-110 H Perfor med by certified code = GLUBED) play back operator at [facility] [id number] 15:56:00 Test Item Value Reference Range Interpretation Comments ACT-ISTAT (test code 312 SEC 74-137 H Perform ed by certified = ACTI) play back operator at [facility] GLUCOSE [id number] 11:28:00 Test Item Value Reference Range Interpretation Comments GLUCOSE BEDSIDE (test 158 MG/DL 70-110 H Perfor med by certified code = GLUBED) play back operator at [facility] BASIC METABOLIC [id number] 07:08:00 Test Item Value Reference Range Interpretation [...] be done morning of Heart CathTHROMBOPLASTIN TIME [id number] 06:57:00 Test Item Value Reference Range Interpretation Comments THROMBOPLASTIN TIME 29.7 Seconds 25.0-39.5 N Therape utic Range: PARTIAL (test code = 50.4 - 88.3 Seconds PTT) Effective 08/26/2018 CBC W/AUTO [id number] 06:41:00 Test Item Value Reference Range Interpretation [...] morning of Heart CathCOVID 19 Asymptomatic IH [id number] 06:09:00 Test Item Value Reference Range Interpretation [...] moderate, high or waivedcomplexit y tests. GLUCOSE [id number] 04:08:00 Test Item Value Reference Range Interpretation Comments GLUCOSE BEDSIDE (test 128 MG/DL 70-110 H Perfor med by certified code = GLUBED) play back operator at [facility] GLUCOSE [id number] 00:03:00 Test Item Value Reference Range Interpretation Comments GLUCOSE BEDSIDE (test 188 MG/DL 70-110 H Perfor med by certified code = GLUBED) play back operator at [facility] GLUCOSE [id number] 16:05:00 Test Item Value Reference Range Interpretation Comments GLUCOSE BEDSIDE (test 141 MG/DL 70-110 H Perfor med by certified code = GLUBED) play back operator at [facility] GLUCOSE [id number] 11:13:00 Test Item Value Reference Range Interpretation Comments GLUCOSE BEDSIDE (test 180 MG/DL 70-110 H [facility] by certified code = GLUBED) play back operator at [facility] COMPREHENSIVE METABOLIC [id number] 07:59:00 Test Item Value Reference Range Interpretation [...] 20-125 N TOTAL (test code = ALKP) [id number] 07:59:00 Test Item Value Reference Range Interpretation Comments LIPASE (test code = LIP) 22 U/L 13-57 N CBC W/AUTO [id number] 07:47:00 Test Item Value Reference Range Interpretation [...] REQUIRED (test code NO = MDIFF) GLUCOSE [id number] 06:02:00 Test Item Value Reference Range Interpretation Comments GLUCOSE BEDSIDE (test 139 MG/DL 70-110 H Perfor med by certified code = GLUBED) play back operator at [facility] - CTA ABD PEL W [id number] 00:00:00 [facility] 1935 Sex: F Name: MARIVEL MAS [facility] : 1935 Age/S: 85 / F [address] [place] [address] Unit #: [id number] Loc: [place] [address] Phys: Roderick Dunn MD Acct: [id number] Dis Date: Status: ADM IN PHONE #: [phone] Exam Date: 11/08/2021 1843 FAX #: [phone] Reason: EVAL FOR BOWEL ISCHEMIA/ PVD EXAMS: CPT CODE: [id number] CTA ABD PEL W CONT 08003 PROCEDURE INFORMATION: Exam: CTA Abdomen and Pelvis With Contrast Exam date and time: 11/08/2021 6:40 PM Age: 85 years old Clinical indication: Other: Abd distenstion; Additional info: Eval for bowel ischemia/ pvd TECHNIQUE: Imaging protocol: Computed tomographic angiography of the abdomen and pelvis with contrast. 3D rendering (Not supervised by radiologist): MIP and/or 3D reconstructed images were created by the technologist. Radiation optimization:All CT scans at this facility use at least one of these dose optimization techniques: automated exposure control; mA and/or kV adjustment per patient size (includes targeted exams where dose is matchedto clinical indication); or iterative reconstruction. Contrast material: ISO 300; Contrast volume: 100 ml; Contrast route: INTRAVENOUS (IV); Other technique: CT RADIATION DOSE DLP: 1921.75 MGY-CM COMPARISON: No relevant prior studies available. FINDINGS: Tubes, catheters and devices: The patient has adual lead pacemaker battery with no visible complication [...] 1 Signed Report (CONTINUED) Name: MARIVEL MAS [facility] : 1935 Age/S: 85 / F [address] [place] [address] Unit #: [id number] Loc: [place] [address] Phys: Roderick Dunn MD Acct: [id number] Dis Date: Status: ADM IN PHONE #: [phone] Exam Date: 11/08/2021 1843 FAX #: [phone] Reason: EVAL FOR BOWEL ISCHEMIA/ PVD EXAMS: CPT CODE: [id number] CTA ABD PEL W CONT 00519 (Continued) change. Patent splenoportal circulation. Gallbladder and bile ducts: No calcified stones. No ductal dilation. Pancreas: Diffuse pancreatic atrophy without calcification or focal lesion. Spleen: Unremarkable spleen. Adrenal glands: No adrenallesions. Kidneys and ureters: Bilateral renal vascular calcification and or nonobstructive nephrolithiasis. No enhancing renal lesions. No hydronephrosis. Stomach and bowel: Large volume colonic fecal m aterial diffusely. Colonic diverticulosis without signs of diverticulitis. [...] Dionte Dong M.D. CC: Roderick Thayer MD Technologist:Florinda Farley, RT(R)(CT) CTDI: DLP: Trnscb Date/Time: 11/09/2021 (816) [email or web address] Orig Print D/T: S: 11/09/2021 (18) PAGE 2 Signed ReportGLUCOSE [id number] 19:45:00 Test Item Value Reference Range Interpretation Comments GLUCOSE BEDSIDE (test 207 MG/DL 70-110 H Perfor med by certified code = GLUBED) play back operator at [facility] GLUCOSE [id number] 16:12:00 Test Item Value Reference Range Interpretation Comments GLUCOSE BEDSIDE (test 198 MG/DL 70-110 H Perfor med by certified code = GLUBED) play back operator at [facility] GLUCOSE [id number] 12:14:00 Test Item Value Reference Range Interpretation Comments GLUCOSE BEDSIDE (test 179 MG/DL 70-110 H Perfor med by certified code = GLUBED) play back operator at [facility] PROTHROMBIN [id number] 12:21:00 Test Item Value Reference Range Interpretation [...] - 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
--- NOTE | 2022-09-05 04:29 | ER ---
Nurse's Notes [facility] Name: Kailee Mcgraw Age: 86 yrs Sex: Female : 1935 Arrival Date: 09/05/2022 Time: 01:44 Bed 2 Private MD: Diagnosis: Traumatic subarachnoid hemorrhage;Unspecified injury of head, initial encounter;Laceration without foreign body of scalp Presentation: 09/05 02:25 Chief complaint: Patient states: I got up to go to the bathroom and im not sure how i kd3 fell but i lost my balance somehow and i hit the back of my head on the bathtub. I take plavix. I did not loose consciousness. I feel ok overall. Coronavirus screen: Vaccine status: Patient reports receiving the 2nd dose of the covid vaccine. Ebola Screen: No symptoms or risks identified at this time. Initial Sepsis Screen: Does the patient meet any 2 criteria? No. Patient's initial sepsis screen is negative. Does the patient have a suspected source of infection? No. Patient's initial sepsis screen is negative. Risk Assessment: Do you want to hurt yourself or someone else? Patient reports no desire to harm self or others. Onset of symptoms was September 05, 2022. 02:25 Method Of Arrival: Wheelchair kd3 02:25 Acuity: IAN 3 kd3 Triage Assessment: 02:27 General: Appears in no apparent distress. Behavior is calm, cooperative. Pain: kd3 Complains of pain in scalp. Neuro: Level of Consciousness is awake, alert, obeys commands, Oriented to person, place, time, situation. Respiratory: Airway is patent Trachea midline Respiratory effort is even, unlabored, Respiratory pattern is regular, symmetrical. Historical: - PMHx: 02:27 diabetes mellitus; Hypothyroidism; Hypertensive disorder; kd3 - Immunization history:: Adult Immunizations up to date. - Social history:: Smoking status: Patient/guardian denies using tobacco, but has a distant history of tobacco abuse. Screenin:50 [facility] ED Fall Risk Assessment (Adult) History of falling in the last 3 months, lg3 including since admission Yes- fall prone (multiple falls) (3 pts) Confusion or Disorientation No (0 pts) Intoxicated or Sedated No (0 pts) Impaired Gait Yes (1 pt) Mobility Assist Device Used Yes (1 pt) Altered Elimination No (0 pt) Score/Fall Risk Level 3 or more points = High Risk Oriented to surroundings, Maintained a safe environment, Educated pt \T\ family on fall prevention, incl call for assistance when getting out of bed, Assessed \T\ reinforced patient's understanding of fall precautions, Provided non-skid footwear, Utilized family, sitter, or virtual assistant farm operations manager as indicated. Abuse screen: Denies threats or abuse. Denies injuries from another. Nutritional screening: No deficits noted. Tuberculosis screening: No symptoms or risk factors identified. Assessment: 02:41 General: Appears uncomfortable, Behavior is cooperative, anxious. Pain: Complains of aa9 pain in scalp Pain currently is 7 out of 10 on a pain scale. Noted to be moaning, resistant to movement. Neuro: Level of Consciousness is awake, alert, obeys commands. Cardiovascular: Rhythm is atrial pacer. Respiratory: Airway is patent Respiratory effort is even, unlabored. : No signs and/or symptoms were reported regarding the genitourinary system. Derm: Wound noted scalp. 05:05 General: report given to KARIME Fontanez with [facility]. lg3 05:14 Reassessment: Patient appears in no apparent distress at this time. No changes from lg3 previously documented assessment. Patient and/or family updated on plan of care and expected duration. Pain level reassessed. Patient is alert, oriented x 3, equal unlabored respirations, skin warm/dry/pink. 06:37 Reassessment: Patient appears in no apparent distress at this time. EMS at bedside. aa9 Vital Signs: 02:25 BP 141 / 56; Pulse 71; Resp 19; Temp 98.3(O); Pulse Ox 97% on R/A; Weight 77.11 kg; kd3 Height 5 ft. 5 in. ; 02:40 BP 118 / 99; Pulse 73; Resp 19; Temp 98.2; Pulse Ox 98% on R/A; aa9 03:53 BP 122 / 89; Pulse 77; Resp 18 S; Pulse Ox 98% on R/A; lg3 05:14 BP 147 / 63; Pulse 75; Resp 13 S; Pulse Ox 100% on R/A; lg3 02:25 Body Mass Index 28.29 (77.11 kg, 165.1 cm) kd3 ED Course: 01:47 Patient arrived in ED. ja2 01:52 Chaz Nogueira MD is Attending Physician. kdr 02:27 Triage completed. kd3 02:27 Arm band placed on right wrist. kd3 03:00 CT Head C Spine In Process Unspecified. EDMS 03:50 Cesia Gaitan, RN is Primary Nurse. lg3 03:50 Patient has correct armband on for positive identification. Placed in gown. Bed in low lg3 position. Call light in reach. Side rails up X2. Client placed on continuous cardiac and pulse oximetry monitoring. NIBP monitoring applied. hall monitor on. Door closed. Noise minimized. Warm blanket given. Family accompanied patient. 03:50 Assist provider with laceration repair on scalp that was between 2.6 to 7.5 cm using lg3 albert. Set up tray. Performed by Chaz Nogueira MD Dressed with 4X4s, Patient tolerated well. Wound care: to laceration located on scalp was cleaned with Hibiclens, irrigated with normal saline, dressed with Neosporin, 4X4s, Patient tolerated well. 04:10 XRAY Chest (1 view) In Process Unspecified. EDMS 05:12 Inserted saline lock: 22 gauge in right antecubital area, using aseptic technique. lg3 05:12 Inserted 22G midline to right upper arm by Jesu Hi. lg3 05:13 Basic Metabolic Panel Sent. lg3 05:13 LFT's Sent. lg3 05:13 NT PRO-BNP Sent. lg3 05:13 PT-INR Sent. lg3 05:13 Troponin HS Sent. lg3 06:43 Patient transferred, IV remains in place. aa9 Administered Medications: 05:19 Drug: ceFAZolin IVPB 1 grams Route: IVPB; Site: right upper arm; aa9 06:06 Follow up: Response: No adverse reaction; IV Status: Completed infusion; IV Intake: [id number] 06:32 Drug: morphine IVP or IV 2 mg Route: IVP; Infused Over: 4 mins; Site: right upper arm; aa9 Intake: 06:06 IV: 50ml; Total: 50ml. lg3 Outcome: 04:28 ER care complete, transfer ordered by . kdr 06:42 Transferred by ground EMS Transfer form completed. aa9 06:42 Condition: stable 06:42 Instructed on the need for transfer. 06:43 Patient left the ED. aa9 Signatures: Dispatcher [employer] EDMS Chaz Nogueira MD MD kdr Gibson, Lacie, RN RN lg3 Mago Stiles Kyli, RN RN kd3 Jaida Silva RN RN aa9
--- NOTE | 2022-09-05 04:29 | EDPHYS ---
Physician Documentation [facility] Name: Kailee Mcgraw Age: 86 yrs Sex: Female : 1935 Arrival Date: 09/05/2022 Time: 01:44 Bed 2 Private MD: ED Physician Chaz Nogueira HPI: 09/05 05:18 This 86 yrs old Female presents to ER via Wheelchair with complaints of Fall Injury, kdr Head Injury-Adult. 05:18 Details of fall: The patient fell from an upright position, while standing. Onset: The kdr symptoms/episode began/occurred suddenly, just prior to arrival. Associated injuries: The patient sustained injury to the head, abrasion, contusion, hematoma, laceration, pain, swelling, tenderness. Severity of symptoms: At their worst the symptoms were mild, in the emergency department the symptoms are unchanged. The patient has not experienced similar symptoms in the past. The patient has not recently seen a physician. Patient states that she was standing at the sink running some water to wash her face and hands when she became slightly dizzy and fell backwards hitting her head on the tub. She states that this is not usual that she gets dizzy while standing in this position for period of time but she usually does not lose her balance and fall. She denies loss of consciousness or any other injuries. Patient is nonacute at this time and has conversing normally. Historical: - PMHx: 02:27 diabetes mellitus; Hypothyroidism; Hypertensive disorder; kd3 - Immunization history:: Adult Immunizations up to date. - Social history:: Smoking status: Patient/guardian denies using tobacco, but has a distant history of tobacco abuse. ROS: 05:22 Constitutional: Negative for fever, chills, and weight loss, Eyes: Negative for injury, kdr pain, redness, and discharge, ENT: Negative for injury, pain, and discharge, Neck: Negative for injury, pain, and swelling, Cardiovascular: Negative for chest pain, palpitations, and edema, Respiratory: Negative for shortness of breath, cough, wheezing, and pleuritic chest pain, Abdomen/GI: Negative for abdominal pain, nausea, vomiting, diarrhea, and constipation, Back: Negative for injury and pain, : Negative for injury, bleeding, discharge, and swelling, MS/Extremity: Negative for injury and deformity, Neuro: Negative for headache, weakness, numbness, tingling, and seizure activity. Psych: Negative for depression, anxiety, suicide ideation, homicidal ideation, and hallucinations, Allergy/Immunology: Negative for hives, rash, and allergies, Endocrine: Negative for neck swelling, polydipsia, polyuria, polyphagia, and marked weight changes, Hematologic/Lymphatic: Negative for swollen nodes, abnormal bleeding, and unusual bruising. 05:22 Skin: Positive for hematoma, swelling, of the left parietal area, right parietal area and occipital area. Exam: 05:22 Constitutional: This is a well developed, well nourished patient who is awake, alert, kdr and in no acute distress. Eyes: Pupils equal round and reactive to light, extra-ocular motions intact. Lids and lashes normal. Conjunctiva and sclera are non-icteric and not injected. Cornea within normal limits. Periorbital areas with no swelling, redness, or edema. Neck: Trachea midline, no thyromegaly or masses palpated, and no cervical lymphadenopathy. Supple, full range of motion without nuchal rigidity, or vertebral point tenderness. No Meningismus. Chest/axilla: Normal chest wall appearance and motion. Nontender with no deformity. No lesions are appreciated. Cardiovascular: Regular rate and rhythm with a normal S1 and S2. No gallops, murmurs, or rubs. Normal PMI, no JVD. No pulse deficits. Respiratory: Lungs have equal breath sounds bilaterally, clear to auscultation and percussion. No rales, rhonchi or wheezes noted. No increased work of breathing, no retractions or nasal flaring. Abdomen/GI: Soft, non-tender, with normal bowel sounds. No distension or tympany. No guarding or rebound. No evidence of tenderness throughout. Back: No spinal tenderness. No costovertebral tenderness. Full range of motion. Skin: Warm, dry with normal turgor. Normal color with no rashes, no lesions, and no evidence of cellulitis. MS/ Extremity: Pulses equal, no cyanosis. Neurovascular intact. Full, normal range of motion. Psych: Awake, alert, with orientation to person, place and time. Behavior, mood, and affect are within normal limits. 05:22 Head/face: Noted is erythema, hematoma, that is moderate, of the left side of the back of head, left occipital area, right side of the back of head and right occipital area. Vital Signs: 02:25 BP 141 / 56; Pulse 71; Resp 19; Temp 98.3(O); Pulse Ox 97% on R/A; Weight 77.11 kg; kd3 Height 5 ft. 5 in. ; 02:40 BP 118 / 99; Pulse 73; Resp 19; Temp 98.2; Pulse Ox 98% on R/A; aa9 03:53 BP 122 / 89; Pulse 77; Resp 18 S; Pulse Ox 98% on R/A; lg3 05:14 BP 147 / 63; Pulse 75; Resp 13 S; Pulse Ox 100% on R/A; lg3 02:25 Body Mass Index 28.29 (77.11 kg, 165.1 cm) kd3 MDM: 04:28 Patient medically screened. kdr 05:32 Data reviewed: vital signs, nurses notes, lab test result(s), radiologic studies. I kdr considered the following discharge prescriptions or medication management in the emergency department Medications were administered in the Emergency Department. See JUL. 09/05 03:57 Order name: Basic Metabolic Panel [facility] 09/05 03:57 Order name: CBC with Diff [facility] 09/05 03:57 Order name: LFT's [facility] 09/05 03:57 Order name: NT PRO-BNP [facility] 09/05 03:57 Order name: PT-INR [facility] 09/05 03:57 Order name: Troponin HS [facility] 09/05 01:52 Order name: CT Head C Spine [facility] 09/05 03:57 Order name: XRAY Chest (1 view) [facility] 09/05 03:57 Order name: EKG; Complete Time: 03:58 kdr 09/05 03:57 Order name: Cardiac monitoring; Complete Time: 04:15 kdr 09/05 03:57 Order name: EKG - Nurse/Tech; Complete Time: 04:57 kdr 09/05 03:57 Order name: IV Saline Lock; Complete Time: 04:57 kdr 09/05 03:57 Order name: Labs collected and sent; Complete Time: 05:13 kdr 09/05 03:57 Order name: O2 Per Protocol; Complete Time: 04:15 kdr 09/05 03:57 Order name: O2 Sat Monitoring; Complete Time: 04:15 kdr Administered Medications: 05:19 Drug: ceFAZolin IVPB 1 grams Route: IVPB; Site: right upper arm; aa9 06:06 Follow up: Response: No adverse reaction; IV Status: Completed infusion; IV Intake: [id number] 06:32 Drug: morphine IVP or IV 2 mg Route: IVP; Infused Over: 4 mins; Site: right upper arm; aa9 Disposition Summary: 09/05/22 04:28 Transfer Ordered Transfer Location: [facility] kdr Reason: Higher level of care kdr Condition: Serious kdr Problem: new kdr Symptoms: are unchanged kdr Accepting Physician: henry(09/05/22 06:43) aa9 Diagnosis - Traumatic subarachnoid hemorrhage kdr - Unspecified injury of head, initial encounter kdr - Laceration without foreign body of scalp kdr Forms: - Medication Reconciliation Form kdr - SBAR form kdr Signatures: Dispatcher [employer] EDMS Chaz Nogueira MD MD kdr Kristin Sheehan RN RN kd3 Jaida Silva RN RN aa9 Cesia Gaitan RN lg3 Corrections: (The following items were deleted from the chart) 06:43 04:28 dfg kdr aa9
[2022-09-05] MEDS ORDERED: CEFAZOLIN SODIUM 1 GM/VIAL ONE (05:00)
[2022-09-05] MEDS ORDERED: NA CHLORIDE 0.9% 50 ML ONE (05:01)
[2022-09-05 05:12] LABS: Absolute Lymphocytes (CBC) 1.1 K/uL (0.7-4.9); Hematocrit 40.7 % (36.0-45.0); Lymphocytes % 7.9 % (15.3-44.8); MCV 91.7 fL (80-100); MPV 7.8 fL (7.6-11.3); RBC Red Blood Cell Count 4.44 M/uL (3.86-4.86)
[2022-09-05 05:17] LABS: Protime INR 0.78
[2022-09-05 05:32] LABS: Albumin 3.1 g/dL (3.4-5.0); Bilirubin Direct 0.1 mg/dL (0-0.2); Bilirubin Total 0.4 mg/dL (0.2-1.0); Potassium 3.6 mEq/L (3.5-5.1); Protein, Total 7.2 g/dL (6.4-8.2); Troponin High Sensitivity 12.7 pg/mL (<58.9)
[2022-09-05] MEDS ORDERED: MORPHINE 2 MG/ML SYR ONE (06:34)
[2022-09-05 06:59] VITALS: TEMP 98.2
[2022-09-05 07:11] VITALS: BP 147/63; O2SAT 100
--- NOTE | 2022-09-05 11:36 | RAD REPORT ---
EXAM DESCRIPTION: RAD - Chest Single View - 09/05/2022 4:08 am CLINICAL HISTORY: Blunt head trauma. COMPARISON: Chest radiograph from July 21, 2022. TECHNIQUE: Single view AP chest radiograph(s). FINDINGS: Slightly low lung volumes. No infiltrate identified. No pleural effusion. No pneumothorax. Borderline cardiac size. Dual-chamber pacemaker. No significant osseous abnormality. No definite acu te rib fracture. Consider correlation with dedicated rib radiographs if clinically necessary. IMPRESSION: No acute cardiopulmonary abnormality identified by radiograph. Electronically signed by: rPicila Laws MD 09/05/2022 9:12 PM CDT Due to temporary technical issues with the PACS/Fluency reporting system, reports are being signed by the in house radiologists without review as a courtesy to insure prompt reporting. The interpreting radiologist is fully responsible for the content of the report.
--- NOTE | 2022-09-05 13:30 | RAD REPORT ---
EXAM DESCRIPTION: CT - Head C Spine Mpr Con - 09/05/2022 6:55 am ADDENDUM #1 EXAM DESCRIPTION: Head C Spine Mpr Wo Con 09/05/2022 3:48 AM CDT CLINICAL HISTORY: 86 years, Female, fall, head injury COMPARISON: None TECHNIQUE: Multiple axial CT images through the cervical spine were obtained at 2 mm slice thickness at 2 mm interval reconstruction. In addition 2-D multiplanar reformats and the sagittal coronal plan e were performed and reviewed. This exam was performed according to our departmental dose-optimization protocol, which includes auto mated exposure control, adjustment of the mA and/or kV according to patient size and/or use of iterat alysa reconstruction technique. FINDINGS: The alignment of the vertebral bodies are normal. There is no evidence of fracture or ramirez bluxation. There is degenerative disc disease with decreased intervertebral disc height, anterior spo ndylosis and posterior osteophyte complex at C3/C4 C5/C6 and C6/C7. There is mild spinal canal narrow ing at C3/C4 C5/C6 and C6/C7. There are uncovertebral degenerative changes C2-T1. There is no prevert ebral soft tissue swelling. Sagittal coronal reformatted images demonstrate no subluxation or bony abnormalities. IMPRESSION: No acute fracture or subluxation of the cervical spine. Multilevel degenerative disc disease with mild spinal canal narrowing at C3/C4, C5/C6 and C6/C7. Electronically signed by: Ignacio Costa MD 09/05/2022 3:49 AM CDT End of Addendum EXAM DESCRIPTION: Head C Spine Mpr [facility] 09/05/2022 3:31 AM CDT CLINICAL HISTORY: 86 years, Female, fall, head injury COMPARISON: 07/20/2022. FINDINGS: Multiple transaxial tomograms of the brain were obtained from the base of the skull to the vertex without contrast. 2-D multiplanar reformats and the coronal and sagittal plane were performed and reviewed. This exam was performed according to our departmental dose-optimization protocol, which includes auto mated exposure control, adjustment of the mA and/or kV according to patient size and/or use of iterat alysa reconstruction technique. Noted is presence of linear area of increased density anterior slightly right side interhemispheric f issure on axial image 21-27. Also noted the presence of subarachnoid hemorrhage within the suprasella r cistern especially along the left side and inferior aspect of the subarachnoid space inferior front al lobe. Brain parenchyma demonstrate mild brain atrophy. There is no midline shift and/or mass effec t. Lateral ventricles and cisterns displace normal appearance. No additional intra or extra axial fluid collections were seen. The calvarium is intact with no evidence for fracture. The visualized p ortions of the paranasal sinuses and orbits demonstrate to be clear. IMPRESSION: Subarachnoid hemorrhage within the suprasellar cistern especially along the left side an d inferior aspect of the subarachnoid space inferior frontal lobe. Small amount of subarachnoid hemorrhage within the anterior slightly right side interhemispheric fiss ure. Electronically signed by: Ignacio Costa MD 09/05/2022 3:35 AM CDT ADDENDUM #1 EXAM DESCRIPTION: Head C Spine Mpr Wo Con 09/05/2022 3:48 AM CDT CLINICAL HISTORY: 86 years, Female, fall, head injury COMPARISON: None TECHNIQUE: Multiple axial CT images through the cervical spine were obtained at 2 mm slice thickness at 2 mm interval reconstruction. In addition 2-D multiplanar reformats and the sagittal coronal plan e were performed and reviewed. This exam was performed according to our departmental dose-optimization protocol, which includes auto mated exposure control, adjustment of the mA and/or kV according to patient size and/or use of iterat alysa reconstruction technique. FINDINGS: The alignment of the vertebral bodies are normal. There is no evidence of fracture or ramirez bluxation. There is degenerative disc disease with decreased intervertebral disc height, anterior spo ndylosis and posterior osteophyte complex at C3/C4 C5/C6 and C6/C7. There is mild spinal canal narrow ing at C3/C4 C5/C6 and C6/C7. There are uncovertebral degenerative changes C2-T1. There is no prevert ebral soft tissue swelling. Sagittal coronal reformatted images demonstrate no subluxation or bony abnormalities. IMPRESSION: No acute fracture or subluxation of the cervical spine. Multilevel degenerative disc disease with mild spinal canal narrowing at C3/C4, C5/C6 and C6/C7. Electronically signed by: Ignacio Costa MD 09/05/2022 3:49 AM CDT End of Addendum ADDENDUM #1 EXAM DESCRIPTION: Head C Spine Mpr Wo Con 09/05/2022 3:48 AM CDT CLINICAL HISTORY: 86 years, Female, fall, head injury COMPARISON: None TECHNIQUE: Multiple axial CT images through the cervical spine were obtained at 2 mm slice thickness at 2 mm interval reconstruction. In addition 2-D multiplanar reformats and the sagittal coronal plan e were performed and reviewed. This exam was performed according to our departmental dose-optimization protocol, which includes auto mated exposure control, adjustment of the mA and/or kV according to patient size and/or use of iterat alysa reconstruction technique. FINDINGS: The alignment of the vertebral bodies are normal. There is no evidence of fracture or ramirez bluxation. There is degenerative disc disease with decreased intervertebral disc height, anterior spo ndylosis and posterior osteophyte complex at C3/C4 C5/C6 and C6/C7. There is mild spinal canal narrow ing at C3/C4 C5/C6 and C6/C7. There are uncovertebral degenerative changes C2-T1. There is no prevert ebral soft tissue swelling. Sagittal coronal reformatted images demonstrate no subluxation or bony abnormalities. IMPRESSION: No acute fracture or subluxation of the cervical spine. Multilevel degenerative disc disease with mild spinal canal narrowing at C3/C4, C5/C6 and C6/C7. Electronically signed by: Ignacio Costa MD 09/05/2022 3:49 AM CDT End of Addendum EXAM DESCRIPTION: Head C Spine Mpr Wo Con 09/05/2022 3:31 AM CDT CLINICAL HISTORY: 86 years, Female, fall, head injury COMPARISON: 07/20/2022. FINDINGS: Multiple transaxial tomograms of the brain were obtained from the base of the skull to the vertex without contrast. 2-D multiplanar reformats and the coronal and sagittal plane were performed and reviewed. This exam was performed according to our departmental dose-optimization protocol, which includes auto mated exposure control, adjustment of the mA and/or kV according to patient size and/or use of iterat alysa reconstruction technique. Noted is presence of linear area of increased density anterior slightly right side interhemispheric f issure on axial image 21-27. Also noted the presence of subarachnoid hemorrhage within the suprasella r cistern especially along the left side and inferior aspect of the subarachnoid space inferior front al lobe. Brain parenchyma demonstrate mild brain atrophy. There is no midline shift and/or mass effec t. Lateral ventricles and cisterns displace normal appearance. No additional intra or extra axial fluid collections were seen. The calvarium is intact with no evidence for fracture. The visualized p ortions of the paranasal sinuses and orbits demonstrate to be clear. IMPRESSION: Subarachnoid hemorrhage within the suprasellar cistern especially along the left side an d inferior aspect of the subarachnoid space inferior frontal lobe. Small amount of subarachnoid hemorrhage within the anterior slightly right side interhemispheric fiss ure. Electronically signed by: Ignacio Costa MD 09/05/2022 3:35 AM CDT ADDENDUM #2 THIS REPORT CONTAINS FINDINGS THAT MAY BE CRITICAL TO PATIENT CARE: Called, telephoned, verbal repo rt was given oral to Dr. Chaz Nogueira at 4:14 AM CDT on 09/05/2022. Electronically signed by: Ignacio Costa MD 09/05/2022 4:25 AM CDT ADDENDUM #1 EXAM DESCRIPTION: Head C Spine Mpr Wo Con 09/05/2022 3:48 AM CDT CLINICAL HISTORY: 86 years, Female, fall, head injury COMPARISON: None TECHNIQUE: Multiple axial CT images through the cervical spine were obtained at 2 mm slice thickness at 2 mm interval reconstruction. In addition 2-D multiplanar reformats and the sagittal coronal plan e were performed and reviewed. This exam was performed according to our departmental dose-optimization protocol, which includes auto mated exposure control, adjustment of the mA and/or kV according to patient size and/or use of iterat alysa reconstruction technique. FINDINGS: The alignment of the vertebral bodies are normal. There is no evidence of fracture or ramirez bluxation. There is degenerative disc disease with decreased intervertebral disc height, anterior spo ndylosis and posterior osteophyte complex at C3/C4 C5/C6 and C6/C7. There is mild spinal canal narrow ing at C3/C4 C5/C6 and C6/C7. There are uncovertebral degenerative changes C2-T1. There is no prevert ebral soft tissue swelling. Sagittal coronal reformatted images demonstrate no subluxation or bony abnormalities. IMPRESSION: No acute fracture or subluxation of the cervical spine. Multilevel degenerative disc disease with mild spinal canal narrowing at C3/C4, C5/C6 and C6/C7. Electronically signed by: Ignacio Costa MD 09/05/2022 3:49 AM CDT End of Addendum ADDENDUM #1 EXAM DESCRIPTION: Head C Spine Mpr Wo Con 09/05/2022 3:48 AM CDT CLINICAL HISTORY: 86 years, Female, fall, head injury COMPARISON: None TECHNIQUE: Multiple axial CT images through the cervical spine were obtained at 2 mm slice thickness at 2 mm interval reconstruction. In addition 2-D multiplanar reformats and the sagittal coronal plan e were performed and reviewed. This exam was performed according to our departmental dose-optimization protocol, which includes auto mated exposure control, adjustment of the mA and/or kV according to patient size and/or use of iterat alysa reconstruction technique. FINDINGS: The alignment of the vertebral bodies are normal. There is no evidence of fracture or ramirez bluxation. There is degenerative disc disease with decreased intervertebral disc height, anterior spo ndylosis and posterior osteophyte complex at C3/C4 C5/C6 and C6/C7. There is mild spinal canal narrow ing at C3/C4 C5/C6 and C6/C7. There are uncovertebral degenerative changes C2-T1. There is no prevert ebral soft tissue swelling. Sagittal coronal reformatted images demonstrate no subluxation or bony abnormalities. IMPRESSION: No acute fracture or subluxation of the cervical spine. Multilevel degenerative disc disease with mild spinal canal narrowing at C3/C4, C5/C6 and C6/C7. Electronically signed by: Ignacio Costa MD 09/05/2022 3:49 AM CDT End of Addendum ADDENDUM #1 EXAM DESCRIPTION: Head C Spine Mpr Wo Con 09/05/2022 3:48 AM CDT CLINICAL HISTORY: 86 years, Female, fall, head injury COMPARISON: None TECHNIQUE: Multiple axial CT images through the cervical spine were obtained at 2 mm slice thickness at 2 mm interval reconstruction. In addition 2-D multiplanar reformats and the sagittal coronal plan e were performed and reviewed. This exam was performed according to our departmental dose-optimization protocol, which includes auto mated exposure control, adjustment of the mA and/or kV according to patient size and/or use of iterat alysa reconstruction technique. FINDINGS: The alignment of the vertebral bodies are normal. There is no evidence of fracture or ramirez bluxation. There is degenerative disc disease with decreased intervertebral disc height, anterior spo ndylosis and posterior osteophyte complex at C3/C4 C5/C6 and C6/C7. There is mild spinal canal narrow ing at C3/C4 C5/C6 and C6/C7. There are uncovertebral degenerative changes C2-T1. There is no prevert ebral soft tissue swelling. Sagittal coronal reformatted images demonstrate no subluxation or bony abnormalities. IMPRESSION: No acute fracture or subluxation of the cervical spine. Multilevel degenerative disc disease with mild spinal canal narrowing at C3/C4, C5/C6 and C6/C7. Electronically signed by: Ignacio Costa MD 09/05/2022 3:49 AM CDT End of Addendum EXAM DESCRIPTION: Head C Spine Mpr Wo Con 09/05/2022 3:31 AM CDT CLINICAL HISTORY: 86 years, Female, fall, head injury COMPARISON: 07/20/2022. FINDINGS: Multiple transaxial tomograms of the brain were obtained from the base of the skull to the vertex without contrast. 2-D multiplanar reformats and the coronal and sagittal plane were performed and reviewed. This exam was performed according to our departmental dose-optimization protocol, which includes auto mated exposure control, adjustment of the mA and/or kV according to patient size and/or use of iterat alysa reconstruction technique. Noted is presence of linear area of increased density anterior slightly right side interhemispheric f issure on axial image 21-27. Also noted the presence of subarachnoid hemorrhage within the suprasella r cistern especially along the left side and inferior aspect of the subarachnoid space inferior front al lobe. Brain parenchyma demonstrate mild brain atrophy. There is no midline shift and/or mass effec t. Lateral ventricles and cisterns displace normal appearance. No additional intra or extra axial fluid collections were seen. The calvarium is intact with no evidence for fracture. The visualized p ortions of the paranasal sinuses and orbits demonstrate to be clear. IMPRESSION: Subarachnoid hemorrhage within the suprasellar cistern especially along the left side an d inferior aspect of the subarachnoid space inferior frontal lobe. Small amount of subarachnoid hemorrhage within the anterior slightly right side interhemispheric fiss ure. Electronically signed by: Ignacio Costa MD 09/05/2022 3:35 AM CDT Due to temporary technical issues with the PACS/Fluency reporting system, reports are being signed by the in house radiologist without review as a courtesy to ensure prompt reporting. The interpreting r adiologist is fully responsible for the content of the report.
--- NOTE | 2022-09-05 16:46 | EKG ---
Test Date: 2022-09-05 Test Time: 04:55:43 Dress Cutter: ZANDER MEASUREMENT RESULTS: Intervals: Rate: 75 [place]: QRSD: 128 QT: 456 QTc: 509 [place]: P: [place]: QRS: -24 T: 115 INTERPRETIVE STATEMENTS: Demand pacemaker, interpretation is based on intrinsic rhythm Atrial fibrillation with premature ventricular or aberrantly conducted complexes Left ventricular hypertrophy with QRS widening T wave abnormality, consider lateral ischemia or digitalis effect Abnormal ECG Compared to ECG 07/20/2022 13:52:31 Ventricular premature complex(es) now present T-wave abnormality now present Possible ischemia now present Sinus rhythm no longer present Myocardial infarct finding no longer present ST (T wave) deviation no longer present Electronically Signed On 09-05-22 16:45:36 CDT by Papito Thayer
== END 2022-09-05 06:43 | disposition short-term general hospital (02) ==
LOC: ER 01:44
DX: S06.6X0A Traumatic subarachnoid hemorrhage without loss of consciousness, initial encounter (principal); S01.01XA Laceration without foreign body of scalp, initial encounter; E11.9 Type 2 diabetes mellitus without complications; I10 Essential (primary) hypertension
CPT/HCPCS: 96365; 93005; 85025; 80048; 36415; 85610; 80076; 84484; 83880; 70450; 72125; 71045; 96375; 99285; J2270; J0690

== ENCOUNTER 2023-08-13 18:27 | Inpatient (IN) | payer OTHER ==
[2023-08-13] MEDS ORDERED: NA CHLORIDE 0.9% 500 ML ONE (18:58)
[2023-08-13] MEDS ORDERED: AMIODARONE HCL 150 MG/3 ML INJ IV ONE (18:59)
[2023-08-13] MEDS ORDERED: D5W 100 ML IV ONE (19:00)
[2023-08-13 19:16] LABS: Absolute Basophils 0.2 K/uL (0-0.5); Absolute Eosinophils 0.5 K/uL (0-0.5); Absolute Monocytes 1.9 K/uL (0.1-1.3); Basophils % 1.2 % (0-1.3); Eosinophils % 2.9 % (0-4.4); Hematocrit 44.2 % (36.0-45.0); Hemoglobin 14.9 g/dL (12.0-15.0); Lymphocytes % 12.3 % (15.3-44.8); MCH 32.2 pg (27.0-35.0); MCHC 33.7 g/dL (32.0-36.0); MCV 95.8 fL (80-100); MPV 7.6 fL (7.6-11.3); Monocytes % 11.3 % (3.3-12.3); Neutrophils % 72.3 % (41.7-73.7); Platelets 283 thou/uL (152-406); RBC Red Blood Cell Count 4.62 M/uL (3.86-4.86); Red Cell Distribution Width 14.4 % (12.1-15.2)
--- NOTE | 2023-08-13 19:22 | RAD REPORT ---
EXAM DESCRIPTION: RAD - Chest Single View - 08/13/2023 7:12 pm CLINICAL HISTORY: afib Chest pain. COMPARISON: Chest Single View dated 09/05/2022; Chest Pa And Lat (2 Views) dated 08/21/2022; Chest Pa And Lat (2 Views) dated 07/31/2022; Chest Pa And Lat (2 Views) dated 07/25/2022 FINDINGS: Portable technique limits examination quality. Mild interstitial pulmonary edema. The heart is mildly prominent. No displaced fractures.Dual lead pa cer device. IMPRESSION: Mild CHF.
[2023-08-13] MEDS: AMIODARONE IN DEXTROSE,ISO-OSM 360 MG/200 ML BAG IV ONE (19:23)
[2023-08-13 19:37] LABS: Albumin 2.6 g/dL (3.4-5.0); Albumin/Globulin Ratio 0.7 (1.1-1.8); Anion Gap 10.7 mEq/L (5.0-15.0); Bilirubin Direct 0.2 mg/dL (0-0.2); Bilirubin Indirect, Calculated 0.4 mg/dL (0.2-0.8); Bilirubin Total 0.6 mg/dL (0.2-1.0); Globulin 3.6 g/dL (2.3-3.5); Magnesium 1.9 mg/dL (1.6-2.4); Potassium 3.7 mEq/L (3.5-5.1); Protein, Total 6.2 g/dL (6.4-8.2); Thyroid Stimulating Hormone 3.7 uIU/mL (0.358-3.740)
[2023-08-13 19:42] LABS: Troponin High Sensitivity 71.8 pg/mL (<58.9)
--- NOTE | 2023-08-13 20:49 | ER ---
Nurse's Notes [facility] Name: Kailee Mcgraw Age: 87 yrs Sex: Female : 1935 Arrival Date: 08/13/2023 Time: 18:27 Bed 16 Private MD: Diagnosis: A-fib with RVR Presentation: 08/12 18:32 Chief complaint: EMS states: ALTERED MENTAL STATUS STARTED TODAY. NOT FOLLOWING WITH db EYES. AFIB RVR FOR EMS NEW ONSET. AMBULATORY WITH ASSISTANCE. Coronavirus screen: Client denies travel out of the [place] in the last 14 days. At this time, the client does not indicate any symptoms associated with coronavirus-19. Ebola Screen: Patient negative for fever greater than or equal to 101.5 degrees Fahrenheit, and additional compatible Ebola Virus Disease symptoms Patient denies exposure to infectious person. Patient denies travel to an Ebola-affected area in the 21 days before illness onset. No symptoms or risks identified at this time. Initial Sepsis Screen: Does the patient meet any 2 criteria? No. Patient's initial sepsis screen is negative. Does the patient have a suspected source of infection? No. Patient's initial sepsis screen is negative. Risk Assessment: Do you want to hurt yourself or someone else? Patient reports no desire to harm self or others. Onset of symptoms was August 13, 2023. 18:32 Method Of Arrival: EMS: [facility] db 18:32 Acuity: IAN 2 db Triage Assessment: 18:30 General: Appears distressed, uncomfortable, Behavior is CONFUSED. Neuro: Level of db Consciousness is awake, confused, Oriented to person. Cardiovascular: Rhythm is irregular. Respiratory: Airway is patent Respiratory effort is even, labored, Respiratory pattern is regular, symmetrical. Historical: - Allergies: 18:33 No Known Allergies; db - PMHx: 18:33 diabetes mellitus; Hypertensive disorder; Hypothyroidism; db - Immunization history:: Adult Immunizations unknown. - Infectious Disease History:: Denies. - Social history:: Smoking status: Patient denies any tobacco usage or history of. Screenin:35 [facility] ED Fall Risk Assessment (Adult) History of falling in the last 3 months, db including since admission No falls in past 3 months (0 pts) Confusion or Disorientation Yes (5 pts) Intoxicated or Sedated No (0 pts) Impaired Gait Yes (1 pt) Mobility Assist Device Used Yes (1 pt) Altered Elimination No (0 pt) Score/Fall Risk Level 3 or more points = High Risk Oriented to surroundings, Maintained a safe environment, Educated pt \T\ family on fall prevention, incl call for assistance when getting out of bed. Abuse screen: Denies threats or abuse. Denies injuries from another. Nutritional screening: No deficits noted. Tuberculosis screening: No symptoms or risk factors identified. Assessment: 18:35 Reassessment: PHYSICIAN AT BEDSIDE PATIENT IN APPARENT DISTRESS AFIB. PATIENT ON O2 db MULTIPLE STAFF AT BEDSIDE. CRASS CART AT BEDSIDE. 18:50 Reassessment: Patient and/or family updated on plan of care and expected duration. Pain db level reassessed. General: Appears distressed, uncomfortable, Behavior is inappropriate for age. Pain: Denies pain. Neuro: Level of Consciousness is confused, Oriented to person. Cardiovascular: Reports palpitations, shortness of breath, Capillary refill < 3 seconds Patient's skin is warm and dry. Chest pain. Respiratory: Airway is patent Respiratory effort is even, labored, Respiratory pattern is regular, symmetrical. 19:25 Reassessment: ASSUMED CARE OF PT. PT LYING IN BED. NO PAIN OR DISTRESS NOTED AT THIS jj7 TIME. ORDERED MED DRIP STARTED. PT TOLERATING WELL. VS STABLE. FAMILY AT BEDSIDE. CALL CAN IN REACH. Vital Signs: 18:30 BP 94 / 58; Pulse 156; Resp 24; Temp 98.1; Pulse Ox 88% on R/A; db 18:45 BP 88 / 62; Pulse 164; Resp 24; Pulse Ox 94% on 2 lpm NC; db 18:50 BP 114 / 63; Pulse 153; Resp 18; Pulse Ox 93% on 2 lpm NC; db 19:25 BP 114 / 72; Pulse 80; Resp 17; Pulse Ox 99% on 2 lpm NC; jj7 20:27 BP 136 / 70; Pulse 75; Resp 17; Pulse Ox 99% ; jj7 Vitals: 18:30 Cardiac Rhythm Assessment Atrial fibrillation W/rapid ventricular response. db ED Course: 18:29 Patient arrived in ED. sb4 18:29 Pedro Villatoro MD is Attending Physician. rt 18:30 EKG done, by ED staff, reviewed by Pedro Villatoro MD. db 18:31 Louisa Becerra, RN is Primary Nurse. db 18:33 Triage completed. db 18:35 Missed attempt(s): 22 gauge MULTIPLE MISSED IV ATTEMPTS BY ED STAFF. Bleeding db controlled, band aid applied, catheter tip intact. 18:35 No provider procedures requiring assistance completed. db 18:35 Patient has correct armband on for positive identification. Bed in low position. Call db light in reach. Side rails up X2. Provided Education on: AFIB, LABS. Client placed on continuous cardiac and pulse oximetry monitoring. NIBP monitoring applied. cafeteria monitor on. Pulse ox on. NIBP on. 18:45 Oxygen administration via nasal cannula \T\ 2L/min Response to oxygen therapy: symptoms db improved. 18:50 Inserted saline lock: 22 gauge in right wrist, using aseptic technique. db 19:00 Initial lab(s) drawn, by me, sent to lab. Inserted saline lock: 22 gauge in left ,using db aseptic technique. BREAST Blood collected. 19:05 Report given to KARIME BASHIR. db 19:14 XRAY Chest (1 view) In Process Unspecified. EDMS 20:27 Renan Riley RN is Primary Nurse. jj7 20:48 Osmel Cameron MD is Hospitalizing Provider. rt 08/13 07:09 Primary Nurse role handed off by Renan Riley RN bp 07:09 Surjit Borges, RN is Primary Nurse. bp 11:24 Patient admitted, IV remains in place. bp Administered Medications: 04 18:45 Drug: Sodium Chloride 0.9% IVPB 500 ml IVPB once Route: IVPB; Site: right wrist; db 19:02 Drug: amiodarone IVP 150 mg IVP once Route: IVP; Site: right wrist; db 19:31 Drug: amiodarone IVPB 900 mg, D5W IV 500 ml IVPB at 1 mg/min continuous; for 6 hrs, jj7 then change to 0.5 mg/min Route: IVPB; Rate: 1 mg/min; Site: right wrist; Medication: 18:35 VIS not applicable for this client. db Point of Care Testing: Blood Glucose: 18:30 Blood Glucose: 215 mg/dL; db Ranges: Outcome: 20:49 Decision to Hospitalize by Provider. rt 08/13 11:24 Admitted to ER Hold. Please see [employer] for further documentation. bp Condition: stable Instructed on the need for admit, 12:21 Patient left the ED. mb9 Signatures: Dispatcher [employer] EDSurjit Giels, RN RN Renan Willson RN RN jj7 Louisa Becerra RN RN Susi North PA-C PAPorter sb4 Sona Price RN RN mb9 Pedro Villatoro MD MD rt
--- NOTE | 2023-08-13 20:50 | EDPHYS ---
Physician Documentation [facility] Name: Kailee Mcgraw Age: 87 yrs Sex: Female : 1935 Arrival Date: 08/13/2023 Time: 18:27 Bed 16 Private MD: ED Physician Pedro Villatoro HPI: 08/12 20:30 This 87 yrs old Female presents to ER via EMS with complaints of Altered Mental Status, rt Irregular Pulse. 20:30 Patient presents to the ED with confusion, fast heart rate. This started today. Patient rt does have a history of A-fib. Patient was noted to have A-fib with fast rate, blood pressure was initially 70 systolic, improved to about 85-90 per EMS. Denies other acute complaints at this time, symptoms are severe in severity, no other aggravating or alleviating factors.. Historical: - Allergies: 18:33 No Known Allergies; db - PMHx: 18:33 diabetes mellitus; Hypertensive disorder; Hypothyroidism; db - Immunization history:: Adult Immunizations unknown. - Infectious Disease History:: Denies. - Social history:: Smoking status: Patient denies any tobacco usage or history of. ROS: 20:30 Unable to obtain ROS due to altered mental status, rt Exam: 20:30 Chest/axilla: Normal chest wall appearance and motion. Nontender with no deformity. rt No lesions are appreciated. Cardiovascular: Regular rate and rhythm with a normal S1 and S2. No gallops, murmurs, or rubs. Normal PMI, no JVD. No pulse deficits. Respiratory: Lungs have equal breath sounds bilaterally, clear to auscultation and percussion. No rales, rhonchi or wheezes noted. No increased work of breathing, no retractions or nasal flaring. Abdomen/GI: Soft, non-tender, with normal bowel sounds. No distension or tympany. No guarding or rebound. No evidence of tenderness throughout. MS/ Extremity: Pulses equal, no cyanosis. Neurovascular intact. Full, normal range of motion. 20:30 Constitutional: The patient appears Confused, pale 20:30 ECG was reviewed by the Attending Physician. 20:30 Skin: Pale, diaphoretic. Vital Signs: 18:30 BP 94 / 58; Pulse 156; Resp 24; Temp 98.1; Pulse Ox 88% on R/A; db 18:45 BP 88 / 62; Pulse 164; Resp 24; Pulse Ox 94% on 2 lpm NC; db 18:50 BP 114 / 63; Pulse 153; Resp 18; Pulse Ox 93% on 2 lpm NC; db 19:25 BP 114 / 72; Pulse 80; Resp 17; Pulse Ox 99% on 2 lpm NC; jj7 20:27 BP 136 / 70; Pulse 75; Resp 17; Pulse Ox 99% ; jj7 MDM: 18:31 Patient medically screened. rt 20:30 Differential Diagnosis: A-fib, dehydration, electrolyte disturbance. Data reviewed: rt vital signs, nurses notes, lab test result(s), EKG, radiologic studies. Consideration of Admission/Observation Patient was admitted/placed on observation. I considered the following discharge prescriptions or medication management in the emergency department Medications were administered in the Emergency Department. See MAR. Independent interpretation of the following test(s) in the Emergency Department X-Ray: My interpretation is No pneumonia seen on interpretation of x-ray images. Test considered but Not performed: CT: Patient's mentation returns to normal after control of blood pressure, A-fib, CT scan of the head is not indicated. Care significantly affected by the following chronic conditions: Diabetes, Hypertension. Counseling: I had a detailed discussion with the patient and/or guardian regarding the historical points, exam findings, and any diagnostic results supporting the discharge/admit diagnosis, lab results, radiology results, the need for further work-up and treatment in the hospital. Response to treatment: the patient's symptoms have markedly improved after treatment. 08/12 18:30 Order name: Basic Metabolic Panel; Complete Time: 19:43 rt 08/12 18:30 Order name: CBC with Diff; Complete Time: 19:24 rt 08/12 18:30 Order name: LFT's; Complete Time: 19:43 rt 08/12 18:30 Order name: Magnesium; Complete Time: 19:43 rt 08/12 18:30 Order name: NT PRO-BNP; Complete Time: 19:43 rt 08/12 18:30 Order name: Troponin HS; Complete Time: 19:43 rt 08/12 18:30 Order name: TSH; Complete Time: 19:43 rt 08/12 19:18 Order name: Glucose, Ancillary Testing; Complete Time: 19:24 EDMS 08/12 21:23 Order name: Urinalysis w/ reflexes EDMS 08/12 21:23 Order name: CBC with Automated Diff EDMS 08/12 21:23 Order name: CBC with Automated Diff EDMS 08/12 21:23 Order name: Comprehensive Metabolic Panel EDMS 08/12 21:23 Order name: Comprehensive Metabolic Panel EDMS 08/12 21:23 Order name: Lipid Profile EDMS 08/12 21:23 Order name: Lipid Profile EDMS 08/12 21:23 Order name: Troponin High Sensitivity EDMS 08/12 21:23 Order name: Troponin High Sensitivity EDMS 08/12 21:23 Order name: Troponin High Sensitivity EDMS 08/12 21:23 Order name: Troponin High Sensitivity EDMS 08/13 07:49 Order name: Glucose, Ancillary Testing EDMS 08/12 18:30 Order name: XRAY Chest (1 view); Complete Time: 19:24 rt 08/12 21:23 Order name: CONS Physician Consult EDMS 08/12 18:30 Order name: Cardiac monitoring; Complete Time: 19:06 rt 08/12 18:30 Order name: EKG - Nurse/Tech; Complete Time: 19:06 rt 08/12 18:30 Order name: IV Saline Lock; Complete Time: 19:06 rt 08/12 18:30 Order name: Labs collected and sent; Complete Time: 19:06 rt 08/12 18:30 Order name: O2 Per Protocol; Complete Time: 19:06 rt 08/12 18:30 Order name: O2 Sat Monitoring; Complete Time: 19:06 rt EC:30 Rate is 159 beats/min. Rhythm is irregularly irregular, A fib with No ectopy, Rate rt related ST and T wave changes. Left axis deviation noted. QRS interval is normal. QT interval is normal. No Q waves. Administered Medications: 18:45 Drug: Sodium Chloride 0.9% IVPB 500 ml IVPB once Route: IVPB; Site: right wrist; db 19:02 Drug: amiodarone IVP 150 mg IVP once Route: IVP; Site: right wrist; db 19:31 Drug: amiodarone IVPB 900 mg, D5W IV 500 ml IVPB at 1 mg/min continuous; for 6 hrs, jj7 then change to 0.5 mg/min Route: IVPB; Rate: 1 mg/min; Site: right wrist; Point of Care Testing: Blood Glucose: 18:30 Blood Glucose: 215 mg/dL; db Ranges: Critical Glucose Levels:Adult <50 mg/dl or >400 mg/dl <40 mg/dl or >180 mg/dl Disposition: 20:49 Critical Care:. rt Disposition Summary: 08/13/23 20:49 Hospitalization Ordered Notes: Hospitalization Status: Observation rt Provider: Osmel Cameron rt Condition: Stable rt Problem: new rt Symptoms: have improved rt Bed/Room Type: Standard rt Location: Telemetry/MedSurg (observation)(08/14/23 10:55) bd Room Assignment: 413(08/14/23 10:55) bd Diagnosis - A-fib with RVR rt Forms: - Medication Reconciliation Form rt - SBAR form rt - Leadership Thank You Letter rt Critical care time excluding procedures: 20:49 Critical care time: Bedside Care: 30 minutes, Consultation: 5 minutes. Total time: 35 rt minutes Signatures: Dispatcher [employer] EDMS Rubina Munoz Cindy, RN RN cg Johnson, Juwairiyah, RN RN jj7 Louisa Becerra RN RN db Pedro Villatoro MD MD rt Corrections: (The following items were deleted from the chart) 18:31 18:30 BASIC METABOLIC PANEL+C.LAB.BRZ ordered. EDMS EDMS 18:31 18:30 CBC+H.LAB.BRZ ordered. EDMS EDMS 18:31 18:30 HEPATIC FUNCTION+C.LAB.BRZ ordered. EDMS EDMS 18:31 18:30 MAGNESIUM+C.LAB.BRZ ordered. EDMS EDMS 18:31 18:30 PROBNP+C.LAB.BRZ ordered. EDMS EDMS 18:31 18:30 Troponin High Sensitivity+C.LAB.BRZ ordered. EDMS EDMS 18:31 18:30 THYROID STIMULAT HORMONE+C.LAB.BRZ ordered. EDMS EDMS 18:31 18:31 Chest Single View+RAD.RAD.BRZ ordered. EDMI EDMS 21:00 20:49 Telemetry/MedSurg (observation) rt cg 21:00 20:49 rt cg 08/13 10:55 08/12 21:00 [facility] ER HOLD cg bd 08/13 10:55 08/12 21:00 ERHOLD- cg bd
[2023-08-13] MEDS ORDERED: ONDANSETRON 4 MG/2 ML VIAL IV PRN (21:18)
--- NOTE | 2023-08-13 21:22 | P.HP ---
Certification for Inpatient Patient admitted to: Inpatient With expected LOS: >2 Midnights Practitioner: I am a practitioner with admitting privileges, knowledge of patient current condition, hospital course, and medical plan of care. Services: Services provided to patient in accordance with Admission requirements found in Title 42 Section 412.3 of the Code of Federal Regulations Patient History Date of Service: 08/13/23 Reason for admission: Palpitation History of Present Illness: 87-year-old female with past medical history of diabetes mellitus, hypertension, peripheral artery disease, GERD, hyperlipidemia, hypothyroidism, paroxysmal atrial flutter status post pacemaker defibrillator placement who was brought to ER with palpitation and confusion .This started today. Patient does have a history of A-fib as well . Patient is a poor historian hence most of the history is obtained from the chart review and also talking to the ER physician and family at the bedside. States symptoms started all of a sudden. Associated with chest discomfort. No chest pain. Associated with shortness of breath as well. No fever or chills. No sick contacts. Denies any nausea vomiting or diarrhea. Patient was noted to have A-fib with fast rate, blood pressure was initially 70 systolic, improved to about 85-90 per EMS. Denies other acute complaints at this time of interview. Heart rate improved and blood pressure stable. Patient has been admitted for further management Allergies No Known Allergies Allergy (Verified 02/19/22 15:36) Home medications list reviewed: Yes Home Medications: Pentoxifylline 400 mg PO TIDWM 09/28/18 Amlodipine Besylate/Benazepril [Amlodipine-Benazepril 10-20 mg] 1 each PO DAILY #30 02/19/20 Atorvastatin Calcium [Lipitor*] 20 mg PO BEDTIME #30 tab 02/19/20 Levothyroxine Sodium [Euthyrox] 88 mcg PO DAILY #30 02/19/20 Sotalol HCl [Betapace*] 80 mg PO BID 6AM 6PM #60 tab 02/19/20 lisinopriL [Lisinopril] 10 mg PO DAILY #30 tablet 02/20/20 Amitriptyline HCl 10 mg PO BEDTIME 02/19/22 Aspirin [Loly Chewable Aspirin] 81 mg PO DAILY 02/19/22 Clopidogrel Bisulfate [Plavix*] 75 mg PO DAILY 02/19/22 Furosemide [Lasix] 60 mg PO BID 02/19/22 Gabapentin [Neurontin*] 200 mg PO Q4H 02/19/22 Hydrocodone Bit/Acetaminophen [Hydrocodon-Acetaminophen 5-325] 1 each PO TID 02/19/22 Insulin NPH Human Isophane [Novolin N] 25 unit SQ BID 02/19/22 Metoclopramide [Reglan*] 10 ml PO ACHS 02/19/22 Potassium Chloride [Klor-Con] 20 meq PO DAILY 02/19/22 Albuterol Sulfate 1.25 mg IH Q8HP PRN 15 Days #150 ml 07/15/22 Fluticasone/Salmeterol [Advair 250-50 Diskus] 1 each IH BID 30 Days #60 aero 07/15/22 Doxycycline Hyclate 100 mg PO BID #15 tab 07/25/22 - Past Medical/Surgical History Diabetic: Yes Past Medical History: Reviewed- Non-Contributory -: Hypertension -: Diabetes mellitus type 2-insulin dependent -: Peripheral artery disease -: Paroxysmal atrial flutter S/P pacemaker defibrillator placement -: GERD -: Hyperlipidemia -: Hypothyroidism Past Surgical History: Reviewed- Non-Contributory -: Hysterectomy -: tonsillectomy -: appendectomy -: tendonitis -: back surgery -: Pacemaker/defibrillator Psychosocial/ Personal History: Patient lives at home with her daughter. - Family History Family History: Reviewed- Non-Contributory - Family History Mother -: Heart disease, Hypertension, Lung disease Notes: CHF and COPD - Social History Smoking Status: Never smoker Alcohol use: No CD- Drugs: No Caffeine use: Yes Review of Systems 10-point ROS is otherwise unremarkable Physical Examination - Vital Signs Temperature: 98.6 F Blood Pressure: 112/74 Pulse: 78 Respirations: 18 Pulse Ox (%): 96 - Physical Exam General: Alert, Oriented x3, Cooperative, Mild distress, Obese HEENT: Atraumatic, Normocephalic Neck: Supple, 2+ carotid pulse no bruit Respiratory: Clear to auscultation bilaterally, Normal air movement, Crackles/rales Cardiovascular: Edema, Irregular heart rate/rhythm, Abnormal S1 S2 Capillary refill: <2 Seconds Gastrointestinal: Soft and benign, W/out hepatosplenomegaly, No tenderness Musculoskeletal: No clubbing, No tenderness, Swelling Integumentary: No breakdown, No tenderness/swelling Neurological: Normal speech, Normal strength at 5/5 x4 extr, Cranial nerves 3-12 intact Lymphatics: No axilla or inguinal lymphadenopathy - Studies Laboratory Data (last 24 hrs) 08/13/23 08/13/23 19:04 19:04 WBC 16.50 H Hgb 14.9 Hct 44.2 Plt Count 283 Sodium 143 Potassium 3.7 BUN 21 H Creatinine 1.24 H Glucose 193 H Magnesium 1.9 Total Bilirubin 0.6 AST 14 L ALT 19 Alkaline Phosphatase 92 Imagings Data: FINDINGS: Portable technique limits examination quality. Mild interstitial pulmonary edema. The heart is mildly prominent. No displaced fractures.Dual lead pacer device. IMPRESSION: Mild CHF Assessment and Plan - Problems (Diagnosis) (1) Atrial fibrillation with RVR Current Visit: Yes Status: Acute Plan: Atrial Fibrillation With RVR Monitor under telemetry On amiodarone Continue Sotalol lovenox (2) CHF (congestive heart failure) Current Visit: Yes Status: Acute Plan: Acute on chronic CHF possibly systolic/diastolic Monitor closely on telemetry Started on aggressive diuresis X-ray findings consistent with CHF Oxygen supplementation Will try to wean down oxygen requirement Continue home medications Titrate as needed Will obtain an echocardiogram Cardiology consult (3) Diabetes Current Visit: Yes Status: Chronic Plan: Insulin Sliding Scale Continue basal Insulin Will get an A1c (4) Hypertension Current Visit: Yes Status: Chronic Plan: Continue Home medications Titrate as needed (5) Non-STEMI (non-ST elevated myocardial infarction) Current Visit: No Status: Acute Plan: NSTEMI possibly type II due to Afib w RVR Will trend cardiac enzymes Will monitor telemetry Started on aspirin and statin Patient denies any chest pain Will get an echocardiogram Cardiology consult Discharge Plan: Home Plan to discharge in: Greater than 2 days - Advance Directives Does patient have a Living Will: No Does patient have a Durable POA for Healthcare: No - Code Status/Comfort Care Code Status: Full Code Time Spent Managing Pts Care (In Minutes): 58
[2023-08-13] MEDS ORDERED: GLUCAGON 1 MG/VIAL IM PRN (22:28)
[2023-08-13] MEDS ORDERED: D50W 25 GM/50 ML SYRINGE IV PRN (22:28)
[2023-08-13] MEDS ORDERED: ALBUTEROL 2.5 MG/3 ML NEB SOL IH PRN (22:28)
[2023-08-13] MEDS: GABAPENTIN 100 MG CAP PO SCH (23:00)
[2023-08-14] MEDS ORDERED: D10W 125 ML IV PRN (00:58)
[2023-08-14] MEDS: AMIODARONE IN DEXTROSE,ISO-OSM 360 MG/200 ML BAG IV ONE (01:25)
[2023-08-14 02:49] VITALS: BMI 30.1
[2023-08-14] MEDS: SOTALOL HCL 80 MG TAB PO SCH (06:00)
[2023-08-14] MEDS: LEVOTHYROXINE SOD 0.088 MG TAB PO SCH ×2 (06:30→08:00)
[2023-08-14] MEDS: PENTOXIFYLLINE ER 400 MG TAB PO SCH (08:00)
[2023-08-14] MEDS ORDERED: INSULIN REGULAR (HUMAN) 100 UNIT/ML ONE (08:02)
[2023-08-14] MEDS ORDERED: SOTALOL HCL 80 MG TAB ONE (08:50)
[2023-08-14] MEDS: INSULIN NPH (HUMAN) 100 UNITS/ML SQ SCH (09:00)
[2023-08-14] MEDS: ASPIRIN 81 MG CHEWABLE TABLET PO SCH (09:00)
[2023-08-14] MEDS: CLOPIDOGREL 75 MG TABLET PO SCH (09:00)
[2023-08-14] MEDS: HYDROCODONE/APAP 5/325 MG TAB PO SCH (09:00)
[2023-08-14] MEDS: AMLODIPINE 10 MG TAB PO SCH (09:00)
[2023-08-14] MEDS: GABAPENTIN 300 MG CAP PO SCH (09:00)
[2023-08-14] MEDS: BENAZEPRIL 20 MG TAB PO SCH (09:00)
[2023-08-14] MEDS ORDERED: GABAPENTIN 300 MG CAP ONE (09:18)
[2023-08-14] MEDS ORDERED: CLOPIDOGREL 75 MG TABLET ONE (09:18)
[2023-08-14] MEDS ORDERED: ASPIRIN 81 MG CHEWABLE TABLET ONE (09:19)
[2023-08-14] MEDS ORDERED: AMLODIPINE 10 MG TAB ONE (09:19)
[2023-08-14] MEDS ORDERED: HYDROCODONE/APAP 5/325 MG TAB ONE (09:19)
[2023-08-14 09:55] LABS: Absolute Eosinophils 0.4 K/uL (0-0.5); Absolute Lymphocytes (CBC) 1.3 K/uL (0.7-4.9); Absolute Monocytes 1.3 K/uL (0.1-1.3); Absolute Neutrophil 7.5 K/uL (1.8-8.0); Basophils % 0.3 % (0-1.3); Eosinophils % 3.4 % (0-4.4); Hematocrit 39.7 % (36.0-45.0); Hemoglobin 13.5 g/dL (12.0-15.0); Lymphocytes % 12.1 % (15.3-44.8); MCH 32.3 pg (27.0-35.0); MCV 94.9 fL (80-100); MPV 7.7 fL (7.6-11.3); Monocytes % 12.4 % (3.3-12.3); Neutrophils % 71.8 % (41.7-73.7); Platelets 206 thou/uL (152-406); RBC Red Blood Cell Count 4.19 M/uL (3.86-4.86); Red Cell Distribution Width 14.1 % (12.1-15.2)
[2023-08-14 10:14] LABS: Albumin 2.4 g/dL (3.4-5.0); Albumin/Globulin Ratio 0.7 (1.1-1.8); Anion Gap 9.4 mEq/L (5.0-15.0); Bilirubin Total 0.4 mg/dL (0.2-1.0); Globulin 3.4 g/dL (2.3-3.5); Potassium 3.4 mEq/L (3.5-5.1); Protein, Total 5.8 g/dL (6.4-8.2)
[2023-08-14 10:16] LABS: Troponin High Sensitivity 1997.5 pg/mL (<58.9)
[2023-08-14] MEDS ORDERED: INFLUENZA VACCINE (for 6+ mo) 0.5 ML DOSE IMVAC ONE (12:00)
[2023-08-14] MEDS ORDERED: PNEUMOCOCCAL VACCINE 0.5 ML IMVAC ONE (12:00)
--- NOTE | 2023-08-14 14:08 | P.CNS ---
Date of Consult: 08/14/23 Chief Complaint: Palpitation History of Present Illness: Patient with PMH of heart failure, atrial fibrillation, CAD s/p recent PCI of LM presented with worsening SOB, palpitations, was found to be in AF w RVR, has been complaint with medications, denies having any chest pain, no syncope. Allergies No Known Allergies Allergy (Verified 08/14/23 12:42) Home Medications: Pentoxifylline 400 mg PO TIDWM 09/28/18 Amlodipine Besylate/Benazepril [Amlodipine-Benazepril 10-20 mg] 1 each PO DAILY #30 02/19/20 Atorvastatin Calcium [Lipitor*] 20 mg PO BEDTIME #30 tab 02/19/20 Levothyroxine Sodium [Euthyrox] 88 mcg PO DAILY #30 02/19/20 Sotalol HCl [Betapace*] 80 mg PO BID 6AM 6PM #60 tab 02/19/20 lisinopriL [Lisinopril] 10 mg PO DAILY #30 tablet 02/20/20 Amitriptyline HCl 10 mg PO BEDTIME 02/19/22 Aspirin [Loly Chewable Aspirin] 81 mg PO DAILY 02/19/22 Clopidogrel Bisulfate [Plavix*] 75 mg PO DAILY 02/19/22 Furosemide [Lasix] 60 mg PO BID 02/19/22 Gabapentin [Neurontin*] 200 mg PO Q4H 02/19/22 Hydrocodone Bit/Acetaminophen [Hydrocodon-Acetaminophen 5-325] 1 each PO TID 02/19/22 Insulin NPH Human Isophane [Novolin N] 25 unit SQ BID 02/19/22 Metoclopramide [Reglan*] 10 ml PO ACHS 02/19/22 Potassium Chloride [Klor-Con] 20 meq PO DAILY 02/19/22 Albuterol Sulfate 1.25 mg IH Q8HP PRN 15 Days #150 ml 07/15/22 Fluticasone/Salmeterol [Advair 250-50 Diskus] 1 each IH BID 30 Days #60 aero 07/15/22 Doxycycline Hyclate 100 mg PO BID #15 tab 07/25/22 - Past Medical/Surgical History Diabetic: Yes -: Hypertension -: Diabetes mellitus type 2-insulin dependent -: Peripheral artery disease -: Paroxysmal atrial flutter S/P pacemaker defibrillator placement -: GERD -: Hyperlipidemia -: Hypothyroidism -: Hysterectomy -: tonsillectomy -: appendectomy -: tendonitis -: back surgery -: Pacemaker/defibrillator Psychosocial/ Personal History: Patient lives at home with her daughter. - Family History Mother Medical History: Heart disease, Hypertension, Lung disease Notes: CHF and COPD Sister Medical History: Hypertension Brother Medical History: Hypertension - Social History Smoking Status: Former smoker Alcohol use: No CD- Drugs: No Caffeine use: Yes Place of Residence: Home Review of Systems 10-point ROS is otherwise unremarkable Physical Examination Temp Pulse Resp BP Pulse Ox 98.1 F 75 17 136/70 96 08/14/23 12:24 08/14/23 12:31 08/14/23 12:31 08/14/23 12:31 08/14/23 10:00 General: Alert, Oriented x3 HEENT: Atraumatic Neck: Supple Respiratory: Clear to auscultation bilaterally Cardiovascular: No edema, Normal S1 S2 Gastrointestinal: Normal bowel sounds Laboratory Data (last 24 hrs) 08/13/23 08/13/23 19:04 19:04 WBC 16.50 H Hgb 14.9 Hct 44.2 Plt Count 283 Sodium 143 Potassium 3.7 BUN 21 H Creatinine 1.24 H Glucose 193 H Magnesium 1.9 Total Bilirubin 0.6 AST 14 L ALT 19 Alkaline Phosphatase 92 - Problems (1) Atrial fibrillation with RVR Current Visit: Yes Status: Acute Plan: Continue Sotalol 80 mg po BID Heparin drip. (2) CHF (congestive heart failure) Current Visit: Yes Status: Acute Plan: continue patient home lasix dose of 40 mg po BID get Echo (3) Non-STEMI (non-ST elevated myocardial infarction) Current Visit: No Status: Acute Plan: keep patient NPO after midnight for coronary angiogram in am, continue ASA 81 mg daily Continue Plavix 75 mg daily. Continue Lipitor.
[2023-08-14 15:27] LABS: PT Prothrombin Time 11.5 SECONDS (9.5-12.5); PTT, Activated Partial Thromb 30.2 SECONDS (24.3-36.9); Protime INR 1.05
[2023-08-14] MEDS: HEPARIN 5000 UNIT/ML 1 ML VIAL IV SCH (15:54)
[2023-08-14] MEDS: HEPARIN/D5W 25,000 UNIT/500 ML BAG IV SCH (15:57)
--- NOTE | 2023-08-14 16:03 | P.PN ---
Subjective Date of Service: 08/14/23 Chief Complaint: Palpitation Patient denies any complaint today. She is alert and oriented, and communicate meaningfully. Physical Examination - Vital Signs Temperature: 98.1 F Blood Pressure: 136/70 Pulse: 75 Respirations: 17 Pulse Ox (%): 96 - Studies Laboratory Data (last 24 hrs) 08/13/23 08/13/23 19:04 19:04 WBC 16.50 H Hgb 14.9 Hct 44.2 Plt Count 283 Sodium 143 Potassium 3.7 BUN 21 H Creatinine 1.24 H Glucose 193 H Magnesium 1.9 Total Bilirubin 0.6 AST 14 L ALT 19 Alkaline Phosphatase 92 Assessment And Plan - Plan Physical examination General: Alert and oriented x3, NAD, HEENT: Conjunctiva not pale, anicteric sclera Neck: Supple, no elevated JVD Heart: Heart sounds 1 and 2 normal, regular rhythm, normal rate, no pedal edema Lungs: Clear to auscultation bilaterally, adequate breath sounds bilaterally, no rhonchi or crackles. Abdomen: Soft, nondistended, nontender, normal bowel sounds. Extremities: No tenderness, no deformity Skin: Normal skin turgor, no rash, no nodules or ulcers. Neuro: No focal motor deficit. Normal speech. Psychiatry: Normal mood, no agitation. Chest x-ray FINDINGS: Portable technique limits examination quality. Mild interstitial pulmonary edema. The heart is mildly prominent. No displaced fractures.Dual lead pacer device. IMPRESSION: Mild CHF Assessment and Plan Atrial fibrillation with RVR Atrial Fibrillation With RVR on presentation. Status post IV amiodarone. Currently rate controlled Home dose sotalol resumed Cardiology consult. Status post Watchman procedure so patient is not anticoagulated. Acute on chronic CHF Chest x-ray is consistent with CHF IV Lasix Oxygen supplementation as needed echocardiogram ordered Cardiology consulted Diabetes Insulin Sliding Scale Continue basal Insulin Hypertension Continue Home antihypertensives Non-STEMI (non-ST elevated myocardial infarction) Troponin trended up to 1996 Will monitor telemetry. Cardiology consulted. Patient seen by Dr. Hendrickson who is planning cardiac catheterization in a.m. Heparin drip Continue aspirin, Plavix and statin Echocardiogram ordered Discharge Plan: Home
[2023-08-14] MEDS: ATORVASTATIN 20 MG TAB PO SCH (20:48)
[2023-08-14] MEDS: AMITRIPTYLINE 10 MG TAB PO SCH (21:44)
[2023-08-14] MEDS ORDERED: INSULIN GLARGINE 100 UNIT/ML SQ SCH (22:36)
[2023-08-14] MEDS: INSULIN GLARGINE 100 UNIT/ML SQ SCH ×2 (23:00→23:16)
[2023-08-15 03:53] LABS: Absolute Basophils 0.1 K/uL (0-0.5); Absolute Eosinophils 0.5 K/uL (0-0.5); Absolute Lymphocytes (CBC) 1.4 K/uL (0.7-4.9); Absolute Monocytes 0.9 K/uL (0.1-1.3); Eosinophils % 5.2 % (0-4.4); Hematocrit 40.1 % (36.0-45.0); Hemoglobin 13.6 g/dL (12.0-15.0); Lymphocytes % 15.6 % (15.3-44.8); MCHC 33.9 g/dL (32.0-36.0); MCV 94.5 fL (80-100); MPV 8.1 fL (7.6-11.3); Monocytes % 10.6 % (3.3-12.3); Neutrophils % 67.6 % (41.7-73.7); Platelets 204 thou/uL (152-406); RBC Red Blood Cell Count 4.24 M/uL (3.86-4.86); Red Cell Distribution Width 14.2 % (12.1-15.2)
[2023-08-15 04:11] LABS: Anion Gap 9.5 mEq/L (5.0-15.0); Phosphorus 2.2 mg/dL (2.5-4.9); Potassium 3.5 mEq/L (3.5-5.1)
[2023-08-15] MEDS ORDERED: HEPA 1000U/500MLS 2,000 UNIT/1,000 ML BAG IV ONE (06:15)
[2023-08-15] MEDS ORDERED: VERAPAMIL HCL 10 MG/4 ML VIAL IV ONE (06:15)
[2023-08-15] MEDS ORDERED: LIDOCAINE 1% 20 ML MDV ONE (06:15)
[2023-08-15] MEDS ORDERED: NITROGLYCERIN/D5W 50 MG/250 ML BTL IV ONE (06:15)
[2023-08-15] MEDS ORDERED: FENTANYL CITR 100 MCG/2 ML ONE (06:16)
[2023-08-15] MEDS ORDERED: TICAGRELOR 90 MG TABLET PO ONE (06:16)
[2023-08-15] MEDS ORDERED: HEPARIN 5000 UNIT/ML 1 ML VIAL ONE (06:16)
[2023-08-15] MEDS ORDERED: MIDAZOLAM HCL 2 MG/2 ML INJ ONE (06:16)
[2023-08-15] MEDS ORDERED: ATROPINE SULF 1 MG/10 ML SYR IV ONE (06:16)
[2023-08-15] MEDS ORDERED: ASPIRIN 325 MG TAB ONE (06:17)
[2023-08-15] MEDS ORDERED: HEPARIN 10,000 UNIT/10 ML VIAL IV ONE (06:17)
[2023-08-15] MEDS ORDERED: CLOPIDOGREL 75 MG TABLET ONE (06:17)
[2023-08-15] MEDS ORDERED: NA CHLORIDE 0.9% 500 ML ONE (07:05)
[2023-08-15] MEDS ORDERED: KCL 20 MEQ/100 mL IVPB 20 MEQ/100 ML BAG IV SCH (09:00)
[2023-08-15] MEDS: HYDRALAZINE HCL 20 MG/ML VIAL ONE (09:20)
[2023-08-15] MEDS: FUROSEMIDE 20 MG/ 2ML VIAL ONE (10:54)
[2023-08-15] MEDS ORDERED: GLUCAGON 1 MG/VIAL IM PRN (12:46)
[2023-08-15] MEDS ORDERED: D50W 25 GM/50 ML SYRINGE IV PRN (12:46)
[2023-08-15] MEDS: POTASSIUM PHOS IN 0.9 % NACL 15 MMOL/250 ML BAG IV ONE (12:56)
--- NOTE | 2023-08-15 15:43 | EKG ---
Test Date: 2023-08-13 Test Time: 18:43:08 Medical Claims Examiner: DANITA MEASUREMENT RESULTS: Intervals: Rate: 159 AK: QRSD: 118 QT: 290 QTc: 471 [place]: P: AK: QRS: -30 T: 162 INTERPRETIVE STATEMENTS: Atrial fibrillation Left axis deviation Left ventricular hypertrophy with QRS widening Marked ST abnormality, possible inferior subendocardial injury Abnormal ECG Compared to ECG 09/05/2022 04:55:43 Left-axis deviation now present ST (T wave) deviation now present Ventricular-paced complex(es) or rhythm no longer present Ventricular premature complex(es) no longer present T-wave abnormality no longer present Possible ischemia no longer present Electronically Signed On 08-15-23 15:40:05 CDT by Papito Thayer
[2023-08-15] MEDS: INSULIN REGULAR (HUMAN) 100 UNIT/ML SQ SCH (16:30)
--- NOTE | 2023-08-15 17:11 | OP ---
Date of Procedure: 08/15/2023 Surgeon: URBAN VARGAS Procedures Performed: 1.Selective coronary angiogram. 2.Left heart catheterization. Indication: [id number] myocardial infarction. Access: Right femoral artery 6-Jamaican closed with manual pressure. Complications: None. Bleeding: Less than 50 mL. Anesthesia: Total sedation time was 45 minutes. Description Of Procedure: After risks, benefits, and alternatives were explained, patient agreed to procedure and signed informed consent. Patient was brought into cardiac catheterization laboratory, prepped and draped in the usual sterile fashion. Then I accessed right femoral artery using micropun cture kit, ultrasound guidance, and fluoroscopy, placed a 6-Jamaican [place] sheath and took a 6-Frenc h JL3 catheter into the aortic root, engaged the left main, took standard views and then exchanged fo r 6-Jamaican JR4 catheter, engaged the RCA, took standard views, and the catheter was pushed over the w chelo into the LV, measured the LVEDP. Pullback did not record any gradient. Then I removed the mahad ter and the sheath, placed TR band with good hemostasis. Findings: 1.Left main; ostial 30% to 40%, but widely patent stent that goes into the LAD. 2.LAD; proximal to mid LAD stent is patent. In the mid segment, there is 30% iSR and diagonal 2 bra nch has proximal 60%. Rest of the LAD is normal and has HARVEY-3 flow. 3.Left circumflex; there is proximal 50% stenosis. Rest of the left circumflex is normal. 4.RCA; mid diffuse 50% stenosis and smaller vessel. 5.LVEDP is elevated at 18 mmHg. Conclusion: 1.Moderate coronary artery disease. 2.Elevated LVEDP. Recommendation: Medical management. SR/MODL Voice ID: [id number] Report ID: [id number]
--- NOTE | 2023-08-15 17:14 | P.PN ---
Subjective Date of Service: 08/15/23 Chief Complaint: Palpitation Patient denies any complaint. Status postcardiac catheterization today, no PCI done. Blood sugar readings elevated. Physical Examination - Vital Signs Temperature: 98.9 F Blood Pressure: 140/59 Pulse: 81 Respirations: 16 Pulse Ox (%): 92 Assessment And Plan - Plan Physical examination General: Alert and oriented x3, NAD, frail-appearing. HEENT: Anicteric sclera Neck: Supple, no elevated JVD Heart: Heart sounds 1 and 2 normal, regular rhythm, normal rate, no pedal edema Lungs: Clear to auscultation bilaterally, adequate breath sounds bilaterally, no rhonchi or crackles. Abdomen: Soft, nondistended, nontender, normal bowel sounds. Extremities: No tenderness, no deformity Skin: Normal skin turgor, no rash, no nodules or ulcers. Neuro: No focal motor deficit. Normal speech. Psychiatry: Normal mood, no agitation. Assessment and Plan Atrial fibrillation with RVR Atrial Fibrillation With RVR on presentation. Status post IV amiodarone. Patient is currently in sinus rhythm. Occasionally paced rhythm. Home dose sotalol resumed Cardiology input appreciated. Status post Watchman procedure so patient is not anticoagulated. Acute on chronic CHF Chest x-ray consistent with CHF Oxygen supplementation as needed echocardiogram is pending Cardiology cardiology input appreciated. Patient home dose oral Lasix 40 mg twice daily resumed. Diabetes Insulin Sliding Scale Resume basal Insulin Hypertension Continue Home antihypertensives Non-STEMI (non-ST elevated myocardial infarction) Troponin trended up to 1996 Patient seen by cardiology, Dr. Hendrickson who recommended cardiac catheterization. Cardiac catheterization showed moderate coronary artery disease, no PCI done. Medical management recommended. Continue aspirin, Plavix and statin Echocardiogram is pending. Impaired mobility PT consult. Discharge Plan: Home with home health.
--- NOTE | 2023-08-15 17:17 | PN ---
Date of Progress Note: 08/15/2023 Subjective: Seen by bedside. No chest pain, status post coronary angiogram and did not find any new changes. Her angiogram looks similar to the angiogram that was done after her PCI of the LAD and th e left main in the past. Review of Systems: No chest pain, shortness of breath, orthopnea, or cough. No nausea, vomiting, or diarrhea. All othe r systems were reviewed, they were negative. Objective: Vital Signs: Reviewed. Head and Neck: Pupils are equal, reactive to light. Intact eye movements. No JVD. No cervical lym phadenopathy. Neck is supple. Thyroid is not enlarged. Lungs: Clear to auscultation bilaterally. No rhonchi, wheezing, or crackles. No accessory muscle u se. Heart: Irregular. No extra sounds. Abdomen: Soft, nontender. Bowel sounds positive. No organomegaly. No masses or hernia. No rigidi ty or rebound. Extremities: No edema, clubbing, or cyanosis. Intact pulses. Skin: No rash. No nodule. Neurologic: Alert, awake, oriented x3. No acute focal deficits appreciated. Investigations: Troponin peaked at 1900, now it is 1700. BUN 16, creatinine 0.77, hemoglobin 13.6. Assessment And Recommendations: 1.Atrial fibrillation with rapid ventricular response, now it is better with heart rate is controlle d, continue sotalol and baby aspirin. I think she is status post appendage closure. 2.Elevated troponin, likely demand ischemia. Coronary angiogram did not see any acute changes. Ang iogram pretty much similar to 2 years back. Continue aspirin and Plavix and statin. 3.Dyslipidemia. Continue statin. SR/MODL Voice ID: [id number] Report ID: [id number]
[2023-08-15] MEDS ORDERED: ALBUTEROL 2.5 MG/3 ML NEB SOL IH PRN (17:46)
[2023-08-15] MEDS: INSULIN GLARGINE 100 UNIT/ML SQ SCH (18:00)
[2023-08-15] MEDS: FUROSEMIDE 40 MG TABLET PO SCH (18:37)
[2023-08-16 02:59] LABS: Absolute Basophils 0.1 K/uL (0-0.5); Absolute Eosinophils 0.3 K/uL (0-0.5); Absolute Lymphocytes (CBC) 0.9 K/uL (0.7-4.9); Absolute Monocytes 0.9 K/uL (0.1-1.3); Absolute Neutrophil 5.3 K/uL (1.8-8.0); Basophils % 0.8 % (0-1.3); Eosinophils % 3.5 % (0-4.4); Hematocrit 37.9 % (36.0-45.0); Hemoglobin 12.7 g/dL (12.0-15.0); Lymphocytes % 12.5 % (15.3-44.8); MCH 31.9 pg (27.0-35.0); MCHC 33.5 g/dL (32.0-36.0); MCV 95.2 fL (80-100); Monocytes % 12.4 % (3.3-12.3); Neutrophils % 70.8 % (41.7-73.7); Platelets 222 thou/uL (152-406); RBC Red Blood Cell Count 3.99 M/uL (3.86-4.86)
[2023-08-16 03:07] LABS: Anion Gap 9.5 mEq/L (5.0-15.0); Magnesium 1.9 mg/dL (1.6-2.4); Potassium 3.5 mEq/L (3.5-5.1)
[2023-08-16] MEDS: ACETAMINOPHEN 500 MG TAB PO PRN (04:43)
--- NOTE | 2023-08-16 06:54 | ECHO ---
HEIGHT: 5 ft 5 in WEIGHT: 181 lb 0 oz DATE OF STUDY: 08/15/[address]: Piter Hendrickson MD 2-DIMENSIONAL: YES M.MODE: YES DOPPLER: YES COLOR FLOW: YES TDS: YES PORTABLE: YES DEFINITY: BUBBLE STUDY: DIAGNOSIS: ACUTE ON CHRONIC HEART FAILURE CARDIAC HISTORY: CATHERIZATION: YES SURGERY: NO PROSTHETIC VALVE: NO PACEMAKER: YES MEASUREMENTS (cm) DIASTOLIC (NORMALS) SYSTOLIC (NORMALS) IVSd 1.1 (0.6-1.2) LA Diam 3.2 (1.9-4.0) LVEF 57% LVIDd 3.8 (3.5-5.7) LVIDs 2.7 (2.0-3.5) %FS 29% LVPWd 1.1 (0.6-1.2) Ao Diam 2.4 (2.0-3.7) 2 DIMENSIONAL ASSESSMENT: RIGHT ATRIUM: NORMAL LEFT ATRIUM: NORMAL RIGHT VENTRICLE: NORMAL LEFT VENTRICLE: NORMAL TRICUSPID VALVE: MILD TRICUSPID REGURGITATION MITRAL VALVE: NORMAL PULMONIC VALVE: NORMAL AORTIC VALVE: MILD TO MODERATE AORTIC INSUFFICIENCY PERICARDIAL EFFUSION: NONE AORTIC ROOT: NORMAL LEFT VENTRICULAR WALL MOTION: NORMAL DOPPLER/COLOR FLOW: SEE BELOW COMMENTS: 1. NORMAL LEFT VENTRICULAR EJECTION FRACTION 55-60% WITH NORMAL WALL MOTION 2. MODERATE DIASTOLIC DYSFUNCTION 3. MILD TO MODERATE AORTIC INSUFFICIENCY 4. MILD TRICUPSID REGURGITATION TECHNOLOGIST: CHARLY FU
[2023-08-16] MEDS: POTASSIUM 25 MEQ EFFERV TAB PO ONE (08:51)
[2023-08-16 09:22] VITALS: BP 123/58
[2023-08-16 10:37] VITALS: O2SAT 94
[2023-08-16 10:38] VITALS: TEMP 97
--- NOTE | 2023-08-16 12:08 | P.DS ---
Admission Date: 08/13/23 Discharge Date: 08/16/23 Disposition: DC HOME/HOME HEALTH CARE Discharge Condition: FAIR Reason for Admission: Palpitation Brief History of Present Illness: 87-year-old female with past medical history of diabetes mellitus, hypertension, peripheral artery disease, GERD, hyperlipidemia, hypothyroidism, paroxysmal atrial flutter status post pacemaker defibrillator placement who was brought to ER with palpitation and confusion .This started today. Patient does have a history of A-fib as well . Patient is a poor historian hence most of the history is obtained from the chart review and also talking to the ER physician and family at the bedside. States symptoms started all of a sudden. Associated with chest discomfort. No chest pain. Associated with shortness of breath as well. No fever or chills. No sick contacts. Denies any nausea vomiting or diarrhea. Patient was noted to have A-fib with fast rate, blood pressure was initially 70 systolic, improved to about 85-90 per EMS. Denies other acute complaints at this time of interview. Heart rate improved and blood pressure stable. Patient has been admitted for further management Hospital Course: Patient was admitted to the medical floor and the following medical problems addressed: Atrial fibrillation with RVR Patient was a rapid atrial fibrillation on presentation. Status post IV amiodarone. Patient converted to sinus rhythm, occasionally paced rhythm. Home dose sotalol resumed Patient seen and evaluated by cardiology, no changes made in her home medications. Status post Watchman procedure so patient is not anticoagulated. Acute on chronic CHF Chest x-ray consistent with CHF echocardiogram unremarkable and reported normal EF Patient seen and evaluated by cardiology d. Patient home dose oral Lasix 40 mg twice daily resumed. Diabetes Managed with insulin Sliding Scale and basal insulin Home insulin regimen resumed on discharge. Hypertension Continued home antihypertensives Non-STEMI (non-ST elevated myocardial infarction) Troponin trended up to 1996 Patient seen by cardiology, Dr. Hendrickson who recommended cardiac catheterization. Cardiac catheterization showed moderate coronary artery disease, no PCI done. Medical management recommended. Continued aspirin, Plavix and statin Echocardiogram was unremarkable and showed normal EF. Impaired mobility Patient seen and evaluated by PT. She was able to ambulate in the hallway with a walker. Patient is at baseline and deemed stable for discharge. Vital Signs/Physical Exam: Temp Pulse Resp BP Pulse Ox 97.0 F 69 18 123/58 L 93 08/16/23 08:00 08/16/23 08:53 08/16/23 09:54 08/16/23 08:53 08/16/23 09:54 General: Alert, In no apparent distress, Oriented x2 Neck: Supple, JVD not distended Respiratory: Clear to auscultation bilaterally, Normal air movement Cardiovascular: Regular rate/rhythm, Normal S1 S2 Gastrointestinal: Soft and benign, Non-distended Musculoskeletal: No swelling Integumentary: No cyanosis Neurological: Normal strength at 5/5 x4 extr, Cranial nerves 3-12 intact Laboratory Data at Discharge: WBC 7.50 thou/uL (4.3-10.9) 08/16/23 02:40 Hgb 12.7 g/dL (12.0-15.0) 08/16/23 02:40 Hct 37.9 % (36.0-45.0) 08/16/23 02:40 Plt Count 222 thou/uL (152-406) 08/16/23 02:40 PT 11.5 SECONDS (9.5-12.5) 08/14/23 15:09 INR 1.05 08/14/23 15:09 APTT 30.8 SECONDS (24.3-36.9) 08/15/23 08:47 Sodium 141 mEq/L (136-145) 08/16/23 02:40 Potassium 3.5 mEq/L (3.5-5.1) 08/16/23 02:40 BUN 16 mg/dL (7-18) 08/16/23 02:40 Creatinine 0.97 mg/dL (0.55-1.02) 08/16/23 02:40 Glucose 302 mg/dL (74-106) H 08/16/23 02:40 Phosphorus 2.8 mg/dL (2.5-4.9) 08/16/23 02:40 Magnesium Cancelled 08/16/23 03:00 Total Bilirubin 0.4 mg/dL (0.2-1.0) 08/14/23 09:43 AST 23 U/L (15-37) 08/14/23 09:43 ALT 18 U/L (13-56) 08/14/23 09:43 Alkaline Phosphatase 82 U/L (45-117) 08/14/23 09:43 Triglycerides 184 mg/dL (<150) H 08/14/23 09:43 Cholesterol 137 mg/dL (<200) 08/14/23 09:43 HDL Cholesterol 37 mg/dL (40-60) L 08/14/23 09:43 Cholesterol/HDL Ratio 3.70 08/14/23 09:43 Home Medications: Pentoxifylline 400 mg PO TIDWM 09/28/18 Amlodipine Besylate/Benazepril [Amlodipine-Benazepril 10-20 mg] 1 each PO DAILY #30 02/19/20 Atorvastatin Calcium [Lipitor*] 20 mg PO BEDTIME #30 tab 02/19/20 Levothyroxine Sodium [Euthyrox] 88 mcg PO DAILY #30 02/19/20 Sotalol HCl [Betapace*] 80 mg PO BID 6AM 6PM #60 tab 02/19/20 lisinopriL [Lisinopril] 10 mg PO DAILY #30 tablet 02/20/20 Amitriptyline HCl 10 mg PO BEDTIME 02/19/22 Aspirin [Loly Chewable Aspirin] 81 mg PO DAILY 02/19/22 Clopidogrel Bisulfate [Plavix*] 75 mg PO DAILY 02/19/22 Furosemide [Lasix] 60 mg PO BID 02/19/22 Gabapentin [Neurontin*] 300 mg PO Q6HP 02/19/22 Hydrocodone Bit/Acetaminophen [Hydrocodon-Acetaminophen 5-325] 1 each PO TID 02/19/22 Insulin NPH Human Isophane [Novolin N] 26 unit SQ BID 02/19/22 Metoclopramide [Reglan*] 10 ml PO ACHS 02/19/22 Potassium Chloride [Klor-Con] 20 meq PO DAILY 02/19/22 Albuterol Sulfate 1.25 mg IH Q8HP PRN 15 Days #150 ml 07/15/22 Fluticasone/Salmeterol [Advair 250-50 Diskus] 1 each IH BID 30 Days #60 aero 07/15/22 Diet: AHA Activity: Fall precautions Followup: Piter Hendrickson MD [ACTIVE - CAN ADMIT] - ([phone]. [phone] [address]. Call for appointment) Alin Fagan MD [Primary Care Provider] - 1-2 Weeks Time spent managing pt's care (in minutes): 36
--- NOTE | 2023-08-16 13:47 | PN ---
Date of Progress Note: 08/16/2023 Subjective: Seen by bedside. Doing clinically well. Does not have any chest pain, shortness of quirino ath, orthopnea, cough. No nausea, diarrhea, or vomiting. No palpitation. Physical Examination: Vital Signs: Reviewed. Head and Neck: Pupils are equal, reactive to light. Intact eye movements. No JVD. No cervical lym phadenopathy. Neck is supple. Thyroid is not enlarged. Lungs: Clear to auscultation bilaterally. No rhonchi, wheezing, or crackles. No accessory muscle u se. Heart: Irregular. No extra sounds. Abdomen: Soft, nontender. Bowel sounds positive. No organomegaly. No masses or hernia. No rigidi ty or rebound. Extremities: No edema, clubbing, or cyanosis. Intact pulses. Skin: No rash. No nodule. Neurologic: Alert, awake, oriented x3. No acute focal deficits appreciated. Investigations: Labs are reviewed. BUN 16, creatinine 0.97. Assessment/recommendation: 1.Atrial fibrillation with rapid ventricular response. Rate is controlled now. Continue sotalol an d she is status post appendage closure, so continue aspirin. 2.Elevated troponin, this is demand, status post coronary angiogram and no changes in her situation. Continue current management including aspirin and statin. 3.Dyslipidemia. Continue statin with Lipitor. 4.Congestive heart failure, chronic, on Lasix, to be continued. Cardiology will sign off. SR/MODL Voice ID: [id number] Report ID: [id number]
== END 2023-08-16 12:52 | disposition home or self-care (01) | DRG 280 ==
LOC: ER 18:27 → ERHOLD 21:18 → 4TH 08-14 10:59
PROVIDERS: ADMIT Family Medicine; ATTEND Internal Medicine
PROC: 4A023N7 Measurement of Cardiac Sampling and Pressure, Left Heart, Percutaneous Approach (ICD-10-PCS; principal; 2023-08-15)
PROC: B2111ZZ Fluoroscopy of Multiple Coronary Arteries using Low Osmolar Contrast (ICD-10-PCS; 2023-08-15)
DX: I48.91 Unspecified atrial fibrillation (principal); I50.43 Acute on chronic combined systolic (congestive) and diastolic (congestive) heart failure; I21.A1 Myocardial infarction type 2; I11.0 Hypertensive heart disease with heart failure; E03.9 Hypothyroidism, unspecified; I48.92 Unspecified atrial flutter; E78.5 Hyperlipidemia, unspecified; E11.51 Type 2 diabetes mellitus with diabetic peripheral angiopathy without gangrene; K21.9 Gastro-esophageal reflux disease without esophagitis; I25.10 Atherosclerotic heart disease of native coronary artery without angina pectoris; Z79.4 Long term (current) use of insulin; Z79.82 Long term (current) use of aspirin; Z79.899 Other long term (current) drug therapy; Z79.890 Hormone replacement therapy; Z95.810 Presence of automatic (implantable) cardiac defibrillator; Z90.710 Acquired absence of both cervix and uterus; Z87.891 Personal history of nicotine dependence
CPT/HCPCS: 36415; 71045; 76937; 80048; 80053; 80061; 80076; 82947; 83735; 83880; 84100; 84443; 84484; 85025; 85610; 85730; 93005; 93306; 93458; 94760; 96374; 96375; 97116; 97161; 97530; 99152; 99153; 99285; C1893; J0282; J0360; J0461; J1644; J1815; J1940; J2001; J2250; J3010; J7040; Q9967